=== PATIENT | male | born 1960 | race Caucasian/White ===

== ENCOUNTER 2018-11-19 13:38 | Inpatient (IN) | payer MEDICARE ==
[2018-11-19] MEDS ORDERED: VANCOMYCIN IV PER PHARMACY 1 EACH MISC MISCELLANE PRN (14:23)
[2018-11-19] MEDS ORDERED: PIPERACILLIN-TAZOBACTAM 3.375 GM in SODIUM CHLORIDE 0.9% 100 ML IVPB STA (14:23)
[2018-11-19] MEDS ORDERED: MORPHINE SULFATE 4 MG/ML SYRINGE IVP STA (14:24)
[2018-11-19] MEDS ORDERED: VANCOMYCIN 2,500 MG in SODIUM CHLORIDE 0.9% 500 ML 500 ML IVPB STA (14:27)
--- NOTE | 2018-11-19 14:32 | ED ---
Extremity Problem HPI - General Chief complaint: Extremity Problem,Nontraumatic Stated complaint: infection Time Seen by Provider: 11/19/18 13:57 Source: EMS, RN notes reviewed, old records reviewed Mode of arrival: EMS Limitations: physical limitation - History of Present Illness Initial comments: Patient is a 58-year-old male with a history of hypertension and questionable diabetes, who presents emergency department today with multiple complaints. His main complaint is a right foot infection. He states he has not seen a primary care doctor in over a year. He has not been off of his blood pressure medications. Patient reports he also had a previous wound over his right leg and foot. Patient states that he has not followed up with wound care in over 7 months. He presents today with worsening pain within the right lower extremity. Patient states that he has difficult time with ambulation around his house. - Related Data Home Medications Medication Instructions Recorded Confirmed Acetaminophen [Tylenol Arthritis] 1,300 mg PO DAILY PRN 11/19/18 11/19/18 Allergies Allergy/AdvReac Type Severity Reaction Status Date / Time No Known Allergies Allergy Verified 11/19/18 14:00 Review of Systems ROS Statement: Those systems with pertinent positive or pertinent negative responses have been documented in the HPI. ROS Other: All systems not noted in ROS Statement are negative. Past Medical History Past Medical History: Hyperlipidemia, Hypertension, Sleep Apnea/CPAP/BIPAP, Vascular Disorder Additional Past Medical History / Comment(s): CHF, chronic back pain, cellulitis , DVT, nerve pain Past Surgical History: Cholecystectomy, Hernia Repair, Tonsillectomy Past Psychological History: No Psychological Hx Reported Smoking Status: Current every day smoker Past Alcohol Use History: None Reported Past Drug Use History: Marijuana General Exam - General Exam Comments Initial Comments: Morbidly obese 58-year-old male. Patient is malodorous. Limitations: physical limitation General appearance: alert, in no apparent distress Head exam: Present: atraumatic, normocephalic, normal inspection Eye exam: Present: normal appearance, PERRL, EOMI. Absent: scleral icterus, conjunctival injection, periorbital swelling ENT exam: Present: normal exam, mucous membranes moist Neck exam: Present: normal inspection. Absent: tenderness, meningismus, lymphadenopathy Respiratory exam: Present: normal lung sounds bilaterally. Absent: respiratory distress, wheezes, rales, rhonchi, stridor Cardiovascular Exam: Present: regular rate GI/Abdominal exam: Present: soft, normal bowel sounds. Absent: distended, tenderness, guarding, rebound, rigid Extremities exam: Present: full ROM, normal capillary refill, other (Gangrenous necrotic right lower extremity from lower calf. ). Absent: normal inspection, tenderness, pedal edema, joint swelling, calf tenderness Back exam: Present: normal inspection Neurological exam: Present: alert, oriented X3, CN II-XII intact Psychiatric exam: Present: normal affect, normal mood Skin exam: Present: warm, dry, intact, normal color. Absent: rash Course Vital Signs 11/19/18 11/19/18 13:45 17:27 Temperature 97.5 F L Pulse Rate 95 110 H Respiratory 18 18 Rate Blood Pressure 163/85 181/108 O2 Sat by Pulse 95 97 Oximetry Medical Decision Making - Medical Decision Making 58-year-old male, noncompliant on blood pressure medications present today with worsening wound over the right lower extremity. He has been gangrenous infection within the lower calf and winn extending to the dorsum of the foot between the first second third toe. This is very malodorous. Patient's has been doing wound care for the past 7 months. He has not seen payment specialist or been on his hypertensive medicines for over a year. Patient was started on IV Zosyn and vancomycin. Wound culture obtained. I discussed with the Patient the very likely possibility of needing an amputation of the leg. Patient was informed this he became quite upset. Patient labwork was reviewed. Relatively unremarkable at this time. EKG reviewed as well. I discussed the case with the Marc Ramos who accepts the admission for [facility]. She requests consults to Dr. Arnett and Dr. Tyson. - Lab Data Result diagrams: 11/19/18 15:04 11/19/18 15:04 Lab Results 11/19/18 11/19/18 11/19/18 Range/Units 15:04 15:04 15:04 WBC 12.9 H (3.8-10.6) k/uL RBC 5.15 (4.30-5.90) m/uL Hgb 14.8 (13.0-17.5) gm/dL Hct 45.4 (39.0-53.0) % MCV 88.1 (80.0-100.0) fL MCH 28.7 (25.0-35.0) pg MCHC 32.5 (31.0-37.0) g/dL RDW 13.7 (11.5-15.5) % Plt Count 253 (150-450) k/uL Neutrophils % 76 % Lymphocytes % 11 % Monocytes % 6 % Eosinophils % 4 % Basophils % 0 % Neutrophils # 9.9 H (1.3-7.7) k/uL Lymphocytes # 1.4 (1.0-4.8) k/uL Monocytes # 0.8 (0-1.0) k/uL Eosinophils # 0.5 (0-0.7) k/uL Basophils # 0.0 (0-0.2) k/uL PT (9.0-12.0) sec INR (<1.2) APTT (22.0-30.0) sec Sodium 137 (137-145) mmol/L Potassium 4.3 (3.5-5.1) mmol/L Chloride 107 (98-107) mmol/L Carbon Dioxide 21 L (22-30) mmol/L Anion Gap 9 mmol/L BUN 12 (9-20) mg/dL Creatinine 0.76 (0.66-1.25) mg/dL Est GFR (CKD-EPI)AfAm >90 (>60 ml/min/1.73 sqM) Est GFR (CKD-EPI)NonAf >90 (>60 ml/min/1.73 sqM) Glucose 90 (74-99) mg/dL Plasma Lactic Acid Lloyd 1.3 (0.7-2.0) mmol/L Calcium 9.0 (8.4-10.2) mg/dL Total Bilirubin 0.7 (0.2-1.3) mg/dL AST 25 (17-59) U/L ALT 37 (21-72) U/L Alkaline Phosphatase 112 (38-126) U/L Troponin I (0.000-0.034) ng/mL Total Protein 7.4 (6.3-8.2) g/dL Albumin 3.7 (3.5-5.0) g/dL 11/19/18 11/19/18 Range/Units 15:04 15:04 WBC (3.8-10.6) k/uL RBC (4.30-5.90) m/uL Hgb (13.0-17.5) gm/dL Hct (39.0-53.0) % MCV (80.0-100.0) fL MCH (25.0-35.0) pg MCHC (31.0-37.0) g/dL RDW (11.5-15.5) % Plt Count (150-450) k/uL Neutrophils % % Lymphocytes % % Monocytes % % Eosinophils % % Basophils % % Neutrophils # (1.3-7.7) k/uL Lymphocytes # (1.0-4.8) k/uL Monocytes # (0-1.0) k/uL Eosinophils # (0-0.7) k/uL Basophils # (0-0.2) k/uL PT 10.7 (9.0-12.0) sec INR 1.0 (<1.2) APTT 28.3 (22.0-30.0) sec Sodium (137-145) mmol/L Potassium (3.5-5.1) mmol/L Chloride (98-107) mmol/L Carbon Dioxide (22-30) mmol/L Anion Gap mmol/L BUN (9-20) mg/dL Creatinine (0.66-1.25) mg/dL Est GFR (CKD-EPI)AfAm (>60 ml/min/1.73 sqM) Est GFR (CKD-EPI)NonAf (>60 ml/min/1.73 sqM) Glucose (74-99) mg/dL Plasma Lactic Acid Lloyd (0.7-2.0) mmol/L Calcium (8.4-10.2) mg/dL Total Bilirubin (0.2-1.3) mg/dL AST (17-59) U/L ALT (21-72) U/L Alkaline Phosphatase (38-126) U/L Troponin I <0.012 (0.000-0.034) ng/mL Total Protein (6.3-8.2) g/dL Albumin (3.5-5.0) g/dL 11/19/18 16:06 EKG shows a sinus rinse) arrange block. Abnormal EKG. Ventricular rate 91 bpm. Intervals 140 ms. QR estrogen 150 ms. QT QTc is 410/504 ms. - Radiology Data Radiology results: report reviewed X-ray of the tib-fib shows no acute process. Soft tissue swelling of the bilateral feet. Limited visualization skeletal forefoot. Chest x-rays negative for any acute process. Disposition Clinical Impression: Gangrene of right foot, Hypertension Disposition: ADMITTED IP TO THIS HOSP Condition: Stable Is patient prescribed a controlled substance at d/c from ED?: No Referrals: Nolberto Huertas MD [Primary Care Provider] - 1-2 days Time of Disposition: 17:47
[2018-11-19] MEDS: SODIUM CHLORIDE 0.9% 500 ML 500 ML IV SCH ×2 (15:02→15:03)
[2018-11-19] MEDS ORDERED: LORazepam 2 MG/ML INJ IV STA (15:06)
[2018-11-19 15:48] LABS: Basophils % (A) 0 %; Eosinophils # (A) 0.5 k/uL (0-0.7); Eosinophils % (A) 4 %; HCT 45.4 % (39.0-53.0); HGB 14.8 gm/dL (13.0-17.5); Lymphocytes # (A) 1.4 k/uL (1.0-4.8); Lymphocytes % (A) 11 %; MCH 28.7 pg (25.0-35.0); MCHC 32.5 g/dL (31.0-37.0); MCV 88.1 fL (80.0-100.0); Mean Platelet Volume 6.9; Monocytes # (A) 0.8 k/uL (0-1.0); Monocytes % (A) 6 %; Neutrophils # (A) 9.9 k/uL (1.3-7.7); Neutrophils % (A) 76 %; Platelet Count 253 k/uL (150-450); RBC 5.15 m/uL (4.30-5.90); RDW 13.7 % (11.5-15.5); WBC 12.9 k/uL (3.8-10.6)
[2018-11-19 15:59] LABS: ALT 37 U/L (21-72); AST 25 U/L (17-59); Albumin 3.7 g/dL (3.5-5.0); Alkaline Phosphatase 112 U/L (38-126); Anion Gap 9 mmol/L; Blood Urea Nitrogen 12 mg/dL (9-20); Carbon Dioxide 21 mmol/L (22-30); Chloride 107 mmol/L (98-107); Glucose 90 mg/dL (74-99); Potassium 4.3 mmol/L (3.5-5.1); Sodium 137 mmol/L (137-145); Total Bilirubin 0.7 mg/dL (0.2-1.3); Total Protein 7.4 g/dL (6.3-8.2)
[2018-11-19 16:02] LABS: Partial Thromboplastin Time 28.3 sec (22.0-30.0); Prothrombin Time 10.7 sec (9.0-12.0)
[2018-11-19] MEDS ORDERED: HYDROmorphone 1 MG/ML 1 ML SYRINGE IVP STA (16:04)
--- NOTE | 2018-11-19 17:13 | XR ---
EXAMINATION: XR chest 2V DATE AND TIME: 11/19/2018 4:49 PM CLINICAL INDICATION: PHH; Fever TECHNIQUE: PA and lateral COMPARISON: None FINDINGS: The overlying soft tissues are prominent, and the upper extremities are superimposed over the thoraci c anatomy on the lateral view. Given these limiting factors, the lungs appear to be clear. The pleural spaces are negative. The cardiac silhouette is mildly enlarged. The remainder of the mediastinal silhouette is unremarkabl e as seen. The skeletal structures and soft tissues are negative for acute findings. IMPRESSION: NO DEFINITE ACUTE PROCESS.
--- NOTE | 2018-11-19 17:15 | XR ---
PROCEDURE: XR tibia fibula RT - 4V DATE AND TIME: 11/19/2018 4:49 PM CLINICAL INDICATION: PHH; Pain TECHNIQUE: AP and crosstable lateral lateral imaging from the knee to the ankle COMPARISON: None FINDINGS: There is no fracture or malalignment. The soft tissues are unremarkable for definite acute findings. IMPRESSION: NO ACUTE PROCESS.
--- NOTE | 2018-11-19 17:19 | XR ---
PROCEDURE: XR foot limited bilateral - 4V DATE AND TIME: 11/19/2018 4:49 PM CLINICAL INDICATION: PHH; Pain TECHNIQUE: Department protocol COMPARISON: None FINDINGS: There is limited dorsiflexion of the DIP joints and dorsiflexion at most of the PIP joints, and this limits visualization of the anatomy. Diffuse soft tissue swelling throughout the foot noted. No definite soft tissue emphysema. No radiopa que foreign body. No definite acute fracture. No focal osteopenia to suggest radiographic evidence of osteomyelitis. IMPRESSION: Soft tissue swelling. Limited visualization skeletal of the forefoot.
[2018-11-19] MEDS ORDERED: IBUPROFEN 400 MG TAB PO PRN (17:47)
[2018-11-19] MEDS ORDERED: ONDANSETRON 4 MG/2 ML VIAL IVP PRN (17:47)
[2018-11-19] MEDS ORDERED: ACETAMINOPHEN TAB 325 MG TAB PO PRN (17:47)
[2018-11-19] MEDS ORDERED: NALOXONE 0.4 MG/ML 1 ML VIAL IV PRN (17:47)
[2018-11-19] MEDS ORDERED: LABETALOL 5 MG/ML VIAL MDV IVP STA (18:00)
[2018-11-19] MEDS: SODIUM CHLORIDE 0.9% 1,000 ML IV SCH (18:15)
[2018-11-19 19:49] LABS: Appearance,Urine Cloudy (Clear); Bacteria,Urine Many /hpf; Bilirubin,Urine Negative (Negative); Blood,Urine Moderate (Negative); Color,Urine Yellow; Glucose,Urine (UA) Negative (Negative); Ketones,Urine 1+ (Negative); Leukocyte Esterase,Urine Large (Negative); Mucus,Urine Many /hpf; Nitrite,Urine Positive (Negative); PH, Urine 5.5 (5.0-8.0); Protein,Urine 1+ (Negative); RBC,Urine 10 /hpf (0-5); Specific Gravity,Urine 1.021 (1.001-1.035); Urobilinogen,Urine <2.0 mg/dL (<2.0); WBC,Urine 37 /hpf (0-5)
[2018-11-19] MEDS: KETOROLAC 30 MG/ML 1 ML VIAL IVP PRN (22:05)
[2018-11-19] MEDS: METOPROLOL TARTRATE 25 MG TAB PO SCH (22:05)
[2018-11-20] MEDS: NICOTINE 21MG/24HR PATCH TRANSDERM SCH ×2 (00:48→09:35)
[2018-11-20] MEDS: HEPARIN SODIUM,PORCINE 5,000 UNIT/ML 1 ML VIAL SQ SCH ×3 (00:48→17:51)
[2018-11-20] MEDS: HYDROmorphone 1 MG/ML 1 ML SYRINGE IVP PRN ×4 (00:53→19:45)
[2018-11-20] MEDS: VANCOMYCIN 2,250 MG in SODIUM CHLORIDE 0.9% 500 ML 500 ML IVPB SCH ×2 (05:39→17:52)
[2018-11-20] MEDS: KETOROLAC 30 MG/ML 1 ML VIAL IVP PRN ×3 (05:40→22:50)
[2018-11-20] MEDS: METOPROLOL TARTRATE 25 MG TAB PO SCH ×2 (09:37→20:28)
--- NOTE | 2018-11-20 11:47 | P.GSCN ---
History of Present Illness Consult date: 11/20/18 Reason for Consult: Right foot pain and ulcerations History of present illness: It is a bit difficult to get a good history from this gentleman. He is complaining of severe pain in the right foot. He states that it has been this severe. About a month. He has failed to get treatment for about 5 months for the wounds on his right foot. It is bit difficult to tell by his history but it seems that his wounds on the right lower extremity have gone on for longer than 5 months. Review of Systems The patient is very difficult to get a history from. What I can discern is that he has been a victim of severe self-neglect. He continues to smoke but has failed to treat his own hypertension or seek medical attention 4 months. He has ignored the ulcerations in his right foot during this time. He was previously being treated at [facility]. ROS unobtainable: due to mental status Past Medical History Past Medical History: Hyperlipidemia, Hypertension, Sleep Apnea/CPAP/BIPAP, Vascular Disorder Additional Past Medical History / Comment(s): CHF, chronic back pain, cellulitis , DVT, nerve pain History of Any Multi-Drug Resistant Organisms: None Reported Past Surgical History: Cholecystectomy, Hernia Repair, Tonsillectomy Past Psychological History: No Psychological Hx Reported Smoking Status: Current every day smoker Past Alcohol Use History: None Reported Past Drug Use History: Marijuana Medications and Allergies Home Medications Medication Instructions Recorded Confirmed Type Acetaminophen [Tylenol Arthritis] 1,300 mg PO DAILY PRN 11/19/18 11/19/18 History Allergies Allergy/AdvReac Type Severity Reaction Status Date / Time No Known Allergies Allergy Verified 11/19/18 14:00 Surgical - Exam Osteopathic Statement: *. No significant issues noted on an osteopathic structural exam other than those noted in the History and Physical/Consult. Vital Signs Temp Pulse Resp BP Pulse Ox 97.5 F L 95 18 163/85 95 11/19/18 13:45 11/19/18 13:45 11/19/18 13:45 11/19/18 13:45 11/19/18 13:45 - General The patient is complaining of severe pain in the right foot. He states that this is been going on for a month. He is only now sought treatment. severe distress, obese - Eyes normal ocular movement, no icteric - ENT no hearing loss, no congestion - Neck no masses, trachea midline - Respiratory normal respiratory effort, clear to auscultation - Cardiovascular Rhythm: regular - Integumentary The patient has L-like skin in both lower legs secondary to chronic lymphedema secondary to morbid obesity. He has large ulcerations at the distal right forefoot and scattered smaller ulcerations on the rest of the foot. - Musculoskeletal Patient is in bed and is hospitalized due to lack of ability to walk due to the pain in his right foot He has normal femoral pulses and although a bit difficult to palpate I do think I'm feeling a pulse in the popliteal on the right. - Psychiatric Patient is complaining of pain and is difficult to talk to. Results - Labs 11/19/18 15:04 11/19/18 15:04 Abnormal Lab Results - Last 24 Hours (Table) 11/19/18 11/19/18 11/19/18 Range/Units 15:04 15:04 19:34 WBC 12.9 H (3.8-10.6) k/uL Neutrophils # 9.9 H (1.3-7.7) k/uL Carbon Dioxide 21 L (22-30) mmol/L Urine Protein 1+ H (Negative) Urine Ketones 1+ H (Negative) Urine Blood Moderate H (Negative) Ur Leukocyte Esterase Large H (Negative) Urine RBC 10 H (0-5) /hpf Urine WBC 37 H (0-5) /hpf Urine Bacteria Many H (None) /hpf Urine Mucus Many H (None) /hpf Microbiology - Last 24 Hours (Table) 11/19/18 15:41 Gram Stain - Preliminary Foot - Right Wound Culture - Preliminary 11/19/18 19:34 Urine Culture - Preliminary Urine,Clean Catch Diabetes panel 11/19/18 Range/Units 15:04 Sodium 137 (137-145) mmol/L Potassium 4.3 (3.5-5.1) mmol/L Chloride 107 (98-107) mmol/L Carbon Dioxide 21 L (22-30) mmol/L BUN 12 (9-20) mg/dL Creatinine 0.76 (0.66-1.25) mg/dL Glucose 90 (74-99) mg/dL Calcium 9.0 (8.4-10.2) mg/dL AST 25 (17-59) U/L ALT 37 (21-72) U/L Alkaline Phosphatase 112 (38-126) U/L Total Protein 7.4 (6.3-8.2) g/dL Albumin 3.7 (3.5-5.0) g/dL Calcium panel 11/19/18 Range/Units 15:04 Calcium 9.0 (8.4-10.2) mg/dL Albumin 3.7 (3.5-5.0) g/dL Pituitary panel 11/19/18 Range/Units 15:04 Sodium 137 (137-145) mmol/L Potassium 4.3 (3.5-5.1) mmol/L Chloride 107 (98-107) mmol/L Carbon Dioxide 21 L (22-30) mmol/L BUN 12 (9-20) mg/dL Creatinine 0.76 (0.66-1.25) mg/dL Glucose 90 (74-99) mg/dL Calcium 9.0 (8.4-10.2) mg/dL Adrenal panel 11/19/18 Range/Units 15:04 Sodium 137 (137-145) mmol/L Potassium 4.3 (3.5-5.1) mmol/L Chloride 107 (98-107) mmol/L Carbon Dioxide 21 L (22-30) mmol/L BUN 12 (9-20) mg/dL Creatinine 0.76 (0.66-1.25) mg/dL Glucose 90 (74-99) mg/dL Calcium 9.0 (8.4-10.2) mg/dL Total Bilirubin 0.7 (0.2-1.3) mg/dL AST 25 (17-59) U/L ALT 37 (21-72) U/L Alkaline Phosphatase 112 (38-126) U/L Total Protein 7.4 (6.3-8.2) g/dL Albumin 3.7 (3.5-5.0) g/dL Assessment and Plan (1) Ulcer of right foot with fat layer exposed Current Visit: Yes Status: Acute Code(s): L97.512 - NON-PRS CHRONIC ULCER OTH PRT RIGHT FOOT W FAT LAYER EXPOSED SNOMED Code(s): 96524435 Plan: I do not feel that an urgent amputation is in order at this time. I have ordered a lower extremity arterial Doppler to get a gross assessment of his circulatory status. Once we are certain of his hydration status I would recommend consideration of a CT angiogram of the aorta and with runoff. For now I would use standard wound care and we will continue to assess things as his condition seems to improve. Amputation may at some time be necessary, but his problem may be amenable to a much more consistent and aggressive wound therapy.
[2018-11-20] MEDS: SODIUM CHLORIDE 0.9% 1,000 ML IV SCH (18:37)
--- NOTE | 2018-11-20 19:38 | P.HPIM ---
History of Present Illness H&P Date: 11/20/18 Chief Complaint: Right foot pain Patient is a 58-year-old male with a known history of hypertension, hyperlipidemia, obstructive sleep apnea on CPAP, chronic back pain and chronic bilateral lower extremity swelling or has been having right foot ulceration and gangrenous changes of the second toe which has been present for the past 3 months and is getting worse. Patient came to the hospital with complaints of right foot infection. Patient does not have a primary care physician and has not seen a physician for over one year. Patient is not taking any medications at home. He does have history of food impaction previously. Patient states that he has not followed up with wound care in over 7 months. He presents with worsening pain within the right lower extremity. Patient states that he has difficult time with ambulation around his house. Denied any fever or chills. No nausea, vomiting or abdominal pain. CXR showed no acute process. Rt foot Xray: soft tissue swelling and limited visualization of skeletal of the forefoot. EKG. NSR. Xray tibia/fibula: No acute process. Patient is a poor historian Review of Systems Constitutional: Patient denies any fever or chills . No generalized weakness or weight loss. Abdomen: Patient denied nausea vomiting and diarrhea and abdominal pain. Cardiovascular: Patient denies any chest pain or short of breath no palpitations. Respiratory: patient denied any cough is from production. No shortness of breath Neurologic: Patient denied any numbness or tingling headache. Musculoskeletal: Patient denies any complaints of joint swelling or deformity. Right foot pain. Skin: Negative Psychiatric: Negative Endocrine: No heat or cold intolerance. No recent weight gain. Genitourinary: No dysuria or hematuria. All other 14 point ROS negative except the above Past Medical History Past Medical History: Hyperlipidemia, Hypertension, Sleep Apnea/CPAP/BIPAP, Vascular Disorder Additional Past Medical History / Comment(s): CHF, chronic back pain, cellulitis , DVT, nerve pain History of Any Multi-Drug Resistant Organisms: None Reported Past Surgical History: Cholecystectomy, Hernia Repair, Tonsillectomy Past Psychological History: No Psychological Hx Reported Smoking Status: Current every day smoker Past Alcohol Use History: None Reported Past Drug Use History: Marijuana Medications and Allergies Home Medications Medication Instructions Recorded Confirmed Type Acetaminophen [Tylenol Arthritis] 1,300 mg PO DAILY PRN 11/19/18 11/19/18 History Allergies Allergy/AdvReac Type Severity Reaction Status Date / Time No Known Allergies Allergy Verified 11/19/18 14:00 Physical Exam Vitals: Vital Signs Temp Pulse Pulse Resp BP BP Pulse Ox 11/20/18 10:29 94 19 11/20/18 08:28 97.5 F L 94 19 121/80 11/20/18 07:13 97.7 F 90 18 159/87 95 11/19/18 22:40 98.9 F 101 H 18 134/84 95 11/19/18 20:14 109 H 18 175/94 96 11/19/18 19:32 108 H 18 174/93 95 11/19/18 18:40 156/89 11/19/18 18:16 109 H 18 185/90 96 11/19/18 17:27 110 H 18 181/108 97 11/19/18 13:45 97.5 F L 95 18 163/85 95 Intake and Output 11/19/18 11/20/18 11/20/18 22:59 06:59 14:59 Output Total 400 Balance -400 Output: Urine 400 Other: # Voids 2 PHYSICAL EXAMINATION: Patient is lying in the bed comfortably, no acute distress, awake alert and oriented. Mildly obese. HEENT: Normocephalic. Neck is supple. Pupils reactive. Nostrils clear. Oral cavity is moist. Ears reveal no drainage. Neck reveals no JVD, carotid bruits, or thyromegaly. CHEST EXAMINATION: Trachea is central. Symmetrical expansion. Bibasilar diminished air entry Lung liang clear to auscultation and percussion. CARDIAC: Normal S1, S2 with no gallops. No murmurs ABDOMEN: Soft. Bowel sounds normal. No organomegaly. No abdominal bruits. Extremities: 2+ nonpitting edema. Right foot dorsal ulcer extending all the way to second toe and gangrenous changes to second 2 Neurologically awake, alert, oriented x3 with well-coordinated movements. No focal deficits noted Skin: Patient does have bilateral scaling and dry skin changes. Psychiatric: Coperative. Nonsuicidal. Could not be assessed completely. Musculoskeletal: No joint swelling or deformity. Normal range of motion. Results CBC & Chem 7: 11/19/18 15:04 11/19/18 15:04 Labs: Abnormal Lab Results - Last 24 Hours (Table) 11/19/18 11/19/18 11/19/18 Range/Units 15:04 15:04 19:34 WBC 12.9 H (3.8-10.6) k/uL Neutrophils # 9.9 H (1.3-7.7) k/uL Carbon Dioxide 21 L (22-30) mmol/L Urine Protein 1+ H (Negative) Urine Ketones 1+ H (Negative) Urine Blood Moderate H (Negative) Ur Leukocyte Esterase Large H (Negative) Urine RBC 10 H (0-5) /hpf Urine WBC 37 H (0-5) /hpf Urine Bacteria Many H (None) /hpf Urine Mucus Many H (None) /hpf Microbiology - Last 24 Hours (Table) 11/19/18 15:41 Gram Stain - Preliminary Foot - Right Wound Culture - Preliminary 11/19/18 19:34 Urine Culture - Preliminary Urine,Clean Catch Thrombosis Risk Factor Assmnt - DVT/VTE Prophylaxis DVT/VTE Prophylaxis: Pharmacologic Prophylaxis ordered - Choose All That Apply Each Factor Represents 1 point: Age 41-60 years, Obesity (BMI >25) Other Risk Factors: No Thrombosis Risk Factor Assessment Total Risk Factor Score: 2 Thrombosis Risk Factor Assessment Level: Low Risk Assessment and Plan Assessment: Right foot wound infection with gangrenous changes to the 2nd toe. Sepsis secondary to above. Acute urinary tract infection Hypertension uncontrolled Morbid obesity with BMI 50.2 Chronic lower extremity swelling and scaling with dry skin Peripheral vascular disease. Hyperlipidemia Obstructive sleep apnea not using CPAP at home Current every day smoker History of marijuana use DVT prophylaxis Plan: Patient will be continued on antibiotics in the form of vancomycin and Zosyn. Follow up wound culture report. Vascular surgery and ID will be consulted. Continue with current pain management and DVT prophylaxis. Further admissions based on the clinical course. prognosis is guarded. Time with Patient: Greater than 30
[2018-11-20] MEDS: PIPERACILLIN-TAZOBACTAM 3.375 GM in SODIUM CHLORIDE 0.9% 100 ML IVPB SCH (22:01)
[2018-11-21] MEDS: HEPARIN SODIUM,PORCINE 5,000 UNIT/ML 1 ML VIAL SQ SCH ×4 (01:21→23:28)
[2018-11-21] MEDS: HYDROmorphone 1 MG/ML 1 ML SYRINGE IVP PRN ×4 (01:25→12:05)
[2018-11-21] MEDS: PIPERACILLIN-TAZOBACTAM 3.375 GM in SODIUM CHLORIDE 0.9% 100 ML IVPB SCH ×3 (04:44→22:10)
[2018-11-21] MEDS: VANCOMYCIN 2,250 MG in SODIUM CHLORIDE 0.9% 500 ML 500 ML IVPB SCH ×2 (06:44→22:09)
--- NOTE | 2018-11-21 07:32 | CONS ---
CONSULTATION DATE OF SERVICE: 11/20/2018. REASON FOR CONSULTATION: Right foot wound and cellulitis. HISTORY OF PRESENT ILLNESS: The patient is a 58-year-old male presenting to the ER at [facility] with right foot ulceration and pain that apparently has been ongoing for a couple of months now. The patient denies any history of any trauma. He did have significant swelling of the leg, blister formation that has ruptured. ulceration mostly on the dorsum of the right foot, and significant changes to the right second toe and right lower leg. The patient has been complaining of excruciating pain to these wound areas almost 10/10, and worse with touching of the wound. No radiation. This wound pain is also associated with significant swelling as well as foul-smelling drainage. The patient did have some chills but denies any high-grade fever. With these symptoms, the patient was evaluated by the ER physician. On arrival to the ER, the patient has been afebrile. The patient did have elevated white count of 12.9. His kidney function normalized to 0.76. UA has been positive. He did have blood and wound cultures obtained from the leg wound. He did have x-rays of the tibia- fibula and the foot which shows some soft tissue swelling but no bony changes. The patient was started on broad-spectrum antibiotics in the form of vancomycin and Zosyn. Infectious Disease was consulted for local wound care as well as antibiotic recommendation. REVIEW OF SYSTEMS: Positive points have been mentioned in HPI. The rest of the system has been negative. PAST MEDICAL HISTORY: Hypertension, hyperlipidemia. Sleep apnea, history of DVT, chronic back pain, congestive heart failure. PAST SURGICAL HISTORY: Cholecystectomy, hernia repair and tonsillectomy. SOCIAL HISTORY: Patient current everyday smoker and admitted to marijuana use but no drinking. FAMILY HISTORY: No pertinent findings noticed. ALLERGIES: No known drug allergies. MEDICATIONS: The patient is currently on Tylenol, heparin, Dilaudid, Toradol, Lopressor Narcan, nicotine patch, Zofran and Zosyn and vancomycin 2250 mg q.12 hours. EXAMINATION: Blood pressure is 129/83, pulse of 78, temperature 97.3. He is 95% on room air. General description is a middle-aged male who looks older than his age, lying in bed in no distress. No tachypnea or accessory muscles of respiration use. HEENT: Shows no pallor or scleral icterus. Oral mucosal membranes are dry. No pharyngeal erythema or thrush. Neck: Trachea central. No thyromegaly. Lungs: Unlabored breathing. Clear to auscultation anteriorly. No wheeze or crackles. Heart S1-S2 regular rate and rhythm. ABDOMEN: Soft. No tenderness. Right leg with some venous stasis changes. Did have some superficial ulceration on the right anterior leg with no slough tissue. On the right foot, the patient did have significant soft tissue significant maceration with Nhi changes right second toe and foul smelling drainage. Neurological: Patient is awake, alert, oriented x3. Mood and affect normal. LABS: Hemoglobin is 14.8, white count 12.9, BUN of 12, creatinine 0.76. UA has been positive. X-ray report as mentioned earlier. DIAGNOSTIC IMPRESSION AND PLAN: Patient admitted to the hospital with extensive right foot wound with secondary cellulitis. This patient did have venous changes to his right second toe with most likely venous stasis ulcer with secondary cellulitis and will need to cover for the gram-positive skin fred as well gram negative infection. PLAN: 1. Wound culture has been obtained. Will follow as well as blood culture. 2. Local wound care to the right leg wound with Aquacel silver or Medihoney to the right foot wound with slough tissue. 3. Vancomycin, pharmacy to dose, target of 15 while watching his kidney function closely as well as Zosyn that should provide adequate coverage for his antibiotic therapy. 4. We will follow up on his clinical condition to further adjust medication if needed. Thank you for this consultation. We will follow this patient along with you. MMODL / IJN: [id number] /
[2018-11-21] MEDS: METOPROLOL TARTRATE 25 MG TAB PO SCH ×2 (08:12→22:09)
[2018-11-21] MEDS: NICOTINE 21MG/24HR PATCH TRANSDERM SCH (08:12)
[2018-11-21] MEDS: SODIUM CHLORIDE 0.9% 1,000 ML IV SCH (22:10)
[2018-11-22] MEDS: LISINOPRIL 10 MG TAB PO SCH ×2 (00:24→07:38)
[2018-11-22] MEDS: HYDROmorphone 1 MG/ML 1 ML SYRINGE IVP PRN ×6 (00:31→20:30)
[2018-11-22 03:07] LABS: Basophils # (A) 0.1 k/uL (0-0.2); Basophils % (A) 1 %; Eosinophils # (A) 0.4 k/uL (0-0.7); Eosinophils % (A) 7 %; HCT 44.9 % (39.0-53.0); HGB 14.4 gm/dL (13.0-17.5); Lymphocytes # (A) 1.7 k/uL (1.0-4.8); Lymphocytes % (A) 27 %; MCH 28.3 pg (25.0-35.0); MCV 88.5 fL (80.0-100.0); Mean Platelet Volume 7.1; Monocytes # (A) 0.5 k/uL (0-1.0); Monocytes % (A) 8 %; Neutrophils # (A) 3.5 k/uL (1.3-7.7); Neutrophils % (A) 55 %; Platelet Count 278 k/uL (150-450); RBC 5.08 m/uL (4.30-5.90); RDW 13.6 % (11.5-15.5); WBC 6.4 k/uL (3.8-10.6)
[2018-11-22] MEDS: PIPERACILLIN-TAZOBACTAM 3.375 GM in SODIUM CHLORIDE 0.9% 100 ML IVPB SCH ×3 (04:04→20:30)
[2018-11-22] MEDS: VANCOMYCIN 2,250 MG in SODIUM CHLORIDE 0.9% 500 ML 500 ML IVPB SCH ×2 (07:38→17:05)
[2018-11-22] MEDS: NICOTINE 21MG/24HR PATCH TRANSDERM SCH (07:38)
[2018-11-22] MEDS: METOPROLOL TARTRATE 25 MG TAB PO SCH ×2 (07:38→20:30)
[2018-11-22] MEDS: HEPARIN SODIUM,PORCINE 5,000 UNIT/ML 1 ML VIAL SQ SCH ×2 (07:39→15:10)
--- NOTE | 2018-11-22 07:52 | PN ---
PROGRESS NOTE DATE OF SERVICE: 11/21/2018. REASON FOR FOLLOWUP: Right foot and leg wound. INTERVAL HISTORY: The patient is afebrile. He is still complaining of significant pain to his left foot wound area. The patient denies having any chest pain, shortness of breath, cough. No abdominal pain. No diarrhea. PHYSICAL EXAMINATION: Blood pressure 136/95 with a pulse of 81, temperature 97.3. He is 97% on room air. General description is a middle-aged male lying in bed in no distress. Respiratory system: Unlabored breathing. Clear to auscultation anteriorly. Heart S1, S2. Regular rate and rhythm. Right foot dorsal wounds still have some slough tissue. Leg wound with no slough tissue though. Some surrounding swelling and foul smelling drainage. LABS: No new labs have been obtained today. Cultures currently pending. DIAGNOSTIC IMPRESSION AND PLAN: Patient with right foot and leg wound with possible gangrene of right second toe. The patient at this time continue with the Zosyn and vancomycin while waiting for the culture to finalize. Continue supportive care. MMODL / IJN: [id number] /
[2018-11-22 11:32] LABS: Anion Gap 8 mmol/L; Blood Urea Nitrogen 8 mg/dL (9-20); Calcium 8.3 mg/dL (8.4-10.2); Carbon Dioxide 22 mmol/L (22-30); Chloride 106 mmol/L (98-107); Glucose 80 mg/dL (74-99); Sodium 136 mmol/L (137-145)
--- NOTE | 2018-11-22 12:22 | P.PN ---
Subjective Progress Note Date: 11/22/18 Principal diagnosis: Cellulitis with ulcerations right foot and leg Patient is much more stable at this time. He still has a lot of pain with dressing changes. Objective - Vital Signs Vital signs: Vital Signs Temp 97.4 F L 11/22/18 06:15 Pulse 80 11/22/18 06:15 Resp 20 11/22/18 06:15 BP 178/93 11/22/18 06:15 Pulse Ox 97 11/22/18 06:15 Intake & Output 11/21/18 11/22/18 11/22/18 18:59 06:59 18:59 Intake Total 850 Output Total 400 600 Balance -400 850 -600 Weight 142 kg Intake: Oral 850 Output: Urine 400 600 Other: Voiding Method Urinal Urinal Urinal # Voids 3 - Exam He is afebrile. His white count is normalized. The ulcers on his right foot and lower leg are improving. They're cleaning up well. There is less swelling in the foot and leg. - Labs CBC & Chem 7: 11/21/18 11:55 11/21/18 11:55 Labs: Abnormal Lab Results - Last 24 Hours (Table) 11/21/18 Range/Units 11:55 Sodium 136 L (137-145) mmol/L BUN 8 L (9-20) mg/dL Calcium 8.3 L (8.4-10.2) mg/dL Microbiology - Last 24 Hours (Table) 11/19/18 15:41 Gram Stain - Final Foot - Right Wound Culture - Final 11/19/18 15:04 Blood Culture - Preliminary Blood No Growth after 48 hours Assessment and Plan (1) Ulcer of right foot with fat layer exposed Current Visit: Yes Status: Acute Code(s): L97.512 - NON-PRS CHRONIC ULCER OTH PRT RIGHT FOOT W FAT LAYER EXPOSED SNOMED Code(s): 41636631 Plan: There is been significant improvement in the general condition of the patient, as well as the general look of the foot and the ulcerations. Vascular studies look essentially normal in regards to the major vessels. There is no gangrene is originally stated, as far as I can see. Recommend continuing with local wound care with Holger wrap and leg elevation. We will need to make some sort of arrangements in regards to discharge. The patient will not likely be able to weight-bear on the right foot. This is complicated by his severe obesity. He was in a condition of significant self- neglect prior to his admission. My current recommendation would likely be to discharge to some form of ECF.
[2018-11-22] MEDS: SODIUM CHLORIDE 0.9% 1,000 ML IV SCH (15:10)
--- NOTE | 2018-11-22 23:46 | PN ---
PROGRESS NOTE DATE OF SERVICE: 11/22/2018 REASON FOR FOLLOWUP: Right foot infected wound with possible gangrene in the second toe. INTERVAL HISTORY: The patient is afebrile. He is currently breathing comfortably. Patient denies having any chest pain, cough, abdominal pain, or worsening pain to the right foot. PHYSICAL EXAMINATION: Blood pressure is 183/94 with pulse of 81, temperature 97.2. He is 96% on 2 L nasal cannula. General description is a middle-aged male lying in bed in no distress. Respiratory system: Unlabored breathing. Clear to auscultation anteriorly. Heart S1, S2. Regular rate. Abdomen soft, no tenderness. The right foot is currently dressed up. No obvious drainage on the dressing. LABS: The wound cultures currently pending. Creatinine 0.75. Blood culture has been negative. DIAGNOSTIC IMPRESSION AND PLAN: Patient with right foot and leg wound with right second toe gangrene. Current local wound care to continue as ordered. He is currently on Zosyn and vanco to continue that could be narrowed down if the culture remains negative for resistant pathogen. Continue supportive care. MMODL / IJN: [id number] /
[2018-11-23] MEDS: HEPARIN SODIUM,PORCINE 5,000 UNIT/ML 1 ML VIAL SQ SCH ×4 (00:41→23:51)
[2018-11-23] MEDS: HYDROmorphone 1 MG/ML 1 ML SYRINGE IVP PRN ×3 (00:41→08:34)
--- NOTE | 2018-11-23 02:05 | P.PN ---
Subjective Progress Note Date: 11/21/18 Principal diagnosis: Right foot dorsal ulcer and cellulitis Patient is a 58-year-old male with a known history of hypertension, hyperlipidemia, obstructive sleep apnea on CPAP, chronic back pain and chronic bilateral lower extremity swelling or has been having right foot ulceration and gangrenous changes of the second toe which has been present for the past 3 months and is getting worse. Patient came to the hospital with complaints of right foot infection. Patient does not have a primary care physician and has not seen a physician for over one year. Patient is not taking any medications at home. He does have history of food impaction previously. Patient states that he has not followed up with wound care in over 7 months. He presents with worsening pain within the right lower extremity. Patient states that he has difficult time with ambulation around his house. Denied any fever or chills. No nausea, vomiting or abdominal pain. CXR showed no acute process. Rt foot Xray: soft tissue swelling and limited visualization of skeletal of the forefoot. EKG. NSR. Xray tibia/fibula: No acute process. Patient is a poor historian 11/21/2097 Patient is still having right foot pain. Dressing changes and wound care is being continued. Patient is being continued on broad-spectrum antibiotics. Arterial vascular studies were ordered. Wound culture showed multiple organisms. Vascular surgery and ID is following. No surgical intervention recommended at this time. No fever no chills. No nausea vomiting or abdominal pain. No other acute overnight issues. Current medications reviewed. Objective - Vital Signs Vital signs: Vital Signs Temp 97.4 F L 11/22/18 06:15 Pulse 80 11/22/18 06:15 Resp 20 11/22/18 06:15 BP 178/93 11/22/18 06:15 Pulse Ox 97 11/22/18 06:15 Intake & Output 11/21/18 11/22/18 11/22/18 18:59 06:59 18:59 Intake Total 850 Output Total 400 600 Balance -400 850 -600 Weight 142 kg Intake: Oral 850 Output: Urine 400 600 Other: Voiding Method Urinal Urinal Urinal # Voids 3 - Exam PHYSICAL EXAMINATION: Patient is lying in the bed comfortably, no acute distress, awake alert and oriented. Morbidly obese. HEENT: Normocephalic. Neck is supple. Pupils reactive. Nostrils clear. Oral cavity is moist. Ears reveal no drainage. Neck reveals no JVD, carotid bruits, or thyromegaly. CHEST EXAMINATION: Trachea is central. Symmetrical expansion. Bibasilar diminished air entry Lung liang clear to auscultation and percussion. CARDIAC: Normal S1, S2 with no gallops. No murmurs ABDOMEN: Soft. Bowel sounds normal. No organomegaly. No abdominal bruits. Extremities: 1+ edema. Right foot dorsal ulcer extending all the way to second toe. No gangrenous changes as compared to initial evaluation. Neurologically awake, alert, oriented x3 with well-coordinated movements. No focal deficits noted Skin: Patient does have bilateral scaling and dry skin changes. Psychiatric: Coperative. Nonsuicidal. Could not be assessed completely. Musculoskeletal: No joint swelling or deformity. Normal range of motion. - Labs CBC & Chem 7: 11/21/18 11:55 11/22/18 16:42 Labs: Abnormal Lab Results - Last 24 Hours (Table) 11/21/18 Range/Units 11:55 Sodium 136 L (137-145) mmol/L BUN 8 L (9-20) mg/dL Calcium 8.3 L (8.4-10.2) mg/dL Microbiology - Last 24 Hours (Table) 11/19/18 15:41 Gram Stain - Final Foot - Right Wound Culture - Final 11/19/18 15:04 Blood Culture - Preliminary Blood No Growth after 48 hours Assessment and Plan Assessment: Right foot dorsal ulcer and cellulitis. wound infection. No gangrenous changes as previously thought.. Sepsis secondary to above. Acute urinary tract infection. Urine cultures show no growth. Hypertension uncontrolled Morbid obesity with BMI 50.2 Chronic lower extremity swelling and scaling with dry skin Peripheral vascular disease. Hyperlipidemia Obstructive sleep apnea not using CPAP at home Current every day smoker History of marijuana use DVT prophylaxis Plan: Patient will be continued on antibiotics in the form of vancomycin and Zosyn. Follow up wound culture report. Vascular surgery and ID is following further recommendations based on the final wound cultures.. Continue with current pain management and DVT prophylaxis. Further admissions based on the clinical course. prognosis is guarded. Patient need to be transferred to [facility]. Time with Patient: Greater than 30
--- NOTE | 2018-11-23 02:06 | P.PN ---
Subjective Progress Note Date: 11/22/18 Principal diagnosis: Right foot dorsal ulcer and cellulitis Patient is a 58-year-old male with a known history of hypertension, hyperlipidemia, obstructive sleep apnea on CPAP, chronic back pain and chronic bilateral lower extremity swelling or has been having right foot ulceration and gangrenous changes of the second toe which has been present for the past 3 months and is getting worse. Patient came to the hospital with complaints of right foot infection. Patient does not have a primary care physician and has not seen a physician for over one year. Patient is not taking any medications at home. He does have history of food impaction previously. Patient states that he has not followed up with wound care in over 7 months. He presents with worsening pain within the right lower extremity. Patient states that he has difficult time with ambulation around his house. Denied any fever or chills. No nausea, vomiting or abdominal pain. CXR showed no acute process. Rt foot Xray: soft tissue swelling and limited visualization of skeletal of the forefoot. EKG. NSR. Xray tibia/fibula: No acute process. Patient is a poor historian 11/21/2097 Patient is still having right foot pain. Dressing changes and wound care is being continued. Patient is being continued on broad-spectrum antibiotics. Arterial vascular studies were ordered. Wound culture showed multiple organisms. Vascular surgery and ID is following. No surgical intervention recommended at this time. No fever no chills. No nausea vomiting or abdominal pain. No other acute overnight issues. 11/22/2018 Right foot ulcer is healing well properly. No foul-smelling discharge. Vascular studies are negative. Continued on wound care and IV antibiotics and awaiting final wound cultures. ID and vascular surgery is following. No other acute overnight issues. Urine culture showed no growth. Current medications reviewed. Objective - Vital Signs Vital signs: Vital Signs Temp 97.9 F 11/22/18 22:43 Pulse 74 11/22/18 22:43 Resp 20 11/22/18 22:43 BP 145/80 11/22/18 22:43 Pulse Ox 96 11/22/18 22:43 Intake & Output 11/22/18 11/22/18 11/23/18 06:59 18:59 06:59 Intake Total 850 Output Total 600 Balance 850 -600 Weight 142 kg Intake: Oral 850 Output: Urine 600 Other: Voiding Method Urinal Urinal # Voids 3 - Exam PHYSICAL EXAMINATION: Patient is lying in the bed comfortably, no acute distress, awake alert and oriented. Morbidly obese. HEENT: Normocephalic. Neck is supple. Pupils reactive. Nostrils clear. Oral cavity is moist. Ears reveal no drainage. Neck reveals no JVD, carotid bruits, or thyromegaly. CHEST EXAMINATION: Trachea is central. Symmetrical expansion. Bibasilar diminished air entry Lung liang clear to auscultation and percussion. CARDIAC: Normal S1, S2 with no gallops. No murmurs ABDOMEN: Soft. Bowel sounds normal. No organomegaly. No abdominal bruits. Extremities: 1+ edema. Right foot dorsal ulcer extending all the way to second toe. No gangrenous changes as compared to initial evaluation. Neurologically awake, alert, oriented x3 with well-coordinated movements. No focal deficits noted Skin: Patient does have bilateral scaling and dry skin changes. Psychiatric: Coperative. Nonsuicidal. Could not be assessed completely. Musculoskeletal: No joint swelling or deformity. Normal range of motion. - Labs CBC & Chem 7: 11/21/18 11:55 11/22/18 16:42 Labs: Abnormal Lab Results - Last 24 Hours (Table) 11/21/18 Range/Units 11:55 Sodium 136 L (137-145) mmol/L BUN 8 L (9-20) mg/dL Calcium 8.3 L (8.4-10.2) mg/dL Microbiology - Last 24 Hours (Table) 11/19/18 15:04 Blood Culture - Preliminary Blood No Growth after 72 hours 11/19/18 15:41 Gram Stain - Final Foot - Right Wound Culture - Final Assessment and Plan Assessment: Right foot dorsal ulcer and cellulitis. wound infection. No gangrenous changes as previously thought.. Sepsis secondary to above. Acute urinary tract infection. Urine cultures show no growth. Hypertension uncontrolled Morbid obesity with BMI 50.2 Chronic lower extremity swelling and scaling with dry skin Peripheral vascular disease. Hyperlipidemia Obstructive sleep apnea not using CPAP at home Current every day smoker History of marijuana use DVT prophylaxis Plan: Patient will be continued on antibiotics in the form of vancomycin and Zosyn. Follow up wound culture report. Vascular surgery and ID is following further recommendations based on the final wound cultures.. Continue with current pain management and DVT prophylaxis. Further admissions based on the clinical course. prognosis is guarded. Patient need to be transferred to ECF. Time with Patient: Greater than 30
[2018-11-23] MEDS: PIPERACILLIN-TAZOBACTAM 3.375 GM in SODIUM CHLORIDE 0.9% 100 ML IVPB SCH ×2 (04:32→13:13)
[2018-11-23] MEDS: VANCOMYCIN 2,250 MG in SODIUM CHLORIDE 0.9% 500 ML 500 ML IVPB SCH ×3 (08:30→19:03)
[2018-11-23] MEDS: METOPROLOL TARTRATE 25 MG TAB PO SCH ×2 (08:31→20:47)
[2018-11-23] MEDS: NICOTINE 21MG/24HR PATCH TRANSDERM SCH (08:31)
[2018-11-23] MEDS: LISINOPRIL 10 MG TAB PO SCH (08:31)
--- NOTE | 2018-11-23 11:40 | P.PN ---
Subjective 11/23/2018 is the first day I take care of the patient. Hospital course, from the records Patient is a 58-year-old male with a known history of hypertension, hyperlipidemia, obstructive sleep apnea on CPAP, chronic back pain and chronic bilateral lower extremity swelling or has been having right foot ulceration and gangrenous changes of the second toe which has been present for the past 3 months and is getting worse. Patient came to the hospital with complaints of right foot infection. Patient does not have a primary care physician and has not seen a physician for over one year. Patient is not taking any medications at home. He does have history of food impaction previously. Patient states that he has not followed up with wound care in over 7 months. He presents with worsening pain within the right lower extremity. Patient states that he has difficult time with ambulation around his house. Denied any fever or chills. No nausea, vomiting or abdominal pain. CXR showed no acute process. Rt foot Xray: soft tissue swelling and limited visualization of skeletal of the forefoot. EKG. NSR. Xray tibia/fibula: No acute process. Patient is a poor historian 11/21/2097 Patient is still having right foot pain. Dressing changes and wound care is being continued. Patient is being continued on broad-spectrum antibiotics. Arterial vascular studies were ordered. Wound culture showed multiple organisms. Vascular surgery and ID is following. No surgical intervention recommended at this time. No fever no chills. No nausea vomiting or abdominal pain. No other acute overnight issues. 11/22/2018 Right foot ulcer is healing well properly. No foul-smelling discharge. Vascular studies are negative. Continued on wound care and IV antibiotics and awaiting final wound cultures. ID and vascular surgery is following. No other acute overnight issues. Urine culture showed no growth. Subjective 11/23/2018 patient is seen and examined by me at bedside. He denies chest pain or dyspnea. He is here for right foot/leg cellulitis and possible gangrene. His leg and right foot are been wrapped with Holger bandage and dressing is in place. Patient refused me to look at them. He remains on vancomycin and Zosyn. And infectious disease R following the patient closely as well as surgical team. Wound culture are still pending., Vitas looks stable and he is afebrile. Labs show an unremarkable CBC and BMP, however there is no labs from today and was reordered Objective - Vital Signs Vital signs: Vital Signs Temp 97.0 F L 11/23/18 07:35 Pulse 80 11/23/18 07:35 Resp 20 11/23/18 08:00 BP 190/71 11/23/18 07:35 Pulse Ox 96 11/23/18 07:35 Intake & Output 11/22/18 11/23/18 11/23/18 18:59 06:59 18:59 Output Total 600 850 325 Balance -600 -850 -325 Weight 142 kg Output: Urine 600 850 325 Other: Voiding Method Urinal Urinal # Bowel Movements 1 - Exam GENERAL: The patient is alert and oriented x3, not in any acute distress. Well developed, well nourished. HEENT: Pupils are round and equally reacting to light. EOMI. No scleral icterus. No conjunctival pallor. Normocephalic, atraumatic. No pharyngeal erythema. No thyromegaly. CARDIOVASCULAR: S1 and S2 present. No murmurs, rubs, or gallops. PULMONARY: Chest is clear to auscultation, no wheezing or crackles. ABDOMEN: Soft, nontender, nondistended, normoactive bowel sounds. No palpable organomegaly. MUSCULOSKELETAL: No joint swelling or deformity. -EXTREMITIES: No cyanosis, clubbing, or pedal edema. Dressing around the right leg and foot, patient refused the examining the infection site. NEUROLOGICAL: Gross neurological examination did not reveal any focal deficits. SKIN: No rashes. - Labs CBC & Chem 7: 11/21/18 11:55 11/22/18 16:42 Labs: Abnormal Lab Results - Last 24 Hours (Table) 11/21/18 Range/Units 11:55 Sodium 136 L (137-145) mmol/L BUN 8 L (9-20) mg/dL Calcium 8.3 L (8.4-10.2) mg/dL Microbiology - Last 24 Hours (Table) 11/19/18 15:04 Blood Culture - Preliminary Blood No Growth after 72 hours Assessment and Plan Assessment: Right foot dorsal ulcer and cellulitis. wound infection. No gangrenous changes as previously thought.. Sepsis secondary to above. Acute urinary tract infection. Urine cultures show no growth. Hypertension uncontrolled Morbid obesity with BMI 50.2 Chronic lower extremity swelling and scaling with dry skin Peripheral vascular disease. Hyperlipidemia Obstructive sleep apnea not using CPAP at home Current every day smoker History of marijuana use DVT prophylaxis Plan: Patient will be continued on antibiotics in the form of vancomycin and Zosyn. Follow up wound culture report. Vascular surgery and ID is following further recommendations based on the final wound cultures.. Continue with current pain management and DVT prophylaxis. DC Toradol. Further admissions based on the clinical course. prognosis is guarded. Patient need to be transferred to ECF, however when I talked to the patient today he refused going to rehab and he prefers home with home care.
[2018-11-23] MEDS: HYDROmorphone 4 MG TABLET PO PRN ×3 (15:58→23:51)
[2018-11-23] MEDS: SODIUM CHLORIDE 0.9% 1,000 ML IV SCH (19:04)
--- NOTE | 2018-11-23 20:14 | PN ---
PROGRESS NOTE DATE OF SERVICE: 11/23/2018 REASON FOR FOLLOWUP: Right leg and foot wound with secondary cellulitis. INTERVAL HISTORY: The patient is currently afebrile, has been breathing comfortably. Denies having any chest pain, shortness of breath or cough. No abdominal pain or any worsening pain to the right leg area and foot area. PHYSICAL EXAMINATION: Blood pressure is 126/85, pulse of 88, temperature 97. He is 95% on room air. General description is a middle-aged male lying in bed in no distress. RESPIRATORY SYSTEM: Unlabored breathing. Clear to auscultation anteriorly. HEART: S1, S2. Regular rate and rhythm. ABDOMEN: Soft. No tenderness. Right leg and foot is currently dressed up. No obvious drainage on the dressing. LABS: Creatinine 0.75. The cultures obtained from the right foot are currently showing polymicrobial specimen, no predominant type. DIAGNOSTIC IMPRESSION AND PLAN: Patient with right foot chronic non-healing wound with secondary cellulitis with possible gangrene of the right second toe. Cultures so far negative for any resistant pathogen. Antibiotic was switched over to Unasyn 3 grams q.8. Discontinue the vancomycin and Zosyn. Local care to continue as ordered. Continue supportive care. MMODL / IJN: [id number] /
[2018-11-23] MEDS: AMPICILLIN-SULBACTAM 3 GM in SODIUM CHLORIDE 0.9% 100 ML IVPB SCH (23:50)
[2018-11-24] MEDS: HYDROmorphone 4 MG TABLET PO PRN ×5 (05:41→21:12)
[2018-11-24] MEDS: AMPICILLIN-SULBACTAM 3 GM in SODIUM CHLORIDE 0.9% 100 ML IVPB SCH ×4 (05:41→23:59)
[2018-11-24] MEDS: LISINOPRIL 10 MG TAB PO SCH (08:04)
[2018-11-24] MEDS: HEPARIN SODIUM,PORCINE 5,000 UNIT/ML 1 ML VIAL SQ SCH ×3 (08:04→23:59)
[2018-11-24] MEDS: NICOTINE 21MG/24HR PATCH TRANSDERM SCH (08:04)
[2018-11-24] MEDS: METOPROLOL TARTRATE 25 MG TAB PO SCH ×2 (08:04→21:12)
[2018-11-24 08:43] LABS: HCT 46.9 % (39.0-53.0); HGB 15.8 gm/dL (13.0-17.5); MCH 29.2 pg (25.0-35.0); MCHC 33.7 g/dL (31.0-37.0); MCV 86.8 fL (80.0-100.0); Mean Platelet Volume 6.9; Platelet Count 301 k/uL (150-450); RDW 13.7 % (11.5-15.5); WBC 8.3 k/uL (3.8-10.6)
[2018-11-24 09:07] LABS: Anion Gap 10 mmol/L; Blood Urea Nitrogen 8 mg/dL (9-20); Carbon Dioxide 24 mmol/L (22-30); Chloride 105 mmol/L (98-107); Glucose 90 mg/dL (74-99); Potassium 3.8 mmol/L (3.5-5.1); Sodium 139 mmol/L (137-145)
--- NOTE | 2018-11-24 10:45 | P.PN ---
Subjective Progress Note Date: 11/24/18 Principal diagnosis: Bilateral lower extremity chronic venous insufficiency with right lower extremity venous ulcers. 58-year-old gentleman who is currently being treated at the hospital for right lower extremity wounds secondary to venous insufficiency. Patient states he has been dealing with toe wounds for multiple months and has been seen by wound care at [facility]. He presented to the hospital this time secondary to worsening wounds and burning of his lower extremity. He has been treated with compression, meta-honey and silver dressings and states he has had some significant improvement. He denies any fevers, chills, chest pain or shortness of breath. Objective - Vital Signs Vital signs: Vital Signs Temp 98.2 F 11/24/18 07:05 Pulse 80 11/24/18 07:05 Resp 20 11/24/18 07:05 BP 138/81 11/24/18 07:05 Pulse Ox 93 L 11/24/18 07:05 Intake & Output 11/23/18 11/24/18 11/24/18 18:59 06:59 18:59 Output Total 325 Balance -325 Weight 133.5 kg Output: Urine 325 Other: Voiding Method Urinal Urinal # Voids 3 2 1 # Bowel Movements 1 - Constitutional General appearance: Present: morbidly obese - EENT Eyes: Present: EOMI, PERRLA - Cardiovascular Rhythm: regular - Peripheral edema ankle Peripheral Edema: bilateral: 1+ leg Peripheral Edema Comment(s): Right lower extremity with scaly dry skin with multiple wounds extending from the anterior tibial area down to his dorsal aspect of his foot extending to the first second and third toes. The wound bed has minimal fibrinous tissue. There is good granulation tissue noted with some areas of eschar. Peripheral Edema: bilateral: 1+ - Peripheral pulses dorsalis pedis Peripheral Pulses: bilateral: Normal - Gastrointestinal General gastrointestinal: Present: soft. Absent: distended - Musculoskeletal Musculoskeletal: Present: generalized weakness - Psychiatric Psychiatric: Present: A&O x's 3. Absent: appropriate affect - Labs CBC & Chem 7: 11/24/18 08:19 11/24/18 08:19 Labs: Abnormal Lab Results - Last 24 Hours (Table) 11/24/18 Range/Units 08:19 BUN 8 L (9-20) mg/dL Microbiology - Last 24 Hours (Table) 11/19/18 15:04 Blood Culture - Preliminary Blood No Growth after 96 hours Assessment and Plan (1) Smoker Current Visit: Yes Status: Acute Priority: High Code(s): F17.200 - NICOTINE DEPENDENCE, UNSPECIFIED, UNCOMPLICATED SNOMED Code(s): 19570040 (2) Ulcer of right foot with fat layer exposed Current Visit: Yes Status: Acute Priority: High Code(s): L97.512 - NON- PRS CHRONIC ULCER OTH PRT RIGHT FOOT W FAT LAYER EXPOSED SNOMED Code(s): 63197326 Plan: Reviewed lower extremity arterial Doppler which demonstrates ABIs of 1.0 and 0.87. Would recommend continued wound care treatment with silver dressing as well as medicine he for continuous medical debridement. At this time I would not recommend any amputation or revascularization due to palpable pulses in his lower extremities. He does need continued compression therapy. I do recommend subacute rehab for continued care. Thank you for the consultation. If there are any questions please feel free to call Time with Patient: Greater than 30
--- NOTE | 2018-11-24 11:01 | US ---
EXAMINATION TYPE: US venous doppler duplex LE DATE OF EXAM: 11/24/2018 10:51 AM COMPARISON: NONE CLINICAL HISTORY: check for DVT. Legs are swollen with brown flaking skin, patient has gangrenous gurwinder t. SIDE PERFORMED: Bilateral TECHNIQUE: The lower extremity deep venous system is examined utilizing real time linear array sonog trisha with graded compression, doppler sonography and color-flow sonography. VESSELS IMAGED: External Iliac Vein (EIV) Common Femoral Vein Deep Femoral Vein Greater Saphenous Vein * Femoral Vein Popliteal Vein Proximal Calf Veins (* superficial vessels) Technically difficult study due to patient body habitus and edematous tissue. Exam is somewhat limite d as patient's legs are wrapped from just below the knee on down. Right Leg: Negative for DVT Left Leg: Negative for DVT Grayscale, color doppler, spectral doppler imaging performed of the deep veins of the bilateral lower extremities. There is normal flow, compressibility, vascular waveforms. IMPRESSION: Suboptimal study without ultrasound evidence for acute DVT in either lower extremity.
[2018-11-24 12:00] LABS: Eosinophils # (M) 0.33 k/uL (0-0.7); Lymphocytes # (M) 2.99 k/uL (1.0-4.8); Monocytes # (M) 0.83 k/uL (0-1.0); Neutrophils # (M) 4.15 k/uL (1.3-7.7); Neutrophils % (M) 50 %; Nucleated Red Blood Cells 0 /100 WBC (0-0); Total Cells Counted 100
--- NOTE | 2018-11-24 13:26 | P.PN ---
Subjective 11/23/2018 is the first day I take care of the patient. Hospital course, from the records Patient is a 58-year-old male with a known history of hypertension, hyperlipidemia, obstructive sleep apnea on CPAP, chronic back pain and chronic bilateral lower extremity swelling or has been having right foot ulceration and gangrenous changes of the second toe which has been present for the past 3 months and is getting worse. Patient came to the hospital with complaints of right foot infection. Patient does not have a primary care physician and has not seen a physician for over one year. Patient is not taking any medications at home. He does have history of food impaction previously. Patient states that he has not followed up with wound care in over 7 months. He presents with worsening pain within the right lower extremity. Patient states that he has difficult time with ambulation around his house. Denied any fever or chills. No nausea, vomiting or abdominal pain. CXR showed no acute process. Rt foot Xray: soft tissue swelling and limited visualization of skeletal of the forefoot. EKG. NSR. Xray tibia/fibula: No acute process. Patient is a poor historian 11/21/2097 Patient is still having right foot pain. Dressing changes and wound care is being continued. Patient is being continued on broad-spectrum antibiotics. Arterial vascular studies were ordered. Wound culture showed multiple organisms. Vascular surgery and ID is following. No surgical intervention recommended at this time. No fever no chills. No nausea vomiting or abdominal pain. No other acute overnight issues. 11/22/2018 Right foot ulcer is healing well properly. No foul-smelling discharge. Vascular studies are negative. Continued on wound care and IV antibiotics and awaiting final wound cultures. ID and vascular surgery is following. No other acute overnight issues. Urine culture showed no growth. Subjective 11/23/2018 patient is seen and examined by me at bedside. He denies chest pain or dyspnea. He is here for right foot/leg cellulitis and possible gangrene. His leg and right foot are been wrapped with Holger bandage and dressing is in place. Patient refused me to look at them. He remains on vancomycin and Zosyn. And infectious disease R following the patient closely as well as surgical team. Wound culture are still pending., Vitas looks stable and he is afebrile. Labs show an unremarkable CBC and BMP, however there is no labs from today and was reordered 11/24/2018 Patient was lying in bed still complaining from pain in his right foot. Both feet and legs are wrapped with Holger bandages react patient refused me examine his leg today again. Patient denies chest pain or dyspnea. No abdominal pain or nausea vomiting. He had low-grade temperature yesterday afternoon 100.0 Fahrenheit . No leukocytosis and CBC and BMP were unremarkable. Urine culture no growth after 18 hours. Wound culture showing many gram-negative and positive bacteria. Infectious disease follow-up is appreciated patient antibiotics were changed to Unasyn and DC vancomycin and Zosyn. Discussed the case with the surgeon Dr. Arnett, no surgical intervention needed now he recommended patient going to subacute rehab and see him in 2-4 weeks for follow- up and reevaluation at that time for possible debridement or amputation if indicated. And that patient can put some pressure on his right foot especially on the heel and if he uses a walker as per surgical recommendation. I have length discussion with the patient about the benefit of going to rehab and risk of non-adherence. Patient was still thinking about it and leaning more towards going home with home care. We checked Doppler of the lower extremities and is negative for DVT in both legs Time spent with the patient more than 30 minutes, including more than 50% of the time with counseling . CONSTITUTIONAL: No fever, no malaise, no fatigue. HEENT: No recent visual problems or hearing problems. Denied any sore throat. CARDIOVASCULAR: No orthopnea, PND, no palpitations, no syncope. PULMONARY: No shortness of breath, no cough, no hemoptysis. GASTROINTESTINAL: No diarrhea, no nausea, no vomiting, no abdominal pain. Normoactive bowel sounds. NEUROLOGICAL: No headaches, no weakness, no numbness. HEMATOLOGICAL: Denies any bleeding or petechiae. GENITOURINARY: Denies any burning micturition, frequency, or urgency. ENDOCRINE: Denies any polyuria or polydipsia. Medication: Tylenol, heparin, Unasyn, Dilaudid, lisinopril, Lopressor, nicotine patch, Zofran, sodium chloride at 20 mL/h. Objective - Vital Signs Vital signs: Vital Signs Temp 98.2 F 11/24/18 07:05 Pulse 80 11/24/18 07:05 Resp 20 11/24/18 07:05 BP 138/81 11/24/18 07:05 Pulse Ox 93 L 11/24/18 07:05 Intake & Output 11/23/18 11/24/18 11/24/18 18:59 06:59 18:59 Output Total 325 600 Balance -325 -600 Weight 133.5 kg Output: Urine 325 600 Other: Voiding Method Urinal Urinal # Voids 3 2 1 # Bowel Movements 1 - Exam GENERAL: The patient is alert and oriented x3, not in any acute distress. Well developed, well nourished. HEENT: Pupils are round and equally reacting to light. EOMI. No scleral icterus. No conjunctival pallor. Normocephalic, atraumatic. No pharyngeal erythema. No thyromegaly. CARDIOVASCULAR: S1 and S2 present. No murmurs, rubs, or gallops. PULMONARY: Chest is clear to auscultation, no wheezing or crackles. ABDOMEN: Soft, nontender, nondistended, normoactive bowel sounds. No palpable organomegaly. MUSCULOSKELETAL: No joint swelling or deformity. -EXTREMITIES: No cyanosis, clubbing, or pedal edema. Dressing around the right leg and foot, patient refused the examining the infection site. NEUROLOGICAL: Gross neurological examination did not reveal any focal deficits. SKIN: No rashes. - Labs CBC & Chem 7: 11/24/18 08:19 11/24/18 08:19 Labs: Abnormal Lab Results - Last 24 Hours (Table) 11/24/18 Range/Units 08:19 BUN 8 L (9-20) mg/dL Microbiology - Last 24 Hours (Table) 11/19/18 15:04 Blood Culture - Preliminary Blood No Growth after 96 hours Assessment and Plan Assessment: Right foot dorsal ulcer and cellulitis. wound infection. No gangrenous changes as previously thought.. Sepsis secondary to above. Acute urinary tract infection. Urine cultures show no growth. Hypertension uncontrolled Morbid obesity with BMI 50.2 Chronic lower extremity swelling and scaling with dry skin Peripheral vascular disease. Hyperlipidemia Obstructive sleep apnea not using CPAP at home Current every day smoker History of marijuana use DVT prophylaxis Plan: Patient will be continued on antibiotics in the form of unasyn as per ID recommendation. Follow up wound culture report. Vascular surgery and ID is following further recommendations based on the final wound cultures.. Continue with current pain management and DVT prophylaxis. DC Toradol. Further admissions based on the clinical course. prognosis is guarded. Patient need to be transferred to [facility], however when I talked to the patient today he refused going to rehab and he prefers home with home care.
[2018-11-24] MEDS: SODIUM CHLORIDE 0.9% 1,000 ML IV SCH (14:47)
--- NOTE | 2018-11-24 23:30 | PN ---
PROGRESS NOTE DATE OF SERVICE: 11/24/2018. REASON FOR FOLLOWUP: Right leg and foot wound with cellulitis. INTERVAL HISTORY: The patient is currently afebrile, has been breathing comfortably. Denies having any chest pain, cough, no pain or any worsening pain in the right neck area. PHYSICAL EXAMINATION: Blood pressure 145/82 with a pulse of 83, temperature 98.8. He is 94% on 2 L nasal cannula. GENERAL DESCRIPTION: A middle-aged male lying in bed in no distress. RESPIRATORY SYSTEM: Unlabored breathing. LUNGS: Clear to auscultation anteriorly. HEART: S1, S2. Regular rate and rhythm. ABDOMEN: Soft, no tenderness. EXTREMITIES: Right foot dressing was changed this morning by the surgeon. The patient will not allow us to open his wound today again. LABS: Hemoglobin is 15.8, white count 8.3, BUN of 8, creatinine 0.6. DIAGNOSTIC IMPRESSION AND PLAN: Patient with extensive right foot wound with secondary cellulitis. Local wound care to continue with [facility]. He will get a PICC line for outpatient IV vancomycin at least 2 to 3 weeks, depending on his clinical response. Continue supportive care. MMODL / IJN: [id number] /
[2018-11-25] MEDS: HYDROmorphone 4 MG TABLET PO PRN ×6 (01:16→23:28)
[2018-11-25] MEDS ORDERED: VANCOMYCIN TROUGH DUE 1 EACH MISC MISCELLANE ONE (05:00)
[2018-11-25] MEDS: AMPICILLIN-SULBACTAM 3 GM in SODIUM CHLORIDE 0.9% 100 ML IVPB SCH ×4 (05:51→23:24)
[2018-11-25] MEDS: NICOTINE 21MG/24HR PATCH TRANSDERM SCH (07:57)
[2018-11-25] MEDS: METOPROLOL TARTRATE 25 MG TAB PO SCH ×2 (07:57→20:19)
[2018-11-25] MEDS: LISINOPRIL 10 MG TAB PO SCH (07:57)
[2018-11-25] MEDS: HEPARIN SODIUM,PORCINE 5,000 UNIT/ML 1 ML VIAL SQ SCH ×3 (07:57→23:24)
[2018-11-25 08:47] LABS: HGB 15.4 gm/dL (13.0-17.5); MCH 28.7 pg (25.0-35.0); MCHC 32.7 g/dL (31.0-37.0); MCV 87.6 fL (80.0-100.0); Platelet Count 318 k/uL (150-450); RBC 5.37 m/uL (4.30-5.90); RDW 13.8 % (11.5-15.5); WBC 6.9 k/uL (3.8-10.6)
[2018-11-25 08:58] LABS: Anion Gap 9 mmol/L; Blood Urea Nitrogen 10 mg/dL (9-20); Carbon Dioxide 24 mmol/L (22-30); Chloride 108 mmol/L (98-107); Glucose 95 mg/dL (74-99); Sodium 141 mmol/L (137-145)
--- NOTE | 2018-11-25 09:13 | P.ARTDOP ---
Arterial Doppler LOWER EXTREMITY ARTERIAL DOPPLER: DATE OF SERVICE: 11/20/2018 Reason for study: Right foot ulcers. Doppler waveforms: Multiphasic bilaterally throughout. Pulse volume recording: Normal configuration to the ankle. Pressure gradients: Possible mild gradient on the left. Ankle-brachial indices: Greater than 1 on the right and 0.87 on the left. Toe pressures: [] on the right, [] on the left Impression: Limited study but probably in general and normal study. Waveforms are very good throughout. Clinical correlation recommended but not likely to be a source of ulcers..
[2018-11-25 09:19] LABS: C Reactive Protein 24.5 mg/L (<10.0)
[2018-11-25 09:58] LABS: Eosinophils # (M) 0.48 k/uL (0-0.7); Lymphocytes # (M) 3.31 k/uL (1.0-4.8); Monocytes # (M) 0.55 k/uL (0-1.0); Neutrophils # (M) 2.55 k/uL (1.3-7.7); Neutrophils % (M) 37 %; Nucleated Red Blood Cells 0 /100 WBC (0-0); Total Cells Counted 100
[2018-11-25 10:09] LABS: Erythrocyte Sedimentation Rate 35 mm/hr (0-15)
[2018-11-25] MEDS ORDERED: LIDOCAINE 1% INJ 10MG/ML (20 ML MDV) ONE (11:50)
[2018-11-25] MEDS ORDERED: LIDOCAINE 1% INJ 10MG/ML (20 ML MDV) SQ ONE (12:27)
--- NOTE | 2018-11-25 14:42 | IR ---
EXAMINATION TYPE: IR cvc insert >=5 years DATE OF EXAM: 11/25/2018 COMPARISON: NONE CLINICAL HISTORY: Infection Needs long-term intravenous access for antibiotics. PROCEDURE: After informed consent, the skin overlying the left basilic vein was localized with ultrasound and no ruben to be compressible and patent. An ultrasound image was obtained and submitted on the patient's c cintron. The overlying skin was prepped and draped and Lidocaine was used for local anesthesia. A skin mirella was made with a scalpel. Access was gained to the vein under ultrasound guidance with a 21 gau ge needle and a 0.018 inch wire was advanced. Access site was dilated with Peel-Away sheath and cath eter tailored to the appropriate length and advanced but could not be advanced centrally to the axill susan region. Gentle hand injection of contrast material was performed for evaluation. Attempts to cros s the stenotic area of pain were unsuccessful with wire and catheter tailored. Peel-away sheath was p ulled and hemostasis achieved by manual compression. Using similar technique and attention directed t o the cephalic vein. Attempts to direct the catheter centrally were unsuccessful. Gentle hand injecti on of contrast material performed, catheter could not be advanced centrally however. Catheter sheath was removed and hemostasis was achieved by manual compression. Attention then directed to the brachia l vein in the left upper extremity. Access was gained in similar technique. Catheter was advanced suc h that the distal tip is at the cavoatrial junction. Spot image was obtained verifying placement. C atheter was fixed to the skin with suture and a sterile dressing was placed following hemostasis. Ca theter was aspirated and flushed with saline. Patient was discharged in stable condition without com plication. Maximal barrier technique is utilized. Ultrasound image is documented on the chart. Ultra sound used with sterile technique. Fluoro time and fluoroscopic images submitted to document procedure: 707 intraoperative images. 0.8 m inutes fluoroscopy time. FINDINGS: Stenotic segment of brachial vein was noted towards the axilla. Acute curve noted at the ju nction of the cephalic and axillary vein. IMPRESSION: STATUS POST ULTRASOUND AND FLUOROSCOPIC GUIDED PICC LINE PLACEMENT, READY FOR USE. THIS PROCEDURE WAS PERFORMED BY THE UNDERSIGNED.
--- NOTE | 2018-11-25 15:17 | P.PN ---
Subjective 11/23/2018 is the first day I take care of the patient. Hospital course, from the records Patient is a 58-year-old male with a known history of hypertension, hyperlipidemia, obstructive sleep apnea on CPAP, chronic back pain and chronic bilateral lower extremity swelling or has been having right foot ulceration and gangrenous changes of the second toe which has been present for the past 3 months and is getting worse. Patient came to the hospital with complaints of right foot infection. Patient does not have a primary care physician and has not seen a physician for over one year. Patient is not taking any medications at home. He does have history of food impaction previously. Patient states that he has not followed up with wound care in over 7 months. He presents with worsening pain within the right lower extremity. Patient states that he has difficult time with ambulation around his house. Denied any fever or chills. No nausea, vomiting or abdominal pain. CXR showed no acute process. Rt foot Xray: soft tissue swelling and limited visualization of skeletal of the forefoot. EKG. NSR. Xray tibia/fibula: No acute process. Patient is a poor historian 11/21/2097 Patient is still having right foot pain. Dressing changes and wound care is being continued. Patient is being continued on broad-spectrum antibiotics. Arterial vascular studies were ordered. Wound culture showed multiple organisms. Vascular surgery and ID is following. No surgical intervention recommended at this time. No fever no chills. No nausea vomiting or abdominal pain. No other acute overnight issues. 11/22/2018 Right foot ulcer is healing well properly. No foul-smelling discharge. Vascular studies are negative. Continued on wound care and IV antibiotics and awaiting final wound cultures. ID and vascular surgery is following. No other acute overnight issues. Urine culture showed no growth. Subjective 11/23/2018 patient is seen and examined by me at bedside. He denies chest pain or dyspnea. He is here for right foot/leg cellulitis and possible gangrene. His leg and right foot are been wrapped with Holger bandage and dressing is in place. Patient refused me to look at them. He remains on vancomycin and Zosyn. And infectious disease R following the patient closely as well as surgical team. Wound culture are still pending., Vitas looks stable and he is afebrile. Labs show an unremarkable CBC and BMP, however there is no labs from today and was reordered 11/24/2018 Patient was lying in bed still complaining from pain in his right foot. Both feet and legs are wrapped with Holger bandages react patient refused me examine his leg today again. Patient denies chest pain or dyspnea. No abdominal pain or nausea vomiting. He had low-grade temperature yesterday afternoon 100.0 Fahrenheit . No leukocytosis and CBC and BMP were unremarkable. Urine culture no growth after 18 hours. Wound culture showing many gram-negative and positive bacteria. Infectious disease follow-up is appreciated patient antibiotics were changed to Unasyn and DC vancomycin and Zosyn. Discussed the case with the surgeon Dr. Arnett, no surgical intervention needed now he recommended patient going to subacute rehab and see him in 2-4 weeks for follow- up and reevaluation at that time for possible debridement or amputation if indicated. And that patient can put some pressure on his right foot especially on the heel and if he uses a walker as per surgical recommendation. I have length discussion with the patient about the benefit of going to rehab and risk of non-adherence. Patient was still thinking about it and leaning more towards going home with home care. We checked Doppler of the lower extremities and is negative for DVT in both legs Time spent with the patient more than 30 minutes, including more than 50% of the time with counseling . 11/25/2018 Patient remains to be treated for his right leg cellulitis. He remains on Unasyn for 2-3 weeks with PICC line placed as per infectious disease recommendation. Patient also has been followed by surgical team. Today the patient told me he agrees to go to rehab for 2 weeks. Patient Vitas looks stable. Labs reviewed and are unremarkable. Her C-reactive protein 24.5. Patient is medically cleared for discharge. Pending placement and acceptance by the [facility] rehab CONSTITUTIONAL: No fever, no malaise, no fatigue. HEENT: No recent visual problems or hearing problems. Denied any sore throat. CARDIOVASCULAR: No orthopnea, PND, no palpitations, no syncope. PULMONARY: No shortness of breath, no cough, no hemoptysis. GASTROINTESTINAL: No diarrhea, no nausea, no vomiting, no abdominal pain. Normoactive bowel sounds. NEUROLOGICAL: No headaches, no weakness, no numbness. HEMATOLOGICAL: Denies any bleeding or petechiae. GENITOURINARY: Denies any burning micturition, frequency, or urgency. ENDOCRINE: Denies any polyuria or polydipsia. Medication: Tylenol, heparin, Unasyn, Dilaudid, lisinopril, Lopressor, nicotine patch, Zofran, sodium chloride at 20 mL/h. Objective - Vital Signs Vital signs: Vital Signs Temp 97.9 F 11/25/18 07:22 Pulse 77 11/25/18 07:22 Resp 20 11/25/18 07:22 BP 160/80 11/25/18 07:22 Pulse Ox 95 11/25/18 07:22 Intake & Output 11/24/18 11/25/18 11/25/18 18:59 06:59 18:59 Intake Total 260 Output Total 600 700 Balance -600 -700 260 Weight 132 kg Intake: IV 260 Ampicillin-Sulbactam 3 gm 100 In Sodium Chloride 0.9% 100 ml @ 200 mls/hr IVPB Q6HR JOSHUA Rx#:[id number] Sodium Chloride 0.9% 1, 160 000 ml @ 20 mls/hr IV . Q24H JOSHUA Rx#:[id number] Output: Urine 600 700 Other: Voiding Method Urinal # Voids 1 - Exam GENERAL: The patient is alert and oriented x3, not in any acute distress. Well developed, well nourished. HEENT: Pupils are round and equally reacting to light. EOMI. No scleral icterus. No conjunctival pallor. Normocephalic, atraumatic. No pharyngeal erythema. No thyromegaly. CARDIOVASCULAR: S1 and S2 present. No murmurs, rubs, or gallops. PULMONARY: Chest is clear to auscultation, no wheezing or crackles. ABDOMEN: Soft, nontender, nondistended, normoactive bowel sounds. No palpable organomegaly. MUSCULOSKELETAL: No joint swelling or deformity. -EXTREMITIES: No cyanosis, clubbing, or pedal edema. Dressing around the right leg and foot, patient refused the examining the infection site. NEUROLOGICAL: Gross neurological examination did not reveal any focal deficits. SKIN: No rashes. - Labs CBC & Chem 7: 11/25/18 08:12 11/25/18 08:12 Labs: Abnormal Lab Results - Last 24 Hours (Table) 11/25/18 11/25/18 Range/Units 08:12 08:12 ESR 35 H (0-15) mm/hr Chloride 108 H (98-107) mmol/L C-Reactive Protein 24.5 H (<10.0) mg/L Microbiology - Last 24 Hours (Table) 11/19/18 15:41 Gram Stain - Final Foot - Right Wound Culture - Final 11/19/18 15:04 Blood Culture - Preliminary Blood No Growth after 120 hours Assessment and Plan Assessment: Right foot dorsal ulcer and cellulitis. wound infection. No gangrenous changes as previously thought.. Sepsis secondary to above. Acute urinary tract infection. Urine cultures show no growth. Hypertension uncontrolled Morbid obesity with BMI 50.2 Chronic lower extremity swelling and scaling with dry skin Peripheral vascular disease. Hyperlipidemia Obstructive sleep apnea not using CPAP at home Current every day smoker History of marijuana use DVT prophylaxis Plan: Patient will be continued on antibiotics in the form of unasyn as per ID recommendation. Follow up wound culture report. Vascular surgery and ID is following further recommendations based on the final wound cultures.. Continue with current pain management and DVT prophylaxis. DC Toradol. Further admissions based on the clinical course. prognosis is guarded. Patient need to be transferred to ECF, however when I talked to the patient today he refused going to rehab and he prefers home with home care.
[2018-11-25] MEDS: SODIUM CHLORIDE 0.9% 1,000 ML IV SCH (17:33)
--- NOTE | 2018-11-25 23:04 | PN ---
PROGRESS NOTE DATE OF SERVICE: 11/25/2018 REASON FOR FOLLOWUP: Right foot wound and cellulitis. INTERVAL HISTORY: The patient is currently afebrile. He is breathing comfortably. Denies any worsening pain to the right leg area. No chest pain, shortness of breath or cough. No abdominal pain or any diarrhea. He got his PICC line, waiting PHYSICAL EXAMINATION: Blood pressure 150/81 with a pulse of 85, temperature 97.5. He is 93% on room air. General description is a middle-aged male lying in bed in no distress. RESPIRATORY SYSTEM: Unlabored breathing. Clear to auscultation anteriorly. HEART: S1, S2. Regular rate and rhythm. ABDOMEN: Soft. No tenderness. Right foot and leg wounds currently dressed. The patient refused the dressing to be changed again. LABS: Hemoglobin 15.4, white count 6.9, BUN of 10, creatinine 0.67, sed rate of 35 with a CRP 24.5. DIAGNOSTIC IMPRESSION AND PLAN: Patient with right foot and leg wound with secondary cellulitis. The patient at this time to continue on Unasyn because of his extensive wound infection. To continue with the Unasyn for at least 2 weeks. Local wound care to continue with Medihoney. Continue with supportive care. MMODL / IJN: [id number] /
[2018-11-26] MEDS: AMPICILLIN-SULBACTAM 3 GM in SODIUM CHLORIDE 0.9% 100 ML IVPB SCH ×3 (05:46→17:37)
[2018-11-26] MEDS: HYDROmorphone 4 MG TABLET PO PRN ×4 (05:47→16:31)
[2018-11-26] MEDS ORDERED: CYCLOBENZAPRINE 5 MG TAB PO ONE (09:00)
[2018-11-26] MEDS: HEPARIN SODIUM,PORCINE 5,000 UNIT/ML 1 ML VIAL SQ SCH ×2 (09:07→15:39)
[2018-11-26] MEDS: LISINOPRIL 10 MG TAB PO SCH (09:07)
[2018-11-26] MEDS: NICOTINE 21MG/24HR PATCH TRANSDERM SCH (09:07)
[2018-11-26] MEDS: METOPROLOL TARTRATE 25 MG TAB PO SCH (09:08)
[2018-11-26 10:14] LABS: Anion Gap 9 mmol/L; Blood Urea Nitrogen 10 mg/dL (9-20); Calcium 9.1 mg/dL (8.4-10.2); Carbon Dioxide 25 mmol/L (22-30); Chloride 108 mmol/L (98-107); Glucose 101 mg/dL (74-99); Potassium 3.9 mmol/L (3.5-5.1); Sodium 142 mmol/L (137-145)
[2018-11-26 11:12] VITALS: BMI 41.7
[2018-11-26 15:38] VITALS: BP 143/88; PULSE 75; RESP 20; TEMP 96.6
--- NOTE | 2018-11-26 16:47 | PN ---
PROGRESS NOTE DATE OF SERVICE: 11/26/2018 REASON FOR FOLLOWUP: Right leg wound with cellulitis. INTERVAL HISTORY: The patient is currently afebrile. He is breathing comfortably. Denies having any chest pain or shortness of breath or cough. No abdominal pain or any worsening pain in the right foot or leg wound area. PHYSICAL EXAMINATION: Blood pressure 143/88 with a pulse of 75, temperature 96.6. He is 94% on 2 L nasal cannula. General description is a middle-aged male lying in bed in no distress. RESPIRATORY SYSTEM: Unlabored breathing. Clear to auscultation anteriorly. HEART: S1, S2. Regular rate and rhythm. ABDOMEN: Soft. No tenderness. Right leg wound has shown significant improvement. All the slough tissue is gone. Good granulation tissue at the base. No purulence. LABS: White count 6.9, creatinine 0.69. Wound culture negative. Blood culture negative. DIAGNOSTIC IMPRESSION AND PLAN: Patient with an extensive right foot wound with secondary cellulitis. Culture has been negative for any resistant pathogen. Plan at this time is to continue local wound care with Aquacel Silver dressing and IV Unasyn for 2 weeks with close outpatient followup. Continue supportive care. MMODL / IJN: [id number] /
[2018-11-26] MEDS: SODIUM CHLORIDE 0.9% 1,000 ML IV SCH (17:37)
== END 2018-11-26 18:34 | DRG 872 ==
LOC: EC 13:38 → 4MS4W 17:57
PROVIDERS: ADMIT Hospitalist; ATTEND Hospitalist
PROC: 02HV33Z Insertion of Infusion Device into Superior Vena Cava, Percutaneous Approach (ICD-10-PCS; principal; 2018-11-19)
DX: A41.9 Sepsis, unspecified organism (principal); Z68.43 Body mass index [BMI] 50.0-59.9, adult; L03.115 Cellulitis of right lower limb; N39.0 Urinary tract infection, site not specified; E66.01 Morbid (severe) obesity due to excess calories; E78.5 Hyperlipidemia, unspecified; G47.33 Obstructive sleep apnea (adult) (pediatric); I50.9 Heart failure, unspecified; I11.0 Hypertensive heart disease with heart failure; F17.200 Nicotine dependence, unspecified, uncomplicated; I73.9 Peripheral vascular disease, unspecified; L97.512 Non-pressure chronic ulcer of other part of right foot with fat layer exposed; I83.009 Varicose veins of unspecified lower extremity with ulcer of unspecified site; I87.2 Venous insufficiency (chronic) (peripheral); G89.29 Other chronic pain; M54.9 Dorsalgia, unspecified; Z91.19 Patient's noncompliance with other medical treatment and regimen; Z86.718 Personal history of other venous thrombosis and embolism; Z99.89 Dependence on other enabling machines and devices
CPT/HCPCS: 36415; 36573; 71046; 80048; 80053; 80202; 81001; 82565; 83605; 84484; 85025; 85610; 85652; 85730; 86140; 87040; 87070; 87086; 87205; 93005; 93306; 93922; 93970; 96365; 96366; 96375; 99285

== ENCOUNTER 2020-01-07 16:31 | Inpatient (IN) | payer MEDICARE ==
[2020-01-07] MEDS ORDERED: PIPERACILLIN-TAZOBACTAM 3.375 GM in SODIUM CHLORIDE 0.9% 100 ML IVPB STA (16:52)
[2020-01-07] MEDS ORDERED: VANCOMYCIN IV PER PHARMACY 1 EACH MISC MISCELLANE PRN ×2 (16:53→21:55)
[2020-01-07] MEDS ORDERED: MORPHINE SULFATE 4 MG/ML SYRINGE IVP STA (16:58)
[2020-01-07] MEDS ORDERED: ONDANSETRON 4 MG/2 ML VIAL IVP STA (16:58)
[2020-01-07] MEDS ORDERED: VANCOMYCIN 2,000 MG in SODIUM CHLORIDE 0.9% 500 ML 500 ML IVPB ONE (17:15)
--- NOTE | 2020-01-07 17:26 | ED ---
General Adult HPI <Lauri Loving - Last Filed: 01/07/20 18:55> - General Source: patient, EMS, RN notes reviewed Mode of arrival: EMS Limitations: no limitations <Vidal Dodd - Last Filed: 01/07/20 19:04> - General Chief complaint: Extremity Problem,Nontraumatic Stated complaint: wound care Time Seen by Provider: 01/07/20 16:39 - History of Present Illness Initial comments: 59-year-old male presents emergency Department chief complaint infection right foot. This has been ongoing for several years he has been admitted in the past and has been seen by Dr. Myrick in the past. Patient states he stopped seeing him because of his mobility issues. Patient states that he has a wound care nurse has been advise him go to the emergency Department for a while but states he has put off. Patient states he is not diabetic he has known peripheral vascular disease. Patient reports no fevers or chills he does report mild pain. Patient states his drainage. Reports no recent fevers chills or night sweats. (Vidal Dodd) - Related Data Home Medications Medication Instructions Recorded Confirmed Acetaminophen [Tylenol Arthritis] 1,300 mg PO DAILY PRN 11/19/18 01/20/19 Bisacodyl [Dulcolax] 10 mg RECTAL DAILY PRN 12/09/18 01/20/19 HYDROmorphone [Dilaudid] 2 mg PO Q6H PRN 12/09/18 01/20/19 Lactulose 10 gm PO ONCE PRN 12/09/18 01/20/19 Magnesium Hydroxide [Milk of 400 mg PO ONETIME PRN 12/09/18 01/20/19 Magnesia] Nicotine 21Mg/24Hr Patch [Habitrol 1 each TRANSDERM DAILY 12/09/18 01/20/19 21Mg/24Hr Patch] oxyCODONE ER [OxyCONTIN] 10 mg PO Q12HR 12/09/18 01/20/19 Lidocaine 5% Oint [Xylocaine 5% 1 applic TOPICAL DIRECTED PRN 12/30/18 01/20/19 Oint] [place] Instant Breakfast 1 packet PO W/BRKFST 01/06/19 01/20/19 Previous Rx's Medication Instructions Recorded Acetaminophen Tab [Tylenol] 650 mg PO Q6HR PRN tab 11/26/18 Heparin Sodium,Porcine [Heparin 5,000 unit SQ Q8HR vial 11/26/18 Sodium] Lisinopril [Zestril] 10 mg PO DAILY tab 11/26/18 Metoprolol Tartrate [Lopressor] 25 mg PO BID tab 11/26/18 Nicotine 21Mg/24Hr Patch [Habitrol] 1 patch TRANSDERM DAILY patch 11/26/18 Allergies Allergy/AdvReac Type Severity Reaction Status Date / Time No Known Allergies Allergy Verified 01/07/20 16:40 Review of Systems ROS Other: All systems not noted in ROS Statement are negative. <Lauri Loving - Last Filed: 01/07/20 18:55> ROS Other: All systems not noted in ROS Statement are negative. <Vidal Dodd - Last Filed: 01/07/20 19:04> ROS Statement: Those systems with pertinent positive or pertinent negative responses have been documented in the HPI. Past Medical History Past Medical History: Hyperlipidemia, Hypertension, Musculoskeletal Disorder, Sleep Apnea/CPAP/BIPAP, Vascular Disorder Additional Past Medical History / Comment(s): CHF, chronic back pain, cellulitis, DVT, nerve pain History of Any Multi-Drug Resistant Organisms: MRSA Date of last positivie culture/infection: 12/08/19 MDRO Source:: Right Foot Past Surgical History: Cholecystectomy, Hernia Repair, Tonsillectomy Past Psychological History: No Psychological Hx Reported Smoking Status: Current every day smoker Past Alcohol Use History: None Reported Past Drug Use History: Marijuana - Past Family History Father Family Medical History: Cancer, Prostate Disorder Mother Family Medical History: Cancer <Vidal Dodd - Last Filed: 01/07/20 19:04> General Exam Limitations: no limitations General appearance: alert, in no apparent distress Head exam: Present: atraumatic, normocephalic, normal inspection Neck exam: Present: normal inspection. Absent: tenderness, meningismus, lymphadenopathy Respiratory exam: Present: normal lung sounds bilaterally. Absent: respiratory distress, wheezes, rales, rhonchi, stridor Cardiovascular Exam: Present: regular rate, normal rhythm, normal heart sounds. Absent: systolic murmur, diastolic murmur, rubs, gallop, clicks Extremities exam: Present: other (Right lower extremity there is extensive changes noted, there is scaling, sloughing the skin on the leg, there is mild erythema and erosion of the skin between the digits there is some serosanguineous drainage) Skin exam: Present: warm, dry, intact, normal color. Absent: rash <Vidal Dodd - Last Filed: 01/07/20 19:04> Course Vital Signs 01/07/20 01/07/20 16:35 18:12 Temperature 98.6 F Pulse Rate 91 76 Respiratory 20 16 Rate Blood Pressure 146/93 141/80 O2 Sat by Pulse 97 94 L Oximetry Medical Decision Making - Lab Data Result diagrams: 01/07/20 17:17 01/07/20 17:17 <Lauri Loving - Last Filed: 01/07/20 18:55> - Lab Data Result diagrams: 01/07/20 17:17 01/07/20 17:17 <Vidal Dodd - Last Filed: 01/07/20 19:04> - Medical Decision Making Patient reevaluated by myself, Dr. Loving. Patient does have severe ulceration to the distal right foot with cellulitic change. Patient states this is somewhat chronic but worse than normal. Patient previously has seen Dr. Myrick for this. [facility] physician group has been paged for admission covering for Dr. lockwood. (Lauri Loving) - Lab Data Lab Results 01/07/20 01/07/20 01/07/20 Range/Units 17:17 17:17 17:17 WBC 11.9 H (3.8-10.6) k/uL RBC 5.11 (4.30-5.90) m/uL Hgb 14.6 (13.0-17.5) gm/dL Hct 45.4 (39.0-53.0) % MCV 88.8 (80.0-100.0) fL MCH 28.6 (25.0-35.0) pg MCHC 32.2 (31.0-37.0) g/dL RDW 13.5 (11.5-15.5) % Plt Count 304 (150-450) k/uL Neutrophils % 75 % Lymphocytes % 14 % Monocytes % 6 % Eosinophils % 3 % Basophils % 0 % Neutrophils # 9.0 H (1.3-7.7) k/uL Lymphocytes # 1.6 (1.0-4.8) k/uL Monocytes # 0.7 (0-1.0) k/uL Eosinophils # 0.3 (0-0.7) k/uL Basophils # 0.0 (0-0.2) k/uL PT 10.3 (9.0-12.0) sec INR 1.0 (<1.2) APTT 25.5 (22.0-30.0) sec Sodium 136 L (137-145) mmol/L Potassium 4.3 (3.5-5.1) mmol/L Chloride 101 (98-107) mmol/L Carbon Dioxide 27 (22-30) mmol/L Anion Gap 8 mmol/L BUN 14 (9-20) mg/dL Creatinine 0.77 (0.66-1.25) mg/dL Est GFR (CKD-EPI)AfAm >90 (>60 ml/min/1.73 sqM) Est GFR (CKD-EPI)NonAf >90 (>60 ml/min/1.73 sqM) Glucose 132 H (74-99) mg/dL Plasma Lactic Acid Lloyd (0.7-2.0) mmol/L Calcium 8.9 (8.4-10.2) mg/dL Total Bilirubin 0.5 (0.2-1.3) mg/dL AST 54 (17-59) U/L ALT 41 (4-49) U/L Alkaline Phosphatase 100 (38-126) U/L C-Reactive Protein 20.5 H (<10.0) mg/L Total Protein 7.5 (6.3-8.2) g/dL Albumin 3.8 (3.5-5.0) g/dL 01/07/20 Range/Units 17:17 WBC (3.8-10.6) k/uL RBC (4.30-5.90) m/uL Hgb (13.0-17.5) gm/dL Hct (39.0-53.0) % MCV (80.0-100.0) fL MCH (25.0-35.0) pg MCHC (31.0-37.0) g/dL RDW (11.5-15.5) % Plt Count (150-450) k/uL Neutrophils % % Lymphocytes % % Monocytes % % Eosinophils % % Basophils % % Neutrophils # (1.3-7.7) k/uL Lymphocytes # (1.0-4.8) k/uL Monocytes # (0-1.0) k/uL Eosinophils # (0-0.7) k/uL Basophils # (0-0.2) k/uL PT (9.0-12.0) sec INR (<1.2) APTT (22.0-30.0) sec Sodium (137-145) mmol/L Potassium (3.5-5.1) mmol/L Chloride (98-107) mmol/L Carbon Dioxide (22-30) mmol/L Anion Gap mmol/L BUN (9-20) mg/dL Creatinine (0.66-1.25) mg/dL Est GFR (CKD-EPI)AfAm (>60 ml/min/1.73 sqM) Est GFR (CKD-EPI)NonAf (>60 ml/min/1.73 sqM) Glucose (74-99) mg/dL Plasma Lactic Acid Lloyd 2.0 (0.7-2.0) mmol/L Calcium (8.4-10.2) mg/dL Total Bilirubin (0.2-1.3) mg/dL AST (17-59) U/L ALT (4-49) U/L Alkaline Phosphatase (38-126) U/L C-Reactive Protein (<10.0) mg/L Total Protein (6.3-8.2) g/dL Albumin (3.5-5.0) g/dL Disposition <Lauri Loving - Last Filed: 01/07/20 18:55> <Vidal Dodd - Last Filed: 01/07/20 19:04> Clinical Impression: Ulcer of right foot with fat layer exposed, Cellulitis of right foot, Peripheral vascular disease, Osteomyelitis Disposition: ADMITTED IP TO THIS [facility] Condition: Fair Referrals: Nolberto Huertas MD [REFERRING] - 1-2 days
[2020-01-07 17:32] LABS: Basophils % (A) 0 %; Eosinophils # (A) 0.3 k/uL (0-0.7); Eosinophils % (A) 3 %; HCT 45.4 % (39.0-53.0); HGB 14.6 gm/dL (13.0-17.5); Lymphocytes # (A) 1.6 k/uL (1.0-4.8); Lymphocytes % (A) 14 %; MCH 28.6 pg (25.0-35.0); MCHC 32.2 g/dL (31.0-37.0); MCV 88.8 fL (80.0-100.0); Mean Platelet Volume 7.7; Monocytes # (A) 0.7 k/uL (0-1.0); Monocytes % (A) 6 %; Neutrophils % (A) 75 %; Platelet Count 304 k/uL (150-450); RBC 5.11 m/uL (4.30-5.90); RDW 13.5 % (11.5-15.5); WBC 11.9 k/uL (3.8-10.6)
[2020-01-07 17:42] LABS: Partial Thromboplastin Time 25.5 sec (22.0-30.0); Prothrombin Time 10.3 sec (9.0-12.0)
[2020-01-07 17:43] LABS: ALT 41 U/L (4-49); AST 54 U/L (17-59); African American GFR (CKD) >90 (>60 ml/min/1.73 sqM); Albumin 3.8 g/dL (3.5-5.0); Alkaline Phosphatase 100 U/L (38-126); Anion Gap 8 mmol/L; Blood Urea Nitrogen 14 mg/dL (9-20); C Reactive Protein 20.5 mg/L (<10.0); Calcium 8.9 mg/dL (8.4-10.2); Carbon Dioxide 27 mmol/L (22-30); Chloride 101 mmol/L (98-107); Glucose 132 mg/dL (74-99); Non-African American GFR(CKD) >90 (>60 ml/min/1.73 sqM); Potassium 4.3 mmol/L (3.5-5.1); Sodium 136 mmol/L (137-145); Total Bilirubin 0.5 mg/dL (0.2-1.3); Total Protein 7.5 g/dL (6.3-8.2)
--- NOTE | 2020-01-07 17:52 | XR ---
EXAMINATION TYPE: XR foot limited RT DATE OF EXAM: 01/07/2020 COMPARISON: 11/19/2018 HISTORY: Swelling multiple nonhealing wound TECHNIQUE: Three views are submitted. FINDINGS: Diffuse abnormal soft tissue edema compatible with cellulitis. Deformity of the MTP joints of all dig its with arthropathy noted and appear to be chronic. Evaluation the second digit distal phalanx nondi agnostic due to positioning. Subluxation not excluded. Grossly no destructive changes are seen. [place] us structures are diffusely osteopenic. There is a deformity of the distal phalanx first digit. IMPRESSION: 1. Diffuse osteopenia with arthropathy and chronic appearing deformities. Correlate clinically for ea rly osteomyelitis distal phalanx first digit.
[2020-01-07] MEDS ORDERED: ONDANSETRON 4 MG/2 ML VIAL IVP PRN (19:05)
[2020-01-07] MEDS ORDERED: NALOXONE 0.4 MG/ML 1 ML VIAL IV PRN (19:05)
[2020-01-07] MEDS ORDERED: MELOXICAM 7.5 MG TAB PO PRN (21:54)
[2020-01-07] MEDS ORDERED: LOPERAMIDE 2 MG CAP PO PRN (21:54)
[2020-01-07] MEDS ORDERED: ACETAMINOPHEN TAB 325 MG TAB PO PRN (21:54)
[2020-01-07] MEDS: MORPHINE SULFATE 4 MG/ML SYRINGE IV PRN (22:07)
[2020-01-07] MEDS: BACLOFEN 10 MG TAB PO SCH (23:08)
[2020-01-07] MEDS: METOPROLOL TARTRATE 25 MG TAB PO SCH (23:08)
--- NOTE | 2020-01-07 23:10 | P.HPIM ---
History of Present Illness H&P Date: 01/07/20 Chief Complaint: right foot erythema and drainage 59 year old male with chronic bilateral skin changes , and chronic ulceration of the right foot. patient comes in upon recommendation from his wound care visiting nurse, due to concerns regarding right foot infection. patient has chronic dermatitis of the right leg with chronic ulceration / osteomyelitis. he has been on chronic PO antibiotics . however over the past 1-2 weeks he noticed increased reddness over right lower leg, along with drainage from the ulceration around his right 2nd toe. he reports some increase pain from baseline over his right foot. denies any fever, chills, chest pain or trouble breathing. he is concerned regarding losing his right foot for infection. as he was told inthe past that he might require surgery. patient claimes to be compliant with his medications, but has not been able to follow upwith his physiciandue to difficulty with ambulation. patient usses walker at home but he limits his activity in general due to bilateral chronic leg problems in the ed, his blood work showed slightly elevated WBC, xray of the foot , suggestive of possible osteomyelitis Review of Systems Pertinent positives as noted in HPI. All other systems were reviewed and are negative Past Medical History Past Medical History: Hyperlipidemia, Hypertension, Musculoskeletal Disorder, Sleep Apnea/CPAP/BIPAP, Vascular Disorder Additional Past Medical History / Comment(s): CHF, chronic back pain, cellulit is, DVT, nerve pain History of Any Multi-Drug Resistant Organisms: MRSA Date of last positivie culture/infection: 12/08/19 MDRO Source:: Right Foot Past Surgical History: Cholecystectomy, Hernia Repair, Tonsillectomy Past Anesthesia/Blood Transfusion Reactions: No Reported Reaction Past Psychological History: No Psychological Hx Reported Smoking Status: Former smoker Past Alcohol Use History: None Reported Additional Past Alcohol Use History / Comment(s): quit smoking in october 2018. Past Drug Use History: None Reported, Marijuana - Past Family History Father Family Medical History: Cancer, Prostate Disorder Mother Family Medical History: Cancer Medications and Allergies Home Medications Medication Instructions Recorded Confirmed Type Acetaminophen Tab [Tylenol] 650 mg PO Q6HR PRN tab 11/26/18 01/07/20 Rx Lisinopril [Zestril] 10 mg PO DAILY tab 11/26/18 01/07/20 Rx Metoprolol Tartrate [Lopressor] 25 mg PO BID tab 11/26/18 01/07/20 Rx Aspirin EC [Ecotrin Low Dose] 81 mg PO DAILY 01/07/20 01/07/20 History Baclofen 10 mg PO TID 01/07/20 01/07/20 History Celecoxib 400 mg PO DAILY PRN 01/07/20 01/07/20 History Clindamycin HCl 300 mg PO QID 01/07/20 01/07/20 History DULoxetine HCL [Cymbalta] 30 mg PO DAILY 01/07/20 01/07/20 History Levofloxacin [Levaquin] 750 mg PO DAILY 01/07/20 01/07/20 History Loperamide HCl [Imodium A-D] 2 mg PO Q4H PRN 01/07/20 01/07/20 History Allergies Allergy/AdvReac Type Severity Reaction Status Date / Time No Known Allergies Allergy Verified 01/07/20 19:58 Physical Exam Vitals: Vital Signs Temp Pulse Resp BP Pulse Ox 01/07/20 20:01 61 16 137/70 99 01/07/20 18:12 76 16 141/80 94 L 01/07/20 16:35 98.6 F 91 20 146/93 97 Intake and Output 01/07/20 01/07/20 01/07/20 06:59 14:59 22:59 Other: Weight 142.882 kg Constitutional: No acute distress, conversant, pleasant Eyes: Anicteric sclerae, moist conjunctiva, Pupils equal round reactive to light ENMT: NC/AT Oropharynx clear, no erythema, or exudates Neck: Supple, FROM, no masses, or JVD No carotid bruits No thyromegaly Lungs: Clear to auscultation Clear to percussion Normal respiratory effort, no accessory muscle use Cardiovascular: Heart regular in rate and rhythm, No murmurs, gallops, or rubs No peripheral edema Abdominal: Soft Nontender, no guarding, rebound or rigidity Abdomen moving with respiration Normoactive bowel sounds No hepatomegaly, No splenomegaly No palpable mass No abdominal wall hernia noted Skin: patient has extensive chronic skin changes over bilateral legs and feet. associated with erythema and induration over the right leg and right foot with circumferential erythema and ulceration over the right foot. no active drainage. otherwise Normal temperature, tone, texture, turgor No induration No subcutaneous nodules No rash, lesions No ulcers Extremities: No digital cyanosis No clubbing Pedal pulses intact and symmetrical Radial pulses intact and symmetrical No calf tenderness Psychiatric: Alert and oriented to person, place and time Appropriate affect fair judgement Neuro Muscles Strength 5/5 in bilateral upper extremities, and 2-3/5 over bilateral lower extremities however patient body habitus prevents patient Sensation to light touch grossly present throughout, hypersensitivity to touch over bilateral feet Cranial nerves II-XII grossly intact No focal sensory deficits Lymphatics: no palpable cervical or supraclavicular , or inguinal lymph nodes Results CBC & Chem 7: 01/07/20 17:17 01/07/20 17:17 Labs: Abnormal Lab Results - Last 24 Hours (Table) 01/07/20 01/07/20 Range/Units 17:17 17:17 WBC 11.9 H (3.8-10.6) k/uL Neutrophils # 9.0 H (1.3-7.7) k/uL Sodium 136 L (137-145) mmol/L Glucose 132 H (74-99) mg/dL C-Reactive Protein 20.5 H (<10.0) mg/L Thrombosis Risk Factor Assmnt - Choose All That Apply Any of the Below Risk Factors Present?: Yes Each Factor Represents 1 point: Age 41-60 years, Obesity (BMI >25), Swollen legs (current) Other Risk Factors: Yes Each Risk Factor Represents 3 Points: History of DVT/PE Other congenital or acquired thrombophilia - If yes, enter type in comment: No Thrombosis Risk Factor Assessment Total Risk Factor Score: 6 Thrombosis Risk Factor Assessment Level: High Risk Assessment and Plan Assessment: 59 year old male with chronic bilateral skin changes , and chronic ulceration of the right foot. comes in due to increase erythema and induration along with drainage at home from right foot ulcer, visiting nurse from wound care has been recommending goting to the hospital for evaluation for few days now, patient cant go see his doctor due to difficulty ambulating. patient has been on antibiotics chronically admitted as inpatient with anticipated length of stay > 2 midnights Plan: right lower leg cellulitis , rule out osteomyelitis. follow up cultures empiric antibiotics surgery consultation pain control with morphine elevated leg elevated CRP foot xray suggestive of possible osteo chronic skin changes over bilateral lower legs apply emolients and zinc ointment chronic conditions hypertension , controlled, continue home meds hyperlipidemia , continue home meds MYRTLE, resume CPAP chronic venous insufficiency of the lower extremity chronic low back pain, resume home meds Preformed a thorough record review from recent hospitalization over 1 year ago , for cellulitis of the right foot, when almost required amputation and required antibiotics for longterm CODE STATUS:full code DVT prophylaxis: heparin sc tid Discussed with: Patient, ER, RN Anticipated length of stay > than [address]: home A total of 60 minutes was spent on the care of this complex patient more than 50% of the time was spent in counseling and care coordination.
[2020-01-07] MEDS: HYDROcodone/APAP 5-325MG 1 EACH TAB PO PRN (23:11)
[2020-01-08] MEDS: HEPARIN SODIUM,PORCINE 5,000 UNIT/ML 1 ML VIAL SQ SCH ×4 (00:38→23:18)
[2020-01-08] MEDS: MORPHINE SULFATE 4 MG/ML SYRINGE IV PRN ×4 (05:27→22:55)
[2020-01-08] MEDS: VANCOMYCIN 2,000 MG in SODIUM CHLORIDE 0.9% 500 ML 500 ML IVPB SCH ×2 (05:28→18:21)
[2020-01-08 08:49] LABS: Basophils # (A) 0.1 k/uL (0-0.2); Basophils % (A) 1 %; Eosinophils # (A) 0.6 k/uL (0-0.7); Eosinophils % (A) 6 %; HCT 42.9 % (39.0-53.0); HGB 13.6 gm/dL (13.0-17.5); Lymphocytes # (A) 3.3 k/uL (1.0-4.8); Lymphocytes % (A) 29 %; MCH 28.5 pg (25.0-35.0); MCHC 31.8 g/dL (31.0-37.0); MCV 89.7 fL (80.0-100.0); Mean Platelet Volume 7.6; Monocytes # (A) 0.6 k/uL (0-1.0); Monocytes % (A) 6 %; Neutrophils # (A) 6.4 k/uL (1.3-7.7); Neutrophils % (A) 56 %; Platelet Count 277 k/uL (150-450); RBC 4.78 m/uL (4.30-5.90); RDW 13.4 % (11.5-15.5); WBC 11.4 k/uL (3.8-10.6)
[2020-01-08 09:00] LABS: African American GFR (CKD) >90 (>60 ml/min/1.73 sqM); Anion Gap 5 mmol/L; Blood Urea Nitrogen 11 mg/dL (9-20); Calcium 8.5 mg/dL (8.4-10.2); Carbon Dioxide 30 mmol/L (22-30); Chloride 101 mmol/L (98-107); Glucose 95 mg/dL (74-99); Non-African American GFR(CKD) >90 (>60 ml/min/1.73 sqM); Potassium 4.5 mmol/L (3.5-5.1); Sodium 136 mmol/L (137-145)
[2020-01-08] MEDS: DULoxetine HCL 30 MG CAPSULE.DR PO SCH (09:34)
[2020-01-08] MEDS: BACLOFEN 10 MG TAB PO SCH ×3 (09:34→21:10)
[2020-01-08] MEDS: METOPROLOL TARTRATE 25 MG TAB PO SCH ×2 (09:34→21:09)
[2020-01-08] MEDS: ASPIRIN 81 MG PO SCH (09:34)
[2020-01-08] MEDS: LISINOPRIL 10 MG TAB PO SCH (09:34)
--- NOTE | 2020-01-08 14:46 | P.PN ---
Subjective Progress Note Date: 01/08/20 Patient seen and examined at bedside, patient complaining of pain in his lower back, patient denies any fevers or chills white count is 11.4 Objective - Vital Signs Vital signs: Vital Signs Temp 97.5 F L 01/08/20 06:12 Pulse 68 01/08/20 06:12 Resp 18 01/08/20 08:00 BP 112/72 01/08/20 06:12 Pulse Ox 97 01/08/20 06:12 Intake & Output 01/07/20 01/08/20 01/08/20 18:59 06:59 18:59 Output Total 750 Balance -750 Weight 142.882 kg 142.882 kg Output: Urine 750 Other: Voiding Method Urinal - Exam Constitutional: No acute distress, conversant, pleasant Eyes: Anicteric sclerae, moist conjunctiva, no lid-lag, PERRLA ENMT: NC/AT,Oropharynx clear, no erythema, exudates Neck:Supple, FROM, no masses, or JVD, No carotid bruits; No thyromegaly Lungs: Clear to auscultation, Clear to percussion, Normal respiratory effort, no accessory muscle use Cardiovascular: Heart regular in rate and rhythm, No murmurs, gallops, or rubs no peripheral edema Abdominal: Soft Nontender, nom distended, no guarding, no rebound or rigidity, Normoactive bowel sounds No hepatomegaly, No splenomegaly, No palpable mass No abdominal wall hernia noted Skin: Extensive chronic changes over bilateral legs and feet associated with erythema induration of the right leg and foot with cervical differential erythema and ulceration of the right foot active drainage Extremities:No digital cyanosis No clubbing, Pedal pulses intact and symmetrical Radial pulses intact and symmetrical Normal gait and station, No calf tenderness Psychiatric: Alert and oriented to person, place and time, Appropriate affect Intact judgement Neuro: Muscles Strength 5/5 in all 4 extremities, Sensation to light touch grossly present throughout, Cranial nerves II-XII grossly intact. No focal sensory deficits - Labs CBC & Chem 7: 01/08/20 08:01 01/08/20 08:01 Labs: Abnormal Lab Results - Last 24 Hours (Table) 01/07/20 01/07/20 01/08/20 Range/Units 17:17 17:17 08:01 WBC 11.9 H 11.4 H (3.8-10.6) k/uL Neutrophils # 9.0 H (1.3-7.7) k/uL Sodium 136 L (137-145) mmol/L Glucose 132 H (74-99) mg/dL C-Reactive Protein 20.5 H (<10.0) mg/L 01/08/20 Range/Units 08:01 WBC (3.8-10.6) k/uL Neutrophils # (1.3-7.7) k/uL Sodium 136 L (137-145) mmol/L Glucose (74-99) mg/dL C-Reactive Protein (<10.0) mg/L Microbiology - Last 24 Hours (Table) 01/07/20 23:30 Anaerobic Culture - Preliminary Foot - Right 01/07/20 23:30 Wound Culture - Preliminary Foot - Right Assessment and Plan Assessment: right lower leg cellulitis , rule out osteomyelitis. * follow up cultures * empiric antibiotics with IV vancomycin and Zosyn * Vascular surgery consultation * pain control with morphine * foot xray suggestive of possible osteo, will order MRI * Consult infectious diseases chronic skin changes over bilateral lower legs * apply emolients and zinc ointment hypertension * controlled, continue home meds hyperlipidemia , continue home meds * MYRTLE, resume CPAP chronic venous insufficiency of the lower extremity * chronic low back pain, resume home meds Disposition * Anticipated discharge 2 to 3 days * Awaiting consultants recommendations from vascular surgery and ID
--- NOTE | 2020-01-08 16:09 | P.GSCN ---
History of Present Illness Consult date: 01/08/20 Reason for Consult: Right foot infection Requesting physician: Lauri Loving History of present illness: This is a 60-year-old gentleman who follows in an outpatient basis with Dr. Chapman. He has multiple medical comorbidities including hypertension, hyperlipidemia, degenerative disc disease along with chronic low back pain. He has been following on an outpatient basis for approximately the last year with Dr. Myrick for right lower extremity foot wound. He last saw Dr. Myrick approximate 4 weeks ago but then was lost to follow-up due to mobility issues and noncompliance. He has been treated at home by a visiting nurse who sent him to the emergency room yesterday for worsening of the wounds on his right foot. He reports that the right foot has been getting increasingly red with increased yellowish drainage. In the emergency room and x-ray of the foot was completed demonstrating diffuse osteopenia with arthropathy and chronic-appearing deformities, possible early osteomyelitis. He was afebrile, his white blood cell count was 11.9, lactic acid was 2.0. He denies any fevers or any other symptomatology except his chronic low back pain. The patient was admitted for further evaluation and treatment with consultations placed to Dr. Tyson from infectious disease and Dr. Myrick from vascular surgery. Review of Systems Review of systems was completed and was negative except as noted. Of note patient was very emotional throughout interview - Musculoskeletal Reports low back pain - Integumentary Reports wounds Past Medical History Past Medical History: Hyperlipidemia, Hypertension, Musculoskeletal Disorder, Sleep Apnea/CPAP/BIPAP, Vascular Disorder Additional Past Medical History / Comment(s): CHF, chronic back pain, cellulitis, DVT, nerve pain History of Any Multi-Drug Resistant Organisms: MRSA Year Discovered:: 12/08/19 MDRO Source:: Right Foot Past Surgical History: Cholecystectomy, Hernia Repair, Tonsillectomy Past Anesthesia/Blood Transfusion Reactions: No Reported Reaction Past Psychological History: No Psychological Hx Reported Smoking Status: Former smoker Past Alcohol Use History: None Reported Additional Past Alcohol Use History / Comment(s): quit smoking in october 2018. Past Drug Use History: None Reported, Marijuana - Past Family History Father Family Medical History: Cancer, Prostate Disorder Mother Family Medical History: Cancer Medications and Allergies Home Medications Medication Instructions Recorded Confirmed Type Acetaminophen Tab [Tylenol] 650 mg PO Q6HR PRN tab 11/26/18 01/07/20 Rx Lisinopril [Zestril] 10 mg PO DAILY tab 11/26/18 01/07/20 Rx Metoprolol Tartrate [Lopressor] 25 mg PO BID tab 11/26/18 01/07/20 Rx Aspirin EC [Ecotrin Low Dose] 81 mg PO DAILY 01/07/20 01/07/20 History Baclofen 10 mg PO TID 01/07/20 01/07/20 History Celecoxib 400 mg PO DAILY PRN 01/07/20 01/07/20 History Clindamycin HCl 300 mg PO QID 01/07/20 01/07/20 History DULoxetine HCL [Cymbalta] 30 mg PO DAILY 01/07/20 01/07/20 History Levofloxacin [Levaquin] 750 mg PO DAILY 01/07/20 01/07/20 History Loperamide HCl [Imodium A-D] 2 mg PO Q4H PRN 01/07/20 01/07/20 History Allergies Allergy/AdvReac Type Severity Reaction Status Date / Time No Known Allergies Allergy Verified 01/07/20 19:58 Surgical - Exam Vital Signs Temp Pulse Resp BP Pulse Ox 98.6 F 91 20 146/93 97 01/07/20 16:35 01/07/20 16:35 01/07/20 16:35 01/07/20 16:35 01/07/20 16:35 - General Complains of pain to lower back and right lower extremity with dressing change well developed, well nourished, moderate distress, chronically ill, obese - Eyes normal ocular movement - ENT no hearing loss, poor prison - Neck no masses, no bruits, trachea midline - Respiratory Lungs sounds diminished bilaterally. Respirations even, nonlabored. Currently on 2 L nasal cannula with oxygen saturations 97%. No chest wall deformities. No clubbing or cyanosis present. - Cardiovascular S1, S2 present. Regular rate and rhythm. Palpable peripheral pulses bilaterally. Bilateral lower extremity edema present. No calf pain or tenderness noted. - Abdomen Abdomen: soft, non tender, bowel sounds - Genitourinary Deferred - Rectum Deferred - Integumentary Skin is warm and dry. Both lower extremities are red and scaly. Wound present to dorsum of right foot, between the toes, small amount serous drainage present on current dressing. See pictures in chart - Neurologic normal coordination - Musculoskeletal normal posture - Psychiatric Patient is very anxious and emotional oriented to time, oriented to person, oriented to place Results - Labs 01/08/20 08:01 01/08/20 08:01 Abnormal Lab Results - Last 24 Hours (Table) 01/07/20 01/07/20 01/08/20 Range/Units 17:17 17:17 08:01 WBC 11.9 H 11.4 H (3.8-10.6) k/uL Neutrophils # 9.0 H (1.3-7.7) k/uL Sodium 136 L (137-145) mmol/L Glucose 132 H (74-99) mg/dL C-Reactive Protein 20.5 H (<10.0) mg/L 01/08/20 Range/Units 08:01 WBC (3.8-10.6) k/uL Neutrophils # (1.3-7.7) k/uL Sodium 136 L (137-145) mmol/L Glucose (74-99) mg/dL C-Reactive Protein (<10.0) mg/L Microbiology - Last 24 Hours (Table) 01/07/20 23:30 Anaerobic Culture - Preliminary Foot - Right 01/07/20 23:30 Wound Culture - Preliminary Foot - Right Diabetes panel 01/07/20 01/08/20 Range/Units 17:17 08:01 Sodium 136 L 136 L (137-145) mmol/L Potassium 4.3 4.5 (3.5-5.1) mmol/L Chloride 101 101 (98-107) mmol/L Carbon Dioxide 27 30 (22-30) mmol/L BUN 14 11 (9-20) mg/dL Creatinine 0.77 0.87 (0.66-1.25) mg/dL Glucose 132 H 95 (74-99) mg/dL Calcium 8.9 8.5 (8.4-10.2) mg/dL AST 54 (17-59) U/L ALT 41 (4-49) U/L Alkaline Phosphatase 100 (38-126) U/L Total Protein 7.5 (6.3-8.2) g/dL Albumin 3.8 (3.5-5.0) g/dL Calcium panel 01/07/20 01/08/20 Range/Units 17:17 08:01 Calcium 8.9 8.5 (8.4-10.2) mg/dL Albumin 3.8 (3.5-5.0) g/dL Pituitary panel 01/07/20 01/08/20 Range/Units 17:17 08:01 Sodium 136 L 136 L (137-145) mmol/L Potassium 4.3 4.5 (3.5-5.1) mmol/L Chloride 101 101 (98-107) mmol/L Carbon Dioxide 27 30 (22-30) mmol/L BUN 14 11 (9-20) mg/dL Creatinine 0.77 0.87 (0.66-1.25) mg/dL Glucose 132 H 95 (74-99) mg/dL Calcium 8.9 8.5 (8.4-10.2) mg/dL Adrenal panel 01/07/20 01/08/20 Range/Units 17:17 08:01 Sodium 136 L 136 L (137-145) mmol/L Potassium 4.3 4.5 (3.5-5.1) mmol/L Chloride 101 101 (98-107) mmol/L Carbon Dioxide 27 30 (22-30) mmol/L BUN 14 11 (9-20) mg/dL Creatinine 0.77 0.87 (0.66-1.25) mg/dL Glucose 132 H 95 (74-99) mg/dL Calcium 8.9 8.5 (8.4-10.2) mg/dL Total Bilirubin 0.5 (0.2-1.3) mg/dL AST 54 (17-59) U/L ALT 41 (4-49) U/L Alkaline Phosphatase 100 (38-126) U/L Total Protein 7.5 (6.3-8.2) g/dL Albumin 3.8 (3.5-5.0) g/dL - Imaging Additional studies: Foot x-ray reviewed Assessment and Plan (1) Ulcer of right foot with fat layer exposed Current Visit: Yes Status: Chronic Priority: High Code(s): L97.512 - NON- PRS CHRONIC ULCER OTH PRT RIGHT FOOT W FAT LAYER EXPOSED SNOMED Code(s): 59218295 Plan: The patient was seen and examined bedside. Chart/diagnostics were reviewed. The case was discussed in detail with Dr. Myrick. At this time our recommendation is for absorptive silver to be applied to the right lower extremity, gentle Holger wraps applied from the toes to the knees. Bilateral lower extremity should be elevated above the level of the heart at all times except when patient is sitting up to eat. The importance of leg elevation, proper diet was discussed in detail with the patient. Dr. Myrick will see the patient Friday. Continue medical management of other comorbidities per primary care service, infectious disease. Thank you for this consult. Time with Patient: Greater than 30
[2020-01-08] MEDS: HYDROcodone/APAP 5-325MG 1 EACH TAB PO PRN (21:09)
--- NOTE | 2020-01-08 23:24 | P.CONS ---
History of Present Illness - Reason for Consult Consult date: 01/08/20 right foot cellulitis and antibiotics Requesting physician: Randy Ewing - Chief Complaint right foot wound non healing and pain x weeks - History of Present Illness Patient is a 59-year-old male with a past medical history significant for hypertension hyperlipidemia chronic back pain and this patient also have a history of chronic nonhealing wound to his right foot that has been there for more than a year patient to follow-up with Dr. Villarreal at the [facility] [place] last seen about 4 weeks ago patient is now presenting to has been sent to the ER by home care nurse with concern for worsening of his wound to the right foot which has not likely has been there for more than a year now, patient has been complaining of more pain to the right foot more of a dull aching to throbbing intensity can be as high as 10 out of 10 especially when the wound is touched with surrounding swelling redness and some drainage on arrival to the ER the patient was afebrile patient did have mildly elevated protein of 11.9 kidney function has been normal CRP was 20.5 local wound culture has been obtained which are currently pending patient did have x-rays of the right foot which show diffuse osteopenia with arthropathy and chronic deformities early os teophyte distal phalanx fourth digit not excluded patient has been started on vancomycin infectious disease was consulted for further recommendation of antibiotic review of his microbiologically today shows previous growth of MRSA as well as E. coli as well as alcogenes species. Review of Systems Positive point has been mentioned HPI rest of the systems are negative Past Medical History Past Medical History: Hyperlipidemia, Hypertension, Musculoskeletal Disorder, Sleep Apnea/CPAP/BIPAP, Vascular Disorder Additional Past Medical History / Comment(s): CHF, chronic back pain, cellulitis, DVT, nerve pain History of Any Multi-Drug Resistant Organisms: MRSA Year Discovered:: 12/08/19 MDRO Source:: Right Foot Past Surgical History: Cholecystectomy, Hernia Repair, Tonsillectomy Past Anesthesia/Blood Transfusion Reactions: No Reported Reaction Past Psychological History: No Psychological Hx Reported Smoking Status: Former smoker Past Alcohol Use History: None Reported Additional Past Alcohol Use History / Comment(s): quit smoking in october 2018. Past Drug Use History: None Reported, Marijuana - Past Family History Father Family Medical History: Cancer, Prostate Disorder Mother Family Medical History: Cancer Medications and Allergies Home Medications Medication Instructions Recorded Confirmed Type Acetaminophen Tab [Tylenol] 650 mg PO Q6HR PRN tab 11/26/18 01/07/20 Rx Lisinopril [Zestril] 10 mg PO DAILY tab 11/26/18 01/07/20 Rx Metoprolol Tartrate [Lopressor] 25 mg PO BID tab 11/26/18 01/07/20 Rx Aspirin EC [Ecotrin Low Dose] 81 mg PO DAILY 01/07/20 01/07/20 History Baclofen 10 mg PO TID 01/07/20 01/07/20 History Celecoxib 400 mg PO DAILY PRN 01/07/20 01/07/20 History Clindamycin HCl 300 mg PO QID 01/07/20 01/07/20 History DULoxetine HCL [Cymbalta] 30 mg PO DAILY 01/07/20 01/07/20 History Levofloxacin [Levaquin] 750 mg PO DAILY 01/07/20 01/07/20 History Loperamide HCl [Imodium A-D] 2 mg PO Q4H PRN 01/07/20 01/07/20 History Allergies Allergy/AdvReac Type Severity Reaction Status Date / Time No Known Allergies Allergy Verified 01/07/20 19:58 Physical Exam Vitals: Vital Signs Temp Pulse Pulse Resp BP BP Pulse Ox 01/08/20 06:12 97.5 F L 68 18 112/72 97 01/07/20 20:43 97.7 F 82 18 158/82 96 01/07/20 20:01 61 16 137/70 99 01/07/20 18:12 76 16 141/80 94 L 01/07/20 16:35 98.6 F 91 20 146/93 97 Intake and Output 01/07/20 01/08/20 01/08/20 22:59 06:59 14:59 Output Total 300 450 Balance -300 -450 Output: Urine 300 450 Other: Voiding Method Urinal Weight 142.882 kg GENERAL DESCRIPTION: Middle-aged male lying in bed, no distress. No tachypnea or accessory muscle of respiration use. HEENT: Shows Pallor , no scleral icterus. Oral mucous membrane is dry. No pharyngeal erythema or thrush NECK: Trachea central, no thyromegaly. LUNGS: Unlabored breathing. Decreased breath sound the base. No wheeze or crackle. HEART: S1, S2, regular rate and rhythm. No loud murmur ABDOMEN: Soft, no tenderness , guarding or rigidity, no organomegaly EXTREMITIES: Diffuse swelling of the leg right foot did have significantly deep wound around his first second and third toe with slough tissue at the base some maceration sKIN: No rash, no masses palpable. NEUROLOGICAL: The patient is awake, alert, oriented x3, mood and affect normal. Results CBC & Chem 7: 01/08/20 08:01 01/08/20 08:01 Labs: Abnormal Lab Results - Last 24 Hours (Table) 01/07/20 01/07/20 01/08/20 Range/Units 17:17 17:17 08:01 WBC 11.9 H 11.4 H (3.8-10.6) k/uL Neutrophils # 9.0 H (1.3-7.7) k/uL Sodium 136 L (137-145) mmol/L Glucose 132 H (74-99) mg/dL C-Reactive Protein 20.5 H (<10.0) mg/L 01/08/20 Range/Units 08:01 WBC (3.8-10.6) k/uL Neutrophils # (1.3-7.7) k/uL Sodium 136 L (137-145) mmol/L Glucose (74-99) mg/dL C-Reactive Protein (<10.0) mg/L Microbiology - Last 24 Hours (Table) 01/07/20 23:30 Anaerobic Culture - Preliminary Foot - Right 01/07/20 23:30 Wound Culture - Preliminary Foot - Right Assessment and Plan Assessment: patient with a chronic nonhealing wound to his right foot which has been there for more than a year now now admitted to the hospital with significant worsening of his wound along with secondary cellulitis patient x-ray has been suggestive of possible osteomyelitis of the fourth digit and this patient has previously grown both gram-negative as well as MRSA will need to cover for those pathogen while waiting for the culture to finalize however in view of chronic nonhealing of this wound and for possible failure of medical therapy may be candidate for right below the knee amputation (1) Cellulitis of right foot Current Visit: Yes Status: Acute Code(s): L03.115 - CELLULITIS OF RIGHT LOWER LIMB SNOMED Code(s): 797876709 (2) Osteomyelitis Current Visit: Yes Status: Acute Code(s): M86.9 - OSTEOMYELITIS, UNSPECIFIED SNOMED Code(s): 94199110 (3) Ulcer of right foot with fat layer exposed Current Visit: Yes Status: Chronic Priority: High Code(s): L97.512 - NON- PRS CHRONIC ULCER OTH PRT RIGHT FOOT W FAT LAYER EXPOSED SNOMED Code(s): 79284149 Plan: 1-vancomycin pharmacy to dose target trough of 15 while watching his kidney function and vancomycin trough closely 2-Rocephin 2 g daily 3-local wound care with dry Aquacel silver dressing We will follow on clinical condition and cultures to further adjust medication if needed Thank you for this consultation will follow this patient along with you Time with Patient: Greater than 30
[2020-01-09] MEDS: MORPHINE SULFATE 4 MG/ML SYRINGE IV PRN ×4 (03:21→21:13)
[2020-01-09] MEDS: VANCOMYCIN 2,000 MG in SODIUM CHLORIDE 0.9% 500 ML 500 ML IVPB SCH ×2 (06:04→18:40)
--- NOTE | 2020-01-09 10:42 | P.PN ---
Subjective Progress Note Date: 01/09/20 Patient seen and examined at bedside, compliant with his CPAP therapy. Somnolent but arousable, reporting lower back pain. Unable to complete his MRI yesterday secondary to lower back pain, patient afebrile Objective - Vital Signs Vital signs: Vital Signs Temp 98.4 F 01/09/20 07:00 Pulse 69 01/09/20 07:00 Resp 18 01/09/20 07:00 BP 136/64 01/09/20 07:00 Pulse Ox 93 L 01/08/20 21:21 Intake & Output 01/08/20 01/09/20 01/09/20 18:59 06:59 18:59 Intake Total 1080 Output Total 825 Balance 1080 -825 Intake: Oral 1080 Output: Urine 825 Other: Voiding Method Urinal # Voids 3 - Exam Constitutional: No acute distress, conversant, pleasant Eyes: Anicteric sclerae, moist conjunctiva, no lid-lag, PERRLA ENMT: NC/AT,Oropharynx clear, no erythema, exudates Neck:Supple, FROM, no masses, or JVD, No carotid bruits; No thyromegaly Lungs: Clear to auscultation, Clear to percussion, Normal respiratory effort, no accessory muscle use Cardiovascular: Heart regular in rate and rhythm, No murmurs, gallops, or rubs no peripheral edema Abdominal: Soft Nontender, nom distended, no guarding, no rebound or rigidity, Normoactive bowel sounds No hepatomegaly, No splenomegaly, No palpable mass No abdominal wall hernia noted Skin: Extensive chronic changes over bilateral legs and feet associated with erythema induration of the right leg and foot with circumferential erythema and ulceration of the right foot active drainage see pictures in chart Extremities:No digital cyanosis No clubbing, Pedal pulses intact and symme trical Radial pulses intact and symmetrical Normal gait and station, No calf tenderness Psychiatric: Alert and oriented to person, place and time, Appropriate affect Intact judgement Neuro: Muscles Strength 5/5 in all 4 extremities, Sensation to light touch grossly present throughout, Cranial nerves II-XII grossly intact. No focal sensory deficits - Labs CBC & Chem 7: 01/08/20 08:01 01/08/20 08:01 Labs: Microbiology - Last 24 Hours (Table) 01/07/20 23:30 Gram Stain - Preliminary Foot - Right Wound Culture - Preliminary Gram Neg Bacilli 01/07/20 17:17 Blood Culture - Preliminary Blood No Growth after 24 hours 01/07/20 23:30 Anaerobic Culture - Preliminary Foot - Right Assessment and Plan Assessment: Sepsis due to osteomyelitis/cellulitis/foot ulcer * Continue current antibiotic regimen * Cultures suggestive of MRSA/ E. coli, Alcogenes species * Patient afebrile right lower leg cellulitis * follow up cultures * empiric antibiotics with IV vancomycin and Zosyn * Vascular surgery consultation * pain control with morphine * foot xray suggestive of possible osteo, will order MRI * Consult infectious diseases Foot ulcer with fat layer exposed * Continue local wound care as directed with Aquacel silver dressing chronic skin changes over bilateral lower legs * Holger wraps to bilateral lower extremity * apply emolients and zinc ointment hypertension * controlled, continue home meds hyperlipidemia , continue home meds * MYRTLE, resume CPAP chronic venous insufficiency of the lower extremity * chronic low back pain, resume home meds Disposition * Anticipated discharge 2 to 3 days * Awaiting consultants recommendations from vascular surgery and ID
[2020-01-09] MEDS: ASPIRIN 81 MG PO SCH (10:44)
[2020-01-09] MEDS: METOPROLOL TARTRATE 25 MG TAB PO SCH ×2 (10:44→21:13)
[2020-01-09] MEDS: LISINOPRIL 10 MG TAB PO SCH (10:45)
[2020-01-09] MEDS: BACLOFEN 10 MG TAB PO SCH ×3 (10:45→21:13)
[2020-01-09] MEDS: DULoxetine HCL 30 MG CAPSULE.DR PO SCH (10:45)
[2020-01-09] MEDS: HEPARIN SODIUM,PORCINE 5,000 UNIT/ML 1 ML VIAL SQ SCH ×2 (10:45→17:15)
[2020-01-10] MEDS: HEPARIN SODIUM,PORCINE 5,000 UNIT/ML 1 ML VIAL SQ SCH ×3 (00:29→16:37)
[2020-01-10] MEDS: HYDROcodone/APAP 5-325MG 1 EACH TAB PO PRN ×4 (00:54→21:01)
[2020-01-10] MEDS ORDERED: VANCOMYCIN TROUGH DUE 1 EACH MISC MISCELLANE ONE (05:00)
[2020-01-10 05:58] LABS: African American GFR (CKD) >90 (>60 ml/min/1.73 sqM); Anion Gap 9 mmol/L; Blood Urea Nitrogen 12 mg/dL (9-20); Calcium 8.9 mg/dL (8.4-10.2); Carbon Dioxide 24 mmol/L (22-30); Chloride 102 mmol/L (98-107); Glucose 93 mg/dL (74-99); Non-African American GFR(CKD) >90 (>60 ml/min/1.73 sqM); Sodium 135 mmol/L (137-145)
[2020-01-10] MEDS: VANCOMYCIN 2,000 MG in SODIUM CHLORIDE 0.9% 500 ML 500 ML IVPB SCH ×2 (05:58→17:24)
[2020-01-10] MEDS: METOPROLOL TARTRATE 25 MG TAB PO SCH ×2 (09:04→21:00)
[2020-01-10] MEDS: LISINOPRIL 10 MG TAB PO SCH (09:04)
[2020-01-10] MEDS: ASPIRIN 81 MG PO SCH (09:04)
[2020-01-10] MEDS: DULoxetine HCL 30 MG CAPSULE.DR PO SCH (09:04)
[2020-01-10] MEDS: BACLOFEN 10 MG TAB PO SCH ×3 (09:04→21:01)
--- NOTE | 2020-01-10 10:10 | PN ---
PROGRESS NOTE DATE OF SERVICE: 01/09/2020 REASON FOR FOLLOWUP: Right lower extremity wound cellulitis. INTERVAL HISTORY: The patient is currently afebrile, has been breathing comfortably. The patient's pain and discomfort to left foot wound has improved. Denies having any chest pain, no cough, no abdominal pain, no diarrhea. PHYSICAL EXAMINATION: Blood pressure 139/75 with a pulse of 79, temperature 98.1, he is 94% on room air. General description is a middle-aged male, lying in bed in no distress. RESPIRATORY SYSTEM: Unlabored breathing, clear to auscultation anteriorly. HEART: S1, S2. Regular rate and rhythm. ABDOMEN: Soft, no tenderness. Right foot wound is currently dressed. No obvious drainage on the dressing. LABS: No new labs have been obtained today. Local wound cultures with gram-negative bacilli. DIAGNOSTIC IMPRESSION AND PLAN: Patient with right foot chronic nonhealing wound with secondary cellulitis, culture with gram-negative. Patient to cover with Zosyn and vanco with continued local wound care by Vascular surgery. Continue supportive care. MMODL / IJN: [id number] /
[2020-01-10] MEDS: MORPHINE SULFATE 4 MG/ML SYRINGE IV PRN (12:30)
--- NOTE | 2020-01-10 15:00 | P.PN ---
Subjective Progress Note Date: 01/10/20 Principal diagnosis: Osteomyelitis Patient was seen and examined. No acute events overnight. Currently on CPAP attempting to sleep. Complains of lower back pain him unable to complete MRI. He denies any chest pain, shortness of breath or palpitations. No nausea or vomiting. No fever or chills. Objective - Vital Signs Vital signs: Vital Signs Temp 98.6 F 01/10/20 12:57 Pulse 72 01/10/20 12:57 Resp 16 01/10/20 12:57 BP 153/81 01/10/20 12:57 Pulse Ox 94 L 01/10/20 12:57 Intake & Output 01/09/20 01/10/20 01/10/20 18:59 06:59 18:59 Intake Total 750 Output Total 150 Balance -150 750 Intake: Oral 750 Output: Urine 150 Other: Voiding Method Urinal Urinal # Voids 5 # Bowel Movements 1 - Exam General: [non toxic], [no distress], [appears at stated age] Derm: [warm], [dry] Head: [atraumatic], [normocephalic], [symmetric] Eyes: [EOMI], [no lid lag], [anicteric sclera] Mouth: [no lip lesion], [mucus membranes moist] Cardiovascular: [S1S2 reg], [no murmur], [positive posterior tibial pulse bilateral], Lungs: [Decreased breath sounds bilateral], [no rhonchi, no rales] , [no accessory muscle use] Abdominal: [soft], [ nontender to palpation], [no guarding], [no appreciable organomegaly] Ext: [no gross muscle atrophy], [bilateral lower extremities wrapped with dr essing clean dry and intact with surrounding skin erythema], [no contractures] Neuro: [no focal neuro deficits] Psych: [Alert], [oriented], [appropriate affect] - Labs CBC & Chem 7: 01/08/20 08:01 01/10/20 05:24 Labs: Abnormal Lab Results - Last 24 Hours (Table) 01/10/20 Range/Units 05:24 Sodium 135 L (137-145) mmol/L Microbiology - Last 24 Hours (Table) 01/07/20 23:30 Gram Stain - Final Foot - Right Wound Culture - Final Escherichia coli 01/07/20 23:30 Anaerobic Culture - Preliminary Foot - Right 01/07/20 17:17 Blood Culture - Preliminary Blood No Growth after 48 hours Assessment and Plan Assessment: Osteomyelitis and cellulitis Foot ulcer Hypertension Chronic venous insufficiency of the lower extremities Foot x-ray shows diffuse osteopenia and chronic appearing deformities, correlate clinically for early osteomyelitis of the distal phalanx of the first digit in the right foot. MRI attempted but patient unable due to back pain. Wound culture positive for E. coli. Culture negative at 48 hours. Plans: Continue vancomycin and Rocephin. Follow final blood cultures. Follow ID consultation. Follow vascular surgery consultation. Pain control with Cymbalta, [place] and morphine as needed. Plans: Local wound care with Aquasol silver dressing. BP 158/82. Plans: Continue lisinopril, metoprolol. Monitor vitals, adjust indications as necessary. Plans: JOSE wraps.
--- NOTE | 2020-01-10 23:18 | PN ---
PROGRESS NOTE REASON FOR VISIT: Right foot wound and cellulitis. INTERVAL HISTORY: The patient is currently afebrile, has been breathing comfortably. Pain to the right foot is currently controlled. No chest pain, shortness of breath or cough. No abdominal pain and no diarrhea. PHYSICAL EXAMINATION: Blood pressure 153/81 with a pulse of 72, temperature 98.6. He is 94% on . General description is the patient is a middle-aged male lying in bed in no distress. Respiratory system: Unlabored breathing. Clear to auscultation anteriorly. HEART: S1, S2. Regular rate and rhythm. ABDOMEN: Soft, nontender. The right foot is currently dressed up. No obvious drainage on the dressing. LABS: Creatinine 0.78. Wound culture with E coli. Recent cultures also positive for MRSA. DIAGNOSTIC IMPRESSION AND PLAN: Patient with right foot chronic nonhealing wound with secondary cellulitis and a question of possible osteomyelitis especially in the right big toe. The patient covered with Zosyn and vancomycin. Awaiting further recommendations from vascular surgery regarding possible amputation or not. If no amputation, the patient he will need a PICC line for outpatient IV antibiotic therapy though overall chances of IV antibiotic healing this infection are minimal. Continue supportive care. MMODL / IJN: [id number] /
[2020-01-11] MEDS: HEPARIN SODIUM,PORCINE 5,000 UNIT/ML 1 ML VIAL SQ SCH ×4 (00:15→23:18)
[2020-01-11] MEDS: VANCOMYCIN 2,000 MG in SODIUM CHLORIDE 0.9% 500 ML 500 ML IVPB SCH ×2 (05:40→18:05)
[2020-01-11] MEDS: HYDROcodone/APAP 5-325MG 1 EACH TAB PO PRN ×2 (05:41→13:24)
[2020-01-11] MEDS: DULoxetine HCL 30 MG CAPSULE.DR PO SCH (08:59)
[2020-01-11] MEDS: LISINOPRIL 10 MG TAB PO SCH (08:59)
[2020-01-11] MEDS: BACLOFEN 10 MG TAB PO SCH ×3 (08:59→20:35)
[2020-01-11] MEDS: METOPROLOL TARTRATE 25 MG TAB PO SCH ×2 (08:59→20:35)
[2020-01-11] MEDS: ASPIRIN 81 MG PO SCH (08:59)
[2020-01-11 09:17] LABS: African American GFR (CKD) >90 (>60 ml/min/1.73 sqM); Anion Gap 11 mmol/L; Blood Urea Nitrogen 11 mg/dL (9-20); Calcium 9.2 mg/dL (8.4-10.2); Carbon Dioxide 26 mmol/L (22-30); Chloride 100 mmol/L (98-107); Glucose 85 mg/dL (74-99); Non-African American GFR(CKD) >90 (>60 ml/min/1.73 sqM); Potassium 4.1 mmol/L (3.5-5.1); Sodium 137 mmol/L (137-145)
[2020-01-11] MEDS: COLLAGENASE 250 UNIT/GM OINTMENT 30 GM TUBE TOPICAL SCH (13:24)
--- NOTE | 2020-01-11 13:49 | P.PN ---
Subjective Progress Note Date: 01/11/20 Principal diagnosis: Right foot infection, chronic wounds, culture positive for E Coli, previously positive for MRSA on cultures sent 12/08/19 The patient is currently laying in bed in no acute distress. States is trying to elevate foot at all times per order. Is still emotional at times, worried about losing his foot. Currently on IV ceftriaxone and vancomycin per infectious disease. Objective - Vital Signs Vital signs: Vital Signs Temp 96.9 F L 01/11/20 05:00 Pulse 75 01/11/20 05:00 Resp 20 01/11/20 05:00 BP 176/95 01/11/20 05:00 Pulse Ox 96 01/11/20 05:00 Intake & Output 01/10/20 01/11/20 01/11/20 18:59 06:59 18:59 Intake Total 700 Output Total 300 Balance -300 700 Intake: Oral 700 Output: Urine 300 Other: Voiding Method Urinal Urinal Urinal Diaper Incontinent # Voids 7 # Bowel Movements 2 - Constitutional General appearance: Present: cooperative, morbidly obese, no acute distress - Respiratory Details: Lungs sounds diminished bilaterally. Respirations even, nonlabored. Currently on room air with Cpap support when sleeping. - Cardiovascular Details: S1, S2 present. Regular rate and rhythm. Palpable peripheral pulses bilaterally. Bilateral lower extremity edema present. No calf pain or tenderness noted. - Gastrointestinal Gastrointestinal Comment(s): Abdomen soft, non-tender, non-distended, obese. Active bowel sounds x 4 quadrants. Tolerating diet. - Genitourinary Genitourinary Comment(s): Continues to void - Integumentary Integumentary Comment(s): Skin is warm and dry. Both lower extremities are red and scaly. Wound present to dorsum of right foot, between the toes with yellow slough. - Neurologic Neurologic: Present: CNII-XII intact - Musculoskeletal Musculoskeletal: Present: strength equal bilaterally - Psychiatric Psychiatric: Present: A&O x's 3, appropriate affect - Allied health notes Allied health notes reviewed: nursing - Labs CBC & Chem 7: 01/08/20 08:01 01/11/20 08:21 Labs: Microbiology - Last 24 Hours (Table) 01/07/20 17:17 Blood Culture - Preliminary Blood No Growth after 72 hours 01/07/20 23:30 Gram Stain - Final Foot - Right Wound Culture - Final Escherichia coli 01/07/20 23:30 Anaerobic Culture - Preliminary Foot - Right Assessment and Plan (1) Ulcer of right foot with fat layer exposed Current Visit: Yes Status: Chronic Priority: High Code(s): L97.512 - NON- PRS CHRONIC ULCER OTH PRT RIGHT FOOT W FAT LAYER EXPOSED SNOMED Code(s): 21920948 Plan: The patient was seen and examined bedside with Dr. Myrick. We will change the wound care plan to dressing changes daily utilizing Santyl with yadi wraps for compression. Continue to elevate his lower extremities above the level of the heart at all times except when patient is sitting up to eat. The importance of leg elevation, proper diet was discussed in detail with the patient. We did discuss options of continuing medical therapy, amputation up to the midfoot, and amputation up to mid-calf. Amputation may limit patient's mobility more than currently. The patient will think about it and let us know his decision in the next couple of days. We agree with PICC line, IV antibiotics, and extended care placement. Continue medical management of other comorbidities per primary care service, infectious disease. Time with Patient: Greater than 30
[2020-01-11] MEDS ORDERED: LIDOCAINE 1% INJ 10MG/ML (20 ML MDV) SQ ONE (14:48)
--- NOTE | 2020-01-11 15:01 | PN ---
PROGRESS NOTE DATE OF SERVICE: 01/11/2020 REASON FOR FOLLOWUP: Right foot wound infection, question of osteomyelitis. INTERVAL HISTORY: The patient is currently afebrile. The patient has been breathing comfortably. The patient denies having any chest pain, no shortness of breath. No cough. No nausea, no vomiting. No abdominal pain. No pain to the right foot area. PHYSICAL EXAMINATION: Blood pressure is 166/95 with a pulse of 75, temperature is 96.9, he is 96% on room air. General description is a middle-aged male lying in bed in no distress. RESPIRATORY SYSTEM: Unlabored breathing, clear to auscultation anteriorly. HEART: S1, S2 with regular rate and rhythm. ABDOMEN: Soft, no tenderness. Right foot is wrapped with no obvious drainage on the dressing. LABS: Wound culture with E coli. Wound cultures have been negative. DIAGNOSTIC IMPRESSION AND PLAN: Patient with right foot wound, cellulitis and concern for possible osteomyelitis. Patient is currently covered with vancomycin, Zosyn to continue for at least 4 to 6 weeks for which the PICC line is in place. However, discussed with vascular surgeon on the case. In view of the fact that the patient ended up getting antibiotic therapy and may need amputation, questions and concerns were answered. MMODL / IJN: [id number] /
--- NOTE | 2020-01-11 15:24 | XR ---
EXAMINATION TYPE: XR chest 1V portable DATE OF EXAM: 01/11/2020 COMPARISON: 11/19/2018 HISTORY: Line placement TECHNIQUE: Single frontal view of the chest is obtained. FINDINGS: Only a portion of the chest was imaged to demonstrate line placement. The left PICC termin ates appropriately in the cavoatrial junction. Visual is portions of the lungs demonstrate very minim al pulmonary vascular congestion and rotation of the mediastinum. IMPRESSION: Limited visualization of the chest demonstrate appropriately placed new left PICC termin ating in the cavoatrial junction.
--- NOTE | 2020-01-11 15:31 | IR ---
EXAMINATION TYPE: IR cvc insert >=5 years DATE OF EXAM: 01/11/2020 COMPARISON: NONE HISTORY: Infection, needs long-term intravenous access for atelectasis FINDINGS: Maximal barrier technique was utilized. Hand hygiene obtained with soap and water and alco hol-based hand rub. The skin overlying the left basilic vein was localized with ultrasound and noted to be compressible and patent by ultrasound. An ultrasound image was obtained [facility]. Sterile technique utilized with the ultrasound machine. The skin overlying was prepped an d draped and Lidocaine used for local anesthesia. A skin mirella was made with a scalpel. Access was g ained to the vein under direct ultrasound guidance with a 21-gauge needle and a 0.018 inch wire was a dvanced. Access site was dilated with a peel-away sheath and the catheter tailored to length. Bhavya ter advanced centrally and a post procedure chest x-ray verified placement with the tip in the superi or vena cava. Catheter was fixed to the skin with suture and a sterile dressing placed. Hemostasis achieved and the catheter was aspirated and flushed with sterile saline. The patient remained in sta ble condition. IMPRESSION: STATUS POST ULTRASOUND GUIDED PICC LINE PLACEMENT, READY FOR USE. THIS PROCEDURE WAS PER FORMED BY THE UNDERSIGNED.
--- NOTE | 2020-01-11 18:00 | P.PN ---
Subjective Progress Note Date: 01/11/20 Principal diagnosis: Osteomyelitis Patient was seen and examined. No acute events overnight. Patient states that he prefers to try IV antibiotics rather than amputation at this time. Agreeable for rehab. He denies any chest pain, shortness of breath or palpitations. No nausea or vomiting. No fever or chills. He does complain of chronic back pain. Objective - Vital Signs Vital signs: Vital Signs Temp 99.0 F 01/11/20 14:37 Pulse 85 01/11/20 14:37 Resp 18 01/11/20 14:37 BP 171/80 01/11/20 14:37 Pulse Ox 94 L 01/11/20 14:37 Intake & Output 01/10/20 01/11/20 01/11/20 18:59 06:59 18:59 Intake Total 700 Output Total 300 500 Balance -300 700 -500 Intake: Oral 700 Output: Urine 300 500 Other: Voiding Method Urinal Urinal Urinal Diaper Incontinent # Voids 7 # Bowel Movements 2 - Exam General: [non toxic], [no distress], [appears at stated age] Derm: [warm], [dry] Head: [atraumatic], [normocephalic], [symmetric] Eyes: [EOMI], [no lid lag], [anicteric sclera] Mouth: [no lip lesion], [mucus membranes moist] Cardiovascular: [S1S2 reg], [no murmur] Lungs: [Decreased breath sounds bilateral], [no rhonchi, no rales] , [no accessory muscle use] Abdominal: [soft], [ nontender to palpation], [no guarding], [no appreciable organomegaly] Ext: [no gross muscle atrophy], [bilateral lower extremities wrapped with dressing clean dry and intact with surrounding skin erythema], [no contractures] Neuro: [no focal neuro deficits] Psych: [Alert], [oriented], [appropriate affect] - Labs CBC & Chem 7: 01/08/20 08:01 01/11/20 08:21 Labs: Microbiology - Last 24 Hours (Table) 01/07/20 17:17 Blood Culture - Preliminary Blood No Growth after 72 hours 01/07/20 23:30 Gram Stain - Final Foot - Right Wound Culture - Final Escherichia coli Assessment and Plan Assessment: Osteomyelitis and cellulitis Foot ulcer Hypertension Chronic venous insufficiency of the lower extremities Foot x-ray shows diffuse osteopenia and chronic appearing deformities, correlate clinically for early osteomyelitis of the distal phalanx of the first digit in the right foot. MRI attempted but patient unable due to back pain. Wound culture positive for E. coli. Culture negative at 72 hours. Plans: Continue vancomycin and Rocephin. Follow final blood cultures. Follow ID consultation. Follow vascular surgery consultation. Pain control with Cymbalta, [place] and morphine as needed. Plans: Local wound care with Aquasol silver dressing. BP 171/80. Plans: Continue lisinopril, metoprolol. Monitor vitals, adjust indications as necessary. Plans: JOSE wraps. [PICC line has been placed. Social work on board for Inotrem. Likely DC in 1-2 days.]
[2020-01-11] MEDS: HYDROcodone/APAP 10-325MG 1 EACH TAB PO PRN ×2 (18:04→23:18)
[2020-01-12] MEDS: VANCOMYCIN 2,000 MG in SODIUM CHLORIDE 0.9% 500 ML 500 ML IVPB SCH (06:11)
[2020-01-12] MEDS: HYDROcodone/APAP 10-325MG 1 EACH TAB PO PRN ×2 (06:11→11:10)
[2020-01-12] MEDS: METOPROLOL TARTRATE 25 MG TAB PO SCH (08:52)
[2020-01-12] MEDS: BACLOFEN 10 MG TAB PO SCH (08:52)
[2020-01-12] MEDS: LISINOPRIL 10 MG TAB PO SCH (08:52)
[2020-01-12] MEDS: ASPIRIN 81 MG PO SCH (08:53)
[2020-01-12] MEDS: HEPARIN SODIUM,PORCINE 5,000 UNIT/ML 1 ML VIAL SQ SCH (08:53)
[2020-01-12] MEDS: DULoxetine HCL 30 MG CAPSULE.DR PO SCH (08:53)
[2020-01-12] MEDS: COLLAGENASE 250 UNIT/GM OINTMENT 30 GM TUBE TOPICAL SCH (08:53)
--- NOTE | 2020-01-12 12:09 | CDI ---
Documentation Clarification Form Date: 01/12/2020 11:56:44 AM From: Winsome DillardAgueroGARCIA aragon, CCDS Admit Date: 01/07/2020 06:53:00 PM Patient Name: Lorenzo Harper Visit Number: [id number] Discharge Date: ATTENTION: The Clinical Documentation Specialists (CDI) and [facility] Coding Staff appreciate your assistance in clarifying documentation. Please respond to the clarification below the line at the bottom and electronically sign. The CDI & [facility] Coding staff will review the response and follow-up if needed. Please note: Queries are made part of the Legal Health Record. If you have any questions, please contact the author of this message via ITS. Dr. Crystal Diaz: The patient has been diagnosed with osteomyelitis of the right foot without acuity. Per the 01/06 History & Physical: "Right lower leg cellulitis , rule out osteomyelitis." Per the 01/07 Vascular & Wound Care Consult: "In the emergency room and x-ray of the foot was completed demonstrating diffuse osteopenia with arthropathy and chronic-appearing deformities, possible early osteomyelitis." History/Risk Factors: Hyperlipidemia, Hypertension, Sleep Apnea, CHF nos, Chronic back pain, Obesity w/BMI >45, Cellulitis nos, DVT nos, previous MRSA right foot 12/16. Former smoker. Clinical Indicators: Patient presented to the ED on 01/06 via EMS with infection to her right foot, advised ED evaluation by home care nurse. Diagnosed with E Coli Sepsis secondary to cellulitis of the right foot. 01/06 VS: stable 01/06 LAB: WBC 11.9^, Neut 9.0^, CRP 20.5^. 01/06 Wound culture: Final: E Coli X-Ray 01/10: Foot x-ray shows diffuse osteopenia and chronic appearing deformities, correlate clinically for early osteomyelitis of the distal phalanx of the first digit in the right foot." Treatment: IV Zosyn, IV Morphine Sulfate, IV Zofran. PICC line placed 01/10. In your professional opinion, please specify the following: Acuity of osteomyelitis: o Acute o Chronic o Subacute o Unable to Determine (Last Revision: July 2017) chronic __ MTDD
[2020-01-12 14:18] VITALS: BP 146/75; PULSE 70; RESP 17; TEMP 98.3
--- NOTE | 2020-01-12 15:38 | DS ---
DISCHARGE SUMMARY DATE IF ADMISSION: DATE OF DISCHARGE: 01/12/2020 . FINAL DIAGNOSES: 1. Right foot wound, possible acute osteomyelitis. 2. Acute right foot cellulitis. 3. Morbid obesity, body mass index of 45.2. 4. Hyperlipidemia. 5. Essential hypertension. 6. Osteoarthritis. HOSPITAL COURSE: Patient presented after his wound care visiting nurse concerned about right foot infection having chronic skin changes of the right leg and chronic ulceration. The patient has been on chronic p.o. antibiotics in the last 2 weeks. He noted increased redness on the right lower leg and including drainage from the ulceration on the right second toe, increasing pain. The patient is unable to have a MRI. The patient is seen by Infectious Disease and vascular surgery, Dr. Myrick. Patient refused any amputation. This was discussed at length with him. Otherwise, patient is tolerating a diet. Discussed with Dr. Tyson today, senior program planner. CONSULTATION: Dr. Tyson from Infectious Disease. Dr. Myrick from Vascular Surgery. PHYSICAL EXAMINATION: Temperature 98.3, pulse 72, respiration 17, blood pressure 146/75, pulse ox 95% GENERAL APPEARANCE: BMI 45.2 sitting up, EYES: Pupils normal. RESPIRATORY: Effort normal. LUNGS: Diminished breath sounds. CARDIOVASCULAR: Heart sounds muffled. Right foot in a dressing. Holger wrap on the left leg. Also got supportive boot on the right leg. INVESTIGATIONS: White count 11.4, hemoglobin 13.6, platelets 277. Potassium 4.1, creatinine 0.80. Wound culture growing E coli. DISCHARGE MEDICATIONS: 1. Tylenol 650 mg q.6 p.r.n. 2. Zestril 10 mg p.o. daily. 3. Lopressor 25 mg b.i.d. 4. Aspirin 81 mg p.o. daily. 5. Baclofen 10 mg p.o. t.i.d. 6. Celebrex 100 mg p.o. daily p.r.n. 7. Cymbalta 30 mg p.o. daily. 8. Imodium 82 g p.o. q.4 p.r.n. 9. Santyl one application topical daily. 10.Vancomycin 2000 mg IV piggyback q.12 hours for 42 days . Further dosing as per pharmacy. 11.Ceftriaxone 2 g IV piggyback q. 24 hours for a total of 42 days. Dressing changes per Dr. Tyson. DISPOSITION: [facility] FOLLOWUP: Follow up with Dr. Carroll at [facility]. Follow up with Dr. Tyson in 2 weeks. Follow up with [facility], Dr. Hidalgo after discharge from [facility]. Care also discussed with the patient. Discussion and discharge planning more than 35 minutes. MMBERNADETTEL / IJN: [id number] /
--- NOTE | 2020-01-12 17:02 | PN ---
PROGRESS NOTE DATE OF SERVICE: 01/12/2020 REASON FOR FOLLOWUP: Right foot wound with osteomyelitis. INTERVAL HISTORY: The patient is currently afebrile. The patient denies having any chest pain, shortness of breath or cough. No abdominal pain or diarrhea. PHYSICAL EXAMINATION: Blood pressure 146/75 with a pulse of 90, temperature 98.3. He is 95% on CPAP. General description is a middle-aged male lying in bed in no distress. RESPIRATORY SYSTEM: Unlabored breathing. Clear to auscultation anteriorly. HEART: S1, S2. Regular rate and rhythm. ABDOMEN: Soft. No tenderness. Right foot is currently dressed up. No obvious drainage on the dressing. LABS: Creatinine 0.80. DIAGNOSTIC IMPRESSION AND PLAN: Patient with right foot osteomyelitis with a chronic nonhealing wound. Cultures have been positive for E coli. Recent culture was positive for MRSA. Discharge antibiotics will be IV Rocephin, vancomycin and Flagyl. Local care to continue. continue close outpatient followup, weekly monitoring of CBC, BMP and sed rate. MMODL / IJN: [id number] /
[2020-01-13] MEDS ORDERED: VANCOMYCIN TROUGH DUE 1 EACH MISC MISCELLANE ONE (05:00)
--- NOTE | 2020-01-17 07:36 | CDI ---
Documentation Clarification Form Date: 01/17/2020 08:33:19 AM From: Saniya Velez Phone: If you have a question about this query, please contact Jessica Corral Skilled Nursing Case Manager at [phone] between 8am and 5pm. Admit Date: 01/07/2020 06:53:00 PM Patient Name: Lorenzo Harper Visit Number: [id number] Discharge Date: 01/12/2020 04:49:00 PM ATTENTION: The Clinical Documentation Specialists (CDI) and [facility] Coding Staff appreciate your assistance in clarifying documentation. Please respond to the clarification below the line at the bottom and electronically sign. The CDI & [facility] Coding staff will review the response and follow-up if needed. Please note: Queries are made part of the Legal Health Record. If you have any questions, please contact the author of this message via ITS. Dr. Juan Douglas PN 01/08 documents Sepsis due to osteomyelitis/cellulitis/foot ulcer. Documentation of sepsis not carried through record, please clarify if patient had sepsis or was this ruled out. History/Risk Factors: Osteomyelitis cellulitis, ulcers PVD gram negative and MRSA WBC 11.9 Lactic acid: 2.0 Vitals signs on admission: 98.6 F, 91, 20, 146/93, 97 RA Treatment: IV antibiotics ID Consult: Osteomyelitis and cellulitis cover for MRSA and grm negative Antibiotics: IV Vango 2000 mg 12 hours for 42 days outpatitnet. Ceftriazone 2g IV piggyback q 24 hours 42 days In your professional opinion, please clarify if these findings signify one of the following conditions, whether the condition is POA, and cause, if known: Condition Sepsis ruled out SIRS, without underlying infectious process Sepsis Severe Sepsis Septic Shock Other, please specify Unable to determine Present on Admission Yes No SIRS Criteria (2 or more of the following may indicate SIRS): -Temperature < 96.8F (36C) or > 101.0F (38.3C) -Heart Rate > 90 bpm -Respiratory Rate > 20 breaths/min or PaCO2 < 32 mmHg -White Blood Cell Count > 12,000 or < 4,000 cells/mm3 or > 10% bands -Lactate >2.0 mmol/L (>4.0 is equivalent to septic shock) No sepsis MTDD
--- NOTE | 2020-01-17 07:44 | CDI ---
Documentation Clarification Form Date: 01/17/2020 07:36:43 AM From: Saniya Velez Phone: If you have a question about this query, please contact Jessica Corral Service Restorer Emergency at [phone] between 8am and 5pm. Admit Date: 01/07/2020 06:53:00 PM Patient Name: Lorenzo Harper Visit Number: [id number] Discharge Date: 01/12/2020 04:49:00 PM ATTENTION: The Clinical Documentation Specialists (CDI) and [facility] Coding Staff appreciate your assistance in clarifying documentation. Please respond to the clarification below the line at the bottom and electronically sign. The CDI & [facility] Coding staff will review the response and follow-up if needed. Please note: Queries are made part of the Legal Health Record. If you have any questions, please contact the author of this message via ITS. Dr. Juan Douglas Conflicting documentation has been found in the medical record: Final diagnosis in [facility] documents possible acute osteomyelitis. Query to Dr. Diaz documents chronic osteomyelitis. Please clarify acuity. History/Risk Factors: Osteomyelitis, foot ulcers with fat exposure, cellulitis Treatment:Vanco and Ceftriaxone IV 42 days In your opinion, what is the most clinically appropriate acuity of osteomyelitis for this patient? acute osteomyelitis chronic osteomyelitis Other explanation of clinical findings Unable to determine (no explanation for clinical findings) See discharge summary- no need for further change in documentation MTDD
== END 2020-01-12 16:49 | DRG 540 ==
LOC: EC 16:31 → 6NMEDSUR 18:53
PROVIDERS: ADMIT Hospitalist; ATTEND Hospitalist
PROC: 02HV33Z Insertion of Infusion Device into Superior Vena Cava, Percutaneous Approach (ICD-10-PCS; principal; 2020-01-11 14:00)
DX: M86.171 Other acute osteomyelitis, right ankle and foot (principal); L03.115 Cellulitis of right lower limb; Z68.42 Body mass index [BMI] 45.0-49.9, adult; L97.512 Non-pressure chronic ulcer of other part of right foot with fat layer exposed; M86.671 Other chronic osteomyelitis, right ankle and foot; E66.01 Morbid (severe) obesity due to excess calories; E78.5 Hyperlipidemia, unspecified; Z87.891 Personal history of nicotine dependence; G47.33 Obstructive sleep apnea (adult) (pediatric); Z99.89 Dependence on other enabling machines and devices; G89.29 Other chronic pain; I11.0 Hypertensive heart disease with heart failure; I50.9 Heart failure, unspecified; I73.9 Peripheral vascular disease, unspecified; I87.2 Venous insufficiency (chronic) (peripheral); L30.9 Dermatitis, unspecified; M19.90 Unspecified osteoarthritis, unspecified site; M85.80 Other specified disorders of bone density and structure, unspecified site; Z79.82 Long term (current) use of aspirin; Z79.899 Other long term (current) drug therapy; Z91.19 Patient's noncompliance with other medical treatment and regimen
CPT/HCPCS: 36415; 36573; 71045; 80048; 80053; 80202; 83605; 85025; 85610; 85730; 86140; 87040; 87070; 87075; 87077; 87186; 87205; 94660; 96365; 96366; 96367; 96375; 99284

== ENCOUNTER 2020-07-06 08:37 | Inpatient (IN) | payer MEDICARE, OTHER ==
[2020-07-06] MEDS ORDERED: SODIUM CHLORIDE 0.9% 1,000 ML IV STA (08:41)
--- NOTE | 2020-07-06 08:49 | ED ---
General Adult HPI - General Stated complaint: fall Time Seen by Provider: 07/06/20 08:37 Source: patient, RN notes reviewed, old records reviewed - History of Present Illness Initial comments: This a 60-year-old male who presents emergency Department after falling out of his chair. Patient was found face down when EMS arrived. According to family he was alert and oriented 4 earlier in the day about 2 hours prior to this markie nt. According to family over the last day or 2 he was not feeling well but there was no further details at this time his family was not present. Patient according to EMS was awake but not following commands at the scene but as they drove and he became more responsive and was starting to follow simple commands and answer simple questions. Currently patient complains of left clavicle pain and pain in his buttocks which she states is chronic. Patient was unable to give any other history or expand upon what happened this morning. - Related Data Home Medications Medication Instructions Recorded Confirmed Aspirin EC [Ecotrin Low Dose] 81 mg PO DAILY 01/07/20 07/06/20 Baclofen 10 mg PO TID PRN 01/07/20 07/06/20 Celecoxib 400 mg PO DAILY PRN 01/07/20 07/06/20 DULoxetine HCL [Cymbalta] 30 mg PO DAILY 01/07/20 07/06/20 Loperamide HCl [Imodium A-D] 4 mg PO BID 01/07/20 07/06/20 HYDROcodone/APAP 10-325MG [[place] 1 tab PO Q6H PRN 07/06/20 07/06/20 10-325] Metoprolol/Hydrochlorothiazide 1 tab PO DAILY 07/06/20 07/06/20 [Lopressor Hct 50-25 Tablet] Ondansetron [Zofran] 8 mg PO BID PRN 07/06/20 07/06/20 Previous Rx's Medication Instructions Recorded Acetaminophen Tab [Tylenol] 650 mg PO Q6HR PRN tab 11/26/18 lisinopriL [Zestril] 10 mg PO DAILY tab 11/26/18 Allergies Allergy/AdvReac Type Severity Reaction Status Date / Time No Known Allergies Allergy Verified 07/06/20 10:29 Review of Systems ROS Statement: Those systems with pertinent positive or pertinent negative responses have been documented in the HPI. ROS Other: All systems not noted in ROS Statement are negative. Past Medical History Past Medical History: Hyperlipidemia, Hypertension, Musculoskeletal Disorder, Sleep Apnea/CPAP/BIPAP, Vascular Disorder Additional Past Medical History / Comment(s): CHF, chronic back pain, cellulitis, DVT, nerve pain History of Any Multi-Drug Resistant Organisms: MRSA Date of last positivie culture/infection: 12/08/19 MDRO Source:: Right Foot Past Surgical History: Cholecystectomy, Hernia Repair, Tonsillectomy Past Anesthesia/Blood Transfusion Reactions: No Reported Reaction Past Psychological History: No Psychological Hx Reported Past Alcohol Use History: None Reported Additional Past Alcohol Use History / Comment(s): quit smoking in october 2018. Past Drug Use History: None Reported, Marijuana - Past Family History Father Family Medical History: Cancer, Prostate Disorder Mother Family Medical History: Cancer General Exam - General Exam Comments Initial Comments: GENERAL: Patient is well-developed and well-nourished. Patient is nontoxic and well- hydrated and is in mild distress. Patient is a large abrasion to his forehead ENT: Neck is soft and supple. No significant lymphadenopathy is noted. Oropharynx is clear. Moist mucous membranes. Patient's neck was too short to get a c- collar on the patient but moving his head left and right did not seem to elicit pain however he did have swelling in the left clavicle region EYES: The sclera were anicteric and conjunctiva were pink and moist. Extraocular movements were intact and pupils were equal round and reactive to light. Eyelids were unremarkable. PULMONARY: Unlabored respirations. Good breath sounds bilaterally. No audible rales rhonchi or wheezing was noted. CARDIOVASCULAR: There is a regular rate and rhythm without any murmurs gallops or rubs. Swollen left clavicle region and tender to palpation ABDOMEN: Soft and nontender with normal bowel sounds. No palpable organomegaly was noted. There is no palpable pulsatile mass. SKIN: Skin is clear with no lesions or rashes and otherwise unremarkable. NEUROLOGIC: Patient is alert and oriented 2. Cranial nerves II through XII are grossly intact. Patient moved all 4 extremities a little but could not move them fully at this time. MUSCULOSKELETAL: Normal extremities with adequate strength and full range of motion. LYMPHATICS: No significant lymphadenopathy is noted PSYCHIATRIC: Unable to assess secondary to his altered mental status Course Vital Signs 07/06/20 08:42 Temperature 99.2 F Pulse Rate 88 Respiratory 20 Rate Blood Pressure 121/99 O2 Sat by Pulse 93 L Oximetry Medical Decision Making - Medical Decision Making EKG shows normal sinus rhythm at 87 bpm MN interval is on a 96 dresses 166 QT interval 448 QTC is 539. Patient's EKG shows a right bundle branch block. came in in noted the swelling on the side of his neck and she states it's pretty much normal for him. She also states for the last 3 weeks he hasn't been eating he's only been drinking a little bit and having a little water. She also states she's been staying in a reclining chair and not getting out of the chair and barely urinating at all. CT of the brain and C-spine are negative for any acute normalities. Chest x-ray and pelvis x-ray showed no acute abnormality. Patient had renal failure with potassium 9.1. I gave the patient calcium chloride D50 and 10 units of regular insulin sodium bicarb and Kayexalate. Patient also has elevated amylase and lipase. I spoke with the information systems architect and he agreed to do dialysis on the patient I spoke with Dr. Cha and he is going to put a dialysis catheter in the patient in the [facility] [employer] [facility]. I spoke with Dr. England and he agreed to admit the patient. I also spoke with Dr. Lacey Rahman was in agreement as was I to admit the patient to medicine and he will see the patient on consult. - Lab Data Result diagrams: 07/06/20 08:47 07/06/20 08:47 Lab Results 07/06/20 07/06/20 07/06/20 Range/Units 08:47 08:47 08:47 WBC 19.6 H (3.8-10.6) k/uL RBC 5.58 (4.30-5.90) m/uL Hgb 16.2 (13.0-17.5) gm/dL Hct 50.6 (39.0-53.0) % MCV 90.7 (80.0-100.0) fL MCH 29.0 (25.0-35.0) pg MCHC 32.0 (31.0-37.0) g/dL RDW 14.2 (11.5-15.5) % Plt Count 266 (150-450) k/uL Neutrophils % 89 % Lymphocytes % 4 % Monocytes % 5 % Eosinophils % 0 % Basophils % 0 % Neutrophils # 17.4 H (1.3-7.7) k/uL Lymphocytes # 0.7 L (1.0-4.8) k/uL Monocytes # 1.1 H (0-1.0) k/uL Eosinophils # 0.0 (0-0.7) k/uL Basophils # 0.1 (0-0.2) k/uL PT 11.3 (9.0-12.0) sec INR 1.1 (<1.2) APTT 25.7 (22.0-30.0) sec Sodium (137-145) mmol/L Potassium (3.5-5.1) mmol/L Chloride (98-107) mmol/L Carbon Dioxide (22-30) mmol/L Anion Gap mmol/L BUN (9-20) mg/dL Creatinine (0.66-1.25) mg/dL Est GFR (CKD-EPI)AfAm (>60 ml/min/1.73 sqM) Est GFR (CKD-EPI)NonAf (>60 ml/min/1.73 sqM) Glucose (74-99) mg/dL Plasma Lactic Acid Lloyd (0.7-2.0) mmol/L Calcium (8.4-10.2) mg/dL Total Bilirubin (0.2-1.3) mg/dL AST (17-59) U/L ALT (4-49) U/L Alkaline Phosphatase (38-126) U/L Troponin I (0.000-0.034) ng/mL Total Protein (6.3-8.2) g/dL Albumin (3.5-5.0) g/dL Amylase (30-110) U/L Lipase (23-300) U/L Urine Color Yellow Urine Appearance Cloudy (Clear) Urine pH 5.0 (5.0-8.0) Ur Specific [place] 1.017 (1.001-1.035) Urine Protein 1+ H (Negative) Urine Glucose (UA) Negative (Negative) Urine Ketones Negative (Negative) Urine Blood Negative (Negative) Urine Nitrite Negative (Negative) Urine Bilirubin Negative (Negative) Urine Urobilinogen <2.0 (<2.0) mg/dL Ur Leukocyte Esterase Small H (Negative) Urine RBC 4 (0-5) /hpf Urine WBC 6 H (0-5) /hpf Ur Squamous Epith Cells <1 (0-4) /hpf Amorphous Sediment Few H (None) /hpf Urine Bacteria Rare H (None) /hpf Hyaline Casts 14 H (0-2) /lpf Urine Mucus Rare H (None) /hpf Urine Sperm Moderate H (None) /hpf Urine Opiates Screen Detected H (NotDetected) Ur Oxycodone Screen Not Detected (NotDetected) Urine Methadone Screen Not Detected (NotDetected) Ur Propoxyphene Screen Not Detected (NotDetected) Ur Barbiturates Screen Not Detected (NotDetected) U Tricyclic Antidepress Not Detected (NotDetected) Ur Phencyclidine Scrn Not Detected (NotDetected) Ur Amphetamines Screen Not Detected (NotDetected) U Methamphetamines Scrn Not Detected (NotDetected) U Benzodiazepines Scrn Not Detected (NotDetected) Urine Cocaine Screen Not Detected (NotDetected) U Marijuana (THC) Screen Not Detected (NotDetected) Serum Alcohol mg/dL Blood Type Blood Type Confirm Blood Type Recheck Bld Type Recheck Status Antibody Screen Spec Expiration Date 07/06/20 07/06/20 07/06/20 Range/Units 08:47 08:47 08:47 WBC (3.8-10.6) k/uL RBC (4.30-5.90) m/uL Hgb (13.0-17.5) gm/dL Hct (39.0-53.0) % MCV (80.0-100.0) fL MCH (25.0-35.0) pg MCHC (31.0-37.0) g/dL RDW (11.5-15.5) % Plt Count (150-450) k/uL Neutrophils % % Lymphocytes % % Monocytes % % Eosinophils % % Basophils % % Neutrophils # (1.3-7.7) k/uL Lymphocytes # (1.0-4.8) k/uL Monocytes # (0-1.0) k/uL Eosinophils # (0-0.7) k/uL Basophils # (0-0.2) k/uL PT (9.0-12.0) sec INR (<1.2) APTT (22.0-30.0) sec Sodium 133 L (137-145) mmol/L Potassium 9.1 H* (3.5-5.1) mmol/L Chloride 99 (98-107) mmol/L Carbon Dioxide 12 L (22-30) mmol/L Anion Gap 22 mmol/L BUN 222 H* (9-20) mg/dL Creatinine 13.41 H* (0.66-1.25) mg/dL Est GFR (CKD-EPI)AfAm 4 (>60 ml/min/1.73 sqM) Est GFR (CKD-EPI)NonAf 4 (>60 ml/min/1.73 sqM) Glucose 115 H (74-99) mg/dL Plasma Lactic Acid [place] (0.7-2.0) mmol/L Calcium 10.1 (8.4-10.2) mg/dL Total Bilirubin 1.2 (0.2-1.3) mg/dL AST 33 (17-59) U/L ALT 36 (4-49) U/L Alkaline Phosphatase 112 (38-126) U/L Troponin I 0.026 (0.000-0.034) ng/mL Total Protein 9.4 H (6.3-8.2) g/dL Albumin 4.6 (3.5-5.0) g/dL Amylase 346 H* (30-110) U/L Lipase 1132 H (23-300) U/L Urine Color Urine Appearance (Clear) Urine pH (5.0-8.0) Ur Specific [place] (1.001-1.035) Urine Protein (Negative) Urine Glucose (UA) (Negative) Urine Ketones (Negative) Urine Blood (Negative) Urine Nitrite (Negative) Urine Bilirubin (Negative) Urine Urobilinogen (<2.0) mg/dL Ur Leukocyte Esterase (Negative) Urine RBC (0-5) /hpf Urine WBC (0-5) /hpf Ur Squamous Epith Cells (0-4) /hpf Amorphous Sediment (None) /hpf Urine Bacteria (None) /hpf Hyaline Casts (0-2) /lpf Urine Mucus (None) /hpf Urine Sperm (None) /hpf Urine Opiates Screen (NotDetected) Ur Oxycodone Screen (NotDetected) Urine Methadone Screen (NotDetected) Ur Propoxyphene Screen (NotDetected) Ur Barbiturates Screen (NotDetected) U Tricyclic Antidepress (NotDetected) Ur Phencyclidine Scrn (NotDetected) Ur Amphetamines Screen (NotDetected) U Methamphetamines Scrn (NotDetected) U Benzodiazepines Scrn (NotDetected) Urine Cocaine Screen (NotDetected) U Marijuana (THC) Screen (NotDetected) Serum Alcohol <10 mg/dL Blood Type B Positive Blood Type Confirm Blood Type Recheck No Previous Record Bld Type Recheck Status CABO Indicated Antibody Screen NEGATIVE Spec Expiration Date 07/09/2020234607/06/20 07/06/20 Range/Units 08:47 08:47 WBC (3.8-10.6) k/uL RBC (4.30-5.90) m/uL Hgb (13.0-17.5) gm/dL Hct (39.0-53.0) % MCV (80.0-100.0) fL MCH (25.0-35.0) pg MCHC (31.0-37.0) g/dL RDW (11.5-15.5) % Plt Count (150-450) k/uL Neutrophils % % Lymphocytes % % Monocytes % % Eosinophils % % Basophils % % Neutrophils # (1.3-7.7) k/uL Lymphocytes # (1.0-4.8) k/uL Monocytes # (0-1.0) k/uL Eosinophils # (0-0.7) k/uL Basophils # (0-0.2) k/uL PT (9.0-12.0) sec INR (<1.2) APTT (22.0-30.0) sec Sodium (137-145) mmol/L Potassium (3.5-5.1) mmol/L Chloride (98-107) mmol/L Carbon Dioxide (22-30) mmol/L Anion Gap mmol/L BUN (9-20) mg/dL Creatinine (0.66-1.25) mg/dL Est GFR (CKD-EPI)AfAm (>60 ml/min/1.73 sqM) Est GFR (CKD-EPI)NonAf (>60 ml/min/1.73 sqM) Glucose (74-99) mg/dL Plasma Lactic Acid Lloyd 1.8 (0.7-2.0) mmol/L Calcium (8.4-10.2) mg/dL Total Bilirubin (0.2-1.3) mg/dL AST (17-59) U/L ALT (4-49) U/L Alkaline Phosphatase (38-126) U/L Troponin I (0.000-0.034) ng/mL Total Protein (6.3-8.2) g/dL Albumin (3.5-5.0) g/dL Amylase (30-110) U/L Lipase (23-300) U/L Urine Color Urine Appearance (Clear) Urine pH (5.0-8.0) Ur Specific [place] (1.001-1.035) Urine Protein (Negative) Urine Glucose (UA) (Negative) Urine Ketones (Negative) Urine Blood (Negative) Urine Nitrite (Negative) Urine Bilirubin (Negative) Urine Urobilinogen (<2.0) mg/dL Ur Leukocyte Esterase (Negative) Urine RBC (0-5) /hpf Urine WBC (0-5) /hpf Ur Squamous Epith Cells (0-4) /hpf Amorphous Sediment (None) /hpf Urine Bacteria (None) /hpf Hyaline Casts (0-2) /lpf Urine Mucus (None) /hpf Urine Sperm (None) /hpf Urine Opiates Screen (NotDetected) Ur Oxycodone Screen (NotDetected) Urine Methadone Screen (NotDetected) Ur Propoxyphene Screen (NotDetected) Ur Barbiturates Screen (NotDetected) U Tricyclic Antidepress (NotDetected) Ur Phencyclidine Scrn (NotDetected) Ur Amphetamines Screen (NotDetected) U Methamphetamines Scrn (NotDetected) U Benzodiazepines Scrn (NotDetected) Urine Cocaine Screen (NotDetected) U Marijuana (THC) Screen (NotDetected) Serum Alcohol mg/dL Blood Type Blood Type Confirm B Positive Blood Type Recheck Bld Type Recheck Status Antibody Screen Spec Expiration Date Critical Care Time Critical Care Time: Yes Total Critical Care Time: 35 Disposition Clinical Impression: Fall, Abrasion of forehead, Acute renal failure, Pancreatitis, Hyperkalemia, Leukocytosis [facility] Referrals: None,Stated [REFERRING] - 1-2 days Time of Disposition: 11:01
[2020-07-06 09:03] LABS: Basophils # (A) 0.1 k/uL (0-0.2); Basophils % (A) 0 %; Eosinophils % (A) 0 %; HCT 50.6 % (39.0-53.0); HGB 16.2 gm/dL (13.0-17.5); Lymphocytes # (A) 0.7 k/uL (1.0-4.8); Lymphocytes % (A) 4 %; MCV 90.7 fL (80.0-100.0); Mean Platelet Volume 9.2; Monocytes # (A) 1.1 k/uL (0-1.0); Monocytes % (A) 5 %; Neutrophils # (A) 17.4 k/uL (1.3-7.7); Neutrophils % (A) 89 %; Platelet Count 266 k/uL (150-450); RBC 5.58 m/uL (4.30-5.90); RDW 14.2 % (11.5-15.5); WBC 19.6 k/uL (3.8-10.6)
--- NOTE | 2020-07-06 09:05 | XR ---
EXAMINATION TYPE: XR chest 1V portable DATE OF EXAM: 07/06/2020 HISTORY: Shortness of breath. COMPARISON: None. TECHNIQUE: Single view of the chest is submitted. FINDINGS: Demonstrated are scattered senescent parenchymal change. There is no evidence for focal infiltrate. The heart is stable. Hilar and mediastinal structures are within normal limits. Degenerative changes are seen of the dorsal spine. IMPRESSION: 1. Chronic changes without evidence for acute pulmonary disease.
--- NOTE | 2020-07-06 09:05 | XR ---
EXAMINATION TYPE: XR pelvis AP view DATE OF EXAM: 07/06/2020 CLINICAL HISTORY: pain TECHNIQUE: Single view the pelvis is submitted. FINDINGS: No evidence for fracture, dislocation or bony lesion. Joint spaces are moderate narrowing spur formation. SI joints appear symmetric. IMPRESSION: 1. No acute fracture or dislocation seen. ICD 10 NO FRACTURE, INITIAL EVALUATION
[2020-07-06 09:14] LABS: ALT 36 U/L (4-49); AST 33 U/L (17-59); African American GFR (CKD) 4 (>60 ml/min/1.73 sqM); Albumin 4.6 g/dL (3.5-5.0); Alcohol <10 mg/dL; Alkaline Phosphatase 112 U/L (38-126); Anion Gap 22 mmol/L; Calcium 10.1 mg/dL (8.4-10.2); Carbon Dioxide 12 mmol/L (22-30); Chloride 99 mmol/L (98-107); Glucose 115 mg/dL (74-99); INR 1.1 (<1.2); Non-African American GFR(CKD) 4 (>60 ml/min/1.73 sqM); Partial Thromboplastin Time 25.7 sec (22.0-30.0); Prothrombin Time 11.3 sec (9.0-12.0); Sodium 133 mmol/L (137-145); Total Bilirubin 1.2 mg/dL (0.2-1.3); Total Protein 9.4 g/dL (6.3-8.2)
[2020-07-06] MEDS ORDERED: HYDROmorphone 1 MG/ML 1 ML SYRINGE IVP STA (09:21)
[2020-07-06 09:23] LABS: Amylase 346 U/L (30-110); Blood Urea Nitrogen 222 mg/dL (9-20); Potassium 9.1 mmol/L (3.5-5.1)
[2020-07-06] MEDS ORDERED: CALCIUM CHLORIDE 100 MG/ML 10 ML SYRINGE IVP STA (09:23)
[2020-07-06] MEDS ORDERED: INSULIN REGULAR 100 UNIT/ML VIAL IV ONE (09:24)
[2020-07-06] MEDS ORDERED: DEXTROSE 50% SYRINGE 50 ML IVP STA (09:24)
[2020-07-06] MEDS ORDERED: SODIUM BICARB 8.4% 50 ML SYR (1 MEQ/ML) IV STA ×2 (09:24→10:58)
[2020-07-06] MEDS ORDERED: SODIUM POLYSTYRENE SULFONATE 15 GM/60 ML BOTTLE PO STA (09:26)
[2020-07-06] MEDS ORDERED: cefTRIAXone IN SWFI 1,000 MG/10 ML SYRINGE IVP STA (09:26)
--- NOTE | 2020-07-06 09:39 | CT ---
EXAMINATION TYPE: CT brain cspine wo con DATE OF EXAM: 07/06/2020 COMPARISON: NONE HISTORY: Traumatic fall injury with headache and neck pain. CT DLP: 2321.2 mGycm. Automated Exposure Control for Dose Reduction was Utilized. TECHNIQUE: CT scan of the head and cervical spine are performed without contrast. FINDINGS: There is no acute intracranial hemorrhage or midline shift identified. Mild ventricular a nd sulcal prominence is seen. There is 2.0 cm soft tissue scalp lipoma along the posterior occiput ax ial image 37. The calvarium is intact. The globes are intact and the visualized sinuses are clear. Cervical spine is visualized in its entirety from C1 through upper thoracic levels and demonstrates d extroconvex scoliosis or positioning centered in the visualized thoracic spine without evidence of ac [place] fracture or dislocation. Prevertebral soft tissue appears within normal limits. The C1-C2 artic ulation is within normal limits on the coronal images. Vertebral body heights are maintained. Large a nterior spurs. C6 C4-C6 levels. There is additional moderate multilevel anterior spurring. There is e jose moderate multilevel disc space narrowing with posterior spur disc complex effacing anterior thec al sac at C3-C4, C5-C6, C6-C7 levels on sagittal and axial images. Review of axial images shows additional multilevel uncovertebral facet degenerative changes contribut ing to multilevel bilateral neural foraminal narrowing. There is heterogeneous slightly enlarged left thyroid lobe, cannot exclude subcentimeter nodularity upper pole level. Lung apices show no pneumoth orax. IMPRESSION: 1. There is no acute fracture or dislocation evident in the cervical spine. 2. No acute intracranial hemorrhage or midline shift is seen.
[2020-07-06 09:52] LABS: Amorphous Sediment,Urine Few /hpf; Appearance,Urine Cloudy (Clear); Bacteria,Urine Rare /hpf; Bilirubin,Urine Negative (Negative); Blood,Urine Negative (Negative); Color,Urine Yellow; Glucose,Urine (UA) Negative (Negative); Hyaline Casts,Urine 14 /lpf (0-2); Ketones,Urine Negative (Negative); Leukocyte Esterase,Urine Small (Negative); Mucus,Urine Rare /hpf; Nitrite,Urine Negative (Negative); Protein,Urine 1+ (Negative); RBC,Urine 4 /hpf (0-5); Specific Gravity,Urine 1.017 (1.001-1.035); Sperm,Urine Moderate /hpf; Squamous Epithelial Cell,Urine <1 /hpf (0-4); Urobilinogen,Urine <2.0 mg/dL (<2.0); WBC,Urine 6 /hpf (0-5)
[2020-07-06 09:57] LABS: Cocaine Screen,Urine Not Detected (NotDetected); Phencyclidine Screen,Urine Not Detected (NotDetected); Urn Cannabinoid Scrn Not Detected (NotDetected)
[2020-07-06 09:58] LABS: Amphetamine Screen,Urine Not Detected (NotDetected); Barbiturate Screen,Urine Not Detected (NotDetected); Benzodiazepines Screen,Urine Not Detected (NotDetected); Methadone Screen, Urine Not Detected (NotDetected); Opiate Screen,Urine Detected (NotDetected); Oxycodone Screen, Urine Not Detected (NotDetected); Tricyclic Antidepressant,Urine Not Detected (NotDetected)
[2020-07-06] MEDS ORDERED: NALOXONE 0.4 MG/ML 1 ML VIAL IV PRN (11:02)
--- NOTE | 2020-07-06 11:18 | P.NPCON ---
History of Present Illness - Reason for Consult acute renal failure, hyperkalemia - History of Present Illness Reason for consultation: Acute kidney injury and hyperkalemia History of present illness: Patient is a 60-year-old male seen in consultation for acute kidney injury and hyperkalemia. Patient was evaluated in the emergency room. Patient is not a reliable historian. Patient's is present at bedside who provides the history. According to the , the patient has not been eating and drinking well for the last 2-3 weeks. The last week or so he's been sleeping a lot more. This morning he fell out of chair and hit his head on the floor. Otherwise states he was seen by a physician at home. Patient is mostly homebound and is not able to travel. Patient's creatinine in January 2020 was 0.82 and is up to 13.41 today. Potassium level 9.1. He is noted to be severely acidotic with bicarb level of 12. Hyperkalemia has been medically treated with IV calcium, IV insulin, Kayexalate as well as sodium bicarbonate. Cartwright catheter inserted. No significant urine obtained upon insertion. states that he takes 2-3 different pain medications at home and only recalls the name of [place]. And his home medications I lisinopril, hydrochlorothiazide as well as celecoxib. No hematuria or dysuria. No melena or hematochezia. Hemoglobin stable. BUN 222. Patient is quite confused. Vital signs are stable. General: The patient appeared well nourished and normally developed. HEENT: Head exam is unremarkable. Neck is without jugular venous distension. LUNGS: Breath sounds decreased. HEART: Rate and Rhythm are regular. ABDOMEN: Soft, obese. EXTREMITITES: Wrapped. No edema. Past Medical History Past Medical History: Hyperlipidemia, Hypertension, Musculoskeletal Disorder, Sleep Apnea/CPAP/BIPAP, Vascular Disorder Additional Past Medical History / Comment(s): CHF, chronic back pain, cellulitis, DVT, nerve pain History of Any Multi-Drug Resistant Organisms: MRSA Date of last positivie culture/infection: 12/08/19 MDRO Source:: Right Foot Past Surgical History: Cholecystectomy, Hernia Repair, Tonsillectomy Past Anesthesia/Blood Transfusion Reactions: No Reported Reaction Past Psychological History: No Psychological Hx Reported Past Alcohol Use History: None Reported Additional Past Alcohol Use History / Comment(s): quit smoking in october 2018. Past Drug Use History: None Reported, Marijuana - Past Family History Father Family Medical History: Cancer, Prostate Disorder Mother Family Medical History: Cancer Medications and Allergies Home Medications Medication Instructions Recorded Confirmed Type Acetaminophen Tab [Tylenol] 650 mg PO Q6HR PRN tab 11/26/18 07/06/20 Rx lisinopriL [Zestril] 10 mg PO DAILY tab 11/26/18 07/06/20 Rx Aspirin EC [Ecotrin Low Dose] 81 mg PO DAILY 01/07/20 07/06/20 History Baclofen 10 mg PO TID PRN 01/07/20 07/06/20 History Celecoxib 400 mg PO DAILY PRN 01/07/20 07/06/20 History DULoxetine HCL [Cymbalta] 30 mg PO DAILY 01/07/20 07/06/20 History Loperamide HCl [Imodium A-D] 4 mg PO BID 01/07/20 07/06/20 History HYDROcodone/APAP 10-325MG [[place] 1 tab PO Q6H PRN 07/06/20 07/06/20 History 10-325] Metoprolol/Hydrochlorothiazide 1 tab PO DAILY 07/06/20 07/06/20 History [Lopressor Hct 50-25 Tablet] Ondansetron [Zofran] 8 mg PO BID PRN 07/06/20 07/06/20 History Allergies Allergy/AdvReac Type Severity Reaction Status Date / Time No Known Allergies Allergy Verified 07/06/20 10:29 Physical Exam Vitals: Vital Signs Temp Pulse Resp BP Pulse Ox 07/06/20 08:42 99.2 F 88 20 121/99 93 L Intake and Output 07/05/20 07/06/20 07/06/20 22:59 06:59 14:59 Other: Weight 137.847 kg Results - Lab Results Most recent lab results Calcium 10.1 mg/dL (8.4-10.2) 07/06/20 08:47 07/06/20 08:47 07/06/20 08:47 Assessment and Plan Plan: Assessment: 1. Acute kidney injury secondary to ATN secondary to poor intake, diuretics, nonsteroidals as well as lisinopril use. Creatinine 13.4 on admission. Baseline creatinine 0.8 from January 2020. No significant urine obtained upon Cartwright catheter insertion. 2. Hyperkalemia secondary to acute kidney injury, metabolic acidosis, nonsteroidals as well as lisinopril. 3. Metabolic acidosis secondary to acute kidney injury. 4. Benign hypertension. Controlled. 5. Encephalopathy secondary to uremia. Rule out infection. Plan: Start bicarb drip to be run at 80 mL an hour. Check renal ultrasound. Hold diuretics and lisinopril. Avoid nephrotoxins. Repeat BMP at 11 AM. Follow-up cultures. Consultation vascular surgery for dialysis catheter placement. Plan for first treatment of hemodialysis today and second treatment tomorrow. Monitor for renal recovery. Discussed with the present at bedside. Thank you for the consultation. I will continue to follow the patient with you during his hospital stay.
[2020-07-06] MEDS ORDERED: LIDOCAINE 1% INJ 10MG/ML (20 ML MDV) SQ ONE (11:28)
[2020-07-06] MEDS ORDERED: IV FLUID CONTINUATION 250 ML IV ONE (11:31)
[2020-07-06] MEDS ORDERED: fentaNYL (PF) 50 MCG/ML 2 ML AMP IV ONE (11:31)
[2020-07-06] MEDS ORDERED: HYDROmorphone 1 MG/ML 1 ML SYRINGE IVP ONE (11:39)
[2020-07-06 12:54] LABS: Glucose,Whole Blood 92 mg/dL (75-99)
--- NOTE | 2020-07-06 13:10 | CONS ---
DATE OF CONSULTATION: 07/06/2020 This is a 60-year-old gentleman who was seen in the emergency room. Patient came with shortness of breath, acidotic with bicarb of 12. Patient has a hyperkalemia, potassium is 9.1. Patient was treated medically by the Nephrology. PAST MEDICAL HISTORY: History of hyperlipidemia, hypertension, musculoskeletal disorders, sleep apnea, on CPAP. Patient also has a history of congestive heart failure, history of cellulitis, history of multiple drug-resistant organism MRSA. The patient has a history of fall at home and neck examination. There is a superficial abrasion on the forehead. Lungs are clear. First and second sound present. Abdomen is obese, nontender. PLAN: Placement of the dialysis catheter, risks and complications discussed. MMODL / IJN: [id number] / MTDD
[2020-07-06] MEDS: DEXTROSE 5% IN WATER 1,000 ML with SODIUM BICARB (1 MEQ/ML) 150 ML IV SCH ×2 (13:51→23:10)
--- NOTE | 2020-07-06 14:23 | P.GSCN ---
History of Present Illness Consult date: 07/06/20 Reason for Consult: Syncope with fall History of present illness: 60-year-old male came to the hospital this morning. He was deemed a priority to trauma secondary to fall from his wheelchair. Patient was confused in the ER. He had an abrasion central aspect of his forehead. Patient was found to have significant hyperkalemia and acute renal failure. Per the family he has been feeling aggressively more week of the last month or so. Has been eating very little and drinking very little. They are not sure if he has been urinating at all. Patient has not been getting out of his chair. On arrival patient had CAT scan of the brain and C-spine which was negative. Plain films of the chest and pelvis likewise negative. Patient was complaining of mild pain right clavicle. No fracture seen. No shortness of breath. Denies chest pain. Patient is confused present. He is currently in the ICU. Dialysis catheter was placed and he is currently started on his hemodialysis. Review of Systems ROS unobtainable: due to mental status Past Medical History Past Medical History: Hyperlipidemia, Hypertension, Musculoskeletal Disorder, Sleep Apnea/CPAP/BIPAP, Vascular Disorder Additional Past Medical History / Comment(s): CHF, chronic back pain, cellulitis, DVT, nerve pain History of Any Multi-Drug Resistant Organisms: MRSA Year Discovered:: 12/08/19 MDRO Source:: Right Foot Past Surgical History: Cholecystectomy, Hernia Repair, Tonsillectomy Past Anesthesia/Blood Transfusion Reactions: No Reported Reaction Past Psychological History: No Psychological Hx Reported Past Alcohol Use History: None Reported Additional Past Alcohol Use History / Comment(s): quit smoking in october 2018. Past Drug Use History: None Reported, Marijuana - Past Family History Father Family Medical History: Cancer, Prostate Disorder Mother Family Medical History: Cancer Medications and Allergies Home Medications Medication Instructions Recorded Confirmed Type Acetaminophen Tab [Tylenol] 650 mg PO Q6HR PRN tab 11/26/18 07/06/20 Rx lisinopriL [Zestril] 10 mg PO DAILY tab 11/26/18 07/06/20 Rx Aspirin EC [Ecotrin Low Dose] 81 mg PO DAILY 01/07/20 07/06/20 History Baclofen 10 mg PO TID PRN 01/07/20 07/06/20 History Celecoxib 400 mg PO DAILY PRN 01/07/20 07/06/20 History DULoxetine HCL [Cymbalta] 30 mg PO DAILY 01/07/20 07/06/20 History Loperamide HCl [Imodium A-D] 4 mg PO BID 01/07/20 07/06/20 History HYDROcodone/APAP 10-325MG [[place] 1 tab PO Q6H PRN 07/06/20 07/06/20 History 10-325] Metoprolol/Hydrochlorothiazide 1 tab PO DAILY 07/06/20 07/06/20 History [Lopressor Hct 50-25 Tablet] Ondansetron [Zofran] 8 mg PO BID PRN 07/06/20 07/06/20 History Allergies Allergy/AdvReac Type Severity Reaction Status Date / Time No Known Allergies Allergy Verified 07/06/20 10:29 Surgical - Exam Vital Signs Temp Pulse Resp BP Pulse Ox 99.2 F 88 20 121/99 93 L 07/06/20 08:42 07/06/20 08:42 07/06/20 08:42 07/06/20 08:42 07/06/20 08:42 Physical exam: General: Well-developed, well-nourished, obese, no acute distress HEENT: 6 x 7 cm abrasion central aspect of forehead, no crepitus, minimal tenderness, sclerae nonicteric Chest: Mild left clavicular tenderness, no crepitus Abdomen: Nontender, nondistended Extremities: Lower extremity edema with multiple small superficial wounds consistent with venous stasis ulcers Neuro: Alert Results - Labs 07/06/20 08:47 07/06/20 08:47 Abnormal Lab Results - Last 24 Hours (Table) 07/06/20 07/06/20 07/06/20 Range/Units 08:47 08:47 08:47 WBC 19.6 H (3.8-10.6) k/uL Neutrophils # 17.4 H (1.3-7.7) k/uL Lymphocytes # 0.7 L (1.0-4.8) k/uL Monocytes # 1.1 H (0-1.0) k/uL Sodium 133 L (137-145) mmol/L Potassium 9.1 H* (3.5-5.1) mmol/L Carbon Dioxide 12 L (22-30) mmol/L BUN 222 H* (9-20) mg/dL Creatinine 13.41 H* (0.66-1.25) mg/dL Glucose 115 H (74-99) mg/dL Total Protein 9.4 H (6.3-8.2) g/dL Amylase 346 H* (30-110) U/L Lipase 1132 H (23-300) U/L Urine Protein 1+ H (Negative) Ur Leukocyte Esterase Small H (Negative) Urine WBC 6 H (0-5) /hpf Amorphous Sediment Few H (None) /hpf Urine Bacteria Rare H (None) /hpf Hyaline Casts 14 H (0-2) /lpf Urine Mucus Rare H (None) /hpf Urine Sperm Moderate H (None) /hpf Urine Opiates Screen Detected H (NotDetected) Diabetes panel 07/06/20 Range/Units 08:47 Sodium 133 L (137-145) mmol/L Potassium 9.1 H* (3.5-5.1) mmol/L Chloride 99 (98-107) mmol/L Carbon Dioxide 12 L (22-30) mmol/L BUN 222 H* (9-20) mg/dL Creatinine 13.41 H* (0.66-1.25) mg/dL Glucose 115 H (74-99) mg/dL Calcium 10.1 (8.4-10.2) mg/dL AST 33 (17-59) U/L ALT 36 (4-49) U/L Alkaline Phosphatase 112 (38-126) U/L Total Protein 9.4 H (6.3-8.2) g/dL Albumin 4.6 (3.5-5.0) g/dL Calcium panel 07/06/20 Range/Units 08:47 Calcium 10.1 (8.4-10.2) mg/dL Albumin 4.6 (3.5-5.0) g/dL Pituitary panel 07/06/20 Range/Units 08:47 Sodium 133 L (137-145) mmol/L Potassium 9.1 H* (3.5-5.1) mmol/L Chloride 99 (98-107) mmol/L Carbon Dioxide 12 L (22-30) mmol/L BUN 222 H* (9-20) mg/dL Creatinine 13.41 H* (0.66-1.25) mg/dL Glucose 115 H (74-99) mg/dL Calcium 10.1 (8.4-10.2) mg/dL Adrenal panel 07/06/20 Range/Units 08:47 Sodium 133 L (137-145) mmol/L Potassium 9.1 H* (3.5-5.1) mmol/L Chloride 99 (98-107) mmol/L Carbon Dioxide 12 L (22-30) mmol/L BUN 222 H* (9-20) mg/dL Creatinine 13.41 H* (0.66-1.25) mg/dL Glucose 115 H (74-99) mg/dL Calcium 10.1 (8.4-10.2) mg/dL Total Bilirubin 1.2 (0.2-1.3) mg/dL AST 33 (17-59) U/L ALT 36 (4-49) U/L Alkaline Phosphatase 112 (38-126) U/L Total Protein 9.4 H (6.3-8.2) g/dL Albumin 4.6 (3.5-5.0) g/dL Assessment and Plan (1) Fall Narrative/Plan: 60-year-old male activated as a priority to trauma after falling from his chair. Etiology for fall appears to be worsening renal failure. No further trauma workup planned at this time. We'll follow to evaluate for any potential missed injuries. Continue medical management. Current Visit: Yes Status: Acute Code(s): W19.XXXA - UNSPECIFIED FALL, INITIAL ENCOUNTER SNOMED Code(s): 8090084
[2020-07-06] MEDS ORDERED: NOREPINEPHRIN 4 MG-0.9% NS PMX 4 MG/250 ML ML IV ONE ×2 (15:33→18:43)
[2020-07-06 15:45] LABS: ABG Base Excess -3.6 mmol/L; ABG HCO3 22 mmol/L (21-25); ABG Oxygen Saturation 97.4 % (94-97); ABG PCO2 37 mmHg (35-45); ABG PH 7.38 (7.35-7.45); ABG PO2 101 mmHg (83-108); ABG TCO2 23 mmol/L (19-24); Allen Test Performed? Yes
--- NOTE | 2020-07-06 15:55 | IR ---
EXAMINATION TYPE: IR cvc insert non tunneled DATE OF EXAM: 07/06/2020 COMPARISON: NONE HISTORY: Fluoroscopy time. Fluoroscopy was provided to the referring clinician. 0.8 minutes of fluoroscopy.
--- NOTE | 2020-07-06 16:25 | OP ---
OPERATIVE REPORT PREOPERATIVE DIAGNOSIS: Acute chronic renal failure with potassium of 9.1. POSTOPERATIVE DIAGNOSIS: Acute chronic renal failure with potassium of 9.1. PROCEDURE: Ultrasound-guided 30 cm dialysis catheter placement via the left femoral approach. PROCEDURE DESCRIPTION: Patient was brought to the laborer general. Left groin was prepped and draped in the usual sterile manner. Ultrasound-guided micropuncture was introduced to the left groin and 1% lidocaine was infiltrated. Micropuncture was introduced into the common femoral vein. Micropuncture guidewire was passed and 4-Macedonian dilator was advanced on the top of the guidewire. After that we passed a regular guidewire under fluoroscopy control and dilator was advanced. The 30 cm dialysis catheter was placed on the top of the guidewire, flushed with heparin saline and hep-locked, secured with 3-0 nylon. Dressing was applied. Sedation time was 30 minutes. MMCHUCK / IJN: [id number] /
--- NOTE | 2020-07-06 16:28 | XR ---
EXAMINATION TYPE: XR chest 1V portable DATE OF EXAM: 07/06/2020 CLINICAL HISTORY: Central line placement . TECHNIQUE: Single AP portable semiupright view of the chest is obtained. COMPARISON: Chest x-ray from earlier today FINDINGS: New left internal jugular central venous catheter terminating in SVC. Chronic parenchymal changes bilaterally without suspicious new focal airspace opacity, pleural effusi on, or pneumothorax seen. Incomplete imaging of left lateral lung base noted. Cardiac silhouette size is stable and upper limits of normal. Multilevel spurring in the spine is present. IMPRESSION: New Left internal jugular central venous catheter terminating in SVC. No pneumothorax not ed.
--- NOTE | 2020-07-06 16:33 | P.CNPUL ---
History of Present Illness Consult date: 07/06/20 Chief complaint: Severe dehydration, fall, acute kidney injury History of present illness: 60-year-old morbidly obese male patient who was brought in to the emergency department today extremely sick and acute kidney injury, dehydrated having car diac arrhythmia secondary to acute hyperkalemia. For that reason, the intensive care unit consultation was requested. The patient apparently stopped eating and drinking for the past 2-3 weeks. He has been poor hygienic condition. He was found to be excessively sleeping and on the morning of this admission he fell out of his chair and hit his head on the floor. He is conditions and progressively getting worse according to the . Upon arrival, the patient was found to be in acute kidney injury. He was afebrile with a temperature of 99.2. His blood work showed major abnormalities with an acute kidney injury and a creatinine of 13.4 with a BUN of 20-22. His sodium was 133 with a potassium level of 9.1. His serum bicarb was 22 with an anion gap of 22. Calcium level was at 10.1. His lactate level was 1132. Amylase was 346. His urine testing was positive for opiates. White cell count was at 19.6. Correlation profile was within normal limits. The patient has history of hypertension, hyperlipidemia, obstructive sleep apnea and utilizes a CPAP machine. He has congestion heart failure. He has chronic wounds in his lower extremities. He has previous history of DVT. On examination, the patient was found to have multiple ones in his lower extremities bilaterally most of them are superficial. He has also found to have deep tissue injury to his sacrum and buttocks area with areas of stage 2 ulceration. He also has a area of large skin abrasion on his forehead. In the emergency department, the EKG showed a wide-complex, sinus with a QRS complex of 166 ms. Immediately dialysis services was activated and the patient underwent dialysis in the intensive care units. Follow-up levels and labs are still pending for now. Meanwhile, his EKG seems to have normalized for now. Review of Systems ROS unobtainable: due to mental status Past Medical History Past Medical History: Hyperlipidemia, Hypertension, Musculoskeletal Disorder, Sleep Apnea/CPAP/BIPAP, Vascular Disorder Additional Past Medical History / Comment(s): CHF, chronic back pain, cellulitis, DVT, nerve pain, chronic wounds in lower extremities History of Any Multi-Drug Resistant Organisms: MRSA Date of last positivie culture/infection: 12/08/19 MDRO Source:: Right Foot Past Surgical History: Cholecystectomy, Hernia Repair, Tonsillectomy Past Anesthesia/Blood Transfusion Reactions: No Reported Reaction Past Psychological History: No Psychological Hx Reported Past Alcohol Use History: None Reported Additional Past Alcohol Use History / Comment(s): quit smoking in october 2018. Past Drug Use History: None Reported, Marijuana - Past Family History Father Family Medical History: Cancer, Prostate Disorder Mother Family Medical History: Cancer Medications and Allergies Home Medications Medication Instructions Recorded Confirmed Type Acetaminophen Tab [Tylenol] 650 mg PO Q6HR PRN tab 11/26/18 07/06/20 Rx lisinopriL [Zestril] 10 mg PO DAILY tab 11/26/18 07/06/20 Rx Aspirin EC [Ecotrin Low Dose] 81 mg PO DAILY 01/07/20 07/06/20 History Baclofen 10 mg PO TID PRN 01/07/20 07/06/20 History Celecoxib 400 mg PO DAILY PRN 01/07/20 07/06/20 History DULoxetine HCL [Cymbalta] 30 mg PO DAILY 01/07/20 07/06/20 History Loperamide HCl [Imodium A-D] 4 mg PO BID 01/07/20 07/06/20 History HYDROcodone/APAP 10-325MG [[place] 1 tab PO Q6H PRN 07/06/20 07/06/20 History 10-325] Metoprolol/Hydrochlorothiazide 1 tab PO DAILY 07/06/20 07/06/20 History [Lopressor Hct 50-25 Tablet] Ondansetron [Zofran] 8 mg PO BID PRN 07/06/20 07/06/20 History Allergies Allergy/AdvReac Type Severity Reaction Status Date / Time No Known Allergies Allergy Verified 07/06/20 10:29 Physical Exam Vitals: Vital Signs Temp Pulse Resp BP Pulse Ox 07/06/20 14:20 109 H 10 L 69/52 99 07/06/20 14:10 108 H 10 L 93/52 99 07/06/20 14:00 105 H 7 L 56/38 98 07/06/20 13:30 106 H 16 93/52 99 07/06/20 13:00 109 H 16 93/49 98 07/06/20 12:30 113 H 17 93/49 96 07/06/20 08:42 99.2 F 88 20 121/99 93 L Intake and Output 07/06/20 07/06/20 07/06/20 06:59 14:59 22:59 Intake Total 240 Output Total 150 Balance 90 Intake: IV 240 Dextrose 5% in Water 1, 240 000 ml @ 80 mls/hr IV . [id number] JOSHUA with Sodium Bicarb (1 Meq/ml) 150 ml Rx#:[id number] Output: Urine 150 Other: Weight 137.847 kg Obese, comfortable, not in acute distress, BMI 4 1.2 Head exam was generally normal. There was no scleral icterus or corneal arcus. Mucous membranes were moist. Neck was supple and without jugular venous distension, thyromegaly, or carotid bruits. Carotids were easily palpable bilaterally. There was no adenopathy. The neck is very much thick and the veins cannot be accurately palpated or visualiz ed on examination. No neck masses. Adenopathy class IV. Extremely poor dental condition with multiple missing teeth / decayed teeth both in upper and lower jaw. Lungs sounds are diminished bilaterally. No wheezes overall currently crackles. Cardiac exam revealed the PMI to be normally situated and sized. The rhythm was regular and no extrasystoles were noted during several minutes of auscultation. The first and second heart sounds were normal and physiologic splitting of the second heart sound was noted. There were no murmurs, rubs, clicks, or gallops. Overall the heart sounds are quite distant. Abdomen is obese soft nontender. No direct tenderness, rebound tenderness, no guarding. Extremities revealed various areas of stage I and stage II ulceration lower extremities bilaterally. Overlying skin is very dry and scaly and 1 the various signs of visualized over the anterior and the posterior aspect of the lower extremities. Also, the patient has intracranial candidiasis which is quite extensive and this is present in between his abdominal apron and groin and his feet and his armpits. Similarly, candidiasis is also present in his neck folds. The patient also has onychomycosis and extensively for toenail hygiene. Neurologically, the patient is quite lethargic and somnolent. He is arousable. He withdraws to painful stimulation upper extremities. Pupils are equal and reactive to light. No Babinski. No clonus. Motor and sensory function cannot be accurately assessed. No facial asymmetry at this point in time. Results - Laboratory Findings CBC and BMP: 07/06/20 08:47 07/06/20 08:47 ABG ABG pH 7.38 (7.35-7.45) 07/06/20 15:43 ABG pCO2 37 mmHg (35-45) 07/06/20 15:43 ABG pO2 101 mmHg (83-108) 07/06/20 15:43 ABG O2 Saturation 97.4 % (94-97) H 07/06/20 15:43 PT/INR, D-dimer PT 11.3 sec (9.0-12.0) 07/06/20 08:47 INR 1.1 (<1.2) 07/06/20 08:47 Abnormal lab findings: Abnormal Labs 07/06/20 07/06/20 07/06/20 08:47 08:47 08:47 WBC 19.6 H Neutrophils # 17.4 H Lymphocytes # 0.7 L Monocytes # 1.1 H ABG O2 Saturation Sodium 133 L Potassium 9.1 H* Carbon Dioxide 12 L BUN 222 H* Creatinine 13.41 H* Glucose 115 H Total Protein 9.4 H Amylase 346 H* Lipase 1132 H Urine Protein 1+ H Ur Leukocyte Esterase Small H Urine WBC 6 H Amorphous Sediment Few H Urine Bacteria Rare H Hyaline Casts 14 H Urine Mucus Rare H Urine Sperm Moderate H Urine Opiates Screen Detected H 07/06/20 15:43 WBC Neutrophils # Lymphocytes # Monocytes # ABG O2 Saturation 97.4 H Sodium Potassium Carbon Dioxide BUN Creatinine Glucose Total Protein Amylase Lipase Urine Protein Ur Leukocyte Esterase Urine WBC Amorphous Sediment Urine Bacteria Hyaline Casts Urine Mucus Urine Sperm Urine Opiates Screen - Diagnostic Findings Chest x-ray: image reviewed Assessment and Plan Plan: 1 acute kidney injury secondary to severe dehydration. This is probably mechanical due to severe dehydration, and addition to intake of nonsteroidal anti-inflammatory medication and JOSE inhibitor's. 2 acute hyperkalemia with EKG changes 3 acute anion gap metabolic acidosis secondary to above 4 encephalopathy secondary to above with altered mentation 5 fall with skin abrasion to his forehead 6 chronic lower extremity wound and ulceration ranging between stage I and stage II 7 deep tissue injury to his sacral area/buttocks along with stage II ulceration 8 leukocytosis, reactive most likely although infection cannot be ruled out completely 9 acute pancreatitis with elevated lipase level 10 Morbid obesity with history obstructive sleep apnea with a BMI of 41.2 11 history of hypertension 12 history of hyperlipidemia 13 history of peripheral vascular disease 14 history of chronic back pain 15 history of MRSA wound infection 16 remote history of DVT of the lower extremities 17 extensive intercrural candidiasis Plan Continue with bicarb infusions rate of 150 mL an hour Obtain a blood gas Dialysis was completed and would awaiting the follow-up potassium level and further treatment is to follow based on the potassium levels. EKG for now has normalized. Hold JOSE inhibitor's. Hold nonsteroidal anti-extremity medication. Avoid nephrotoxic agents. Cover the patient empirically with IV antibiotics including IV Zosyn Doppler of the lower extremities Nystatin powder to the groin and intercrural areas treating degenerative candidiasis Silvadene cream to the ones over the face and lower extremities Aquacel silver to the stage II ulceration in his buttocks in addition to OptiForm Heparin subcu for DVT prophylaxis Inserted Artline and triple-lumen catheter Monitor electrolytes Nephrology consultation and obtain ultrasound the kidneys We'll continue to follow , Keep in ICU, may need further dialysis. Condition is critical for now. Time with Patient: Greater than 30
--- NOTE | 2020-07-06 16:38 | P.PCN ---
Date of Procedure: 07/06/20 Preoperative Diagnosis: Acute kidney injury, severe dehydration Postoperative Diagnosis: Same Procedure(s) Performed: Insertion of a triple-lumen catheter and arterial line Anesthesia: local Surgeon: Skyla Mayfield Pathology: none sent Condition: critical Disposition: ICU Operative Findings: Indication: Hemodynamic monitoring. A time-out was completed verifying correct patient, procedure, site, positioning, and implant(s) or special equipment if applicable. Allens test was performed to ensure adequate perfusion. The patients left wrist was prepped and draped in sterile fashion. 1% Lidocaine was used to anesthetize the area. An 18G Arrow arterial line was introduced into the radial artery. The catheter was threaded over the guide wire and the needle was removed with appropriate pulsatile blood return. Blood loss was minimal. The catheter was then sutured in place to the skin and a sterile dressing applied. Perfusion to the extremity distal to the point of catheter insertion was checked and found to be adequate. The patient tolerated the procedure well and there were no complications. Indication: Hemodynamic monitoring/Intravenous access. A time-out was completed verifying correct patient, procedure, site, positioning, and implant(s) or special equipment if applicable. The patient was placed in a dependent position appropriate for central line placement based on the vein to be cannulated. The patients left neck was prepped and draped in sterile fashion. 1% Lidocaine was used to anesthetize the surrounding skin area. A triple lumen 9F Cordis catheter was introduced into the internal jugular vein using Seldinger technique. The catheter was threaded smoothly over the guide wire and appropriate blood return was obtained. Each lumen of the catheter was evacuated of air and flushed with sterile saline. The catheter was then sutured in place to the skin and a sterile dressing applied. Perfusion to the extremity distal to the point of catheter insertion was checked and found to be adequate. The patient tolerated the procedure well and there were no complications.
[2020-07-06] MEDS ORDERED: HEPARIN SODIUM,PORCINE 5,000 UNIT/ML 1 ML VIAL SQ SCH (16:45)
--- NOTE | 2020-07-06 17:08 | P.HPIM ---
History of Present Illness H&P Date: 07/06/20 60-year-old male with PMH of hypertension, dyslipidemia, peripheral vascular disease, chronic lower back pain presents to the ED after being found down. Patient is unable to provide much details and majority of the information is obtained from discussion with nursing and documentation. Apparently, patient has not been taking care of himself, has not been eating or drinking much over the past few weeks. Patient has not been showering as well as per the . When patient got to the ED, he was noted to be tachycardic and hypotensive. He required 6 L nasal cannula to maintain O2 saturation greater than 90%. He had a low-grade fever of 99.2 Fahrenheit. CBC showed a leukocytosis of 19.6. CMP showed sodium of 133, potassium of 9.1, bicarbonate of 12, BUN of 222, creatinine of 13.41, glucose of 1:15. Amylase was 346, lipase 1132. Urinalysis showed small leukocyte esterase. UDS was positive for opiates. Chest x-ray showed chronic findings. Pelvic x-ray was negative. CT brain and C-spine showed no fracture or dislocation. EKG showed normal sinus rhythm with right bundle branch block. With IV insulin, D50, Kayexalate. Emergent dialysis was performed in the ED. Patient is admitted to ICU for further management and observation. Review of Systems Pertinent positives and negatives as discussed in HPI, a complete review of systems was performed and all other systems are negative. Past Medical History Past Medical History: Hyperlipidemia, Hypertension, Musculoskeletal Disorder, Sleep Apnea/CPAP/BIPAP, Vascular Disorder Additional Past Medical History / Comment(s): CHF, chronic back pain, cellulitis, DVT, nerve pain History of Any Multi-Drug Resistant Organisms: MRSA Date of last positivie culture/infection: 12/08/19 MDRO Source:: Right Foot Past Surgical History: Cholecystectomy, Hernia Repair, Tonsillectomy Past Anesthesia/Blood Transfusion Reactions: No Reported Reaction Past Psychological History: No Psychological Hx Reported Past Alcohol Use History: None Reported Additional Past Alcohol Use History / Comment(s): quit smoking in october 2018. Past Drug Use History: None Reported, Marijuana - Past Family History Father Family Medical History: Cancer, Prostate Disorder Mother Family Medical History: Cancer Medications and Allergies Home Medications Medication Instructions Recorded Confirmed Type Acetaminophen Tab [Tylenol] 650 mg PO Q6HR PRN tab 11/26/18 07/06/20 Rx lisinopriL [Zestril] 10 mg PO DAILY tab 11/26/18 07/06/20 Rx Aspirin EC [Ecotrin Low Dose] 81 mg PO DAILY 01/07/20 07/06/20 History Baclofen 10 mg PO TID PRN 01/07/20 07/06/20 History Celecoxib 400 mg PO DAILY PRN 01/07/20 07/06/20 History DULoxetine HCL [Cymbalta] 30 mg PO DAILY 01/07/20 07/06/20 History Loperamide HCl [Imodium A-D] 4 mg PO BID 01/07/20 07/06/20 History HYDROcodone/APAP 10-325MG [[place] 1 tab PO Q6H PRN 07/06/20 07/06/20 History 10-325] Metoprolol/Hydrochlorothiazide 1 tab PO DAILY 07/06/20 07/06/20 History [Lopressor Hct 50-25 Tablet] Ondansetron [Zofran] 8 mg PO BID PRN 07/06/20 07/06/20 History Allergies Allergy/AdvReac Type Severity Reaction Status Date / Time No Known Allergies Allergy Verified 07/06/20 10:29 Physical Exam Vitals: Vital Signs Temp Pulse Resp BP Pulse Ox 07/06/20 14:20 109 H 10 L 69/52 99 07/06/20 14:10 108 H 10 L 93/52 99 07/06/20 14:00 105 H 7 L 56/38 98 07/06/20 13:30 106 H 16 93/52 99 07/06/20 13:00 109 H 16 93/49 98 07/06/20 12:30 113 H 17 93/49 96 07/06/20 08:42 99.2 F 88 20 121/99 93 L Intake and Output 07/06/20 07/06/20 07/06/20 06:59 14:59 22:59 Intake Total 240 Output Total 150 Balance 90 Intake: IV 240 Dextrose 5% in Water 1, 240 000 ml @ 80 mls/hr IV . [id number] JOSHUA with Sodium Bicarb (1 Meq/ml) 150 ml Rx#:[id number] Output: Urine 150 Other: Weight 137.847 kg General: [non toxic], [mild distress and lethargic], [appears at stated age] Derm: [warm], [dry], stage II sacral ulcer, xerosis bilateral lower extremity with cracked skin, candidiasis Head: [atraumatic], [normocephalic], [symmetric] Eyes: [EOMI], [no lid lag], [anicteric sclera] Mouth: [no lip lesion], [mucus membranes moist], poor dentition Cardiovascular: [S1S2 reg], [tachycardic] Lungs: [Decreased breath sounds bilateral], [no rhonchi, no rales] , [no accessory muscle use] Abdominal: [soft], [ nontender to palpation], [no guarding], [no appreciable o rganomegaly] Ext: [no gross muscle atrophy], [no edema], [no contractures] Neuro: [no focal neuro deficits] Psych: [Unable to determine] Results CBC & Chem 7: 07/06/20 08:47 07/06/20 08:47 Labs: Abnormal Lab Results - Last 24 Hours (Table) 07/06/20 07/06/20 07/06/20 Range/Units 08:47 08:47 08:47 WBC 19.6 H (3.8-10.6) k/uL Neutrophils # 17.4 H (1.3-7.7) k/uL Lymphocytes # 0.7 L (1.0-4.8) k/uL Monocytes # 1.1 H (0-1.0) k/uL ABG O2 Saturation (94-97) % Sodium 133 L (137-145) mmol/L Potassium 9.1 H* (3.5-5.1) mmol/L Carbon Dioxide 12 L (22-30) mmol/L BUN 222 H* (9-20) mg/dL Creatinine 13.41 H* (0.66-1.25) mg/dL Glucose 115 H (74-99) mg/dL Total Protein 9.4 H (6.3-8.2) g/dL Amylase 346 H* (30-110) U/L Lipase 1132 H (23-300) U/L Urine Protein 1+ H (Negative) Ur Leukocyte Esterase Small H (Negative) Urine WBC 6 H (0-5) /hpf Amorphous Sediment Few H (None) /hpf Urine Bacteria Rare H (None) /hpf Hyaline Casts 14 H (0-2) /lpf Urine Mucus Rare H (None) /hpf Urine Sperm Moderate H (None) /hpf Urine Opiates Screen Detected H (NotDetected) 07/06/20 Range/Units 15:43 WBC (3.8-10.6) k/uL Neutrophils # (1.3-7.7) k/uL Lymphocytes # (1.0-4.8) k/uL Monocytes # (0-1.0) k/uL ABG O2 Saturation 97.4 H (94-97) % Sodium (137-145) mmol/L Potassium (3.5-5.1) mmol/L Carbon Dioxide (22-30) mmol/L BUN (9-20) mg/dL Creatinine (0.66-1.25) mg/dL Glucose (74-99) mg/dL Total Protein (6.3-8.2) g/dL Amylase (30-110) U/L Lipase (23-300) U/L Urine Protein (Negative) Ur Leukocyte Esterase (Negative) Urine WBC (0-5) /hpf Amorphous Sediment (None) /hpf Urine Bacteria (None) /hpf Hyaline Casts (0-2) /lpf Urine Mucus (None) /hpf Urine Sperm (None) /hpf Urine Opiates Screen (NotDetected) Assessment and Plan Assessment: Acute kidney injury Hyperkalemia Sepsis Metabolic acidosis Pancreatitis 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 This is likely related to dehydration and his prerenal related to decreased oral intake. Plans: Patient underwent dialysis in the ED. Obtain renal ultrasound. Nephrology on board. Continue D5 sodium bicarb at 80 mL per hour. Avoid nephrotoxins. Potassium 9.1. Likely due to acute kidney injury. Plans: Patient underwent hemodialysis in the ED. Status post IV insulin, D50, Kayexalate, calcium chloride. Obtain stat BMP. Calcium gluconate if potassium remains elevated. Telemetry monitoring. Patient meets sepsis criteria. He has a leukocytosis, low-grade fever, and is tachycardic. Urinalysis shows small leukocyte esterase. Lactic acid negative. Plans: Start Zosyn. Obtain chest x-ray. Follow blood cultures. Bicarb 12. Likely related to acute kidney injury. Plans: Management as above. Amylase 346, lipase 1132. Plans: Continue IV hydration as above. Avoid narcotic medications due to relative hypotension. Plans: Local wound care. Plans: Patient will benefit from a structured weight loss program. Plans: CPAP at bedtime. DVT prophylaxis: [Heparin] Discussed with: [Patient] Anticipated discharge: [2-3 days] Anticipated discharge place: [Home versus rehab] A total of [45] minutes was spent on the care of this complex patient more than 50% of the time was spent in counseling and care coordination.
[2020-07-06 17:24] LABS: Calcium 9.1 mg/dL (8.4-10.2); Potassium 4.8 mmol/L (3.5-5.1)
[2020-07-06] MEDS ORDERED: HEPARIN SODIUM,PORCINE 5,000 UNIT/ML 1 ML VIAL IV PRN (17:24)
[2020-07-06] MEDS ORDERED: HEPARIN SODIUM,PORCINE 5,000 UNIT/ML 1 ML VIAL IV ONE (17:24)
[2020-07-06 18:14] LABS: INR 1.1 (<1.2); Partial Thromboplastin Time 24.5 sec (22.0-30.0); Prothrombin Time 11.3 sec (9.0-12.0)
[2020-07-06] MEDS: PIPERACILLIN-TAZOBACTAM 3.375 GM in SODIUM CHLORIDE 0.9% 100 ML IVPB SCH (18:48)
[2020-07-06] MEDS: HEPARIN SOD,PORK IN 0.45% NACL 25,000 UNIT in 0.45% NACL 1 250ML.BAG IV SCH (18:50)
--- NOTE | 2020-07-06 19:11 | US ---
EXAMINATION TYPE: US venous doppler duplex LE DATE OF EXAM: 07/06/2020 5:50 PM COMPARISON: US CLINICAL HISTORY: swelling. Patient stated has right leg DVT, but otherwise has limited history. Skin hyperpigmentation is noted bilateral LE. SIDE PERFORMED: Bilateral , US is technically limited as has indwelling bladder catheter taped at rig ht groin and has renal dialysis access port at left groin. Also, patient is unable to tolerate probe pressure. TECHNIQUE: The lower extremity deep venous system is examined utilizing real time linear array sonog trisha with graded compression, doppler sonography and color-flow sonography. VESSELS IMAGED: Common Femoral Vein Deep Femoral Vein Greater Saphenous Vein * Femoral Vein Popliteal Vein Right Leg: DVT in Right Femoral Vein as visualized. Right CFV and Right Popliteal Vein are patent by color flow and PW Doppler. Left Leg: Left distal CFV DVT, Left Femoral Vein DVT and LEft Popliteal Vein DVT are indicated by in ternal vein echoes, absence of venous Color Flow and no compression of these veins. Tech findings rep orted to patient's RN and Dr Mayfield at patient's bedside. IMPRESSION: There is bilateral leg acute deep vein thrombosis that is worse on the left side.
--- NOTE | 2020-07-06 19:12 | US ---
EXAMINATION TYPE: US kidneys/renal and bladder DATE OF EXAM: 07/06/2020 COMPARISON: NONE CLINICAL HISTORY: daisy. ICU patient with history of DVT EXAM MEASUREMENTS: Right Kidney: 10.9 x 5.7 x 5.2 cm Left Kidney: 11.1 x 6.0 x 5.4 cm Post Void Residual Volume: not assessed as indwelling bladder catheter is present US exam is technically limited due to complaint of pain with US probe pressure and patient's large mario dy habitus. Right Kidney: partially obscured by overlying bowel gas; crescent shaped hypoechoic area seen adjacen t to renal capsule is suggestive of sonographic "sweat sign" for renal failure Left Kidney: No hydronephrosis or masses seen; partially obscured by overlying bowel gas. Bladder: indwelling bladder catheter is present There is no evidence for hydronephrosis at this point in time. No nephrolithiasis is seen. No juan c s are identified. IMPRESSION: Limited exam. No evidence of renal mass or obstruction. Bilateral renal cortical thinning consistent with some atrophy.
[2020-07-06 20:23] LABS: Hepatitis B Surface AB- Quant 3.5 mIU/mL; Hepatitis B Surface Antibody Non-Reactive (Non-Reactive); Hepatitis B Surface Antigen Non-Reactive (Non-Reactive)
[2020-07-06] MEDS: NOREPINEPHRINE 8 MG in SODIUM CHLORIDE 0.9% 250 ML IV SCH (21:31)
[2020-07-07] MEDS: NOREPINEPHRINE 8 MG in SODIUM CHLORIDE 0.9% 250 ML IV SCH ×4 (00:03→20:30)
[2020-07-07 02:01] LABS: Appearance,Urine Clear (Clear); Bacteria,Urine Occasional /hpf; Bilirubin,Urine Negative (Negative); Blood,Urine Moderate (Negative); Color,Urine Light Yellow; Glucose,Urine (UA) 2+ (Negative); Ketones,Urine Negative (Negative); Leukocyte Esterase,Urine Negative (Negative); Mucus,Urine Occasional /hpf; Nitrite,Urine Negative (Negative); Protein,Urine Trace (Negative); RBC,Urine 1 /hpf (0-5); Specific Gravity,Urine 1.009 (1.001-1.035); Squamous Epithelial Cell,Urine <1 /hpf (0-4); Urobilinogen,Urine <2.0 mg/dL (<2.0); WBC,Urine 5 /hpf (0-5)
[2020-07-07 05:22] LABS: Basophils # (A) 0.1 k/uL (0-0.2); Basophils % (A) 1 %; Eosinophils # (A) 0.1 k/uL (0-0.7); Eosinophils % (A) 1 %; HCT 44.8 % (39.0-53.0); HGB 14.5 gm/dL (13.0-17.5); Lymphocytes # (A) 1.5 k/uL (1.0-4.8); Lymphocytes % (A) 8 %; MCH 28.7 pg (25.0-35.0); MCHC 32.4 g/dL (31.0-37.0); MCV 88.4 fL (80.0-100.0); Mean Platelet Volume 8.6; Monocytes # (A) 1.4 k/uL (0-1.0); Monocytes % (A) 8 %; Neutrophils # (A) 14.2 k/uL (1.3-7.7); Neutrophils % (A) 79 %; Platelet Count 187 k/uL (150-450); RBC 5.06 m/uL (4.30-5.90); RDW 14.2 % (11.5-15.5); WBC 17.9 k/uL (3.8-10.6)
[2020-07-07 05:40] LABS: Calcium 8.4 mg/dL (8.4-10.2); Magnesium 2.1 mg/dL (1.6-2.3); Phosphorus 6.3 mg/dL (2.5-4.5); Potassium 4.5 mmol/L (3.5-5.1)
--- NOTE | 2020-07-07 07:14 | XR ---
EXAMINATION TYPE: XR chest 1V DATE OF EXAM: 07/07/2020 COMPARISON: R chest x-ray 07/06/2020 HISTORY: Shortness of breath TECHNIQUE: Single frontal view of the chest is obtained. FINDINGS: Patient is rotated, lung volumes are low. Central venous catheter is stable, distal tip ov erlying the superior vena cava. No evident pneumothorax or pleural effusion. Patchy basilar density p ersists, the heart is stable. IMPRESSION: Expiratory rotated exam. Probable basilar atelectasis, correlate to exclude pneumonia, f ollow-up PA and lateral chest x-ray suggested.
[2020-07-07] MEDS: MAG HYDROX/AL HYDROX/SIMETH 30 ML, LIDOCAINE VISCOUS 30 ML, diphenhydrAMINE ELIXIR 75 M... PO SCH ×12 (08:32→20:31)
[2020-07-07] MEDS: PANTOPRAZOLE 40 MG/10 ML VIAL IVP SCH (08:32)
[2020-07-07] MEDS: ASPIRIN 81 MG PO SCH (08:32)
[2020-07-07] MEDS: SODIUM CHLORIDE 0.9% 1,000 ML IV SCH ×2 (08:33→21:57)
[2020-07-07] MEDS: PIPERACILLIN-TAZOBACTAM 3.375 GM in SODIUM CHLORIDE 0.9% 100 ML IVPB SCH ×2 (08:37→17:14)
--- NOTE | 2020-07-07 09:16 | P.PN ---
Subjective patient is seen in follow-up for acute kidney injury. Denies chest pain or shortness of breath. Nonoliguric. Tolerated dialysis well yesterday. Potassium level now normal. Maintain on low-dose Levophed. Vital signs are stable. on low-dose Levophed. General: The patient appeared well nourished and normally developed. HEENT: Head exam is unremarkable. Neck is without jugular venous distension. LUNGS:Breath sounds decreased. HEART: Rate and Rhythm are regular. ABDOMEN: soft, nontender. Obese. EXTREMITITES: 1+ edema. Lower extremities wrapped. Chronic changes noted. Objective - Vital Signs Vital signs: Vital Signs Temp 98.4 F 07/07/20 04:00 Pulse 102 H 07/07/20 07:00 Resp 11 L 07/07/20 07:00 BP 124/74 07/07/20 07:00 Pulse Ox 95 07/07/20 07:00 Intake & Output 07/06/20 07/07/20 07/07/20 18:59 06:59 18:59 Intake Total 957 2220.378 268.613 Output Total 480 3020 350 Balance 477 -799.622 -81.387 Weight 137.847 kg 136.25 kg Intake: IV 957 1886 128 Dextrose 5% in Water 1, 695 1500 125 000 ml @ 125 mls/hr IV . Q9H12M JOSHUA with Sodium Bicarb (1 Meq/ml) 150 ml Rx#:[id number] Norepinephrin 4 mg-0.9% 250 250 Ns Pmx 4 mg In 250 ml @ 0 mls/hr IV .[facility] Rx#:[id number] Piperacillin-Tazobactam 3 100 .375 gm In Sodium Chloride 0.9% 100 ml @ 25 mls/hr IVPB Q12HR@0600, 1800 [facility] Rx#:[id number] Pressure Bag 12 36 3 Intake, IV Titration 334.378 140.613 Amount Heparin Sod,Pork in 0.45% 42.662 NaCl 25,000 unit In 0.45 % NaCl 1 250ml.bag @ 7. 254 UNITS/KG/HR 9.999 mls /hr IV .Q24H [facility] Rx#: [id number] Norepinephrine 8 mg In 291.716 140.613 Sodium Chloride 0.9% 250 ml @ 0.05 MCG/KG/MIN 13. 337 mls/hr IV .[id number] [facility] Rx#:[id number] Output: Urine 480 3020 350 Hemodialysis 0 Other: Voiding Method Indwelling Catheter Indwelling Catheter ABP, PAP, CO, CI - Last Documented Arterial Blood Pressure 126/58 - Labs CBC & Chem 7: 07/07/20 05:15 07/07/20 05:15 Labs: Abnormal Lab Results - Last 24 Hours (Table) 07/06/20 07/06/20 07/06/20 Range/Units 08:47 08:47 15:43 WBC (3.8-10.6) k/uL Neutrophils # (1.3-7.7) k/uL Monocytes # (0-1.0) k/uL APTT (22.0-30.0) sec ABG O2 Saturation 97.4 H (94-97) % Sodium 133 L (137-145) mmol/L Potassium 9.1 H* (3.5-5.1) mmol/L Carbon Dioxide 12 L (22-30) mmol/L BUN 222 H* (9-20) mg/dL Creatinine 13.41 H* (0.66-1.25) mg/dL Glucose 115 H (74-99) mg/dL Phosphorus (2.5-4.5) mg/dL Creatine Kinase (55-170) U/L Total Protein 9.4 H (6.3-8.2) g/dL Amylase 346 H* (30-110) U/L Lipase 1132 H (23-300) U/L Urine Protein 1+ H (Negative) Urine Glucose (UA) (Negative) Urine Blood (Negative) Ur Leukocyte Esterase Small H (Negative) Urine WBC 6 H (0-5) /hpf Amorphous Sediment Few H (None) /hpf Urine Bacteria Rare H (None) /hpf Hyaline Casts 14 H (0-2) /lpf Urine Mucus Rare H (None) /hpf Urine Sperm Moderate H (None) /hpf Urine Opiates Screen Detected H (NotDetected) 07/06/20 07/07/20 07/07/20 Range/Units 16:43 01:40 01:40 WBC (3.8-10.6) k/uL Neutrophils # (1.3-7.7) k/uL Monocytes # (0-1.0) k/uL APTT 49.7 H (22.0-30.0) sec ABG O2 Saturation (94-97) % Sodium (137-145) mmol/L Potassium (3.5-5.1) mmol/L Carbon Dioxide 18 L (22-30) mmol/L BUN 117 H* (9-20) mg/dL Creatinine 7.83 H* (0.66-1.25) mg/dL Glucose 152 H (74-99) mg/dL Phosphorus (2.5-4.5) mg/dL Creatine Kinase 239 H (55-170) U/L Total Protein (6.3-8.2) g/dL Amylase (30-110) U/L Lipase (23-300) U/L Urine Protein Trace H (Negative) Urine Glucose (UA) 2+ H (Negative) Urine Blood Moderate H (Negative) Ur Leukocyte Esterase (Negative) Urine WBC (0-5) /hpf Amorphous Sediment (None) /hpf Urine Bacteria Occasional H (None) /hpf Hyaline Casts (0-2) /lpf Urine Mucus Occasional H (None) /hpf Urine Sperm (None) /hpf Urine Opiates Screen (NotDetected) 07/07/20 07/07/20 07/07/20 Range/Units 05:15 05:15 05:15 WBC 17.9 H (3.8-10.6) k/uL Neutrophils # 14.2 H (1.3-7.7) k/uL Monocytes # 1.4 H (0-1.0) k/uL APTT 44.4 H (22.0-30.0) sec ABG O2 Saturation (94-97) % Sodium (137-145) mmol/L Potassium (3.5-5.1) mmol/L Carbon Dioxide (22-30) mmol/L BUN 103 H* (9-20) mg/dL Creatinine 4.55 H (0.66-1.25) mg/dL Glucose 179 H (74-99) mg/dL Phosphorus 6.3 H (2.5-4.5) mg/dL Creatine Kinase (55-170) U/L Total Protein (6.3-8.2) g/dL Amylase (30-110) U/L Lipase (23-300) U/L Urine Protein (Negative) Urine Glucose (UA) (Negative) Urine Blood (Negative) Ur Leukocyte Esterase (Negative) Urine WBC (0-5) /hpf Amorphous Sediment (None) /hpf Urine Bacteria (None) /hpf Hyaline Casts (0-2) /lpf Urine Mucus (None) /hpf Urine Sperm (None) /hpf Urine Opiates Screen (NotDetected) Assessment and Plan Plan: Assessment: 1. Acute kidney injury secondary to ATN secondary to poor intake, diuretics, nonsteroidals as well as lisinopril use. Creatinine 13.4 on admission. Baseline creatinine 0.8 from January 2020. No significant urine obtained upon Cartwright catheter insertion. no evidence of hydronephrosis noted on kidney ultrasound. 2. Hyperkalemia secondary to acute kidney injury, metabolic acidosis, nonsteroidals as well as lisinopril. resolved. Status post emergent hemodialysis on July 06. 3. Metabolic acidosis secondary to acute kidney injury. resolved. 4. hypotension maintained on low-dose Levophed. 5. Encephalopathy secondary to uremia. rule out infection. Plan: bicarb drip discontinued. Maintain normal saline at 75 mL an hour. Hold diuretics and lisinopril. Avoid nephrotoxins. Follow-up cultures. hold off on hemodialysis today. Monitor for renal recovery. Wean Levophed.
[2020-07-07 09:18] LABS: Amylase 178 U/L (30-110)
--- NOTE | 2020-07-07 10:58 | P.PN ---
Subjective Progress Note Date: 07/07/20 60-year-old morbidly obese male patient who was brought in to the emergency department today extremely sick and acute kidney injury, dehydrated having cardiac arrhythmia secondary to acute hyperkalemia. For that reason, the intensive care unit consultation was requested. The patient apparently stopped eating and drinking for the past 2-3 weeks. He has been poor hygienic condition. He was found to be excessively sleeping and on the morning of this admission he fell out of his chair and hit his head on the floor. He is conditions and progressively getting worse according to the . Upon arrival, the patient was found to be in acute kidney injury. He was afebrile with a temperature of 99.2. His blood work showed major abnormalities with an acute kidney injury and a creatinine of 13.4 with a BUN of 20-22. His sodium was 133 with a potassium level of 9.1. His serum bicarb was 22 with an anion gap of 22. Calcium level was at 10.1. His lactate level was 1132. Amylase was 346. His urine testing was positive for opiates. White cell count was at 19.6. Correlation profile was within normal limits. The patient has history of hypertension, hyperlipidemia, obstructive sleep apnea and utilizes a CPAP machine. He has congestion heart failure. He has chronic wounds in his lower extremities. He has previous history of DVT. On examination, the patient was found to have multiple ones in his lower extremities bilaterally most of them are superficial. He has also found to have deep tissue injury to his sacrum and buttocks area with areas of stage 2 ulceration. He also has a area of large skin abrasion on his forehead. In the emergency department, the EKG showed a wide-complex, sinus with a QRS complex of 166 ms. Immediately dialysis services was activated and the patient underwent dialysis in the intensive care units. Follow-up levels and labs are still pending for now. Meanwhile, his EKG seems to have normalized for now. 07/07/2020, the patient is more awake and alert compared to yesterday. The patient got dialyzed a single session yesterday and the potassium level is improved. No cardiac arrhythmias. He was started on bicarb infusion yesterday. He was also given norepinephrine infusion for blood pressure control and currently norepinephrine infusion is running at 3 g per minute. No fever. No chills. Doppler of the lower extremities showed bilateral lower extremity DVT and the patient is currently on IV heparin. Cardiac rhythm is sinus. He is afebrile. Was started on empiric antibiotic coverage and IV Zosyn. Cultures still pending for now. He is on eye Infusion with 150 mEq of sodium bicarbonate running at 125 mL an hour. Follow-up amylase and lipase are still pending for now. No other significant events overnight. Nephrology is on the case. No cardiac arrhythmias have been noted. The follow-up BUN is at 103 with a creatinine of 4.55 and the patient is making urine output in the order of 20-30 mL an hour. No nausea. No vomiting. No abdominal pain. Repeat lipase and amylase levels are back to normal. Objective - Vital Signs Vital signs: Vital Signs Temp 98.1 F 07/07/20 08:00 Pulse 94 07/07/20 10:00 Resp 0 L 07/07/20 10:00 BP 124/74 07/07/20 08:00 Pulse Ox 96 07/07/20 10:00 Intake & Output 07/06/20 07/07/20 07/07/20 18:59 06:59 18:59 Intake Total 957 2220.378 524.613 Output Total 480 3020 700 Balance 477 -799.622 -175.387 Weight 137.847 kg 136.25 kg Intake: IV 957 1886 234 Dextrose 5% in Water 1, 695 1500 125 000 ml @ 125 mls/hr IV . Q9H12M [facility] with Sodium Bicarb (1 Meq/ml) 150 ml Rx#:[id number] Norepinephrin 4 mg-0.9% 250 250 Ns Pmx 4 mg In 250 ml @ 0 mls/hr IV [facility] Rx#:[id number] Piperacillin-Tazobactam 3 100 100 .375 gm In Sodium Chloride 0.9% 100 ml @ 25 mls/hr IVPB Q12HR@0600, 1800 [facility] Rx#:[id number] Pressure Bag 12 36 9 Intake, IV Titration 334.378 290.613 Amount Heparin Sod,Pork in 0.45% 42.662 NaCl 25,000 unit In 0.45 % NaCl 1 250ml.bag @ 7. 254 UNITS/KG/HR 9.999 mls /hr IV .Q24H [facility] Rx#: [id number] Norepinephrine 8 mg In 291.716 140.613 Sodium Chloride 0.9% 250 ml @ 0.05 MCG/KG/MIN 13. 337 mls/hr IV .[id number] [facility] Rx#:[id number] Sodium Chloride 0.9% 1, 150 000 ml @ 75 mls/hr IV . [id number] [facility] Rx#:[id number] Output: Urine 480 3020 700 Hemodialysis 0 Other: Voiding Method Indwelling Catheter Indwelling Catheter ABP, PAP, CO, CI - Last Documented Arterial Blood Pressure 106/45 - Exam Obese, comfortable, not in acute distress, BMI 41.2 Head exam was generally normal. There was no scleral icterus or corneal arcus. Mucous membranes were moist. Neck was supple and without jugular venous distension, thyromegaly, or carotid bruits. Carotids were easily palpable bilaterally. There was no adenopathy. The neck is very much thick and the veins cannot be accurately palpated or visualized on examination. No neck masses. Adenopathy class IV. Extremely poor dental condition with multiple missing teeth / decayed teeth both in upper and lower jaw. Lungs sounds are diminished bilaterally. No wheezes overall currently crackles. Cardiac exam revealed the PMI to be normally situated and sized. The rhythm was regular and no extrasystoles were noted during several minutes of auscultation. The first and second heart sounds were normal and physiologic splitting of the second heart sound was noted. There were no murmurs, rubs, clicks, or gallops. Overall the heart sounds are quite distant. Abdomen is obese soft nontender. No direct tenderness, rebound tenderness, no guarding. Extremities revealed various areas of stage I and stage II ulceration lower extremities bilaterally. Overlying skin is very dry and scaly and 1 the various signs of visualized over the anterior and the posterior aspect of the lower extremities. Also, the patient has intracranial candidiasis which is quite exte nsive and this is present in between his abdominal apron and groin and his feet and his armpits. Similarly, candidiasis is also present in his neck folds. The patient also has onychomycosis and extensively for toenail hygiene. Neurologically, the patient is quite lethargic and somnolent, yet more awake than yesterday. He is following some simple commands.. He is arousable. He withdraws to painful stimulation upper extremities. Pupils are equal and reactive to light. No Babinski. No clonus. Motor and sensory function cannot be accurately assessed. No facial asymmetry at this point in time. - Labs CBC & Chem 7: 07/07/20 05:15 07/07/20 05:15 Labs: Abnormal Lab Results - Last 24 Hours (Table) 07/06/20 07/06/20 07/07/20 Range/Units 15:43 16:43 01:40 WBC (3.8-10.6) k/uL Neutrophils # (1.3-7.7) k/uL Monocytes # (0-1.0) k/uL APTT 49.7 H (22.0-30.0) sec ABG O2 Saturation 97.4 H (94-97) % Carbon Dioxide 18 L (22-30) mmol/L BUN 117 H* (9-20) mg/dL Creatinine 7.83 H* (0.66-1.25) mg/dL Glucose 152 H (74-99) mg/dL Phosphorus (2.5-4.5) mg/dL Creatine Kinase 239 H (55-170) U/L Amylase (30-110) U/L Lipase (23-300) U/L Urine Protein (Negative) Urine Glucose (UA) (Negative) Urine Blood (Negative) Urine Bacteria (None) /hpf Urine Mucus (None) /hpf 07/07/20 07/07/20 07/07/20 Range/Units 01:40 05:15 05:15 WBC 17.9 H (3.8-10.6) k/uL Neutrophils # 14.2 H (1.3-7.7) k/uL Monocytes # 1.4 H (0-1.0) k/uL APTT (22.0-30.0) sec ABG O2 Saturation (94-97) % Carbon Dioxide (22-30) mmol/L BUN 103 H* (9-20) mg/dL Creatinine 4.55 H (0.66-1.25) mg/dL Glucose 179 H (74-99) mg/dL Phosphorus 6.3 H (2.5-4.5) mg/dL Creatine Kinase (55-170) U/L Amylase (30-110) U/L Lipase (23-300) U/L Urine Protein Trace H (Negative) Urine Glucose (UA) 2+ H (Negative) Urine Blood Moderate H (Negative) Urine Bacteria Occasional H (None) /hpf Urine Mucus Occasional H (None) /hpf 07/07/20 07/07/20 Range/Units 05:15 05:15 WBC (3.8-10.6) k/uL Neutrophils # (1.3-7.7) k/uL Monocytes # (0-1.0) k/uL APTT 44.4 H (22.0-30.0) sec ABG O2 Saturation (94-97) % Carbon Dioxide (22-30) mmol/L BUN (9-20) mg/dL Creatinine (0.66-1.25) mg/dL Glucose (74-99) mg/dL Phosphorus (2.5-4.5) mg/dL Creatine Kinase (55-170) U/L Amylase 178 H (30-110) U/L Lipase 421 H (23-300) U/L Urine Protein (Negative) Urine Glucose (UA) (Negative) Urine Blood (Negative) Urine Bacteria (None) /hpf Urine Mucus (None) /hpf Assessment and Plan Plan: 1 acute kidney injury secondary to severe dehydration. This is probably due to severe dehydration, and addition to intake of nonsteroidal anti-inflammatory medication and JOSE inhibitor's. The patient received a session of hemodialysis yesterday. Potassium level is improved. The patient is on a bicarb drip. Potassium level is dropped and the creatinine is also dropped. The patient is doing well. Nephrology is on the case. We'll hold off dialysis as the patient is making adequate amount of urine output. 2 acute hyperkalemia with EKG changes, recovered and the potassium level nor malized 3 acute anion gap metabolic acidosis secondary to above, improving and the bicarbonate level is up to 30 4 encephalopathy secondary to above with altered mentation, improving 5 fall with skin abrasion to his forehead 6 chronic lower extremity wound and ulceration ranging between stage I and stage II 7 deep tissue injury to his sacral area/buttocks along with stage II ulceration 8 leukocytosis, reactive most likely although infection cannot be ruled out completely 9 acute pancreatitis with elevated lipase level, improving 10 Morbid obesity with history obstructive sleep apnea with a BMI of 41.2 11 history of hypertension 12 history of hyperlipidemia 13 history of peripheral vascular disease 14 history of chronic back pain 15 history of MRSA wound infection 16 remote history of DVT of the lower extremities, and the patient had a repeat Doppler of the lower extremity that showed lower extremity DVTs and the patient is currently on IV heparin. 17 extensive intercrural candidiasis Plan Stop the bicarb infusion and put the patient on normal saline today to have 75 mL an hour Amylase and lipase levels are improving Check CVP Wean off norepinephrine Monitor electrolytes No need for hemodialysis today Wound care IV heparin regarding lower extremity DVT Renal ultrasound was noted and showed chronic atrophy We'll continue to follow , Keep in ICU, may need further dialysis. Condition is critical for now.
[2020-07-07 11:49] LABS: Glucose,Whole Blood 146 mg/dL (75-99)
--- NOTE | 2020-07-07 12:12 | P.PN ---
Subjective Progress Note Date: 07/07/20 Principal diagnosis: Status post fall Patient doing much better today. Patient is alert and oriented. Complaining of vague pains diffusely. No specific discomforts however. No blurry vision or headache. Denies shortness of breath or chest pain. Denies pain in the collarbone region which was previously thought to be tender. Labs improving. Amylase and lipase are normal. Objective - Vital Signs Vital signs: Vital Signs Temp 98.1 F 07/07/20 08:00 Pulse 100 07/07/20 11:30 Resp 7 L 07/07/20 11:30 BP 124/74 07/07/20 08:00 Pulse Ox 93 L 07/07/20 11:30 Intake & Output 07/06/20 07/07/20 07/07/20 18:59 06:59 18:59 Intake Total 957 2220.378 758.613 Output Total 480 3020 1225 Balance 477 -799.622 -466.387 Weight 137.847 kg 136.25 kg 136.25 kg Intake: IV 957 1886 243 Dextrose 5% in Water 1, 695 1500 125 000 ml @ 125 mls/hr IV . Q9H12M [facility] with Sodium Bicarb (1 Meq/ml) 150 ml Rx#:[id number] Norepinephrin 4 mg-0.9% 250 250 Ns Pmx 4 mg In 250 ml @ 0 mls/hr IV [facility] Rx#:[id number] Piperacillin-Tazobactam 3 100 100 .375 gm In Sodium Chloride 0.9% 100 ml @ 25 mls/hr IVPB Q12HR@0600, 1800 [facility] Rx#:[id number] Pressure Bag 12 36 18 Intake, IV Titration 334.378 515.613 Amount Heparin Sod,Pork in 0.45% 42.662 NaCl 25,000 unit In 0.45 % NaCl 1 250ml.bag @ 7. 254 UNITS/KG/HR 9.999 mls /hr IV .Q24H [facility] Rx#: [id number] Norepinephrine 8 mg In 291.716 140.613 Sodium Chloride 0.9% 250 ml @ 0.05 MCG/KG/MIN 13. 337 mls/hr IV .[id number] [facility] Rx#:[id number] Sodium Chloride 0.9% 1, 375 000 ml @ 75 mls/hr IV . [id number] [facility] Rx#:[id number] Output: Urine 480 3020 1225 Hemodialysis 0 Other: Voiding Method Indwelling Catheter Indwelling Catheter ABP, PAP, CO, CI - Last Documented Arterial Blood Pressure 93/44 - Exam Forehead abrasion clean without erythema, minimal tenderness Abdomen: Soft, nontender, nondistended - Labs CBC & Chem 7: 07/07/20 05:15 07/07/20 05:15 Labs: Abnormal Lab Results - Last 24 Hours (Table) 07/06/20 07/06/20 07/07/20 Range/Units 15:43 16:43 01:40 WBC (3.8-10.6) k/uL Neutrophils # (1.3-7.7) k/uL Monocytes # (0-1.0) k/uL APTT 49.7 H (22.0-30.0) sec ABG O2 Saturation 97.4 H (94-97) % Carbon Dioxide 18 L (22-30) mmol/L BUN 117 H* (9-20) mg/dL Creatinine 7.83 H* (0.66-1.25) mg/dL Glucose 152 H (74-99) mg/dL POC Glucose (mg/dL) (75-99) mg/dL Phosphorus (2.5-4.5) mg/dL Creatine Kinase 239 H (55-170) U/L Amylase (30-110) U/L Lipase (23-300) U/L Urine Protein (Negative) Urine Glucose (UA) (Negative) Urine Blood (Negative) Urine Bacteria (None) /hpf Urine Mucus (None) /hpf 07/07/20 07/07/20 07/07/20 Range/Units 01:40 05:15 05:15 WBC 17.9 H (3.8-10.6) k/uL Neutrophils # 14.2 H (1.3-7.7) k/uL Monocytes # 1.4 H (0-1.0) k/uL APTT (22.0-30.0) sec ABG O2 Saturation (94-97) % Carbon Dioxide (22-30) mmol/L BUN 103 H* (9-20) mg/dL Creatinine 4.55 H (0.66-1.25) mg/dL Glucose 179 H (74-99) mg/dL POC Glucose (mg/dL) (75-99) mg/dL Phosphorus 6.3 H (2.5-4.5) mg/dL Creatine Kinase (55-170) U/L Amylase (30-110) U/L Lipase (23-300) U/L Urine Protein Trace H (Negative) Urine Glucose (UA) 2+ H (Negative) Urine Blood Moderate H (Negative) Urine Bacteria Occasional H (None) /hpf Urine Mucus Occasional H (None) /hpf 07/07/20 07/07/20 07/07/20 Range/Units 05:15 05:15 11:48 WBC (3.8-10.6) k/uL Neutrophils # (1.3-7.7) k/uL Monocytes # (0-1.0) k/uL APTT 44.4 H (22.0-30.0) sec ABG O2 Saturation (94-97) % Carbon Dioxide (22-30) mmol/L BUN (9-20) mg/dL Creatinine (0.66-1.25) mg/dL Glucose (74-99) mg/dL POC Glucose (mg/dL) 146 H (75-99) mg/dL Phosphorus (2.5-4.5) mg/dL Creatine Kinase (55-170) U/L Amylase 178 H (30-110) U/L Lipase 421 H (23-300) U/L Urine Protein (Negative) Urine Glucose (UA) (Negative) Urine Blood (Negative) Urine Bacteria (None) /hpf Urine Mucus (None) /hpf Microbiology - Last 24 Hours (Table) 07/06/20 09:49 Blood Culture - Preliminary Blood No Growth after 24 hours Assessment and Plan (1) Fall Narrative/Plan: Patient doing much better at this time. Continue monitoring the patient's kidney function and electrolytes. No evidence of significant injury after recent fall. May resume diet. We'll sign off. Please call if needed. Current Visit: Yes Status: Acute Code(s): W19.XXXA - UNSPECIFIED FALL, INITIAL ENCOUNTER SNOMED Code(s): 6472853
[2020-07-07] MEDS: HEPARIN SOD,PORK IN 0.45% NACL 25,000 UNIT in 0.45% NACL 1 250ML.BAG IV SCH (17:17)
--- NOTE | 2020-07-07 17:27 | P.PN ---
Subjective Progress Note Date: 07/07/20 Patient was seen and examined. No acute events overnight. Appears more awake and oriented today. Patient continues to be hypotensive requiring levophed. Hyperkalemia and metabolic acidosis resolved with treatment from yesterday. Pancreatic enzymes trending down. Objective - Vital Signs Vital signs: Vital Signs Temp 98.4 F 07/07/20 12:00 Pulse 92 07/07/20 14:00 Resp 20 07/07/20 14:00 BP 93/37 07/07/20 12:30 Pulse Ox 94 L 07/07/20 14:00 Intake & Output 07/06/20 07/07/20 07/07/20 18:59 06:59 18:59 Intake Total 957 2220.378 1030.266 Output Total 480 3020 1625 Balance 477 -799.622 -594.734 Weight 137.847 kg 136.25 kg 136.25 kg Intake: IV 957 1886 249 Dextrose 5% in Water 1, 695 1500 125 000 ml @ 125 mls/hr IV . Q9H12M [facility] with Sodium Bicarb (1 Meq/ml) 150 ml Rx#:[id number] Norepinephrin 4 mg-0.9% 250 250 Ns Pmx 4 mg In 250 ml @ 0 mls/hr IV [facility] Rx#:[id number] Piperacillin-Tazobactam 3 100 100 .375 gm In Sodium Chloride 0.9% 100 ml @ 25 mls/hr IVPB Q12HR@0600, 1800 [facility] Rx#:[id number] Pressure Bag 12 36 24 Intake, IV Titration 334.378 781.266 Amount Heparin Sod,Pork in 0.45% 42.662 NaCl 25,000 unit In 0.45 % NaCl 1 250ml.bag @ 7. 254 UNITS/KG/HR 9.999 mls /hr IV .Q24H [facility] Rx#: [id number] Norepinephrine 8 mg In 291.716 256.266 Sodium Chloride 0.9% 250 ml @ 0.05 MCG/KG/MIN 13. 337 mls/hr IV .[id number] [facility] Rx#:[id number] Sodium Chloride 0.9% 1, 525 000 ml @ 75 mls/hr IV . [id number] [facility] Rx#:[id number] Output: Urine 480 3020 1625 Hemodialysis 0 Other: Voiding Method Indwelling Catheter Indwelling Catheter Indwelling Catheter ABP, PAP, CO, CI - Last Documented Arterial Blood Pressure 114/56 - Exam General: [non toxic], [lethargic], [appears at stated age] Derm: [warm], [dry], stage II sacral ulcer, xerosis bilateral lower extremity with cracked skin, candidiasis Head: [atraumatic], [normocephalic], [symmetric] Eyes: [EOMI], [no lid lag], [anicteric sclera] Mouth: [no lip lesion], [mucus membranes moist], poor dentition Cardiovascular: [S1S2 reg], [tachycardic] Lungs: [Decreased breath sounds bilateral], [no rhonchi, no rales] , [no accessory muscle use] Abdominal: [soft], [ nontender to palpation], [no guarding], [no appreciable organomegaly] Ext: [no gross muscle atrophy], [no edema], [no contractures] Neuro: [no focal neuro deficits] Psych: [Alert and oriented] - Labs CBC & Chem 7: 07/07/20 05:15 07/07/20 05:15 Labs: Abnormal Lab Results - Last 24 Hours (Table) 07/06/20 07/07/20 07/07/20 Range/Units 16:43 01:40 01:40 WBC (3.8-10.6) k/uL Neutrophils # (1.3-7.7) k/uL Monocytes # (0-1.0) k/uL APTT 49.7 H (22.0-30.0) sec Carbon Dioxide 18 L (22-30) mmol/L BUN 117 H* (9-20) mg/dL Creatinine 7.83 H* (0.66-1.25) mg/dL Glucose 152 H (74-99) mg/dL POC Glucose (mg/dL) (75-99) mg/dL Phosphorus (2.5-4.5) mg/dL Creatine Kinase 239 H (55-170) U/L Amylase (30-110) U/L Lipase (23-300) U/L Urine Protein Trace H (Negative) Urine Glucose (UA) 2+ H (Negative) Urine Blood Moderate H (Negative) Urine Bacteria Occasional H (None) /hpf Urine Mucus Occasional H (None) /hpf 07/07/20 07/07/20 07/07/20 Range/Units 05:15 05:15 05:15 WBC 17.9 H (3.8-10.6) k/uL Neutrophils # 14.2 H (1.3-7.7) k/uL Monocytes # 1.4 H (0-1.0) k/uL APTT 44.4 H (22.0-30.0) sec Carbon Dioxide (22-30) mmol/L BUN 103 H* (9-20) mg/dL Creatinine 4.55 H (0.66-1.25) mg/dL Glucose 179 H (74-99) mg/dL POC Glucose (mg/dL) (75-99) mg/dL Phosphorus 6.3 H (2.5-4.5) mg/dL Creatine Kinase (55-170) U/L Amylase (30-110) U/L Lipase (23-300) U/L Urine Protein (Negative) Urine Glucose (UA) (Negative) Urine Blood (Negative) Urine Bacteria (None) /hpf Urine Mucus (None) /hpf 07/07/20 07/07/20 Range/Units 05:15 11:48 WBC (3.8-10.6) k/uL Neutrophils # (1.3-7.7) k/uL Monocytes # (0-1.0) k/uL APTT (22.0-30.0) sec Carbon Dioxide (22-30) mmol/L BUN (9-20) mg/dL Creatinine (0.66-1.25) mg/dL Glucose (74-99) mg/dL POC Glucose (mg/dL) 146 H (75-99) mg/dL Phosphorus (2.5-4.5) mg/dL Creatine Kinase (55-170) U/L Amylase 178 H (30-110) U/L Lipase 421 H (23-300) U/L Urine Protein (Negative) Urine Glucose (UA) (Negative) Urine Blood (Negative) Urine Bacteria (None) /hpf Urine Mucus (None) /hpf Microbiology - Last 24 Hours (Table) 07/06/20 09:49 Blood Culture - Preliminary Blood No Growth after 24 hours Assessment and Plan Assessment: Acute kidney injury Sepsis Pancreatitis Stage II sacral ulcer with chronic lower extremity wounds and ulceration Morbid obesity with BMI 41.2 Obstructive sleep apnea Resolved: Metabolic acidosis, HyperK Patient's BUN is 222-103 creatinine 13.41-4.55. This is likely related to dehydration and his prerenal related to decreased oral intake. Renal ultrasound negative for obstruction. Plans: Patient underwent dialysis in the ED. Nephrology on board. Continue IV hydration with normal saline at 75 mL per. Avoid nephrotoxins. Patient meets sepsis criteria. He has a leukocytosis, low-grade fever, and is tachycardic. Urinalysis shows small leukocyte esterase. Lactic acid negative. Blood culture negative at 24 hours. Plans: Start Zosyn. Follow blood cultures. Continue IV pressors as needed to maintain MAP > 65. Amylase 346-178, lipase 1132-421. Plans: Continue IV hydration as above. Avoid narcotic medications due to relative hypotension. Plans: Local wound care. Plans: Patient will benefit from a structured weight loss program. Plans: CPAP at bedtime. DVT prophylaxis: [Heparin] Discussed with: [Patient] Anticipated discharge: [2-3 days] Anticipated discharge place: [Home versus rehab] A total of [45] minutes was spent on the care of this complex patient more than 50% of the time was spent in counseling and care coordination.
[2020-07-07 18:32] LABS: Glucose,Whole Blood 130 mg/dL (75-99)
[2020-07-07] MEDS: HYDROcodone/APAP 7.5-325MG 1 EACH TAB PO PRN (20:24)
[2020-07-08 00:14] LABS: Glucose,Whole Blood 130 mg/dL (75-99)
[2020-07-08] MEDS: HYDROcodone/APAP 7.5-325MG 1 EACH TAB PO PRN ×4 (00:42→20:05)
[2020-07-08] MEDS: MAG HYDROX/AL HYDROX/SIMETH 30 ML, LIDOCAINE VISCOUS 30 ML, diphenhydrAMINE ELIXIR 75 M... PO SCH ×16 (03:28→20:07)
[2020-07-08] MEDS: NOREPINEPHRINE 8 MG in SODIUM CHLORIDE 0.9% 250 ML IV SCH (05:31)
[2020-07-08] MEDS: PIPERACILLIN-TAZOBACTAM 3.375 GM in SODIUM CHLORIDE 0.9% 100 ML IVPB SCH ×2 (05:31→18:49)
[2020-07-08 05:36] LABS: Glucose,Whole Blood 139 mg/dL (75-99)
[2020-07-08 05:46] LABS: Albumin 3.1 g/dL (3.5-5.0); Potassium 3.7 mmol/L (3.5-5.1); Total Bilirubin 0.9 mg/dL (0.2-1.3); Total Protein 6.6 g/dL (6.3-8.2)
[2020-07-08 07:01] LABS: Basophils # (A) 0.1 k/uL (0-0.2); Basophils % (A) 1 %; Eosinophils # (A) 0.4 k/uL (0-0.7); Eosinophils % (A) 3 %; HCT 40.8 % (39.0-53.0); HGB 13.1 gm/dL (13.0-17.5); Lymphocytes # (A) 2.8 k/uL (1.0-4.8); Lymphocytes % (A) 22 %; MCHC 32.2 g/dL (31.0-37.0); MCV 90.1 fL (80.0-100.0); Mean Platelet Volume 9.1; Monocytes # (A) 0.9 k/uL (0-1.0); Monocytes % (A) 7 %; Neutrophils % (A) 63 %; Platelet Count 161 k/uL (150-450); RBC 4.53 m/uL (4.30-5.90); RDW 13.8 % (11.5-15.5); WBC 12.6 k/uL (3.8-10.6)
[2020-07-08] MEDS: ASPIRIN 81 MG PO SCH (08:09)
[2020-07-08] MEDS: PANTOPRAZOLE 40 MG/10 ML VIAL IVP SCH (08:09)
[2020-07-08] MEDS: SODIUM CHLORIDE 0.9% 1,000 ML IV SCH (08:12)
[2020-07-08] MEDS: APIXABAN 5 MG TAB PO SCH ×2 (09:09→20:05)
--- NOTE | 2020-07-08 09:11 | P.PN ---
Subjective patient is seen in follow-up for acute kidney injury. Denies chest pain or shortness of breath. Nonoliguric. Potassium level now normal. Maintained on low-dose Levophed. status post one treatment of emergent hemodialysis on admission. Oral intake fair. Vital signs are stable. on low-dose Levophed. General: The patient appeared well nourished and normally developed. HEENT: Head exam is unremarkable. Neck is without jugular venous distension. LUNGS:Breath sounds decreased. HEART: Rate and Rhythm are regular. ABDOMEN: soft, nontender. Obese. EXTREMITITES: 1+ edema. Lower extremities wrapped. Chronic changes noted. Objective - Vital Signs Vital signs: Vital Signs Temp 98.1 F 07/08/20 08:00 Pulse 106 H 07/08/20 09:00 Resp 15 07/08/20 09:00 BP 99/50 07/08/20 08:30 Pulse Ox 91 L 07/08/20 09:00 Intake & Output 07/07/20 07/08/20 07/08/20 18:59 06:59 18:59 Intake Total 1702.099 750.124 141.298 Output Total 2175 1520 525 Balance -472.901 -769.876 -383.702 Weight 136.25 kg 59.3 kg Intake: IV 364 58 31 Dextrose 5% in Water 1, 125 000 ml @ 125 mls/hr IV . Q9H12M [facility] with Sodium Bicarb (1 Meq/ml) 150 ml Rx#:[id number] Piperacillin-Tazobactam 3 200 25 25 .375 gm In Sodium Chloride 0.9% 100 ml @ 25 mls/hr IVPB Q12HR@0600, 1800 [facility] Rx#:[id number] Pressure Bag 39 33 6 Intake, IV Titration 1338.099 692.124 110.298 Amount Heparin Sod,Pork in 0.45% 181.833 129.667 NaCl 25,000 unit In 0.45 % NaCl 1 250ml.bag @ 7. 254 UNITS/KG/HR 9.999 mls /hr IV .Q24H [facility] Rx#: [id number] Norepinephrine 8 mg In 256.266 487.457 35.298 Sodium Chloride 0.9% 250 ml @ 0.05 MCG/KG/MIN 13. 337 mls/hr IV .[id number] [facility] Rx#:[id number] Sodium Chloride 0.9% 1, 900 75 75 000 ml @ 75 mls/hr IV . [id number] [facility] Rx#:[id number] Output: Urine 2175 1520 525 Other: Voiding Method Indwelling Catheter Indwelling Catheter Indwelling Catheter ABP, PAP, CO, CI - Last Documented Arterial Blood Pressure 135/65 - Labs CBC & Chem 7: 07/08/20 06:45 07/08/20 05:20 Labs: Abnormal Lab Results - Last 24 Hours (Table) 07/07/20 07/07/20 07/07/20 Range/Units 05:15 11:48 18:30 WBC (3.8-10.6) k/uL Neutrophils # (1.3-7.7) k/uL APTT (22.0-30.0) sec Carbon Dioxide (22-30) mmol/L BUN (9-20) mg/dL Creatinine (0.66-1.25) mg/dL Glucose (74-99) mg/dL POC Glucose (mg/dL) 146 H 130 H (75-99) mg/dL Calcium (8.4-10.2) mg/dL Albumin (3.5-5.0) g/dL Amylase 178 H (30-110) U/L Lipase 421 H (23-300) U/L 07/08/20 07/08/20 07/08/20 Range/Units 00:12 05:20 05:20 WBC (3.8-10.6) k/uL Neutrophils # (1.3-7.7) k/uL APTT 34.6 H (22.0-30.0) sec Carbon Dioxide 33 H (22-30) mmol/L BUN 57 H (9-20) mg/dL Creatinine 1.77 H (0.66-1.25) mg/dL Glucose 147 H (74-99) mg/dL POC Glucose (mg/dL) 130 H (75-99) mg/dL Calcium 8.0 L (8.4-10.2) mg/dL Albumin 3.1 L (3.5-5.0) g/dL Amylase (30-110) U/L Lipase (23-300) U/L 07/08/20 07/08/20 Range/Units 05:34 06:45 WBC 12.6 H (3.8-10.6) k/uL Neutrophils # 8.0 H (1.3-7.7) k/uL APTT (22.0-30.0) sec Carbon Dioxide (22-30) mmol/L BUN (9-20) mg/dL Creatinine (0.66-1.25) mg/dL Glucose (74-99) mg/dL POC Glucose (mg/dL) 139 H (75-99) mg/dL Calcium (8.4-10.2) mg/dL Albumin (3.5-5.0) g/dL Amylase (30-110) U/L Lipase (23-300) U/L Microbiology - Last 24 Hours (Table) 07/06/20 09:49 Blood Culture - Preliminary Blood No Growth after 24 hours Assessment and Plan Plan: Assessment: 1. Acute kidney injury secondary to ATN secondary to poor intake, diuretics, nonsteroidals as well as lisinopril use. Creatinine 13.4 on admission. Jasvir rossi creatinine 0.8 from January 2020. No significant urine obtained upon Cartwright catheter insertion. no evidence of hydronephrosis noted on kidney ultrasound. status post 1 treatment of hemodialysis on admission due to severe hyperkalemia. 2. Hyperkalemia secondary to acute kidney injury, metabolic acidosis, nonsteroidals as well as lisinopril. resolved. Status post emergent hemodialysis on July 06. 3. Metabolic acidosis secondary to acute kidney injury. resolved. 4. hypotension maintained on low-dose Levophed. 5. Encephalopathy secondary to uremia. rule out infection. improved post dialysis. Plan: Maintain normal saline at 75 mL an hour. Hold diuretics and lisinopril. Avoid nephrotoxins. Follow-up cultures. Wean Levophed. okay to discontinue dialysis catheter. No further need for renal replacement therapy.
--- NOTE | 2020-07-08 11:05 | CDI ---
Documentation Clarification Form Date: 07/08/2020 1053 CDS: Natividad Dowling RN, CCDS Admit Date: 07/06/2020 1102 Patient Name: Lorenzo Harper ATTENTION: The Clinical Documentation Specialists (CDI) and [facility] Coding Staff appreciate your assistance in clarifying documentation. Please respond to the clarification below the line at the bottom and electronically sign. The CDI & [facility] Coding staff will review the response and follow-up if needed. Please note: Queries are made part of the Legal Health Record. If you have any questions, please contact the author of this message via ITS. Dr. Diaz, Hypotension requiring Levophed is documented and requires further specificity to accurately reflect SOI/ROM. Patient history/risk factors: HTN, PVD, ALEJANDRA with ATN started on HD this admission, encephalopathy second to uremia, acute pancreatitis Clinical Indicators: 07/06 H&P: HPI: "When patient got to the ED, he was noted to be tachycardic and hypotensive. Sepsis Patient meets sepsis criteria" 07/07 Attending Progress note: "Patient continues to be hypotensive requiring Levophed. Avoid narcotic medications due to relative hypotension ." 07/08 Nephrology Progress note: "hypotension maintained on low-dose Levophed." 07/06 1400 Vitals: HR 105, RR 7, B/P 56/38, Spo2 98% on 6L NC Treatment: Levophed titrate for B/P 07/06 1L 0.9% NS IVF Bolus followed by 75 cc/hr In your professional opinion, can you please specify the underlying cause of the hypotension requiring vasopressors if known? Septic Shock Suspected or known causative organism Any associated organ failure Hypovolemic Shock Cause Other, please specify Unable to determine Please continue to document in your progress notes and discharge summary in order to capture severity of illness and risk of mortality. Include clinical findings that support your diagnosis. appears to be hypovolemic shock MTDD
--- NOTE | 2020-07-08 11:19 | CDI ---
Documentation Clarification Form Date: 07/08/20201106 CDS: Natividad Dowling RN, CCDS Admit Date: 07/06/20201101 Patient Name: Lorenzo Harper ATTENTION: The Clinical Documentation Specialists (CDI) and [facility] Coding Staff appreciate your assistance in clarifying documentation. Please respond to the clarification below the line at the bottom and electronically sign. The CDI & [facility] Coding staff will review the response and follow-up if needed. Please note: Queries are made part of the Legal Health Record. If you have any questions, please contact the author of this message via ITS. Dr. Mayfield, Pt is noted to be on 6-7 L high flow nasal cannula and does not have a documented hx of home O2 use, admitted with Sepsis. Please provide clinical significance. History/Risk Factors: CHF, DVT, Chronic lower extremity wounds with PVD, HTN, MYRTLE Tobacco use: ex smoker Home oxygen: none Clinical Indicators: 07/06/2020 0842 Vital signs: Temp 99.2,HR 88, RR 20, B/P 121/99, Spo2 93% on 6L NC 07/07 Pulmonary: Lung/Breathing assessment:" Lungs sounds are diminished bilaterally.No wheezes overall currently crackles." 07/06 ABG/CBG: pH 7.38 pO2 101 pCO2 37 HCO3 22 Base Excess -3.6 Treatment: Breathing tx none ordered Continuous Pulse ox O2: 6-7L NC In your professional opinion, can you please clarify if these findings signify one of the following conditions? Acute Respiratory Failure Acute on Chronic Respiratory Failure Chronic Respiratory Failure Other Diagnosis, please specify Unable to determine Specificity: If known, further specify (if known): With hypercapnia? (pCO2 >50 and pH <7.35) With hypoxia? (pO2 <60 mm Hg or SpO2 <91% on room air) Please continue to document in your progress notes and discharge summary in order to capture severity of illness and risk of mortality. Include clinical findings that support your diagnosis. With hypoxia? (pO2 <60 mm Hg or SpO2 <91% on room air) [facility]
--- NOTE | 2020-07-08 11:23 | P.PN ---
Subjective Progress Note Date: 07/08/20 60-year-old morbidly obese male patient who was brought in to the emergency department today extremely sick and acute kidney injury, dehydrated having cardiac arrhythmia secondary to acute hyperkalemia. For that reason, the intensive care unit consultation was requested. The patient apparently stopped eating and drinking for the past 2-3 weeks. He has been poor hygienic condition. He was found to be excessively sleeping and on the morning of this admission he fell out of his chair and hit his head on the floor. He is conditions and progressively getting worse according to the . Upon arrival, the patient was found to be in acute kidney injury. He was afebrile with a temperature of 99.2. His blood work showed major abnormalities with an acute kidney injury and a creatinine of 13.4 with a BUN of 20-22. His sodium was 133 with a potassium level of 9.1. His serum bicarb was 22 with an anion gap of 22. Calcium level was at 10.1. His lactate level was 1132. Amylase was 346. His urine testing was positive for opiates. White cell count was at 19.6. Correlation profile was within normal limits. The patient has history of hypertension, hyperlipidemia, obstructive sleep apnea and utilizes a CPAP machine. He has congestion heart failure. He has chronic wounds in his lower extremities. He has previous history of DVT. On examination, the patient was found to have multiple ones in his lower extremities bilaterally most of them are superficial. He has also found to have deep tissue injury to his sacrum and buttocks area with areas of stage 2 ulceration. He also has a area of large skin abrasion on his forehead. In the emergency department, the EKG showed a wide-complex, sinus with a QRS complex of 166 ms. Immediately dialysis services was activated and the patient underwent dialysis in the intensive care units. Follow-up levels and labs are still pending for now. Meanwhile, his EKG seems to have normalized for now. 07/07/2020, the patient is more awake and alert compared to yesterday. The patient got dialyzed a single session yesterday and the potassium level is improved. No cardiac arrhythmias. He was started on bicarb infusion yesterday. He was also given norepinephrine infusion for blood pressure control and currently norepinephrine infusion is running at 3 g per minute. No fever. No chills. Doppler of the lower extremities showed bilateral lower extremity DVT and the patient is currently on IV heparin. Cardiac rhythm is sinus. He is afebrile. Was started on empiric antibiotic coverage and IV Zosyn. Cultures still pending for now. He is on eye Infusion with 150 mEq of sodium bicarbonate running at 125 mL an hour. Follow-up amylase and lipase are still pending for now. No other significant events overnight. Nephrology is on the case. No cardiac arrhythmias have been noted. The follow-up BUN is at 103 with a creatinine of 4.55 and the patient is making urine output in the order of 20-30 mL an hour. No nausea. No vomiting. No abdominal pain. Repeat lipase and amylase levels are back to normal. 07/08/2020, the patient is still requiring low dose of norepinephrine infusion for blood pressure control. Creatinine is down to 1.7 and the patient is not requiring any dialysis. He remains on IV heparin and he is going to be transitioned to oral Eliquis for long-term anticoagulation. The patient has no fever. No chills. He is covered with empiric antibiotics with IV Zosyn. He is on normal saline infusion at the rate of 75 mL an hour. He has a dialysis catheter that'll be removed today after consulting with nephrology. The plan is for today to eliminate the norepinephrine infusion which could be weaned over the next few hours. Objective - Vital Signs Vital signs: Vital Signs Temp 98.1 F 07/08/20 08:00 Pulse 94 07/08/20 10:00 Resp 14 07/08/20 10:00 BP 82/47 07/08/20 10:00 Pulse Ox 94 L 07/08/20 10:00 Intake & Output 07/07/20 07/08/20 07/08/20 18:59 06:59 18:59 Intake Total 1702.099 750.124 351.388 Output Total 2175 1520 600 Balance -472.901 -769.876 -248.612 Weight 136.25 kg 59.3 kg Intake: IV 364 58 87 Dextrose 5% in Water 1, 125 000 ml @ 125 mls/hr IV . Q9H12M [facility] with Sodium Bicarb (1 Meq/ml) 150 ml Rx#:[id number] Piperacillin-Tazobactam 3 200 25 75 .375 gm In Sodium Chloride 0.9% 100 ml @ 25 mls/hr IVPB Q12HR@0600, 1800 [facility] Rx#:[id number] Pressure Bag 39 33 12 Intake, IV Titration 1338.099 692.124 264.388 Amount Heparin Sod,Pork in 0.45% 181.833 129.667 NaCl 25,000 unit In 0.45 % NaCl 1 250ml.bag @ 7. 254 UNITS/KG/HR 9.999 mls /hr IV .Q24H [facility] Rx#: [id number] Norepinephrine 8 mg In 256.266 487.457 39.388 Sodium Chloride 0.9% 250 ml @ 0.05 MCG/KG/MIN 13. 337 mls/hr IV .[id number] [facility] Rx#:[id number] Sodium Chloride 0.9% 1, 900 75 225 000 ml @ 75 mls/hr IV . [id number] [facility] Rx#:[id number] Output: Urine 2175 1520 600 Other: Voiding Method Indwelling Catheter Indwelling Catheter Indwelling Catheter ABP, PAP, CO, CI - Last Documented Arterial Blood Pressure 69/38 - Exam Obese, comfortable, not in acute distress, BMI 41.2 Head exam was generally normal. There was no scleral icterus or corneal arcus. Mucous membranes were moist. Neck was supple and without jugular venous distension, thyromegaly, or carotid bruits. Carotids were easily palpable bilaterally. There was no adenopathy. The neck is very much thick and the veins cannot be accurately palpated or visualized on examination. No neck masses. Adenopathy class IV. Extremely poor dental condition with multiple missing teeth / decayed teeth both in upper and lower jaw. Lungs sounds are diminished bilaterally. No wheezes overall currently crackles. Cardiac exam revealed the PMI to be normally situated and sized. The rhythm was regular and no extrasystoles were noted during several minutes of auscultation. The first and second heart sounds were normal and physiologic splitting of the second heart sound was noted. There were no murmurs, rubs, clicks, or gallops. Overall the heart sounds are quite distant. Abdomen is obese soft nontender. No direct tenderness, rebound tenderness, no guarding. Extremities revealed various areas of stage I and stage II ulceration lower extremities bilaterally. Overlying skin is very dry and scaly and 1 the various signs of visualized over the anterior and the posterior aspect of the lower extremities. Also, the patient has intracranial candidiasis which is quite extensive and this is present in between his abdominal apron and groin and his feet and his armpits. Similarly, candidiasis is also present in his neck folds. The patient also has onychomycosis and extensively for toenail hygiene. Neurologically, the patient is awake and alert and conscious nonacute distress He is following some simple commands.. He is arousable. He withdraws to painful stimulation upper extremities. Pupils are equal and reactive to light. No Babinski. No clonus. Motor and sensory function cannot be accurately assessed. No facial asymmetry at this point in time. - Labs CBC & Chem 7: 07/08/20 06:45 07/08/20 05:20 Labs: Abnormal Lab Results - Last 24 Hours (Table) 07/07/20 07/07/20 07/08/20 Range/Units 11:48 18:30 00:12 WBC (3.8-10.6) k/uL Neutrophils # (1.3-7.7) k/uL APTT (22.0-30.0) sec Carbon Dioxide (22-30) mmol/L BUN (9-20) mg/dL Creatinine (0.66-1.25) mg/dL Glucose (74-99) mg/dL POC Glucose (mg/dL) 146 H 130 H 130 H (75-99) mg/dL Calcium (8.4-10.2) mg/dL Albumin (3.5-5.0) g/dL 07/08/20 07/08/20 07/08/20 Range/Units 05:20 05:20 05:34 WBC (3.8-10.6) k/uL Neutrophils # (1.3-7.7) k/uL APTT 34.6 H (22.0-30.0) sec Carbon Dioxide 33 H (22-30) mmol/L BUN 57 H (9-20) mg/dL Creatinine 1.77 H (0.66-1.25) mg/dL Glucose 147 H (74-99) mg/dL POC Glucose (mg/dL) 139 H (75-99) mg/dL Calcium 8.0 L (8.4-10.2) mg/dL Albumin 3.1 L (3.5-5.0) g/dL 07/08/20 Range/Units 06:45 WBC 12.6 H (3.8-10.6) k/uL Neutrophils # 8.0 H (1.3-7.7) k/uL APTT (22.0-30.0) sec Carbon Dioxide (22-30) mmol/L BUN (9-20) mg/dL Creatinine (0.66-1.25) mg/dL Glucose (74-99) mg/dL POC Glucose (mg/dL) (75-99) mg/dL Calcium (8.4-10.2) mg/dL Albumin (3.5-5.0) g/dL Microbiology - Last 24 Hours (Table) 07/06/20 09:49 Blood Culture - Preliminary Blood No Growth after 24 hours Assessment and Plan Plan: 1 acute kidney injury secondary to severe dehydration. This is probably due to severe dehydration, and addition to intake of nonsteroidal anti-inflammatory medication and JOSE inhibitor's. The patient received a session of hemodialysis yesterday. The patient's creatinine is down to 1.7 the patient has not required any further dialysis 2 acute hyperkalemia with EKG changes, recovered and the potassium level normalized 3 acute anion gap metabolic acidosis secondary to above, recovered 4 encephalopathy secondary to above with altered mentation, recovered 5 fall with skin abrasion to his forehead 6 chronic lower extremity wound and ulceration ranging between stage I and stage II 7 deep tissue injury to his sacral area/buttocks along with stage II ulceration 8 leukocytosis, reactive most likely although infection cannot be ruled out completely, improving 9 acute pancreatitis with elevated lipase level, improving 10 Morbid obesity with history obstructive sleep apnea with a BMI of 41.2 11 history of hypertension 12 history of hyperlipidemia 13 history of peripheral vascular disease 14 history of chronic back pain 15 history of MRSA wound infection 16 remote history of DVT of the lower extremities, and the patient had a repeat Doppler of the lower extremity that showed lower extremity DVTs and the patient is currently on IV heparin. 17 extensive intercrural candidiasis Plan Continue IV fluids and wean off pressors. The patient on normal saline infusion rate of 75 mL an hour Amylase and lipase levels are improving This continued IV heparin and switch this patient oral Eliquis Wean off norepinephrine Monitor electrolytes No need for hemodialysis today Wound care Remove the dialysis catheter We'll continue to follow Keep in ICU, the patient is off pressors
[2020-07-08 11:53] LABS: Glucose,Whole Blood 111 mg/dL (75-99)
--- NOTE | 2020-07-08 15:09 | P.PN ---
Subjective Progress Note Date: 07/08/20 Patient was seen and examined. No acute events overnight. Appears more awake and oriented today. is at bedside, states that patient is not eating or drinking much in the last few weeks.. Patient continues to be hypotensive requiring levophed. He complains of some chronic back pain. He denies any chest pain, shortness of breath or palpitations. No nausea or vomiting. No fever or chills. Objective - Vital Signs Vital signs: Vital Signs Temp 98.2 F 07/08/20 12:00 Pulse 96 07/08/20 13:00 Resp 21 07/08/20 13:00 BP 108/68 07/08/20 12:15 Pulse Ox 92 L 07/08/20 13:00 Intake & Output 07/07/20 07/08/20 07/08/20 18:59 06:59 18:59 Intake Total 1702.099 750.124 594.388 Output Total 2175 1520 750 Balance -472.901 -769.876 -155.612 Weight 136.25 kg 59.3 kg Intake: IV 364 58 105 Dextrose 5% in Water 1, 125 000 ml @ 125 mls/hr IV . Q9H12M [facility] with Sodium Bicarb (1 Meq/ml) 150 ml Rx#:[id number] Piperacillin-Tazobactam 3 200 25 75 .375 gm In Sodium Chloride 0.9% 100 ml @ 25 mls/hr IVPB Q12HR@0600, 1800 [facility] Rx#:[id number] Pressure Bag 39 33 30 Intake, IV Titration 1338.099 692.124 489.388 Amount Heparin Sod,Pork in 0.45% 181.833 129.667 NaCl 25,000 unit In 0.45 % NaCl 1 250ml.bag @ 7. 254 UNITS/KG/HR 9.999 mls /hr IV .Q24H [facility] Rx#: [id number] Norepinephrine 8 mg In 256.266 487.457 39.388 Sodium Chloride 0.9% 250 ml @ 0.05 MCG/KG/MIN 13. 337 mls/hr IV .[id number] [facility] Rx#:[id number] Sodium Chloride 0.9% 1, 900 75 450 000 ml @ 75 mls/hr IV . [id number] [facility] Rx#:[id number] Output: Urine 2175 1523 750 Other: Voiding Method Indwelling Catheter Indwelling Catheter Indwelling Catheter ABP, PAP, CO, CI - Last Documented Arterial Blood Pressure 129/52 - Exam General: [non toxic], [lethargic], [appears at stated age] Derm: [warm], [dry], stage II sacral ulcer, xerosis bilateral lower extremity with cracked skin, candidiasis Head: [atraumatic], [normocephalic], [symmetric] Eyes: [EOMI], [no lid lag], [anicteric sclera] Mouth: [no lip lesion], [mucus membranes moist], poor dentition Cardiovascular: [S1S2 reg], [tachycardic] Lungs: [Decreased breath sounds bilateral], [no rhonchi, no rales] , [no accessory muscle use] Abdominal: [soft], [ nontender to palpation], [no guarding], [no appreciable organomegaly] Ext: [no gross muscle atrophy], [no edema], [no contractures] Neuro: [no focal neuro deficits] Psych: [Alert and oriented] - Labs CBC & Chem 7: 07/08/20 06:45 07/08/20 05:20 Labs: Abnormal Lab Results - Last 24 Hours (Table) 07/07/20 07/08/20 07/08/20 Range/Units 18:30 00:12 05:20 WBC (3.8-10.6) k/uL Neutrophils # (1.3-7.7) k/uL APTT (22.0-30.0) sec Carbon Dioxide 33 H (22-30) mmol/L BUN 57 H (9-20) mg/dL Creatinine 1.77 H (0.66-1.25) mg/dL Glucose 147 H (74-99) mg/dL POC Glucose (mg/dL) 130 H 130 H (75-99) mg/dL Calcium 8.0 L (8.4-10.2) mg/dL Albumin 3.1 L (3.5-5.0) g/dL 07/08/20 07/08/20 07/08/20 Range/Units 05:20 05:34 06:45 WBC 12.6 H (3.8-10.6) k/uL Neutrophils # 8.0 H (1.3-7.7) k/uL APTT 34.6 H (22.0-30.0) sec Carbon Dioxide (22-30) mmol/L BUN (9-20) mg/dL Creatinine (0.66-1.25) mg/dL Glucose (74-99) mg/dL POC Glucose (mg/dL) 139 H (75-99) mg/dL Calcium (8.4-10.2) mg/dL Albumin (3.5-5.0) g/dL 07/08/20 Range/Units 11:52 WBC (3.8-10.6) k/uL Neutrophils # (1.3-7.7) k/uL APTT (22.0-30.0) sec Carbon Dioxide (22-30) mmol/L BUN (9-20) mg/dL Creatinine (0.66-1.25) mg/dL Glucose (74-99) mg/dL POC Glucose (mg/dL) 111 H (75-99) mg/dL Calcium (8.4-10.2) mg/dL Albumin (3.5-5.0) g/dL Microbiology - Last 24 Hours (Table) 07/06/20 09:49 Blood Culture - Preliminary Blood No Growth after 48 hours Assessment and Plan Assessment: Acute kidney injury Sepsis, improving Pancreatitis Stage II sacral ulcer with chronic lower extremity wounds and ulceration Morbid obesity with BMI 41.2 Obstructive sleep apnea Resolved: Metabolic acidosis, HyperK Patient's BUN is 222-103-57 creatinine 13.41-4.55-1.77. This is likely related to dehydration and his prerenal related to decreased oral intake. Renal ultrasound negative for obstruction. Plans: Patient underwent dialysis in the ED. Nephrology on board. Continue IV hydration with normal saline at 75 mL per. Avoid nephrotoxins. Patient meets sepsis criteria. He has a leukocytosis (improving), low-grade fever (resolved), and is tachycardic (improving). Urinalysis shows small leukocyte esterase. Lactic acid negative. Blood culture negative at 48 hours. Plans: Start Zosyn. Follow blood cultures. Continue IV pressors as needed to maintain MAP > 65. No definite source of infection at this time. Amylase 346-178, lipase 1132-421. Plans: Continue IV hydration as above. Avoid narcotic medications due to relative hypotension. Plans: Local wound care. Plans: Patient will benefit from a structured weight loss program. Plans: CPAP at bedtime. DVT prophylaxis: [Heparin] Discussed with: [Patient] Anticipated discharge: [2-3 days] Anticipated discharge place: [Home versus rehab] A total of [45] minutes was spent on the care of this complex patient more than 50% of the time was spent in counseling and care coordination.
[2020-07-08 17:55] LABS: Glucose,Whole Blood 130 mg/dL (75-99)
[2020-07-08 23:57] LABS: Glucose,Whole Blood 99 mg/dL (75-99)
[2020-07-09] MEDS: NOREPINEPHRINE 8 MG in SODIUM CHLORIDE 0.9% 250 ML IV SCH (01:01)
[2020-07-09] MEDS: HYDROcodone/APAP 7.5-325MG 1 EACH TAB PO PRN ×4 (01:12→20:58)
[2020-07-09] MEDS: SODIUM CHLORIDE 0.9% 1,000 ML IV SCH ×2 (01:13→13:33)
[2020-07-09] MEDS: MAG HYDROX/AL HYDROX/SIMETH 30 ML, LIDOCAINE VISCOUS 30 ML, diphenhydrAMINE ELIXIR 75 M... PO SCH ×16 (02:45→21:00)
[2020-07-09 04:40] LABS: Basophils # (A) 0.1 k/uL (0-0.2); Basophils % (A) 1 %; Eosinophils # (A) 0.5 k/uL (0-0.7); Eosinophils % (A) 5 %; HCT 39.6 % (39.0-53.0); HGB 12.6 gm/dL (13.0-17.5); Lymphocytes # (A) 2.2 k/uL (1.0-4.8); Lymphocytes % (A) 21 %; MCHC 31.9 g/dL (31.0-37.0); MCV 91.1 fL (80.0-100.0); Mean Platelet Volume 8.3; Monocytes # (A) 0.6 k/uL (0-1.0); Monocytes % (A) 5 %; Neutrophils # (A) 6.9 k/uL (1.3-7.7); Neutrophils % (A) 66 %; Platelet Count 160 k/uL (150-450); RBC 4.34 m/uL (4.30-5.90); RDW 13.5 % (11.5-15.5); WBC 10.5 k/uL (3.8-10.6)
[2020-07-09 05:48] LABS: Glucose,Whole Blood 97 mg/dL (75-99)
[2020-07-09] MEDS: PIPERACILLIN-TAZOBACTAM 3.375 GM in SODIUM CHLORIDE 0.9% 100 ML IVPB SCH ×3 (06:32→20:58)
[2020-07-09 06:52] LABS: Albumin 2.9 g/dL (3.5-5.0); Calcium 7.5 mg/dL (8.4-10.2); Potassium 3.8 mmol/L (3.5-5.1); Total Protein 6.2 g/dL (6.3-8.2)
[2020-07-09] MEDS: APIXABAN 5 MG TAB PO SCH ×2 (07:53→20:58)
[2020-07-09] MEDS: PANTOPRAZOLE 40 MG/10 ML VIAL IVP SCH (07:53)
[2020-07-09] MEDS: ASPIRIN 81 MG PO SCH (07:53)
--- NOTE | 2020-07-09 09:14 | P.PN ---
Subjective patient is seen in follow-up for acute kidney injury. Denies chest pain or shortness of breath. Nonoliguric. Potassium level now normal. Off Levophed. status post one treatment of emergent hemodialysis on admission - dialysis catheter discontinued July 08. Oral intake fair. Vital signs are stable. on low-dose Levophed. General: The patient appeared well nourished and normally developed. HEENT: Head exam is unremarkable. Neck is without jugular venous distension. LUNGS:Breath sounds decreased. HEART: Rate and Rhythm are regular. ABDOMEN: soft, nontender. Obese. EXTREMITITES: 1+ edema. Lower extremities wrapped. Chronic changes noted. Objective - Vital Signs Vital signs: Vital Signs Temp 97.7 F 07/09/20 08:00 Pulse 104 H 07/09/20 08:00 Resp 14 07/09/20 08:00 BP 110/60 07/08/20 14:45 Pulse Ox 93 L 07/09/20 08:59 Intake & Output 07/08/20 07/09/20 07/09/20 18:59 06:59 18:59 Intake Total 999.388 348.138 106 Output Total 1250 1050 325 Balance -250.612 -701.862 -219 Weight 136.25 kg 135 kg Intake: IV 135 85 31 Piperacillin-Tazobactam 3 75 25 25 .375 gm In Sodium Chloride 0.9% 100 ml @ 25 mls/hr IVPB Q12HR@0600, 1800 [facility] Rx#:[id number] Pressure Bag 60 60 6 Intake, IV Titration 864.388 263.138 75 Amount Norepinephrine 8 mg In 39.388 188.138 Sodium Chloride 0.9% 250 ml @ 0.05 MCG/KG/MIN 13. 337 mls/hr IV .[id number] [facility] Rx#:[id number] Sodium Chloride 0.9% 1, 825 75 75 000 ml @ 75 mls/hr IV . [id number] [facility] Rx#:[id number] Output: Urine 1250 1045 325 Stool 5 Other: Voiding Method Indwelling Catheter Indwelling Catheter Indwelling Catheter ABP, PAP, CO, CI - Last Documented Arterial Blood Pressure 124/45 - Labs CBC & Chem 7: 07/09/20 04:02 07/09/20 04:02 Labs: Abnormal Lab Results - Last 24 Hours (Table) 07/08/20 07/08/20 07/09/20 Range/Units 11:52 17:54 04:02 Hgb 12.6 L (13.0-17.5) gm/dL Carbon Dioxide (22-30) mmol/L BUN (9-20) mg/dL Creatinine (0.66-1.25) mg/dL POC Glucose (mg/dL) 111 H 130 H (75-99) mg/dL Calcium (8.4-10.2) mg/dL Total Protein (6.3-8.2) g/dL Albumin (3.5-5.0) g/dL 07/09/20 Range/Units 04:02 Hgb (13.0-17.5) gm/dL Carbon Dioxide 31 H (22-30) mmol/L BUN 37 H (9-20) mg/dL Creatinine 1.27 H (0.66-1.25) mg/dL POC Glucose (mg/dL) (75-99) mg/dL Calcium 7.5 L (8.4-10.2) mg/dL Total Protein 6.2 L (6.3-8.2) g/dL Albumin 2.9 L (3.5-5.0) g/dL Microbiology - Last 24 Hours (Table) 07/06/20 09:49 Blood Culture - Preliminary Blood No Growth after 48 hours Assessment and Plan Plan: Assessment: 1. Acute kidney injury secondary to ATN secondary to poor intake, diuretics, nonsteroidals as well as lisinopril use. Creatinine 13.4 on admission. Baseline creatinine 0.8 from January 2020. No significant urine obtained upon Cartwright catheter insertion. no evidence of hydronephrosis noted on kidney ultr asound. status post 1 treatment of hemodialysis on admission due to severe hyperkalemia. 2. Hyperkalemia secondary to acute kidney injury, metabolic acidosis, nonsteroidals as well as lisinopril. resolved. Status post emergent hemodialysis on July 06. 3. Metabolic acidosis secondary to acute kidney injury. resolved. 4. hypotension s/p Levophed. 5. Encephalopathy secondary to uremia. rule out infection. improved postdialysis. Plan: Maintain normal saline at 75 mL an hour. Hold diuretics and lisinopril. Avoid nephrotoxins. dialysis catheter discontinued July 08.
--- NOTE | 2020-07-09 10:35 | P.PN ---
Subjective Progress Note Date: 07/09/20 60-year-old morbidly obese male patient who was brought in to the emergency department today extremely sick and acute kidney injury, dehydrated having cardiac arrhythmia secondary to acute hyperkalemia. For that reason, the intensive care unit consultation was requested. The patient apparently stopped eating and drinking for the past 2-3 weeks. He has been poor hygienic condition. He was found to be excessively sleeping and on the morning of this admission he fell out of his chair and hit his head on the floor. He is conditions and progressively getting worse according to the . Upon arrival, the patient was found to be in acute kidney injury. He was afebrile with a temperature of 99.2. His blood work showed major abnormalities with an acute kidney injury and a creatinine of 13.4 with a BUN of 20-22. His sodium was 133 with a potassium level of 9.1. His serum bicarb was 22 with an anion gap of 22. Calcium level was at 10.1. His lactate level was 1132. Amylase was 346. His urine testing was positive for opiates. White cell count was at 19.6. Correlation profile was within normal limits. The patient has history of hypertension, hyperlipidemia, obstructive sleep apnea and utilizes a CPAP machine. He has congestion heart failure. He has chronic wounds in his lower extremities. He has previous history of DVT. On examination, the patient was found to have multiple ones in his lower extremities bilaterally most of them are superficial. He has also found to have deep tissue injury to his sacrum and buttocks area with areas of stage 2 ulceration. He also has a area of large skin abrasion on his forehead. In the emergency department, the EKG showed a wide-complex, sinus with a QRS complex of 166 ms. Immediately dialysis services was activated and the patient underwent dialysis in the intensive care units. Follow-up levels and labs are still pending for now. Meanwhile, his EKG seems to have normalized for now. 07/07/2020, the patient is more awake and alert compared to yesterday. The patient got dialyzed a single session yesterday and the potassium level is improved. No cardiac arrhythmias. He was started on bicarb infusion yesterday. He was also given norepinephrine infusion for blood pressure control and currently norepinephrine infusion is running at 3 g per minute. No fever. No chills. Doppler of the lower extremities showed bilateral lower extremity DVT and the patient is currently on IV heparin. Cardiac rhythm is sinus. He is afebrile. Was started on empiric antibiotic coverage and IV Zosyn. Cultures still pending for now. He is on eye Infusion with 150 mEq of sodium bicarbonate running at 125 mL an hour. Follow-up amylase and lipase are still pending for now. No other significant events overnight. Nephrology is on the case. No cardiac arrhythmias have been noted. The follow-up BUN is at 103 with a creatinine of 4.55 and the patient is making urine output in the order of 20-30 mL an hour. No nausea. No vomiting. No abdominal pain. Repeat lipase and amylase levels are back to normal. 07/08/2020, the patient is still requiring low dose of norepinephrine infusion for blood pressure control. Creatinine is down to 1.7 and the patient is not requiring any dialysis. He remains on IV heparin and he is going to be transitioned to oral Eliquis for long-term anticoagulation. The patient has no fever. No chills. He is covered with empiric antibiotics with IV Zosyn. He is on normal saline infusion at the rate of 75 mL an hour. He has a dialysis catheter that'll be removed today after consulting with nephrology. The plan is for today to eliminate the norepinephrine infusion which could be weaned over the next few hours. 07/09/2020, patient is off pressors. The patient doing extremely well. Awake and alert. No specific complaints. His been off pressors since yesterday. Creatinine is dropped and the patient is not requiring any further dialysis. Electrodes are all within normal limits. The patient remains on IV Zosyn. Wound care is being applied. I will transfer this patient out of the intensive care unit. The dialysis catheter has been removed. The arterial line will be also removed. He is on Eliquis 5 mg by mouth twice a day. No altered mentation. No nausea or vomiting. He is profoundly weak and he has global weakness and the patient would require either rehabilitation or even placement following this current hospitalization. His current creatinine is down to 1.27. Objective - Vital Signs Vital signs: Vital Signs Temp 97.7 F 07/09/20 08:00 Pulse 104 H 07/09/20 08:00 Resp 14 07/09/20 08:00 BP 110/60 07/08/20 14:45 Pulse Ox 93 L 07/09/20 08:59 Intake & Output 07/08/20 07/09/20 07/09/20 18:59 06:59 18:59 Intake Total 999.388 348.138 106 Output Total 1250 1050 325 Balance -250.612 -701.862 -219 Weight 136.25 kg 135 kg Intake: IV 135 85 31 Piperacillin-Tazobactam 3 75 25 25 .375 gm In Sodium Chloride 0.9% 100 ml @ 25 mls/hr IVPB Q12HR@0600, 1800 [facility] Rx#:[id number] Pressure Bag 60 60 6 Intake, IV Titration 864.388 263.138 75 Amount Norepinephrine 8 mg In 39.388 188.138 Sodium Chloride 0.9% 250 ml @ 0.05 MCG/KG/MIN 13. 337 mls/hr IV .[id number] [facility] Rx#:[id number] Sodium Chloride 0.9% 1, 825 75 75 000 ml @ 75 mls/hr IV . [id number] [facility] Rx#:[id number] Output: Urine 1250 1045 325 Stool 5 Other: Voiding Method Indwelling Catheter Indwelling Catheter Indwelling Catheter ABP, PAP, CO, CI - Last Documented Arterial Blood Pressure 124/45 - Exam Obese, comfortable, not in acute distress, BMI 41.2 Head exam was generally normal. There was no scleral icterus or corneal arcus. Mucous membranes were moist. Neck was supple and without jugular venous distension, thyromegaly, or carotid bruits. Carotids were easily palpable bilaterally. There was no adenopathy. The neck is very much thick and the veins cannot be accurately palpated or visualized on examination. No neck masses. Adenopathy class IV. Extremely poor dental condition with multiple missing teeth / decayed teeth both in upper and lower jaw. Lungs sounds are diminished bilaterally. No wheezes overall currently crackles. Cardiac exam revealed the PMI to be normally situated and sized. The rhythm was regular and no extrasystoles were noted during several minutes of auscultation. The first and second heart sounds were normal and physiologic splitting of the second heart sound was noted. There were no murmurs, rubs, clicks, or gallops. Overall the heart sounds are quite distant. Abdomen is obese soft nontender. No direct tenderness, rebound tenderness, no guarding. Extremities revealed various areas of stage I and stage II ulceration lower extremities bilaterally. Overlying skin is very dry and scaly and 1 the various signs of visualized over the anterior and the posterior aspect of the lower extremities. Also, the patient has intracranial candidiasis which is quite extensive and this is present in between his abdominal apron and groin and his feet and his armpits. Similarly, candidiasis is also present in his neck folds. The patient also has onychomycosis and extensively for toenail hygiene. Neurologically, the patient is awake and alert and conscious nonacute distress He is following some simple commands.. He is arousable. He withdraws to painful stimulation upper extremities. Pupils are equal and reactive to light. No Babinski. No clonus. Motor and sensory function cannot be accurately as sessed. No facial asymmetry at this point in time. - Labs CBC & Chem 7: 07/09/20 04:02 07/09/20 04:02 Labs: Abnormal Lab Results - Last 24 Hours (Table) 07/08/20 07/08/20 07/09/20 Range/Units 11:52 17:54 04:02 Hgb 12.6 L (13.0-17.5) gm/dL Carbon Dioxide (22-30) mmol/L BUN (9-20) mg/dL Creatinine (0.66-1.25) mg/dL POC Glucose (mg/dL) 111 H 130 H (75-99) mg/dL Calcium (8.4-10.2) mg/dL Total Protein (6.3-8.2) g/dL Albumin (3.5-5.0) g/dL 07/09/20 Range/Units 04:02 Hgb (13.0-17.5) gm/dL Carbon Dioxide 31 H (22-30) mmol/L BUN 37 H (9-20) mg/dL Creatinine 1.27 H (0.66-1.25) mg/dL POC Glucose (mg/dL) (75-99) mg/dL Calcium 7.5 L (8.4-10.2) mg/dL Total Protein 6.2 L (6.3-8.2) g/dL Albumin 2.9 L (3.5-5.0) g/dL Microbiology - Last 24 Hours (Table) 07/06/20 09:49 Blood Culture - Preliminary Blood No Growth after 48 hours Assessment and Plan Plan: 1 acute kidney injury secondary to severe dehydration. This is probably due to severe dehydration, and addition to intake of nonsteroidal anti-inflammatory medication and JOSE inhibitor's. The patient is recovered in the creatinine is down to 1.27. The patient's dialysis catheter was removed yesterday. 2 acute hyperkalemia with EKG changes, recovered and the potassium level no rmalized 3 acute anion gap metabolic acidosis secondary to above, recovered 4 encephalopathy secondary to above with altered mentation, recovered, nevertheless the patient continues to have global generalized weakness 5 fall with skin abrasion to his forehead 6 chronic lower extremity wound and ulceration ranging between stage I and stage II 7 deep tissue injury to his sacral area/buttocks along with stage II ulceration 8 leukocytosis, reactive most likely although infection cannot be ruled out completely, improving, white cell count is down to 10.5 9 acute pancreatitis with elevated lipase level, improving 10 Morbid obesity with history obstructive sleep apnea with a BMI of 41.2 11 history of hypertension 12 history of hyperlipidemia 13 history of peripheral vascular disease 14 history of chronic back pain 15 history of MRSA wound infection 16 remote history of DVT of the lower extremities, and the patient had a repeat Doppler of the lower extremity that showed lower extremity DVTs and the patient is currently on IV heparin. 17 extensive intercrural candidiasis Plan Continue IV at the rate of 75 mL an hour for another 24 hours Continue oral anticoagulation with Eliquis The patient is currently off pressors Monitor electrolytes No need for hemodialysis today Wound care Transfer this patient to a medical floor.
[2020-07-09] MEDS: DULoxetine HCL 30 MG CAPSULE.DR PO SCH (11:16)
[2020-07-09 11:59] LABS: Glucose,Whole Blood 81 mg/dL (75-99)
--- NOTE | 2020-07-09 13:25 | P.PN ---
Subjective Progress Note Date: 07/09/20 Patient was seen and examined. No acute events overnight. Appears more awake and oriented today. Levophed has been discontinued. He complains of some chronic back pain. He denies any chest pain, shortness of breath or palpitations. No nausea or vomiting. No fever or chills. Objective - Vital Signs Vital signs: Vital Signs Temp 97.7 F 07/09/20 08:00 Pulse 104 H 07/09/20 08:00 Resp 14 07/09/20 08:00 BP 110/60 07/08/20 14:45 Pulse Ox 93 L 07/09/20 08:59 Intake & Output 07/08/20 07/09/20 07/09/20 18:59 06:59 18:59 Intake Total 999.388 348.138 106 Output Total 1250 1050 325 Balance -250.612 -701.862 -219 Weight 136.25 kg 135 kg Intake: IV 135 85 31 Piperacillin-Tazobactam 3 75 25 25 .375 gm In Sodium Chloride 0.9% 100 ml @ 25 mls/hr IVPB Q12HR@0600, 1800 [facility] Rx#:[id number] Pressure Bag 60 60 6 Intake, IV Titration 864.388 263.138 75 Amount Norepinephrine 8 mg In 39.388 188.138 Sodium Chloride 0.9% 250 ml @ 0.05 MCG/KG/MIN 13. 337 mls/hr IV .[id number] [facility] Rx#:[id number] Sodium Chloride 0.9% 1, 825 75 75 000 ml @ 75 mls/hr IV . [id number] [facility] Rx#:[id number] Output: Urine 1250 1045 325 Stool 5 Other: Voiding Method Indwelling Catheter Indwelling Catheter Indwelling Catheter ABP, PAP, CO, CI - Last Documented Arterial Blood Pressure 124/45 - Exam General: [non toxic], [lethargic], [appears at stated age] Derm: [warm], [dry], stage II sacral ulcer, xerosis bilateral lower extremity with cracked skin, candidiasis Head: [atraumatic], [normocephalic], [symmetric] Eyes: [EOMI], [no lid lag], [anicteric sclera] Mouth: [no lip lesion], [mucus membranes moist], poor dentition Cardiovascular: [S1S2 reg], [tachycardic] Lungs: [Decreased breath sounds bilateral], [no rhonchi, no rales] , [no accessory muscle use] Abdominal: [soft], [ nontender to palpation], [no guarding], [no appreciable organomegaly] Ext: [no gross muscle atrophy], [no edema], [no contractures] Neuro: [no focal neuro deficits] Psych: [Alert and oriented] - Labs CBC & Chem 7: 07/09/20 04:02 07/09/20 04:02 Labs: Abnormal Lab Results - Last 24 Hours (Table) 07/08/20 07/09/20 07/09/20 Range/Units 17:54 04:02 04:02 Hgb 12.6 L (13.0-17.5) gm/dL Carbon Dioxide 31 H (22-30) mmol/L BUN 37 H (9-20) mg/dL Creatinine 1.27 H (0.66-1.25) mg/dL POC Glucose (mg/dL) 130 H (75-99) mg/dL Calcium 7.5 L (8.4-10.2) mg/dL Total Protein 6.2 L (6.3-8.2) g/dL Albumin 2.9 L (3.5-5.0) g/dL Microbiology - Last 24 Hours (Table) 07/06/20 09:49 Blood Culture - Preliminary Blood No Growth after 72 hours Assessment and Plan Assessment: Acute kidney injury DVT Sepsis, improving Pancreatitis Stage II sacral ulcer with chronic lower extremity wounds and ulceration Morbid obesity with BMI 41.2 Obstructive sleep apnea Resolved: Metabolic acidosis, HyperK Patient's BUN is 360-387-52-37 creatinine 13.41-4.55-1.77-1.27. This is likely related to dehydration and his prerenal related to decreased oral intake. Renal ultrasound negative for obstruction. Plans: Patient underwent dialysis in the ED. Nephrology on board. Continue IV hydration with normal saline at 75 mL per. Avoid nephrotoxins. As seen on lower duplex. Plans: Eliquis. Patient meets sepsis criteria. He has a leukocytosis (resolved), low-grade fever (resolved), and is tachycardic (improving). Urinalysis shows small leukocyte esterase. Lactic acid negative. Blood culture negative at 72 hours. Plans: Continue Zosyn. Follow blood cultures. No definite source of infection at this time. Amylase 346-178, lipase 1132-421. Plans: Continue IV hydration as above. Avoid narcotic medications due to relative hypotension. Plans: Local wound care. Plans: Patient will benefit from a structured weight loss program. Plans: CPAP at bedtime. DVT prophylaxis: [Heparin] Discussed with: [Patient] Anticipated discharge: [2-3 days] Anticipated discharge place: [Home versus rehab] A total of [45] minutes was spent on the care of this complex patient more than 50% of the time was spent in counseling and care coordination. Acute kidney injury improving. No source of infection identified at this time. Sepsis improving. Will likely need rehab on discharge. He is pending clinical improvement. Downgraded from ICU.
[2020-07-09 16:56] LABS: Glucose,Whole Blood 87 mg/dL (75-99)
[2020-07-09 20:29] LABS: Glucose,Whole Blood 88 mg/dL (75-99)
[2020-07-10] MEDS: MAG HYDROX/AL HYDROX/SIMETH 30 ML, LIDOCAINE VISCOUS 30 ML, diphenhydrAMINE ELIXIR 75 M... PO SCH ×20 (02:11→21:25)
[2020-07-10] MEDS: SODIUM CHLORIDE 0.9% 1,000 ML IV SCH ×2 (04:34→17:17)
[2020-07-10] MEDS: PIPERACILLIN-TAZOBACTAM 3.375 GM in SODIUM CHLORIDE 0.9% 100 ML IVPB SCH ×3 (05:01→21:20)
[2020-07-10 06:58] LABS: Glucose,Whole Blood 84 mg/dL (75-99)
[2020-07-10] MEDS: PANTOPRAZOLE 40 MG TABLET PO SCH (07:32)
[2020-07-10] MEDS: DULoxetine HCL 30 MG CAPSULE.DR PO SCH (07:32)
[2020-07-10] MEDS: ASPIRIN 81 MG PO SCH (07:32)
[2020-07-10] MEDS: APIXABAN 5 MG TAB PO SCH ×2 (07:32→21:20)
[2020-07-10 08:18] LABS: HCT 38.2 % (39.0-53.0); HGB 12.3 gm/dL (13.0-17.5); MCH 29.5 pg (25.0-35.0); MCHC 32.3 g/dL (31.0-37.0); MCV 91.3 fL (80.0-100.0); Mean Platelet Volume 8.4; Platelet Count 150 k/uL (150-450); RBC 4.18 m/uL (4.30-5.90); RDW 13.6 % (11.5-15.5); WBC 9.1 k/uL (3.8-10.6)
[2020-07-10] MEDS: HYDROcodone/APAP 7.5-325MG 1 EACH TAB PO PRN (09:23)
[2020-07-10 11:40] LABS: Glucose,Whole Blood 103 mg/dL (75-99)
--- NOTE | 2020-07-10 12:25 | P.CONS ---
History of Present Illness - Reason for Consult Consult date: 07/10/20 Wound care - History of Present Illness This is a 60-year-old patient was seen wound care in the past being seen on [address]. for nonhealing ulcerations to the buttocks and bilateral lower extremities. Patient states that his has been taking care of the ulcerations to the lower extremities. He previously seen Dr. Dozier on the wound care center. Patient states that he feels that his has been doing well with the dressing changes and has no intentions of returning to the wound care center at this time. Patient states that the ulceration to the buttocks started approximately 3 weeks ago. He is in utilizing zinc cream prior to arrival to the hospital. His past medical history significant for hyperlipidemia, hypertension, chronic back pain, DVT, MRSA to the right foot, sleep apnea. He is a former smoker quit ting in October 2017. Patient denies any diabetes. Review of Systems Review Of Systems: Constitutional: No fever, no chills, no night sweats. No weight change. No weakness, fatigue or lethargy. No daytime sleepiness. Integumentary:reports wounds, no lesions. No rash or pruritus. No unusual bruising. No change in hair or nails. Past Medical History Past Medical History: Hyperlipidemia, Hypertension, Musculoskeletal Disorder, Sleep Apnea/CPAP/BIPAP, Vascular Disorder Additional Past Medical History / Comment(s): CHF, chronic back pain, cellulitis, DVT, nerve pain History of Any Multi-Drug Resistant Organisms: MRSA Year Discovered:: 12/08/19 MDRO Source:: Right Foot Past Surgical History: Cholecystectomy, Hernia Repair, Tonsillectomy Past Anesthesia/Blood Transfusion Reactions: No Reported Reaction Past Psychological History: No Psychological Hx Reported Past Alcohol Use History: None Reported Additional Past Alcohol Use History / Comment(s): quit smoking in october 2018. Past Drug Use History: None Reported, Marijuana - Past Family History Father Family Medical History: Cancer, Prostate Disorder Mother Family Medical History: Cancer Medications and Allergies Home Medications Medication Instructions Recorded Confirmed Type Acetaminophen Tab [Tylenol] 650 mg PO Q6HR PRN tab 11/26/18 07/06/20 Rx lisinopriL [Zestril] 10 mg PO DAILY tab 11/26/18 07/06/20 Rx Aspirin EC [Ecotrin Low Dose] 81 mg PO DAILY 01/07/20 07/06/20 History Baclofen 10 mg PO TID PRN 01/07/20 07/06/20 History Celecoxib 400 mg PO DAILY PRN 01/07/20 07/06/20 History DULoxetine HCL [Cymbalta] 30 mg PO DAILY 01/07/20 07/06/20 History Loperamide HCl [Imodium A-D] 4 mg PO BID 01/07/20 07/06/20 History HYDROcodone/APAP 10-325MG [Dongola 1 tab PO Q6H PRN 07/06/20 07/06/20 History 10-325] Metoprolol/Hydrochlorothiazide 1 tab PO DAILY 07/06/20 07/06/20 History [Lopressor Hct 50-25 Tablet] Ondansetron [Zofran] 8 mg PO BID PRN 07/06/20 07/06/20 History Allergies Allergy/AdvReac Type Severity Reaction Status Date / Time No Known Allergies Allergy Verified 07/06/20 17:32 Physical Exam Vitals: Vital Signs Temp Pulse Pulse Resp BP Pulse Ox 07/10/20 07:00 97.6 F 89 20 159/90 94 L 07/10/20 03:33 91 16 07/10/20 01:22 97.8 F 83 16 134/85 98 07/09/20 22:36 20 07/09/20 19:19 20 07/09/20 18:56 99.1 F 98 16 106/68 91 L 07/09/20 15:00 98.4 F 91 20 134/85 95 Intake and Output 07/09/20 07/10/20 07/10/20 22:59 06:59 14:59 Output Total 900 1200 Balance -900 -1200 Output: Urine 900 1200 Uretheral (Cartwright) 900 Other: Voiding Method Indwelling Catheter Indwelling Catheter Indwelling Catheter # Bowel Movements 1 Physical exam: General Appearance: Alert, cooperative, no distress, appears stated age. Skin: Patient has multiple ulcerations to bilateral lower extremities with fat layer exposure. Ulcerations have minimal granulation and moderate slough noted. The periwound shows scaling and dry. The gluteus ulceration is approximately 4 x 2 x 0.2 cm with fat layer exposure. Monitor granulation and moderate slough noted. Periwound is excoriated all other Skin color, texture, tugor normal, no rashes or lesions. Neurologic: Alert oriented x3 Results CBC & Chem 7: 07/10/20 07:29 07/09/20 04:02 Labs: Abnormal Lab Results - Last 24 Hours (Table) 07/10/20 07/10/20 Range/Units 07:29 11:38 RBC 4.18 L (4.30-5.90) m/uL Hgb 12.3 L (13.0-17.5) gm/dL Hct 38.2 L (39.0-53.0) % POC Glucose (mg/dL) 103 H (75-99) mg/dL Microbiology - Last 24 Hours (Table) 07/06/20 09:49 Blood Culture - Preliminary Blood No Growth after 96 hours Assessment and Plan (1) Pressure ulcer of sacral region, stage 2 Current Visit: Yes Status: Acute Code(s): L89.152 - PRESSURE ULCER OF SACRAL REGION, STAGE 2 SNOMED Code(s): 511042080 (2) Nonhealing ulcer of multiple sites of left lower extremity with fat layer exposed Current Visit: Yes Status: Acute Code(s): L97.922 - NON-PRS CHR ULC UNSP PRT OF L LOW LEG W FAT LAYER EXPOSED SNOMED Code(s): 56502395 (3) Nonhealing ulcer of multiple sites of right lower extremity with fat layer exposed Current Visit: Yes Status: Acute Code(s): L97.912 - NON-PRS CHR ULC UNSP PRT OF R LOW LEG W FAT LAYER EXPOSED SNOMED Code(s): 19915888 Plan: Continue with the absorptive silver to bilateral lower extremities with Holger wrap. Continue trip to silver to the sacral ulceration. Patient may benefit from outpatient wound care. At this time he is declining. Thank you kindly for the consultation any questions contact the wound care center DNP note has been reviewed and discussed with Dr. Myrick and the impression and plan of care has been directed as dictated.
--- NOTE | 2020-07-10 13:01 | P.PN ---
Subjective Progress Note Date: 07/10/20 Principal diagnosis: Acute kidney injury, hyperkalemia, encephalopathy, falls 60-year-old morbidly obese male patient who was brought in to the emergency department today extremely sick and acute kidney injury, dehydrated having cardiac arrhythmia secondary to acute hyperkalemia. For that reason, the intensive care unit consultation was requested. The patient apparently stopped eating and drinking for the past 2-3 weeks. He has been poor hygienic condition. He was found to be excessively sleeping and on the morning of this admission he fell out of his chair and hit his head on the floor. He is conditions and progressively getting worse according to the . Upon arrival, the patient was found to be in acute kidney injury. He was afebrile with a temperature of 99.2. His blood work showed major abnormalities with an acute kidney injury and a creatinine of 13.4 with a BUN of 20-22. His sodium was 133 with a potassium level of 9.1. His serum bicarb was 22 with an anion gap of 22. Calcium level was at 10.1. His lactate level was 1132. Amylase was 346. His urine testing was positive for opiates. White cell count was at 19.6. Correlation profile was within normal limits. The patient has history of hypertension, hyperlipidemia, obstructive sleep apnea and utilizes a CPAP machine. He has congestion heart failure. He has chronic wounds in his lower extremities. He has previous history of DVT. On examination, the patient was found to have multiple ones in his lower extremities bilaterally most of them are superficial. He has also found to have deep tissue injury to his sacrum and buttocks area with areas of stage 2 ulceration. He also has a area of large skin abrasion on his forehead. In the emergency department, the EKG showed a wide-complex, sinus with a QRS complex of 166 ms. Immediately dialysis services was activated and the patient underwent dialysis in the intensive care units. Follow-up levels and labs are still pending for now. Meanwhile, his EKG seems to have normalized for now. 07/07/2020, the patient is more awake and alert compared to yesterday. The patient got dialyzed a single session yesterday and the potassium level is improved. No cardiac arrhythmias. He was started on bicarb infusion yesterday. He was also given norepinephrine infusion for blood pressure control and currently norepinephrine infusion is running at 3 g per minute. No fever. No chills. Doppler of the lower extremities showed bilateral lower extremity DVT and the patient is currently on IV heparin. Cardiac rhythm is sinus. He is afebrile. Was started on empiric antibiotic coverage and IV Zosyn. Cultures still pending for now. He is on eye Infusion with 150 mEq of sodium bicarbonate running at 125 mL an hour. Follow-up amylase and lipase are still pending for now. No other significant events overnight. Nephrology is on the case. No cardiac arrhythmias have been noted. The follow-up BUN is at 103 with a creatin ine of 4.55 and the patient is making urine output in the order of 20-30 mL an hour. No nausea. No vomiting. No abdominal pain. Repeat lipase and amylase levels are back to normal. 07/08/2020, the patient is still requiring low dose of norepinephrine infusion for blood pressure control. Creatinine is down to 1.7 and the patient is not requiring any dialysis. He remains on IV heparin and he is going to be transitioned to oral Eliquis for long-term anticoagulation. The patient has no fever. No chills. He is covered with empiric antibiotics with IV Zosyn. He is on normal saline infusion at the rate of 75 mL an hour. He has a dialysis catheter that'll be removed today after consulting with nephrology. The plan is for today to eliminate the norepinephrine infusion which could be weaned over the next few hours. 07/09/2020, patient is off pressors. The patient doing extremely well. Awake and alert. No specific complaints. His been off pressors since yesterday. Creatinine is dropped and the patient is not requiring any further dialysis. Electrodes are all within normal limits. The patient remains on IV Zosyn. Wound care is being applied. I will transfer this patient out of the intensive care unit. The dialysis catheter has been removed. The arterial line will be also removed. He is on Eliquis 5 mg by mouth twice a day. No altered mentation. No nausea or vomiting. He is profoundly weak and he has global weakness and the patient would require either rehabilitation or even placement following this current hospitalization. His current creatinine is down to 1.27. On 07/10/2020 patient seen in follow-up on general medical surgical floor, he is awake and alert, she is resting comfortably in bed, is currently on 2 L of oxygen the pulse ox 94%, hemodynamically has been stable, his been afebrile, respirations of non-labored. No coughing no wheezing, lung sounds are clear, 0.9 normal seen is infusing a rate of 75 ML per hour, no other drips. He states he remains pretty weak, his been working with physical therapy, however he is unable to participate much with physical therapy because of profound generalized weakness requiring total assistance 2% with no ability to attempt sitting in bed. In addition patient feels that his skin is sore to touch. Patient was recommended to be discharged to snf facility, possibly tomorrow nursing and rehab following his discharge. Today's labs have been reviewed, showing white blood cell count 9.1, hemoglobin of 12.3.. Has had no fever or chills. His abrasion on his forehead is healing and has scabbed over. He is receiving local wound care treatments to his bilateral lower extremities and was sacrum. Patient will need outpatient wound care. He is awake and alert, oriented 3, his mentation seems to have completely recovered, patient remains on Zosyn for empiric antibiotic coverage. Denies any difficulty breathing, no chest pain Objective - Vital Signs Vital signs: Vital Signs Temp 97.6 F 07/10/20 07:00 Pulse 89 07/10/20 07:00 Resp 20 07/10/20 07:00 BP 159/90 07/10/20 07:00 Pulse Ox 94 L 07/10/20 07:00 Intake & Output 07/09/20 07/10/20 07/10/20 18:59 06:59 18:59 Intake Total 562 Output Total 1726 1200 Balance -1164 -1200 Intake: IV 37 Piperacillin-Tazobactam 3 25 .375 gm In Sodium Chloride 0.9% 100 ml @ 25 mls/hr IVPB Q12HR@0600, 1800 [facility] Rx#:[id number] Pressure Bag 12 Intake, IV Titration 525 Amount Sodium Chloride 0.9% 1, 525 000 ml @ 75 mls/hr IV . [id number] [facility] Rx#:[id number] Output: Urine 1725 1200 Uretheral (Cartwright) 900 Stool 1 Other: Voiding Method Indwelling Catheter Indwelling Catheter Indwelling Catheter # Bowel Movements 1 ABP, PAP, CO, CI - Last Documented Arterial Blood Pressure 124/45 - Exam GENERAL EXAM: Alert, very pleasant, 60-year-old obese white male, currently on 2 L of oxygen and the pulse ox of 94%, comfortable in no apparent distress. HEAD: Normocephalic/atraumatic. Patient has scabbed over abrasion on his left forehead EYES: Normal reaction of pupils, equal size. Conjunctiva pink, sclera white. NOSE: Clear with pink turbinates. THROAT: No erythema or exudates. NECK: No masses, no JVD, no thyroid enlargement, no adenopathy. CHEST: No chest wall deformity. Symmetrical expansion. LUNGS: Equal air entry with no crackles, wheeze, rhonchi or dullness. CVS: Regular rate and rhythm, normal S1 and S2, no gallops, no murmurs, no rubs ABDOMEN: Soft, nontender. No hepatosplenomegaly, normal bowel sounds, no guarding or rigidity. EXTREMITIES: No clubbing, 1+ lower extremity edema which is improving, no cyanosis, 2+ pulses and upper and lower extremities. MUSCULOSKELETAL: Muscle strength and tone normal. SPINE: No scoliosis or deformity SKIN: has bilateral lower extremity and sacral wounds CENTRAL NERVOUS SYSTEM: Alert and oriented -3. No focal deficits, tone is normal in all 4 extremities. PSYCHIATRIC: Alert and oriented -3. Appropriate affect. Intact judgment and insight. - Labs CBC & Chem 7: 07/10/20 07:29 07/09/20 04:02 Labs: Abnormal Lab Results - Last 24 Hours (Table) 07/10/20 07/10/20 Range/Units 07:29 11:38 RBC 4.18 L (4.30-5.90) m/uL Hgb 12.3 L (13.0-17.5) gm/dL Hct 38.2 L (39.0-53.0) % POC Glucose (mg/dL) 103 H (75-99) mg/dL Microbiology - Last 24 Hours (Table) 07/06/20 09:49 Blood Culture - Preliminary Blood No Growth after 96 hours Assessment and Plan Plan: Assessment: 1 acute kidney injury secondary to severe dehydration. This is probably due to severe dehydration, and addition to intake of nonsteroidal anti-inflammatory medication and JOSE inhibitor's. The patient is recovered in the creatinine is down to 1.27. The patient's dialysis catheter was removed yesterday. 2 acute hyperkalemia with EKG changes, recovered and the potassium level normalized 3 acute anion gap metabolic acidosis secondary to above, recovered 4 encephalopathy secondary to above with altered mentation, recovered, nevertheless the patient continues to have global generalized weakness 5 fall with skin abrasion to his forehead 6 chronic lower extremity wound and ulceration ranging between stage I and stage II 7 deep tissue injury to his sacral area/buttocks along with stage II ulceration 8 leukocytosis, reactive most likely although infection cannot be ruled out c ompletely, improving, white cell count is down to 10.5 9 acute pancreatitis with elevated lipase level, improving 10 Morbid obesity with history obstructive sleep apnea with a BMI of 41.2 11 history of hypertension 12 history of hyperlipidemia 13 history of peripheral vascular disease 14 history of chronic back pain 15 history of MRSA wound infection 16 remote history of DVT of the lower extremities, and the patient had a repeat Doppler of the lower extremity that showed lower extremity DVTs and the patient is currently on IV heparin. 17 extensive intercrural candidiasis Plan: Patient is doing well, no pulmonary complaints, continue weaning FiO2, encourage deep breathing and coughing, renal profile continues to improve, patient remains on empiric antibiotics, and IV hydration. Nephrology is following, mentation has recovered, patient is working with physical therapy however has severe generalized weakness, will likely need ECF placement after discharge. Patient cleared for discharge to ECF from pulmonary perspective I performed a history & physical examination of the patient and discussed their management with my nurse practitioner, Brittani Mullen. I reviewed the nurse practitioner's note and agree with the documented findings and plan of care. Lung sounds are positive for diminished breath sounds at the bases. The findings and the impression was discussed with the patient. I attest to the documentation by the nurse practitioner. Time with Patient: Less than 30
[2020-07-10 15:24] VITALS: BMI 40.4
--- NOTE | 2020-07-10 16:08 | PN ---
PROGRESS NOTE Patient is seen for followup for acute kidney injury. Patient's renal function continues to improve. His serum creatinine was 1.27 yesterday. Patient had one treatment of emergent hemodialysis on initial admission. His dialysis catheter was discontinued on 07/08/2020. He is currently doing well. PHYSIAL EXAMINATION: Today blood pressure was 159/90, heart rate 89 per minute, he is afebrile. Examination of the heart S1, S2. Examination of the lungs decreased breath sounds at bases. Abdomen is soft, nontender. Examination of the lower extremities shows edema 1+ bilaterally. [employer] exam grossly intact. LABS: Show sodium 137, potassium 3.8, serum creatinine 1.27 on 07/09/2020. Hemoglobin 12.6 g/dL. ASSESSMENT: 1. Acute kidney injury currently improved mostly ATN. Serum creatinine 1.2 yesterday. I do not have any labs from today. 2. Hyperkalemia associated with acute kidney injury, metabolic acidosis, and NSAIDs, currently improved. 3. Metabolic acidosis associated with acute kidney injury, now resolved. 4. Encephalopathy associated with uremia, now improved. PLAN: Continue off dialysis. Check labs in a.m. Monitor electrolytes. Can resume JOSE inhibitors if blood pressure remains elevated. Decrease IV fluids. MMODL / IJN: [id number] /
[2020-07-10 16:56] LABS: Glucose,Whole Blood 84 mg/dL (75-99)
--- NOTE | 2020-07-10 17:50 | P.PN ---
Progress Note - Text Progress Note Date: 07/10/20 Presenting complaint: Falls, altered mental status Interval history: Patient was found face down by the EMS. Patient was AO 3 the day earlier. About was better the event. Patient of feeling well for last 2 days. Found to have poor hygienic condition. Found to be an acute kidney injury with a creatinine of 13.4. Potassium was 9.1. He was acidotic. Patient does use a CPAP machine. Superficial also lower extremity. Also to stage II decubital ulcer on the buttock and sacrum area. Also skin abrasion on the left forehead. Conjunctiva dialysis was started. Admitted to the ICU. Put on IV pressors and fluids. Today-has been moved out of ICU. Decreased appetite. Eating about 25%. Tired.. Awake. Review of systems: Was done for constitutional, cardiovascular, GI, pulmonary. relevant finding as above Active Medications Hydrocodone Bitart/Acetaminophen (Hydrocodone/Apap 7.5-325mg 1 Each Tab) 1 each PO Q6H PRN PRN Reason: Pain Last Admin: 07/10/20 09:23 Dose: 1 each Documented by: Apixaban (Apixaban 5 Mg Tab) 5 mg PO BID [facility] Last Admin: 07/10/20 07:32 Dose: 5 mg Documented by: Aspirin (Aspirin 81 Mg) 81 mg PO DAILY [facility] Last Admin: 07/10/20 07:32 Dose: 81 mg Documented by: Al Hydroxide/Mg Hydroxide 30 ml/ Lidocaine HCl 30 ml/Diphenhydramine HCl 75 mg/Nystatin 3,000,000 unit 0 ml PO RT-Q6H [facility] Last Admin: 07/10/20 14:38 Dose: 5 ml Documented by: Duloxetine HCl (Duloxetine Hcl 30 Mg Capsule.) 30 mg PO DAILY [facility] Last Admin: 07/10/20 07:32 Dose: 30 mg Documented by: Sodium Chloride (Saline 0.9%) 1,000 mls @ 40 mls/hr IV .Q24H [facility] Last Admin: 07/10/20 17:17 Dose: Not Given Documented by: Piperacillin Sod/Tazobactam (Sod 3.375 gm/ Sodium Chloride) 100 mls @ 25 mls/hr IVPB Q8H [facility] Last Admin: 07/10/20 14:38 Dose: 25 mls/hr Documented by: Naloxone HCl (Naloxone 0.4 Mg/Ml 1 Ml Vial) 0.2 mg IV Q2M PRN PRN Reason: Opioid Reversal Pantoprazole Sodium (Pantoprazole 40 Mg Tablet) 40 mg PO DAILY [facility] Last Admin: 07/10/20 07:32 Dose: 40 mg Documented by: Silver Sulfadiazine (Silver Sulfadiazine 1% Cream 25 Gm Tube) 1 applic TOPICAL DAILY [facility] Last Admin: 07/10/20 07:32 Dose: 1 applic Documented by: On examination: VITAL SIGNS: 98.1, 83, 20, 138/77, 95% on 3 L GENERAL APPEARANCE: BMI 40.4, laying in bed, awake tired HEENT: Normal external appearance of nose and ear. Oral cavity normal, superficial bruising on the left forehead EYES: Pupils equal. Conjunctiva normal. NECK: JVD unable to assess. Mass not palpable. RESPIRATORY: Respiratory effort increased Lungs-distant breath sounds CARDIOVASCULAR: First and second sounds normal. Some edema. ABDOMEN: Soft. Liver and spleen not palpable. No tenderness. No mass palpable. DERMATOLOGICAL: Sacral decubitus ulcer PSYCHIATRY: Alert and oriented x3. Mood and affect normal INVESTIGATIONS, reviewed in the clinical context: White count 9.1 hemoglobin 12.3 platelets 150 Previous testing: White count [age]-year-old woman 16.2 potassium 9.1 bun 222, creatinine 30.41 UA positive for opiates Hepatitis B nonreactive Doppler ultrasound-DVT in the right femoral vein. Left leg-left distal common femoral vein DVT, left femoral vein DVT, left lower extremity popliteal vein DVT. Assessment: -Acute severe kidney injury from ATN.-Improving. Did get hemodialyzed.- Temporarily. -Severe hyperkalemia secondary to acute kidney injury-improved -Metabolic acidosis -Uremic encephalopathy, POA-improved -Bilateral lower extremity DVT, acute, on chronic. Initially treated with IV heparin. On eliquis. -Morbid obesity BMI 40.4 -Pressure ulcer of sacral region stage II, POA -Superficial ulcers of the lateral lower extremity. -Hyperlipidemia -Essential hypertension -Obstructive sleep apnea uses CPAP - Plan: Continue patient IV Zosyn, Silvadene cream, gentle hydration. Encourage oral intake. Advance to renal diet.
[2020-07-10 20:47] LABS: Glucose,Whole Blood 91 mg/dL (75-99)
[2020-07-11] MEDS: MAG HYDROX/AL HYDROX/SIMETH 30 ML, LIDOCAINE VISCOUS 30 ML, diphenhydrAMINE ELIXIR 75 M... PO SCH ×16 (01:22→20:24)
[2020-07-11] MEDS: HYDROcodone/APAP 7.5-325MG 1 EACH TAB PO PRN ×3 (02:15→20:24)
[2020-07-11] MEDS: PIPERACILLIN-TAZOBACTAM 3.375 GM in SODIUM CHLORIDE 0.9% 100 ML IVPB SCH ×3 (05:26→20:24)
[2020-07-11 06:48] LABS: Glucose,Whole Blood 90 mg/dL (75-99)
[2020-07-11] MEDS: ASPIRIN 81 MG PO SCH (09:20)
[2020-07-11] MEDS: APIXABAN 5 MG TAB PO SCH ×2 (09:20→20:24)
[2020-07-11] MEDS: DULoxetine HCL 30 MG CAPSULE.DR PO SCH (09:20)
[2020-07-11] MEDS: PANTOPRAZOLE 40 MG TABLET PO SCH (09:20)
[2020-07-11 11:37] LABS: African American GFR (CKD) 84 (>60 ml/min/1.73 sqM); Anion Gap 5 mmol/L; Blood Urea Nitrogen 14 mg/dL (9-20); Calcium 7.4 mg/dL (8.4-10.2); Carbon Dioxide 29 mmol/L (22-30); Chloride 106 mmol/L (98-107); Glucose 101 mg/dL (74-99); Non-African American GFR(CKD) 73 (>60 ml/min/1.73 sqM); Potassium 3.9 mmol/L (3.5-5.1); Sodium 140 mmol/L (137-145)
[2020-07-11 11:48] LABS: Glucose,Whole Blood 83 mg/dL (75-99)
--- NOTE | 2020-07-11 12:04 | P.PN ---
Subjective Progress Note Date: 07/11/20 Principal diagnosis: Acute kidney injury, hyperkalemia, encephalopathy, falls 60-year-old morbidly obese male patient who was brought in to the emergency department today extremely sick and acute kidney injury, dehydrated having cardiac arrhythmia secondary to acute hyperkalemia. For that reason, the intensive care unit consultation was requested. The patient apparently stopped eating and drinking for the past 2-3 weeks. He has been poor hygienic condition. He was found to be excessively sleeping and on the morning of this admission he fell out of his chair and hit his head on the floor. He is conditions and progressively getting worse according to the . Upon arrival, the patient was found to be in acute kidney injury. He was afebrile with a temperature of 99.2. His blood work showed major abnormalities with an acute kidney injury and a creatinine of 13.4 with a BUN of 20-22. His sodium was 133 with a potassium level of 9.1. His serum bicarb was 22 with an anion gap of 22. Calcium level was at 10.1. His lactate level was 1132. Amylase was 346. His urine testing was positive for opiates. White cell count was at 19.6. Correlation profile was within normal limits. The patient has history of hypertension, hyperlipidemia, obstructive sleep apnea and utilizes a CPAP machine. He has congestion heart failure. He has chronic wounds in his lower extremities. He has previous history of DVT. On examination, the patient was found to have multiple ones in his lower extremities bilaterally most of them are superficial. He has also found to have deep tissue injury to his sacrum and buttocks area with areas of stage 2 ulceration. He also has a area of large skin abrasion on his forehead. In the emergency department, the EKG showed a wide-complex, sinus with a QRS complex of 166 ms. Immediately dialysis services was activated and the patient underwent dialysis in the intensive care units. Follow-up levels and labs are still pending for now. Meanwhile, his EKG seems to have normalized for now. 07/07/2020, the patient is more awake and alert compared to yesterday. The patient got dialyzed a single session yesterday and the potassium level is improved. No cardiac arrhythmias. He was started on bicarb infusion yesterday. He was also given norepinephrine infusion for blood pressure control and currently norepinephrine infusion is running at 3 g per minute. No fever. No chills. Doppler of the lower extremities showed bilateral lower extremity DVT and the patient is currently on IV heparin. Cardiac rhythm is sinus. He is afebrile. Was started on empiric antibiotic coverage and IV Zosyn. Cultures still pending for now. He is on eye Infusion with 150 mEq of sodium bicarbonate running at 125 mL an hour. Follow-up amylase and lipase are still pending for now. No other significant events overnight. Nephrology is on the case. No cardiac arrhythmias have been noted. The follow-up BUN is at 103 with a creatin ine of 4.55 and the patient is making urine output in the order of 20-30 mL an hour. No nausea. No vomiting. No abdominal pain. Repeat lipase and amylase levels are back to normal. 07/08/2020, the patient is still requiring low dose of norepinephrine infusion for blood pressure control. Creatinine is down to 1.7 and the patient is not requiring any dialysis. He remains on IV heparin and he is going to be transitioned to oral Eliquis for long-term anticoagulation. The patient has no fever. No chills. He is covered with empiric antibiotics with IV Zosyn. He is on normal saline infusion at the rate of 75 mL an hour. He has a dialysis catheter that'll be removed today after consulting with nephrology. The plan is for today to eliminate the norepinephrine infusion which could be weaned over the next few hours. 07/09/2020, patient is off pressors. The patient doing extremely well. Awake and alert. No specific complaints. His been off pressors since yesterday. Creatinine is dropped and the patient is not requiring any further dialysis. Electrodes are all within normal limits. The patient remains on IV Zosyn. Wound care is being applied. I will transfer this patient out of the intensive care unit. The dialysis catheter has been removed. The arterial line will be also removed. He is on Eliquis 5 mg by mouth twice a day. No altered mentation. No nausea or vomiting. He is profoundly weak and he has global weakness and the patient would require either rehabilitation or even placement following this current hospitalization. His current creatinine is down to 1.27. On 07/10/2020 patient seen in follow-up on general medical surgical floor, he is awake and alert, she is resting comfortably in bed, is currently on 2 L of oxygen the pulse ox 94%, hemodynamically has been stable, his been afebrile, respirations of non-labored. No coughing no wheezing, lung sounds are clear, 0.9 normal seen is infusing a rate of 75 ML per hour, no other drips. He states he remains pretty weak, his been working with physical therapy, however he is unable to participate much with physical therapy because of profound generalized weakness requiring total assistance 2% with no ability to attempt sitting in bed. In addition patient feels that his skin is sore to touch. Patient was recommended to be discharged to snf facility, possibly tomorrow nursing and rehab following his discharge. Today's labs have been reviewed, showing white blood cell count 9.1, hemoglobin of 12.3.. Has had no fever or chills. His abrasion on his forehead is healing and has scabbed over. He is receiving local wound care treatments to his bilateral lower extremities and was sacrum. Patient will need outpatient wound care. He is awake and alert, oriented 3, his mentation seems to have completely recovered, patient remains on Zosyn for empiric antibiotic coverage. Denies any difficulty breathing, no chest pain On 07/11/2020 patient seen in follow-up. he is awake, in no acute distress, room air pulse ox is 95-96%. Denies any respiratory distress. Lung sounds are clear. Patient is on 0.9 normal saline at a rate of 75 ML per hour, today's labs have been reviewed, electrodes with renal profile is within normal limits. Patient is working with physical therapy however still has profound generalized weakness, and arrangements are in progress for placement to subacute rehab facility after discharge Objective - Vital Signs Vital signs: Vital Signs Temp 98.0 F 07/11/20 08:00 Pulse 87 07/11/20 08:00 Resp 18 07/11/20 08:00 BP 163/75 07/11/20 08:00 Pulse Ox 96 07/11/20 08:00 Intake & Output 07/10/20 07/11/20 07/11/20 18:59 06:59 18:59 Output Total 450 801 Balance -450 -801 Weight 135 kg Output: Urine 450 800 Stool 1 Other: Voiding Method Indwelling Catheter Indwelling Catheter # Voids 3 # Bowel Movements 1 1 ABP, PAP, CO, CI - Last Documented Arterial Blood Pressure 124/45 - Exam GENERAL EXAM: Alert, very pleasant, 60-year-old obese white male, currently on 3 L of oxygen and the pulse ox of 94%, comfortable in no apparent distress. HEAD: Normocephalic/atraumatic. Patient has scabbed over abrasion on his left forehead EYES: Normal reaction of pupils, equal size. Conjunctiva pink, sclera white. NOSE: Clear with pink turbinates. THROAT: No erythema or exudates. NECK: No masses, no JVD, no thyroid enlargement, no adenopathy. CHEST: No chest wall deformity. Symmetrical expansion. LUNGS: Equal air entry with no crackles, wheeze, rhonchi or dullness. CVS: Regular rate and rhythm, normal S1 and S2, no gallops, no murmurs, no rubs ABDOMEN: Soft, nontender. No hepatosplenomegaly, normal bowel sounds, no guarding or rigidity. EXTREMITIES: No clubbing, 1+ lower extremity edema which is improving, no cyanosis, 2+ pulses and upper and lower extremities. MUSCULOSKELETAL: Muscle strength and tone normal. SPINE: No scoliosis or deformity SKIN: has bilateral lower extremity and sacral wounds CENTRAL NERVOUS SYSTEM: Alert and oriented -3. No focal deficits, tone is normal in all 4 extremities. PSYCHIATRIC: Alert and oriented -3. Appropriate affect. Intact judgment and insight. - Labs CBC & Chem 7: 07/10/20 07:29 07/11/20 10:29 Labs: Abnormal Lab Results - Last 24 Hours (Table) 07/11/20 Range/Units 10:29 Glucose 101 H (74-99) mg/dL Calcium 7.4 L (8.4-10.2) mg/dL Microbiology - Last 24 Hours (Table) 07/06/20 09:49 Blood Culture - Preliminary Blood No Growth after 96 hours Assessment and Plan Plan: Assessment: 1 acute kidney injury secondary to severe dehydration. This is probably due to severe dehydration, and addition to intake of nonsteroidal anti-inflammatory medication and JOSE inhibitor's. The patient is recovered in the creatinine is down to 1.09. The patient's dialysis catheter was removed yesterday. 2 acute hyperkalemia with EKG changes, recovered and the potassium level no rmalized 3 acute anion gap metabolic acidosis secondary to above, recovered 4 encephalopathy secondary to above with altered mentation, recovered, nevertheless the patient continues to have global generalized weakness 5 fall with skin abrasion to his forehead 6 chronic lower extremity wound and ulceration ranging between stage I and stage II 7 deep tissue injury to his sacral area/buttocks along with stage II ulceration 8 leukocytosis, reactive most likely although infection cannot be ruled out completely, improving, white cell count is down to 10.5 9 acute pancreatitis with elevated lipase level, improving 10 Morbid obesity with history obstructive sleep apnea with a BMI of 41.2 11 history of hypertension 12 history of hyperlipidemia 13 history of peripheral vascular disease 14 history of chronic back pain 15 history of MRSA wound infection 16 remote history of DVT of the lower extremities, and the patient had a repeat Doppler of the lower extremity that showed lower extremity DVTs and the patient is currently on IV heparin. 17 extensive intercrural candidiasis Plan: Patient is doing well, no acute issues overnight, encourage deep breathing and coughing, increase activity as tolerated, patient's with physical therapy, however still has severe profound generalized weakness, and arrangements are in progress for transfer to subacute rehab facility, and possibly [facility] rehab. I performed a history & physical examination of the patient and discussed their management with my nurse practitioner, Brittani Mullen. I reviewed the nurse practitioner's note and agree with the documented findings and plan of care. Lung sounds are positive for diminished breath sounds at the bases. The findings and the impression was discussed with the patient. I attest to the documentation by the nurse practitioner. Time with Patient: Less than 30
[2020-07-11] MEDS: SODIUM CHLORIDE 0.9% 1,000 ML IV SCH (15:29)
[2020-07-11 16:44] LABS: Glucose,Whole Blood 91 mg/dL (75-99)
--- NOTE | 2020-07-11 17:14 | P.PN ---
Progress Note - Text Progress Note Date: 07/11/20 Presenting complaint: Falls, altered mental status Interval history: Patient was found face down by the EMS. Patient was AO 3 the day earlier. About was better the event. Patient of feeling well for last 2 days. Found to have poor hygienic condition. Found to be an acute kidney injury with a creatinine of 13.4. Potassium was 9.1. He was acidotic. Patient does use a CPAP machine. Superficial also lower extremity. Also to stage II decubital ulcer on the buttock and sacrum area. Also skin abrasion on the left forehead. Conjunctiva dialysis was started. Admitted to the ICU. Put on IV pressors and fluids. Today-tired. Appetite remains decreased. Review of systems: Was done for constitutional, cardiovascular, GI, pulmonary. relevant finding as above Active Medications Hydrocodone Bitart/Acetaminophen (Hydrocodone/Apap 7.5-325mg 1 Each Tab) 1 each PO Q6H PRN PRN Reason: Pain Last Admin: 07/11/20 09:30 Dose: 1 each Documented by: Apixaban (Apixaban 5 Mg Tab) 5 mg PO BID [facility] Last Admin: 07/11/20 09:20 Dose: 5 mg Documented by: Aspirin (Aspirin 81 Mg) 81 mg PO DAILY [facility] Last Admin: 07/11/20 09:20 Dose: 81 mg Documented by: Al Hydroxide/Mg Hydroxide 30 ml/ Lidocaine HCl 30 ml/Diphenhydramine HCl 75 mg/Nystatin 3,000,000 unit 0 ml PO RT-Q6H [facility] Last Admin: 07/11/20 15:27 Dose: 5 ml Documented by: Duloxetine HCl (Duloxetine Hcl 30 Mg Patrick.) 30 mg PO DAILY [facility] Last Admin: 07/11/20 09:20 Dose: 30 mg Documented by: Sodium Chloride (Saline 0.9%) 1,000 mls @ 40 mls/hr IV .Q24H [facility] Last Admin: 07/11/20 15:29 Dose: 40 mls/hr Documented by: Piperacillin Sod/Tazobactam (Sod 3.375 gm/ Sodium Chloride) 100 mls @ 25 mls/hr IVPB Q8H [facility] Last Admin: 07/11/20 15:27 Dose: 25 mls/hr Documented by: Naloxone HCl (Naloxone 0.4 Mg/Ml 1 Ml Vial) 0.2 mg IV Q2M PRN PRN Reason: Opioid Reversal Pantoprazole Sodium (Pantoprazole 40 Mg Tablet) 40 mg PO DAILY [facility] Last Admin: 07/11/20 09:20 Dose: 40 mg Documented by: Silver Sulfadiazine (Silver Sulfadiazine 1% Cream 25 Gm Tube) 1 applic TOPICAL DAILY [facility] Last Admin: 07/11/20 10:23 Dose: 1 applic Documented by: On examination: VITAL SIGNS: 97.8, 87, 18, 144/74, 97% on 2 L GENERAL APPEARANCE: Laying in bed, awake, tired HEENT: superficial bruising on the left forehead EYES: Pupils equal. Conjunctiva normal. NECK: JVD unable to assess. Mass not palpable. RESPIRATORY: Respiratory effort increased Lungs-distant breath sounds CARDIOVASCULAR: First and second sounds normal. Some edema. ABDOMEN: Soft. Liver and spleen not palpable. No tenderness. No mass palpable. DERMATOLOGICAL: Sacral decubitus ulcer PSYCHIATRY: Alert and oriented x3. Mood and affect normal INVESTIGATIONS, reviewed in the clinical context: Potassium 3.9 creatinine 1.09 Previous testing: White count 19.6-year-old woman 16.2 potassium 9.1 bun 222, creatinine 30.41 UA positive for opiates Hepatitis B nonreactive Doppler ultrasound-DVT in the right femoral vein. Left leg-left distal common femoral vein DVT, left femoral vein DVT, left lower extremity popliteal vein DVT. Assessment: -Acute severe kidney injury from ATN.-Improving. Did get hemodialyzed.- Temporarily. -Severe hyperkalemia secondary to acute kidney injury-improved -Metabolic acidosis -Uremic encephalopathy, POA-improved -Bilateral lower extremity DVT, acute, on chronic. Initially treated with IV heparin. On eliquis. -Morbid obesity BMI 40.4 -Pressure ulcer of sacral region stage II, POA -Superficial ulcers of the lateral lower extremity. -Hyperlipidemia -Essential hypertension -Obstructive sleep apnea uses CPAP - Plan: Patient continues to remain weak and tired. Decreased oral intake. Did have the nurse see patient gets it up in a chair. Looking at going to the ECF. Incentive spirometer ordered.
--- NOTE | 2020-07-11 17:58 | PN ---
PROGRESS NOTE Patient is seen for followup for acute kidney injury. Renal function has improved. Serum creatinine is down to 1.09 from a peak of 13.4 on initial admission. Patient denies any significant complaints. On examination this morning, blood pressure was 163/75, heart rate of 87 per minute. He is afebrile. EXAMINATION OF THE HEART: S1 and S2. EXAMINATION OF LUNGS: Bilateral breath sounds are heard. ABDOMEN: Soft, obese. Examination of lower extremities trace edema bilaterally. 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 Patient is moving all 4 extremities. Labs show sodium 140, potassium 3.9, BUN 14, serum creatinine 1.09. ASSESSMENT: 1. Acute kidney injury, acute tubular necrosis, currently significantly improved. Patient was dialyzed post initial admission; however, he has not needed any further treatments and his dialysis catheter was discontinued on 07/08/2020. 2. Hyperkalemia associated with acute kidney injury, metabolic acidosis and use of NSAIDs, now resolved. 3. Metabolic acidosis associated with renal failure, now improved. 4. Encephalopathy, currently resolved. Etiology was uremia. PLAN: IV fluids. Avoid nephrotoxic agents post discharge. MMODL / IJN: [id number] /
[2020-07-11 20:45] LABS: Glucose,Whole Blood 87 mg/dL (75-99)
[2020-07-12] MEDS: MAG HYDROX/AL HYDROX/SIMETH 30 ML, LIDOCAINE VISCOUS 30 ML, diphenhydrAMINE ELIXIR 75 M... PO SCH ×16 (01:11→20:54)
[2020-07-12] MEDS: HYDROcodone/APAP 7.5-325MG 1 EACH TAB PO PRN ×4 (02:35→20:55)
[2020-07-12] MEDS: PIPERACILLIN-TAZOBACTAM 3.375 GM in SODIUM CHLORIDE 0.9% 100 ML IVPB SCH ×3 (05:43→23:15)
[2020-07-12 06:47] LABS: Glucose,Whole Blood 81 mg/dL (75-99)
[2020-07-12] MEDS: APIXABAN 5 MG TAB PO SCH ×2 (09:16→20:54)
[2020-07-12] MEDS: PANTOPRAZOLE 40 MG TABLET PO SCH (09:16)
[2020-07-12] MEDS: ASPIRIN 81 MG PO SCH (09:16)
[2020-07-12] MEDS: DULoxetine HCL 30 MG CAPSULE.DR PO SCH (09:16)
[2020-07-12 11:39] LABS: Glucose,Whole Blood 89 mg/dL (75-99)
--- NOTE | 2020-07-12 12:03 | P.PN ---
Subjective Progress Note Date: 07/12/20 Principal diagnosis: Acute kidney injury, hyperkalemia, encephalopathy, falls 60-year-old morbidly obese male patient who was brought in to the emergency department today extremely sick and acute kidney injury, dehydrated having cardiac arrhythmia secondary to acute hyperkalemia. For that reason, the intensive care unit consultation was requested. The patient apparently stopped eating and drinking for the past 2-3 weeks. He has been poor hygienic condition. He was found to be excessively sleeping and on the morning of this admission he fell out of his chair and hit his head on the floor. He is conditions and progressively getting worse according to the . Upon arrival, the patient was found to be in acute kidney injury. He was afebrile with a temperature of 99.2. His blood work showed major abnormalities with an acute kidney injury and a creatinine of 13.4 with a BUN of 20-22. His sodium was 133 with a potassium level of 9.1. His serum bicarb was 22 with an anion gap of 22. Calcium level was at 10.1. His lactate level was 1132. Amylase was 346. His urine testing was positive for opiates. White cell count was at 19.6. Correlation profile was within normal limits. The patient has history of hypertension, hyperlipidemia, obstructive sleep apnea and utilizes a CPAP machine. He has congestion heart failure. He has chronic wounds in his lower extremities. He has previous history of DVT. On examination, the patient was found to have multiple ones in his lower extremities bilaterally most of them are superficial. He has also found to have deep tissue injury to his sacrum and buttocks area with areas of stage 2 ulceration. He also has a area of large skin abrasion on his forehead. In the emergency department, the EKG showed a wide-complex, sinus with a QRS complex of 166 ms. Immediately dialysis services was activated and the patient underwent dialysis in the intensive care units. Follow-up levels and labs are still pending for now. Meanwhile, his EKG seems to have normalized for now. 07/07/2020, the patient is more awake and alert compared to yesterday. The patient got dialyzed a single session yesterday and the potassium level is improved. No cardiac arrhythmias. He was started on bicarb infusion yesterday. He was also given norepinephrine infusion for blood pressure control and currently norepinephrine infusion is running at 3 g per minute. No fever. No chills. Doppler of the lower extremities showed bilateral lower extremity DVT and the patient is currently on IV heparin. Cardiac rhythm is sinus. He is afebrile. Was started on empiric antibiotic coverage and IV Zosyn. Cultures still pending for now. He is on eye Infusion with 150 mEq of sodium bicarbonate running at 125 mL an hour. Follow-up amylase and lipase are still pending for now. No other significant events overnight. Nephrology is on the case. No cardiac arrhythmias have been noted. The follow-up BUN is at 103 with a creatin ine of 4.55 and the patient is making urine output in the order of 20-30 mL an hour. No nausea. No vomiting. No abdominal pain. Repeat lipase and amylase levels are back to normal. 07/08/2020, the patient is still requiring low dose of norepinephrine infusion for blood pressure control. Creatinine is down to 1.7 and the patient is not requiring any dialysis. He remains on IV heparin and he is going to be transitioned to oral Eliquis for long-term anticoagulation. The patient has no fever. No chills. He is covered with empiric antibiotics with IV Zosyn. He is on normal saline infusion at the rate of 75 mL an hour. He has a dialysis catheter that'll be removed today after consulting with nephrology. The plan is for today to eliminate the norepinephrine infusion which could be weaned over the next few hours. 07/09/2020, patient is off pressors. The patient doing extremely well. Awake and alert. No specific complaints. His been off pressors since yesterday. Creatinine is dropped and the patient is not requiring any further dialysis. Electrodes are all within normal limits. The patient remains on IV Zosyn. Wound care is being applied. I will transfer this patient out of the intensive care unit. The dialysis catheter has been removed. The arterial line will be also removed. He is on Eliquis 5 mg by mouth twice a day. No altered mentation. No nausea or vomiting. He is profoundly weak and he has global weakness and the patient would require either rehabilitation or even placement following this current hospitalization. His current creatinine is down to 1.27. On 07/10/2020 patient seen in follow-up on general medical surgical floor, he is awake and alert, she is resting comfortably in bed, is currently on 2 L of oxygen the pulse ox 94%, hemodynamically has been stable, his been afebrile, respirations of non-labored. No coughing no wheezing, lung sounds are clear, 0.9 normal seen is infusing a rate of 75 ML per hour, no other drips. He states he remains pretty weak, his been working with physical therapy, however he is unable to participate much with physical therapy because of profound generalized weakness requiring total assistance 2% with no ability to attempt sitting in bed. In addition patient feels that his skin is sore to touch. Patient was [facility], possibly tomorrow nursing and rehab following his discharge. Today's labs have been reviewed, showing white blood cell count 9.1, hemoglobin of 12.3.. Has had no fever or chills. His abrasion on his forehead is healing and has scabbed over. He is receiving local wound care treatments to his bilateral lower extremities and was sacrum. Patient will need outpatient wound care. He is awake and alert, oriented 3, his mentation seems to have completely recovered, patient remains on Zosyn for empiric antibiotic coverage. Denies any difficulty breathing, no chest pain On 07/11/2020 patient seen in follow-up. he is awake, in no acute distress, room air pulse ox is 95-96%. Denies any respiratory distress. Lung sounds are clear. Patient is on 0.9 normal saline at a rate of 75 ML per hour, today's labs have been reviewed, electrodes with renal profile is within normal limits. Patient is working with physical therapy however still has profound generalized weakness, and arrangements are in progress for placement to subacute rehab facility after discharge On 07/12/2020 patient seen in follow-up on general medical surgical floor, he is awake and alert, in no acute distress, he is resting in bed, currently on 3 L of oxygen pulse ox is 97%, afebrile, hemodynamically patient is stable, respirations and nonlabored, breathing seems to be comfortable. Patient remains on Zosyn for antibiotic coverage, he is producing large amount of urine, he is in negative 2000 ML fluid balance, lower extremity edema is improving, patient is receiving local wound care to his lower extremity wounds. Blood culture has shown no growth. Is working with physical therapy, his severe profound generalized weakness, and discharge planning is in progress for placement tomorrow nursing and rehab ECF Objective - Vital Signs Vital signs: Vital Signs Temp 97.8 F 07/12/20 08:00 Pulse 92 07/12/20 08:00 Resp 18 07/12/20 08:00 BP 180/82 07/12/20 08:00 Pulse Ox 97 07/12/20 08:00 Intake & Output 07/11/20 07/12/20 07/12/20 18:59 06:59 18:59 Output Total 1650 401 Balance -1650 -401 Output: Urine 1650 400 Stool 1 Other: Voiding Method Indwelling Catheter Indwelling Catheter # Voids 3 # Bowel Movements 1 2 ABP, PAP, CO, CI - Last Documented Arterial Blood Pressure 124/45 - Exam GENERAL EXAM: Alert, very pleasant, 60-year-old obese white male, currently on 3 L of oxygen and the pulse ox of 94%, comfortable in no apparent distress. HEAD: Normocephalic/atraumatic. Patient has scabbed over abrasion on his left forehead EYES: Normal reaction of pupils, equal size. Conjunctiva pink, sclera white. NOSE: Clear with pink turbinates. THROAT: No erythema or exudates. NECK: No masses, no JVD, no thyroid enlargement, no adenopathy. CHEST: No chest wall deformity. Symmetrical expansion. LUNGS: Equal air entry with no crackles, wheeze, rhonchi or dullness. CVS: Regular rate and rhythm, normal S1 and S2, no gallops, no murmurs, no rubs ABDOMEN: Soft, nontender. No hepatosplenomegaly, normal bowel sounds, no guarding or rigidity. EXTREMITIES: No clubbing, 1+ lower extremity edema which is improving, no cyanosis, 2+ pulses and upper and lower extremities. MUSCULOSKELETAL: Muscle strength and tone normal. SPINE: No scoliosis or deformity SKIN: has bilateral lower extremity and sacral wounds CENTRAL NERVOUS SYSTEM: Alert and oriented -3. No focal deficits, tone is normal in all 4 extremities. PSYCHIATRIC: Alert and oriented -3. Appropriate affect. Intact judgment and insight. - Labs CBC & Chem 7: 07/10/20 07:29 07/11/20 10:29 Labs: Microbiology - Last 24 Hours (Table) 07/06/20 09:49 Blood Culture - Preliminary Blood No Growth after 120 hours Assessment and Plan Plan: Assessment: 1 acute kidney injury secondary to severe dehydration. This is probably due to severe dehydration, and addition to intake of nonsteroidal anti-inflammatory medication and JOSE inhibitor's. The patient is recovered in the creatinine is down to 1.09. The patient's dialysis catheter was removed yesterday. 2 acute hyperkalemia with EKG changes, recovered and the potassium level normalized 3 acute anion gap metabolic acidosis secondary to above, recovered 4 encephalopathy secondary to above with altered mentation, recovered, nevertheless the patient continues to have global generalized weakness 5 fall with skin abrasion to his forehead 6 chronic lower extremity wound and ulceration ranging between stage I and stage II 7 deep tissue injury to his sacral area/buttocks along with stage II ulceration 8 leukocytosis, reactive most likely although infection cannot be ruled out completely, improving, white cell count is down to 10.5 9 acute pancreatitis with elevated lipase level, improving 10 Morbid obesity with history obstructive sleep apnea with a BMI of 41.2 11 history of hypertension 12 history of hyperlipidemia 13 history of peripheral vascular disease 14 history of chronic back pain 15 history of MRSA wound infection 16 remote history of DVT of the lower extremities, and the patient had a repeat Doppler of the lower extremity that showed lower extremity DVTs and the patient is currently on IV heparin. 17 extensive intercrural candidiasis Plan: Patient has remained stable over the last 24 hours, no acute events, no fever or chills, no difficulty breathing, he is receiving local wound care treatments to his lower extremities, his renal function has recovered, he is diuresing, is in negative fluid balance, and altered mentation, he remains profoundly weak, and discharge planning is in progress for transfer tomorrow nursing and rehab ECF. Pulmonary/crit care service will sign off and follow on as-needed basis. I performed a history & physical examination of the patient and discussed their management with my nurse practitioner, Brittani Mullen. I reviewed the nurse practitioner's note and agree with the documented findings and plan of care. Lung sounds are positive for diminished breath sounds at the bases. The findings and the impression was discussed with the patient. I attest to the do cumentation by the nurse practitioner. Time with Patient: Less than 30
[2020-07-12 16:59] LABS: Glucose,Whole Blood 84 mg/dL (75-99)
--- NOTE | 2020-07-12 17:11 | PN ---
PROGRESS NOTE Patient is seen for followup for acute kidney injury. He is currently doing well. Patient denies any significant complaints. His serum creatinine was down to 1.09 yesterday. PHYSICAL EXAMINATION: On examination today, blood pressure was 153/88, heart rate 89 per minute, he is afebrile. Examination of the heart S1, S2. Examination of the lungs, bilateral breath sounds are heard. Abdomen is soft, nontender. Examination of the lower extremities shows edema 1+ bilaterally. Chronic skin changes noted. RN PEDIATRIC exam grossly intact. LABS: Show from yesterday sodium 140, potassium 3.9, BUN 14, creatinine 1.09. ASSESSMENT: 1. Acute kidney injury ATN, now significantly improved, status post dialysis on initial admission. 2. Hyperkalemia, resolved. 3. Metabolic acidosis, now improved. 4. Encephalopathy, currently resolved. PLAN: Continue off IV fluids. Encourage increased oral intake. MMODL / IJN: [id number] /
[2020-07-12 21:21] LABS: Glucose,Whole Blood 84 mg/dL (75-99)
--- NOTE | 2020-07-12 22:41 | P.PN ---
Progress Note - Text Progress Note Date: 07/12/20 Presenting complaint: Falls, altered mental status Interval history: Patient was found face down by the EMS. Patient was AO 3 the day earlier. About was better the event. Patient of feeling well for last 2 days. Found to have poor hygienic condition. Found to be an acute kidney injury with a creatinine of 13.4. Potassium was 9.1. He was acidotic. Patient does use a CPAP machine. Superficial also lower extremity. Also to stage II decubital ulcer on the buttock and sacrum area. Also skin abrasion on the left forehead. Conjunctiva dialysis was started. Admitted to the ICU. Put on IV pressors and fluids.initially moved out of the ICU. Today-appetite is improved. Did work with physical therapy. Less tired. Review of systems: Was done for constitutional, cardiovascular, GI, pulmonary. relevant finding as above Active Medications Hydrocodone Bitart/Acetaminophen (Hydrocodone/Apap 7.5-325mg 1 Each Tab) 1 each PO Q6H PRN PRN Reason: Pain Last Admin: 07/12/20 20:55 Dose: 1 each Documented by: Apixaban (Apixaban 5 Mg Tab) 5 mg PO BID [facility] Last Admin: 07/12/20 20:54 Dose: 5 mg Documented by: Aspirin (Aspirin 81 Mg) 81 mg PO DAILY [facility] Last Admin: 07/12/20 09:16 Dose: 81 mg Documented by: Al Hydroxide/Mg Hydroxide 30 ml/ Lidocaine HCl 30 ml/Diphenhydramine HCl 75 mg/Nystatin 3,000,000 unit 0 ml PO RT-Q6H [facility] Last Admin: 07/12/20 20:54 Dose: 5 ml Documented by: Duloxetine HCl (Duloxetine Hcl 30 Mg Capsule.) 30 mg PO DAILY [facility] Last Admin: 07/12/20 09:16 Dose: 30 mg Documented by: Piperacillin Sod/Tazobactam (Sod 3.375 gm/ Sodium Chloride) 100 mls @ 25 mls/hr IVPB Q8H [facility] Last Admin: 07/12/20 14:08 Dose: 25 mls/hr Documented by: Naloxone HCl (Naloxone 0.4 Mg/Ml 1 Ml Vial) 0.2 mg IV Q2M PRN PRN Reason: Opioid Reversal Pantoprazole Sodium (Pantoprazole 40 Mg Tablet) 40 mg PO DAILY [facility] Last Admin: 07/12/20 09:16 Dose: 40 mg Documented by: Silver Sulfadiazine (Silver Sulfadiazine 1% Cream 25 Gm Tube) 1 applic TOPICAL DAILY [facility] Last Admin: 07/12/20 12:51 Dose: 1 applic Documented by: On examination: VITAL SIGNS: 97.8, 92, 18,153 with 88, 97% on 2 L GENERAL APPEARANCE: sitting at the edge of the bed, awake HEENT: superficial bruising on the left forehead EYES: Pupils equal. Conjunctiva normal. NECK: JVD unable to assess. Mass not palpable. RESPIRATORY: Respiratory effort increased Lungs-distant breath sounds CARDIOVASCULAR: First and second sounds normal. Some edema. ABDOMEN: Soft. Liver and spleen not palpable. No tenderness. No mass palpable. DERMATOLOGICAL: Sacral decubitus ulcer, bilateral lower extremity superficial wounds PSYCHIATRY: Alert and oriented x3. Mood and affect normal INVESTIGATIONS, reviewed in the clinical context: Potassium 3.9 creatinine 1.09 Previous testing: White count 19.6-year-old woman 16.2 potassium 9.1 bun 222, creatinine 30.41 UA positive for opiates Hepatitis B nonreactive Doppler ultrasound-DVT in the right femoral vein. Left leg-left distal common femoral vein DVT, left femoral vein DVT, left lower extremity popliteal vein DVT. Assessment: -Acute severe kidney injury from ATN.-Improving. Did get hemodialyzed.- Temporarily. -Severe hyperkalemia secondary to acute kidney injury-improved -Metabolic acidosis -Uremic encephalopathy, POA-improved -Bilateral lower extremity DVT, acute, on chronic. Initially treated with IV heparin. On eliquis. -Morbid obesity BMI 40.4 -Pressure ulcer of sacral region stage II, POA -Superficial ulcers of the bilateral lower extremity.-with fat layer exposed -Hyperlipidemia -Essential hypertension -Obstructive sleep apnea uses CPAP - Plan: continue current medication. pack changer to oral Augmentin. The. Possible discharged to [facility] tomorrow. Repeat labs in the morning.
[2020-07-13] MEDS: MAG HYDROX/AL HYDROX/SIMETH 30 ML, LIDOCAINE VISCOUS 30 ML, diphenhydrAMINE ELIXIR 75 M... PO SCH ×8 (05:16→08:36)
[2020-07-13 06:18] LABS: HCT 38.2 % (39.0-53.0); HGB 12.6 gm/dL (13.0-17.5); MCH 29.5 pg (25.0-35.0); MCV 89.2 fL (80.0-100.0); Platelet Count 163 k/uL (150-450); RBC 4.28 m/uL (4.30-5.90); RDW 13.3 % (11.5-15.5); WBC 9.3 k/uL (3.8-10.6)
[2020-07-13 07:03] LABS: Glucose,Whole Blood 80 mg/dL (75-99)
[2020-07-13 08:29] VITALS: BP 150/81; PULSE 68; RESP 18; TEMP 97.9
[2020-07-13] MEDS ORDERED: AMOXIC-POT CLAV 875-125MG 1 EACH TAB PO SCH (09:00)
[2020-07-13 09:22] LABS: African American GFR (CKD) 111.7 (60.0-200.0); Anion Gap 10.4 mmol/L (4.00-12.00); BUN/Creat Ratio 11.25 Ratio (12.00-20.00); Calcium 7.8 mg/dL (8.7-10.3); Carbon Dioxide 21.6 mmol/L (21.6-31.8); Non-African American GFR(CKD) 96.4 (60.0-200.0); Potassium 4.1 mmol/L (3.5-5.5)
[2020-07-13] MEDS: DULoxetine HCL 30 MG CAPSULE.DR PO SCH (10:00)
[2020-07-13] MEDS: APIXABAN 5 MG TAB PO SCH (10:00)
[2020-07-13] MEDS: PANTOPRAZOLE 40 MG TABLET PO SCH (10:00)
[2020-07-13] MEDS: ASPIRIN 81 MG PO SCH (10:00)
[2020-07-13 11:46] LABS: Glucose,Whole Blood 104 mg/dL (75-99)
[2020-07-13] MEDS ORDERED: lisinopriL 5 MG TAB PO STA (11:51)
[2020-07-13] MEDS ORDERED: METOPROLOL TARTRATE 25 MG TAB PO STA (11:51)
[2020-07-13] MEDS: HYDROcodone/APAP 7.5-325MG 1 EACH TAB PO PRN (13:28)
--- NOTE | 2020-07-13 15:08 | P.DS ---
Providers Date of admission: 07/06/20 11:02 Expected date of discharge: 07/13/20 Attending physician: Juan Douglas Consults: 07/06/20 11:02 Consult Physician Routine Consulting Provider: Gary Duffy Consult Reason/Comments: Acute kidney failure Do you want consulting provider notified?: Yes Consult Physician Routine Consulting Provider: James Cha Consult Reason/Comments: Dialysis catheter placement Do you want consulting provider notified?: Yes Consult Physician Stat Consulting Provider: Skyla Mayfield Consult Reason/Comments: Critical care management Do you want consulting provider notified?: Yes 07/06/20 11:06 Consult Physician Routine Consulting Provider: Walker Rahman Consult Reason/Comments: Priority 2 trauma Do you want consulting provider notified?: Already Contacted Primary care physician: Will Chapman MD Hospital Course: Presenting complaint: Falls, altered mental status Interval history: Patient was found face down by the EMS. Patient was AO 3 the day earlier. Not feeling well well for last 2 days. Found to have poor hygienic condition. Found to be an acute kidney injury with a creatinine of 13.4. Potassium was 9.1. He was acidotic. Patient does use a CPAP machine. Superficial wounds lower extremity. Also stage II decubital ulcer on the buttock and sacrum area. skin abrasion on the left forehead. dialysis was started. Admitted to the ICU. Put on IV pressors and fluids.initially- moved out of the ICU.-Responded well. Creatinine did come down to 0.8. Wound care was done for the lower extremity and the decubital ulcer. Also found to have acute DVT. On IV heparin changed to eliquis Today-doing well. Eating well. Care was discussed with the patient. Questions answered. Seen by physical therapy. Zestril and reduced dose of Lopressor resumed today. Consultation: Nephrology Dr. best for wound care Dr. Mayfield from band straightener On examination: VITAL SIGNS: 97.9, 68, 18, 150/81, 97% on 3 L GENERAL APPEARANCE: Laying in bed, comfortable HEENT: superficial bruising on the left forehead EYES: Pupils equal. Conjunctiva normal. NECK: JVD unable to assess. Mass not palpable. RESPIRATORY: Respiratory effort increased Lungs-distant breath sounds CARDIOVASCULAR: First and second sounds normal. Some edema. ABDOMEN: Soft. Liver and spleen not palpable. No tenderness. No mass palpable. DERMATOLOGICAL: Sacral decubitus ulcer, bilateral lower extremity superficial wounds PSYCHIATRY: Alert and oriented x3. Mood and affect normal INVESTIGATIONS, reviewed in the clinical context: Creatinine 0.8 Previous testing: White count 19.6-year-old woman 16.2 potassium 9.1 bun 222, creatinine 30.41 UA positive for opiates Hepatitis B nonreactive Doppler ultrasound-DVT in the right femoral vein. Left leg-left distal common femoral vein DVT, left femoral vein DVT, left lower extremity popliteal vein DVT. Assessment: -Acute severe kidney injury from ATN.- Did get hemodialyzed.-Corrected, POA -Severe hyperkalemia secondary to acute kidney injury-improved -Metabolic acidosis -Uremic encephalopathy, POA-improved -Bilateral lower extremity DVT, acute, on chronic. Initially treated with IV heparin. On eliquis. -Morbid obesity BMI 40.4 -Pressure ulcer of sacral region stage II, POA -Superficial ulcers of the bilateral lower extremity.-with fat layer exposed -Hyperlipidemia -Essential hypertension -Obstructive sleep apnea uses CPAP - Disposition: ECF/[facility] Labs: CBC/BMP-3 days Wound care as per Dr. best to continue Patient Condition at Discharge: Stable Plan - Discharge Summary Discharge Rx Participant: Yes New Discharge Prescriptions: New Amoxic-Pot Clav 875-125Mg [Augmentin 875-125] 1 each PO Q12HR #8 tab Apixaban [Eliquis] 5 mg PO BID tab SILVER sulfADIAZINE CREAM [Silvadene Cream] 1 applic TOPICAL DAILY applic Metoprolol Tartrate [Lopressor] 25 mg PO BID #1 tablet Continue Acetaminophen Tab [Tylenol] 650 mg PO Q6HR PRN tab PRN Reason: Mild Pain Or Fever > 100.5 lisinopriL [Zestril] 10 mg PO DAILY tab DULoxetine HCL [Cymbalta] 30 mg PO DAILY Aspirin EC [Ecotrin Low Dose] 81 mg PO DAILY Baclofen 10 mg PO TID PRN PRN Reason: Muscle Pain HYDROcodone/APAP 10-325MG [Lamy 10-325] 1 tab PO Q6H PRN #12 tab PRN Reason: Pain Changed Loperamide HCl [Imodium A-D] 4 mg PO BID PRN #0 PRN Reason: Diarrhea Ondansetron [Zofran] 4 mg PO Q8H PRN #0 PRN Reason: Nausea Discontinued Metoprolol/Hydrochlorothiazide [Lopressor Hct 50-25 Tablet] 1 tab PO DAILY No Action Celecoxib 400 mg PO DAILY PRN PRN Reason: BACK PAIN Discharge Medication List Acetaminophen Tab [Tylenol] 650 mg PO Q6HR PRN tab 11/26/18 [Rx] lisinopriL [Zestril] 10 mg PO DAILY tab 11/26/18 [Rx] Aspirin EC [Ecotrin Low Dose] 81 mg PO DAILY 01/07/20 [History] Baclofen 10 mg PO TID PRN 01/07/20 [History] Celecoxib 400 mg PO DAILY PRN 01/07/20 [History] DULoxetine HCL [Cymbalta] 30 mg PO DAILY 01/07/20 [History] Amoxic-Pot Clav 875-125Mg [Augmentin 875-125] 1 each PO Q12HR #8 tab 07/13/20 [Rx] Apixaban [Eliquis] 5 mg PO BID tab 07/13/20 [Rx] HYDROcodone/APAP 10-325MG [Lamy 10-325] 1 tab PO Q6H PRN #12 tab 07/13/20 [Rx] Loperamide HCl [Imodium A-D] 4 mg PO BID PRN #0 07/13/20 [Rx] Metoprolol Tartrate [Lopressor] 25 mg PO BID #1 tablet 07/13/20 [Rx] Ondansetron [Zofran] 4 mg PO Q8H PRN #0 07/13/20 [Rx] SILVER sulfADIAZINE CREAM [Silvadene Cream] 1 applic TOPICAL DAILY applic 07/13/20 [Rx] Follow up Appointment(s)/Referral(s): None,Stated [REFERRING] - 1-2 days Activity/Diet/Wound Care/Special Instructions: wound care -per dr best Discharge Disposition: TRANSFER TO [facility]
--- NOTE | 2020-07-13 17:49 | PN ---
PROGRESS NOTE Patient is seen for followup for acute kidney injury. He is currently doing well. Patient is likely being discharged today. PHYSICAL EXAMINATION: Blood pressure is 150/81, heart rate 68 per minute. He is afebrile. EXAMINATION OF THE HEART: S1 and S2. EXAMINATION OF LUNGS: Bilateral breath sounds are heard. ABDOMEN: Soft, non-tender, obese. Examination of lower extremities shows trace edema. OPERATIONS INTERN exam is grossly intact. LABS: Labs show sodium 138, potassium 4.1, serum creatinine down to 0.8 mg/dL. ASSESSMENT: 1. Acute kidney injury, acute tubular necrosis, currently resolved, status post one treatment of dialysis on initial admission. 2. Hyperkalemia, resolved. 3. Encephalopathy, now resolved. 4. Hypertension, controlled. Patient is maintained on JOSE inhibitors. PLAN: Continue current medications. Repeat labs as outpatient in about 3-4 weeks' time. The patient is advised to avoid nephrotoxic agents, including NSAIDs. MMODL / IJN: [id number] /
--- NOTE | 2020-07-15 08:37 | CDI ---
Documentation Clarification Form Date: 07/15/20 From: Luz Elena Tijerina Phone: If you have a question about this query, please contact Jessica Corral, General Cleaner at [phone] between 8am and 5pm. Admit Date: 07/06/20 Discharge Date: 07/13/20 Patient Name: ASHLEY KELLY Visit Number: [id number] ATTENTION: The Clinical Documentation Specialists (CDI) and [facility] Coding Staff appreciate your assistance in clarifying documentation. Please respond to the clarification below the line at the bottom and electronically sign. The CDI & [facility] Coding staff will review the response and follow-up if needed. Please note: Queries are made part of the Legal Health Record. If you have any questions, please contact the author of this message via ITS. Dear Dr. Douglas, The diagnosis sepsis was documented in the H&P, PN 07/07, 07/08 & 07/09, but is not noted in subsequent documentation. History/Risk Factors: ATN, hypovolemic shock, acute pancreatitis, encephalopathy due to uremia, bilat DVT, acidosis, venous stasis ulcers of lower leg w fat layer exposed bilat, bilat buttock pressure ulcers bilat, morbid obesity, abrasion of head, candidiasis of skin Clinical Indicators: lactic acid-1.8, WBC-19.6, Neutrophils-17.4, K-9.1, BUN- 222, Cr-13.41, tachycardic-113/109/106 and BP-93/49 Treatment: IV fluids, IV Rocephin, IV Zosyn, Levophed IV Please clarify if sepsis was Present/active/treated this admission Sepsis ruled out Other, please specify Clinically unable to determine Sepsis,POA MTDD
--- NOTE | 2020-07-15 08:47 | CDI ---
Documentation Clarification Form Date: 07/15/20 From: Luz Elena Tijerina Phone: If you have a question about this query, please contact Jessica Corral, Oil Scout at [phone] between 8am and 5pm. Admit Date: 07/06/20 Discharge Date: 07/13/20 Patient Name: ASHLEY KELLY Visit Number: [id number] ATTENTION: The Clinical Documentation Specialists (CDI) and [facility] Coding Staff appreciate your assistance in clarifying documentation. Please respond to the clarification below the line at the bottom and electronically sign. The CDI & [facility] Coding staff will review the response and follow-up if needed. Please note: Queries are made part of the Legal Health Record. If you have any questions, please contact the author of this message via ITS. Dear Dr. Gary Duffy, Chronic renal failure was documented in the operative report by Dr Cha. History/Risk Factors: ATN, hypovolemic shock, acute pancreatitis, encephalopathy due to uremia, bilat DVT, acidosis, venous stasis ulcers of lower leg w fat layer exposed bilat, bilat buttock pressure ulcers bilat, morbid obesity, abrasion of head, candidiasis of skin Clinical Indicators: 07/06-07/13/20 Current BUN: 222, 117, 103, 57, 37, 14, 9.0 Current CR: 13.41, 7.83, 4.55, 1.77, 1.27, 1.09, 0.8 Current GFR: 4, 7, 13, 41, 61, 73, 96.4 Treatment: Bicarb drip, hemodialysis, renal US, hold diuretics and lisinopril, avoid nephrotoxins In order to capture the severity of condition, please clarify the stage of the CKD, if known: CKD ruled out CKD Stage 1 (GFR > 90) CKD Stage 2 (GFR 60-89) CKD Stage 3 (GFR 30-59) CKD Stage 4 (GFR 15-29) CKD Stage 5 (GFR <15) ESRD Other, please specify Unable to determine aki MTDD
== END 2020-07-13 14:22 | DRG 871 ==
LOC: EC 08:37 → 2SICU 11:02 → 4SSUR 07-09 14:46
PROVIDERS: ADMIT Hospitalist; ATTEND Hospitalist
PROC: 06HY33Z Insertion of Infusion Device into Lower Vein, Percutaneous Approach (ICD-10-PCS; principal; 2020-07-06 11:40)
PROC: 5A1D70Z Performance of Urinary Filtration, Intermittent, Less than 6 Hours Per Day (ICD-10-PCS; 2020-07-06 11:40)
PROC: 4A133B1 Monitoring of Arterial Pressure, Peripheral, Percutaneous Approach (ICD-10-PCS; 2020-07-06 11:40)
PROC: 03HY32Z Insertion of Monitoring Device into Upper Artery, Percutaneous Approach (ICD-10-PCS; 2020-07-06 11:40)
PROC: 3E033XZ Introduction of Vasopressor into Peripheral Vein, Percutaneous Approach (ICD-10-PCS; 2020-07-06 11:40)
PROC: 4A133J1 Monitoring of Arterial Pulse, Peripheral, Percutaneous Approach (ICD-10-PCS; 2020-07-06 11:40)
PROC: 02HV33Z Insertion of Infusion Device into Superior Vena Cava, Percutaneous Approach (ICD-10-PCS; 2020-07-06 11:40)
PROC: 5A09457 Assistance with Respiratory Ventilation, 24-96 Consecutive Hours, Continuous Positive Airway Pressure (ICD-10-PCS; 2020-07-10)
DX: A41.9 Sepsis, unspecified organism (principal); N17.0 Acute kidney failure with tubular necrosis; R57.1 Hypovolemic shock; K85.90 Acute pancreatitis without necrosis or infection, unspecified; G93.49 Other encephalopathy; I82.433 Acute embolism and thrombosis of popliteal vein, bilateral; I82.413 Acute embolism and thrombosis of femoral vein, bilateral; E87.2 Acidosis; L97.812 Non-pressure chronic ulcer of other part of right lower leg with fat layer exposed; L97.822 Non-pressure chronic ulcer of other part of left lower leg with fat layer exposed; Z68.41 Body mass index [BMI] 40.0-44.9, adult; L89.152 Pressure ulcer of sacral region, stage 2; L89.312 Pressure ulcer of right buttock, stage 2; L89.322 Pressure ulcer of left buttock, stage 2; I83.018 Varicose veins of right lower extremity with ulcer other part of lower leg; I83.028 Varicose veins of left lower extremity with ulcer other part of lower leg; I11.0 Hypertensive heart disease with heart failure; E66.01 Morbid (severe) obesity due to excess calories; I73.9 Peripheral vascular disease, unspecified; I50.9 Heart failure, unspecified; R65.20 Severe sepsis without septic shock; Z20.828 Contact with and (suspected) exposure to other viral communicable diseases; R09.02 Hypoxemia; L85.3 Xerosis cutis; B35.1 Tinea unguium; B37.2 Candidiasis of skin and nail; S00.81XA Abrasion of other part of head, initial encounter; B35.6 Tinea cruris; I45.10 Unspecified right bundle-branch block; E87.5 Hyperkalemia; G47.33 Obstructive sleep apnea (adult) (pediatric); E78.5 Hyperlipidemia, unspecified; G89.29 Other chronic pain; M25.511 Pain in right shoulder; M25.512 Pain in left shoulder; K08.109 Complete loss of teeth, unspecified cause, unspecified class; K02.9 Dental caries, unspecified; M54.5 Low back pain; Z79.1 Long term (current) use of non-steroidal anti-inflammatories (NSAID); Z79.82 Long term (current) use of aspirin; Z79.899 Other long term (current) drug therapy; Z86.14 Personal history of Methicillin resistant Staphylococcus aureus infection; Z86.718 Personal history of other venous thrombosis and embolism; Z90.49 Acquired absence of other specified parts of digestive tract; Z90.89 Acquired absence of other organs; Z87.19 Personal history of other diseases of the digestive system; Z87.891 Personal history of nicotine dependence; Z87.39 Personal history of other diseases of the musculoskeletal system and connective tissue; Z86.19 Personal history of other infectious and parasitic diseases; Z71.3 Dietary counseling and surveillance; W07.XXXA Fall from chair, initial encounter; Y92.009 Unspecified place in unspecified non-institutional (private) residence as the place of occurrence of the external cause; Z80.9 Family history of malignant neoplasm, unspecified; Z84.2 Family history of other diseases of the genitourinary system
CPT/HCPCS: 36415; 36558; 70450; 71045; 72125; 72170; 76770; 76937; 77001; 80048; 80053; 80306; 80320; 81001; 82150; 82272; 82550; 82805; 83605; 83690; 83735; 84100; 84484; 85025; 85027; 85610; 85730; 86704; 86706; 86850; 86900; 86901; 87040; 87324; 87340; 90935; 93970; 96365; 96374; 96375; 96376; 99291

== ENCOUNTER 2022-12-30 04:44 | Inpatient (IN) | payer MEDICARE, OTHER ==
[2022-12-30] MEDS ORDERED: SODIUM CHLORIDE 0.9% 500 ML 500 ML IV STA ×2 (05:19→06:34)
[2022-12-30] MEDS ORDERED: HYDROcodone/APAP 5-325MG 1 EACH TAB PO STA (05:19)
[2022-12-30 06:03] LABS: Basophils # (A) 0.1 k/uL (0-0.2); Basophils % (A) 1 %; Eosinophils # (A) 0.1 k/uL (0-0.7); Eosinophils % (A) 0 %; HGB 13.6 gm/dL (13.0-17.5); Lymphocytes # (A) 1.8 k/uL (1.0-4.8); Lymphocytes % (A) 11 %; MCHC 31.7 g/dL (31.0-37.0); MCV 91.6 fL (80.0-100.0); Mean Platelet Volume 7.4; Monocytes # (A) 0.9 k/uL (0-1.0); Monocytes % (A) 5 %; Neutrophils # (A) 12.9 k/uL (1.3-7.7); Neutrophils % (A) 80 %; Platelet Count 460 k/uL (150-450); RDW 14.7 % (11.5-15.5); WBC 16.2 k/uL (3.8-10.6)
--- NOTE | 2022-12-30 06:03 | XR ---
EXAMINATION TYPE: XR chest 2V DATE OF EXAM: 12/30/2022 COMPARISON: NONE HISTORY: 07/07/2020 TECHNIQUE: Single view FINDINGS: There is blunting right costophrenic angle. There is linear density right lung base. No hea rt failure. There are no hilar masses. IMPRESSION: There is pleural reaction and atelectasis right lung base which is new compared to the ol d exam. No heart failure seen.
[2022-12-30 06:30] LABS: Albumin 3.2 g/dL (3.5-5.0); Calcium 8.3 mg/dL (8.4-10.2); Potassium 3.8 mmol/L (3.5-5.1); Total Bilirubin 1.2 mg/dL (0.2-1.3); Total Protein 8.2 g/dL (6.3-8.2)
[2022-12-30] MEDS ORDERED: SODIUM CHLORIDE 0.9% 1,000 ML IV STA (06:34)
--- NOTE | 2022-12-30 07:04 | ED ---
General Adult HPI - General Chief complaint: Back Pain/Injury Stated complaint: Back Pain Time Seen by Provider: 12/30/22 05:02 Source: EMS Mode of arrival: EMS Limitations: physical limitation - History of Present Illness Initial comments: This patient is 62-year-old man brought to have evaluation related to low back pain. The patient does have history of chronic low back pain. His visiting physician Ari gives him on Mica, he takes 2 of these every 6 hours. The patient had attempted to get out of his chair on Friday at 2 AM and experienced severe pain. He got back into his lift chair and has been there since that time which is going on 48 hours. The patient's states that he has not taken any pain medication in that interval. He has not had anything to eat or drink. He has not been up to use the bathroom. -: days(s) Location: back Radiation: non-radiation Quality: aching Consistency: constant Improves with: medication Worsens with: movement Associated Symptoms: denies other symptoms Treatments Prior to Arrival: none - Related Data Home Medications Medication Instructions Recorded Confirmed Aspirin EC [Ecotrin Low Dose] 81 mg PO DAILY 01/07/20 01/09/23 Baclofen 10 mg PO TID 01/07/20 01/09/23 DULoxetine HCL [Cymbalta] 120 mg PO DAILY 12/30/22 01/09/23 Furosemide [Lasix] 80 mg PO DAILY 12/30/22 01/09/23 HYDROcodone/APAP 10-325MG [Mica 2 tab PO Q6H PRN 12/30/22 01/09/23 10-325] Metoprolol Tartrate [Lopressor] 50 mg PO BID 12/30/22 01/09/23 Potassium Chloride [Klor-Con M20] 20 meq PO DAILY 12/30/22 01/09/23 tiZANidine [Zanaflex] 2 mg PO Q8HR PRN 12/30/22 01/09/23 Previous Rx's Medication Instructions Recorded lisinopriL [Zestril] 10 mg PO DAILY tab 11/26/18 Allergies Allergy/AdvReac Type Severity Reaction Status Date / Time No Known Allergies Allergy Verified 07/06/20 17:32 Review of Systems ROS Statement: Those systems with pertinent positive or pertinent negative responses have been documented in the HPI. ROS Other: All systems not noted in ROS Statement are negative. Constitutional: Reports: weakness Respiratory: Reports: cough Cardiovascular: Reports: edema (Chronic leg edema with weeping). Denies: chest pain Gastrointestinal: Denies: abdominal pain, vomiting, diarrhea Genitourinary: Denies: dysuria, hematuria Musculoskeletal: Reports: as per HPI, back pain Skin: Denies: rash Neurological: Denies: headache, weakness Past Medical History Past Medical History: Hyperlipidemia, Hypertension, Musculoskeletal Disorder, Sleep Apnea/CPAP/BIPAP, Vascular Disorder Additional Past Medical History / Comment(s): CHF, chronic back pain, cellulitis, DVT, nerve pain History of Any Multi-Drug Resistant Organisms: MRSA Date of last positivie culture/infection: 12/08/19 MDRO Source:: Right Foot Past Surgical History: Cholecystectomy, Hernia Repair, Tonsillectomy Past Anesthesia/Blood Transfusion Reactions: No Reported Reaction Past Psychological History: No Psychological Hx Reported Past Alcohol Use History: None Reported Past Drug Use History: None Reported, Marijuana - Past Family History Father Family Medical History: Cancer, Prostate Disorder Mother Family Medical History: Cancer General Exam Limitations: physical limitation General appearance: alert, in no apparent distress Head exam: Present: atraumatic, normocephalic Eye exam: Present: normal appearance. Absent: scleral icterus, conjunctival injection Neck exam: Present: normal inspection Respiratory exam: Present: rhonchi. Absent: respiratory distress, wheezes, rales, stridor Cardiovascular Exam: Present: normal rhythm, tachycardia, normal heart sounds. Absent: systolic murmur, diastolic murmur, rubs, gallop GI/Abdominal exam: Present: soft. Absent: distended, tenderness, guarding, rebound, rigid, mass Extremities exam: Present: normal inspection, normal capillary refill. Absent: pedal edema, calf tenderness Back exam: Present: normal inspection, other (Patient's back is covered with sto ol, but there is discoloration suggestive of tissue injury.). Absent: CVA tenderness (R), CVA tenderness (L) Neurological exam: Present: alert Skin exam: Present: warm, dry, intact. Absent: rash Course Vital Signs 12/30/22 12/30/22 12/30/22 04:49 08:07 10:00 Temperature 97.9 F 99 F Pulse Rate 135 H 120 H 110 H Respiratory 16 24 20 Rate Blood Pressure 109/62 128/68 173/83 O2 Sat by Pulse 95 96 99 Oximetry 12/30/22 12/30/22 12/30/22 11:47 12:16 14:37 Temperature 98.8 F 98.4 F Pulse Rate 108 H 102 H 80 Respiratory 22 18 18 Rate Blood Pressure 120/68 120/68 120/68 O2 Sat by Pulse 96 95 Oximetry 12/30/22 12/30/22 12/30/22 16:49 17:41 17:56 Temperature 98.5 F Pulse Rate 89 101 H Respiratory 18 18 Rate Blood Pressure 121/10 121/77 O2 Sat by Pulse 100 17 L 100 Oximetry Procedures - Sepsis Sepsis Focused Exam #1 Sepsis Focused Exam Complete: Yes Vital Signs & RN Notes Reviewed: Yes Capillary Refill: < 2 Seconds: Fingers Peripheral Pulses: Normal: Radial (R) Skin Color: Flushed Respiratory Exam: normal lung sounds Cardiovascular Exam: tachycardia Medical Decision Making - Medical Decision Making This patient is a 62-year-old man who presents with concerns about worsening of his generalized debility. He has not moved from his chair now for a couple of days. He has not been taking anything to eat or drink. On the exam, the patient does appear to have some dehydration. He does have chronic ulcerations of the lower extremities and sacrum. The patient found to have urinary tract infection on the workup and lactic acidosis. Patient is admitted to have IV antibiotics and fluids. Patient did have chest x-ray which I interpreted as not showing acute infiltrate, congestive heart failure or pneumothorax. Was pt. sent in by a medical professional or institution (, PA, MANPOWER DEVELOPMENT SPECIALIST MANAGER, urgent care, hospital, or jail...) When possible be specific @ -[No] Did you speak to anyone other than the patient for history (EMS, parent, family, police, friend...)? What history was obtained from this source @ -[ Did you review nursing and triage notes (agree or disagree)? Why? @ -[I reviewed and agree with nursing and triage notes] Were old charts reviewed (outside hosp., previous admission, EMS record, old EKG, old radiological studies, urgent care reports/EKG's, jail records)? Report findings @ -[No old charts were reviewed] Differential Diagnosis (chest pain, altered mental status, abdominal pain women, abdominal pain men, vaginal bleeding, weakness, fever, dyspnea, syncope, headache, dizziness, GI bleed, back pain, seizure, CVA, palpatations, mental health, musculoskeletal)? @ -[Differential IInfection: Pneumonia, viral URI, peritonitis, appendicitis, Silvana cystitis, diverticulitis, hepatitis, colitis, UTI, pyelonephritis, prostatitis, CVA, thyroid storm, pancreatitis, this is not meant to be an all-inclusive list. EKG interpreted by me (3pts min.). @ -[As above] X-rays interpreted by me (1pt min.). @ -[as above CT interpreted by me (1pt min.). @ -[None done] U/S interpreted by me (1pt. min.). @ -[None done] What testing was considered but not performed or refused? (CT, X-rays, U/S, labs)? Why? @ -[None] What meds were considered but not given or refused? Why? @ -[None] Did you discuss the management of the patient with other professionals (professionals i.e. , PA, MANPOWER DEVELOPMENT SPECIALIST MANAGER, lab, RT, psych nurse, social scientist, machine helper, t eacher, agricultural technical officer, case liner)? Give summary @ -[Admitting physician Was smoking cessation discussed for >3mins.? @ -[No] Was critical care preformed (if so, how long)? @ -[No] Were there social determinants of health that impacted care today? How? (Homelessness, low income, unemployed, alcoholism, drug addiction, transportation, low edu. Level, literacy, decrease access to med. care, [facility], rehab)? @ -[No] Was there de-escalation of care discussed even if they declined (Discuss DNR or withdrawal of care, Hospice)? DNR status @ -[No] What co-morbidities impacted this encounter? (DM, HTN, Smoking, COPD, CAD, Cancer, CVA, ARF, Chemo, Hep., AIDS, mental health diagnosis, sleep apnea, morbid obesity)? @ -[None] Was patient admitted / discharged? Hospital course, mention meds given and route, prescriptions, significant lab abnormalities, going to OR and other pertinent info. @ -[The patient is admitted to have further IV fluid and antibiotic therapy. Undiagnosed new problem with uncertain prognosis? @ -[No] Drug Therapy requiring intensive monitoring for toxicity (Heparin, Nitro, Insulin, Cardizem)? @ -[No] Were any procedures done? @ -[No] Diagnosis/symptom? @ -[1. Urinary tract infection 2. Lactic acidosis 3. Acute kidney injury 4. Sacral decubitus 5. Venous stasis ulcers Possible sepsis Acute, or Chronic, or Acute on Chronic? @ -[1-3 acute 4-5 chronic Uncomplicated (without systemic symptoms) or Complicated (systemic symptoms)? @ -[Complicated Side effects of treatment? @ -[No] Exacerbation, Progression, or Severe Exacerbation? @ -[No] Poses a threat to life or bodily function? How? (Chest pain, [place], [place], pneumonia, PE, COPD, DKA, ARF, appy, cholecystitis, CVA, Diverticulitis, Homicidal, Suicidal, threat to staff... and all critical care pts) @ -[yes - Lab Data Result diagrams: 01/07/23 04:34 01/09/23 11:26 Lab Results 12/30/22 12/30/22 12/30/22 Range/Units 05:38 05:38 05:38 WBC 16.2 H (3.8-10.6) k/uL RBC 4.70 (4.30-5.90) m/uL Hgb 13.6 (13.0-17.5) gm/dL Hct 43.0 (39.0-53.0) % MCV 91.6 (80.0-100.0) fL MCH 29.0 (25.0-35.0) pg MCHC 31.7 (31.0-37.0) g/dL RDW 14.7 (11.5-15.5) % Plt Count 460 H (150-450) k/uL MPV 7.4 Neutrophils % 80 % Lymphocytes % 11 % Monocytes % 5 % Eosinophils % 0 % Basophils % 1 % Neutrophils # 12.9 H (1.3-7.7) k/uL Lymphocytes # 1.8 (1.0-4.8) k/uL Monocytes # 0.9 (0-1.0) k/uL Eosinophils # 0.1 (0-0.7) k/uL Basophils # 0.1 (0-0.2) k/uL Sodium 140 (137-145) mmol/L Potassium 3.8 (3.5-5.1) mmol/L Chloride 104 (98-107) mmol/L Carbon Dioxide 22 (22-30) mmol/L Anion Gap 14 mmol/L BUN 29 H (9-20) mg/dL Creatinine 1.51 H (0.66-1.25) mg/dL Est GFR (CKD-EPI)AfAm 56 (>60 ml/min/1.73 sqM) Est GFR (CKD-EPI)NonAf 49 (>60 ml/min/1.73 sqM) Glucose 110 H (74-99) mg/dL Lactic Ac Sepsis Rflx Plasma Lactic Acid Lloyd 6.0 H* (0.7-2.0) mmol/L Calcium 8.3 L (8.4-10.2) mg/dL Total Bilirubin 1.2 (0.2-1.3) mg/dL AST 34 (17-59) U/L ALT 53 H (4-49) U/L Alkaline Phosphatase 1445 H (38-126) U/L Troponin I (0.000-0.034) ng/mL Total Protein 8.2 (6.3-8.2) g/dL Albumin 3.2 L (3.5-5.0) g/dL 12/30/22 12/30/22 Range/Units 05:38 06:33 WBC (3.8-10.6) k/uL RBC (4.30-5.90) m/uL Hgb (13.0-17.5) gm/dL Hct (39.0-53.0) % MCV (80.0-100.0) fL MCH (25.0-35.0) pg MCHC (31.0-37.0) g/dL RDW (11.5-15.5) % Plt Count (150-450) k/uL MPV Neutrophils % % Lymphocytes % % Monocytes % % Eosinophils % % Basophils % % Neutrophils # (1.3-7.7) k/uL Lymphocytes # (1.0-4.8) k/uL Monocytes # (0-1.0) k/uL Eosinophils # (0-0.7) k/uL Basophils # (0-0.2) k/uL Sodium (137-145) mmol/L Potassium (3.5-5.1) mmol/L Chloride (98-107) mmol/L Carbon Dioxide (22-30) mmol/L Anion Gap mmol/L BUN (9-20) mg/dL Creatinine (0.66-1.25) mg/dL Est GFR (CKD-EPI)AfAm (>60 ml/min/1.73 sqM) Est GFR (CKD-EPI)NonAf (>60 ml/min/1.73 sqM) Glucose (74-99) mg/dL Lactic Ac Sepsis Rflx Y Plasma Lactic Acid Lloyd (0.7-2.0) mmol/L Calcium (8.4-10.2) mg/dL Total Bilirubin (0.2-1.3) mg/dL AST (17-59) U/L ALT (4-49) U/L Alkaline Phosphatase (38-126) U/L Troponin I <0.012 (0.000-0.034) ng/mL Total Protein (6.3-8.2) g/dL Albumin (3.5-5.0) g/dL Disposition Clinical Impression: UTI (urinary tract infection), Leukocytosis, Lactic acidosis, Acute kidney injury, Nonhealing ulcer of multiple sites of right lower extremity with fat layer exposed, Nonhealing ulcer of multiple sites of left lower extremity with fat layer exposed Disposition: ADMITTED IP TO THIS HOSP Condition: Poor
[2022-12-30] MEDS ORDERED: HYDROcodone/APAP 10-325MG 1 EACH TAB PO PRN (07:55)
[2022-12-30] MEDS ORDERED: BACLOFEN 10 MG TAB PO PRN (07:55)
[2022-12-30] MEDS ORDERED: ONDANSETRON 4 MG TAB PO PRN (07:55)
[2022-12-30] MEDS ORDERED: NALOXONE 0.4 MG/ML 1 ML VIAL IV PRN (07:57)
[2022-12-30] MEDS ORDERED: SODIUM CHLORIDE 0.9% 1,000 ML IV SCH (08:00)
[2022-12-30] MEDS: MORPHINE SULFATE 4 MG/ML SYRINGE IV PRN ×2 (08:06→11:49)
[2022-12-30 08:54] LABS: Appearance,Urine Turbid (Clear); Bacteria,Urine Many /hpf; Bilirubin,Urine Negative (Negative); Blood,Urine Small (Negative); Color,Urine Yellow; Glucose,Urine (UA) Negative (Negative); Ketones,Urine Negative (Negative); Leukocyte Esterase,Urine Large (Negative); Mucus,Urine Occasional /hpf; Nitrite,Urine Negative (Negative); PH, Urine 5.5 (5.0-8.0); Protein,Urine 1+ (Negative); RBC,Urine 15 /hpf (0-5); Specific Gravity,Urine 1.021 (1.001-1.035); Squamous Epithelial Cell,Urine 1 /hpf (0-4); WBC,Urine >182 /hpf (0-5)
[2022-12-30] MEDS ORDERED: APIXABAN 5 MG TAB PO SCH (09:00)
[2022-12-30] MEDS ORDERED: METOPROLOL TARTRATE 25 MG TAB PO SCH (09:00)
[2022-12-30] MEDS ORDERED: DULoxetine HCL 30 MG CAPSULE.DR PO SCH (09:00)
[2022-12-30] MEDS ORDERED: lisinopriL 10 MG TAB PO SCH (09:00)
[2022-12-30] MEDS ORDERED: tiZANidine 4 MG TAB PO PRN (09:34)
[2022-12-30] MEDS ORDERED: POTASSIUM CHLORIDE ER 20 MEQ TAB.ER PO SCH (09:45)
[2022-12-30] MEDS ORDERED: FUROSEMIDE 80 MG TAB PO SCH (09:45)
[2022-12-30] MEDS: HYDROcodone/APAP 10-325MG 1 EACH TAB PO PRN ×3 (09:58→21:11)
[2022-12-30] MEDS: ASPIRIN 81 MG PO SCH (09:58)
--- NOTE | 2022-12-30 11:57 | P.CONS ---
History of Present Illness - Reason for Consult Consult date: 12/30/22 wound care - History of Present Illness This is a 62-year-old patient being seen in the emergency room for wound care. Patient has nonhealing ulcerations to bilateral lower extremities. Patient does not follow at any wound care centers. His doctor manages the ulcerations. With honey gel and absorptive Silver. Patient states that he has no intentions of returning to a wound care center. He is happy with the management between his primary care doctor and his . Patient is refusing for his dressings to be changed to be assessed by examiner. Patient's past medical history significant for hyperlipidemia, hypertension, chronic back pain, DVT, MRSA to the right foot, sleep apnea, venous insufficiency. Review Of Systems: Constitutional: No fever, no chills, no night sweats. No weight change. No weakness, fatigue or lethargy. No daytime sleepiness. Integumentary:reports wounds, no lesions. No rash or pruritus. No unusual bruising. No change in hair or nails. Physical exam: General Appearance: Alert, cooperative, no distress, appears stated age. Skin: See HPI all other Skin color, texture, tugor normal, no rashes or lesions. Neurologic: Alert oriented x3 Assessment: 1. Chronic chronic venous hypertension with inflammation and ulceration of bilateral lower extremities 2. Venous insufficiency Plan: 1. Apply honey gel, absorptive silver moistened, ABD, and rolled gauze and secure with paper tape. Wrap with Holger wrap. Change Friday. Patient declines advance wound care at this time. If he changes his mind we will be happy to see him in the wound care center upon discharge. Thank you for the consultation any questions his contact the wound care center DNP note has been reviewed and discussed with Dr. Myrick and the impression and plan of care has been directed as dictated. Past Medical History Past Medical History: Hyperlipidemia, Hypertension, Musculoskeletal Disorder, Sleep Apnea/CPAP/BIPAP, Vascular Disorder Additional Past Medical History / Comment(s): CHF, chronic back pain, celluliti s, DVT, nerve pain History of Any Multi-Drug Resistant Organisms: MRSA Year Discovered:: 12/08/19 MDRO Source:: Right Foot Past Surgical History: Cholecystectomy, Hernia Repair, Tonsillectomy Past Anesthesia/Blood Transfusion Reactions: No Reported Reaction Past Psychological History: No Psychological Hx Reported Past Alcohol Use History: None Reported Past Drug Use History: None Reported, Marijuana - Past Family History Father Family Medical History: Cancer, Prostate Disorder Mother Family Medical History: Cancer Medications and Allergies Home Medications Medication Instructions Recorded Confirmed Type lisinopriL [Zestril] 10 mg PO DAILY tab 11/26/18 12/30/22 Rx Aspirin EC [Ecotrin Low Dose] 81 mg PO DAILY 01/07/20 12/30/22 History Baclofen 10 mg PO TID 01/07/20 12/30/22 History DULoxetine HCL [Cymbalta] 120 mg PO DAILY 12/30/22 12/30/22 History Furosemide [Lasix] 80 mg PO DAILY 12/30/22 12/30/22 History HYDROcodone/APAP 10-325MG [[place] 2 tab PO Q6H PRN 12/30/22 12/30/22 History 10-325] Metoprolol Tartrate [Lopressor] 50 mg PO BID 12/30/22 12/30/22 History Potassium Chloride [Klor-Con M20] 20 meq PO DAILY 12/30/22 12/30/22 History tiZANidine [Zanaflex] 2 mg PO Q8HR PRN 12/30/22 12/30/22 History Allergies Allergy/AdvReac Type Severity Reaction Status Date / Time No Known Allergies Allergy Verified 07/06/20 17:32 Physical Exam Vitals: Vital Signs Temp Pulse Resp BP Pulse Ox 12/30/22 11:47 98.8 F 108 H 22 120/68 96 12/30/22 10:00 110 H 20 173/83 99 12/30/22 08:07 99 F 120 H 24 128/68 96 12/30/22 04:49 97.9 F 135 H 16 109/62 95 Intake and Output 12/29/22 12/30/22 12/30/22 22:59 06:59 14:59 Other: Weight 158.757 kg Results CBC & Chem 7: 12/30/22 05:38 12/30/22 05:38 Labs: Abnormal Lab Results - Last 24 Hours (Table) 12/30/22 12/30/22 12/30/22 Range/Units 05:38 05:38 05:38 WBC 16.2 H (3.8-10.6) k/uL Plt Count 460 H (150-450) k/uL Neutrophils # 12.9 H (1.3-7.7) k/uL BUN 29 H (9-20) mg/dL Creatinine 1.51 H (0.66-1.25) mg/dL Glucose 110 H (74-99) mg/dL Plasma Lactic Acid Lloyd 6.0 H* (0.7-2.0) mmol/L Calcium 8.3 L (8.4-10.2) mg/dL ALT 53 H (4-49) U/L Alkaline Phosphatase 1445 H (38-126) U/L Albumin 3.2 L (3.5-5.0) g/dL Urine Protein (Negative) Urine Blood (Negative) Ur Leukocyte Esterase (Negative) Urine RBC (0-5) /hpf Urine WBC (0-5) /hpf Urine WBC Clumps (None) /hpf Urine Bacteria (None) /hpf Urine Mucus (None) /hpf 12/30/22 12/30/22 Range/Units 08:18 09:01 WBC (3.8-10.6) k/uL Plt Count (150-450) k/uL Neutrophils # (1.3-7.7) k/uL BUN (9-20) mg/dL Creatinine (0.66-1.25) mg/dL Glucose (74-99) mg/dL Plasma Lactic Acid Lloyd 2.2 H* (0.7-2.0) mmol/L Calcium (8.4-10.2) mg/dL ALT (4-49) U/L Alkaline Phosphatase (38-126) U/L Albumin (3.5-5.0) g/dL Urine Protein 1+ H (Negative) Urine Blood Small H (Negative) Ur Leukocyte Esterase Large H (Negative) Urine RBC 15 H (0-5) /hpf Urine WBC >182 H (0-5) /hpf Urine WBC Clumps Few H (None) /hpf Urine Bacteria Many H (None) /hpf Urine Mucus Occasional H (None) /hpf Assessment and Plan (1) Chronic venous hypertension (idiopathic) with ulcer and inflammation of bilateral lower extremity Current Visit: Yes Status: Acute Code(s): I87.333 - CHRONIC VENOUS HTN W ULCER AND INFLAM OF BILATERAL LOW EXTRM SNOMED Code(s): 357861412612939 (2) Nonhealing ulcer of multiple sites of left lower extremity with fat layer exposed Current Visit: No Status: Acute Code(s): L97.922 - NON-PRS CHR ULC UNSP PRT OF L LOW LEG W FAT LAYER EXPOSED SNOMED Code(s): 52413772 (3) Nonhealing ulcer of multiple sites of right lower extremity with fat layer exposed Current Visit: No Status: Acute Code(s): L97.912 - NON-PRS CHR ULC UNSP PRT OF R LOW LEG W FAT LAYER EXPOSED SNOMED Code(s): 34943342
[2022-12-30] MEDS ORDERED: MELATONIN 3 MG TABLET PO PRN (14:37)
[2022-12-30] MEDS ORDERED: ALPRAZolam 0.25 MG TAB PO PRN (14:37)
[2022-12-30] MEDS ORDERED: LACTULOSE 20 GM/30 ML CUP PO PRN (14:37)
[2022-12-30] MEDS ORDERED: CALCIUM CARBONATE 500 MG CHEWABLE PO PRN (14:37)
--- NOTE | 2022-12-30 14:48 | P.HPIM ---
History of Present Illness H&P Date: 12/30/22 Chief Complaint: Left lateral chest pain This is a 62-year-old patient, follows with Dr. Chapman. Chronic stable medical conditions include hypertension, hyperlipidemia, obstructive sleep apnea, chronic bilateral lower extremity venous ulcers. From venous insufficiency. Patient has a lift chair and a chair at home. Wound care is done by a visiting nurse and patient's . Patient presents with 2 days of what he describes as left-sided lateral chest wall pain. Pain is worse with coughing and taking a deep breath. Patient rather sleepy for last 2 days. Decreased appetite. No nausea vomiting. No fever. No sputum production. Denies any off or shortness of breath Review of systems: GEN.: Tired EYES: None HEENT: None NECK: None RESPIRATORY: None CARDIOVASCULAR: None GASTROINTESTINAL: None GENITOURINARY: None MUSCULOSKELETAL: Joint pains LYMPHATICS: None HEMATOLOGICAL: None PSYCHIATRY: None NEUROLOGICAL: Uses a lift chair/wheelchair Past medical history to include: Obstructive sleep apnea, hypertension, hyperlipidemia, bilateral lower extremity venous wounds, chronic venous insufficiency chronic medical debility Social history: Lives with his . Does use a lift chair in the wheelchair. Patient stopped smoking in 2019. No alcohol. Physical examination: VITAL SIGNS: 98.8, 108, 22, 120/68, 96% room air GENERAL: BMI 50.2, declining but awake, tired, unkempt. EYES: Pupils equal. Conjunctiva normal. HEENT: External appearance of nose and ears normal, oral cavity grossly normal. NECK: JVD unable to assess; masses not palpable. HEART: First and second heart sounds are normal; some edema. LUNGS: Respiratory rate normal; decreased breath sounds. ABDOMEN: Soft, nontender, liver spleen not palpable, no masses palpable. PSYCH: Alert and oriented x3; mood and affect normal. MUSCULOSKELETAL:No Clubbing/cyanosis;muscles-grossly intact. Possible OA. No tenderness over the left lateral chest wall. NEUROLOGICAL: Cranial nerves grossly intact; no facial asymmetry, power and sensation grossly intact. EXTREMITY: Bilateral lower extremity venous ulcers with a dressing in place. LYMPHATICS: No lymph nodes palpable in the axilla and neck INVESTIGATIONS, reviewed in the clinical context: White count 16.2 hemoglobin 13.6 platelets 460 sodium 140 potassium 3.8 BUN 29 creatinine 1.5 bun Lactic acid 6 and repeat 2.2 AST 34 ALT 53 alkaline phosphatase 1445 UA: Negative for nitrite Chest x-ray film personally reviewed by me-right basilar infiltrate Previous labs: Creatinine 0.03 June 2020 Assessment and plan: -Right lower lobe pneumonia, suspected gram-negative organism IV ceftriaxone -Acute versus chronic kidney disease Proteinuria in the urine. Renal ultrasound. Gentle hydration repeat labs tomorrow. -Morbid obesity BMI 50.2 Weight loss measures -Chronic medical debility, and baseline uses a lift chair and a wheelchair -Bilateral chronic lower lower extremity venous ulcers Consult wound care team -Chronic lower external edema venous insufficiency -Depression and anxiety Cymbalta 120 mg a -Essential hypertension Lopressor 50 mg twice a day. -Chronic pain with muscle spasms [place], baclofen -Lactic acidosis possibly combination of infection and dehydration IV ceftriaxone. Gentle hydration. Fluid restriction 2000 mL a day. Wound care. Patient is informed that he is is already very lethargic at home. With [place] and baclofen. Patient is requesting IV pain medications. No indications. He is rather comfortable at rest. Informed him that itwill be dangerous to him. And not indicated Past Medical History Past Medical History: Hyperlipidemia, Hypertension, Musculoskeletal Disorder, Sleep Apnea/CPAP/BIPAP, Vascular Disorder Additional Past Medical History / Comment(s): CHF, chronic back pain, cellulitis, DVT, nerve pain History of Any Multi-Drug Resistant Organisms: MRSA Date of last positivie culture/infection: 12/08/19 MDRO Source:: Right Foot Past Surgical History: Cholecystectomy, Hernia Repair, Tonsillectomy Past Anesthesia/Blood Transfusion Reactions: No Reported Reaction Past Psychological History: No Psychological Hx Reported Past Alcohol Use History: None Reported Past Drug Use History: None Reported, Marijuana - Past Family History Father Family Medical History: Cancer, Prostate Disorder Mother Family Medical History: Cancer Medications and Allergies Home Medications Medication Instructions Recorded Confirmed Type lisinopriL [Zestril] 10 mg PO DAILY tab 11/26/18 12/30/22 Rx Aspirin EC [Ecotrin Low Dose] 81 mg PO DAILY 01/07/20 12/30/22 History Baclofen 10 mg PO TID 01/07/20 12/30/22 History DULoxetine HCL [Cymbalta] 120 mg PO DAILY 12/30/22 12/30/22 History Furosemide [Lasix] 80 mg PO DAILY 12/30/22 12/30/22 History HYDROcodone/APAP 10-325MG [[place] 2 tab PO Q6H PRN 12/30/22 12/30/22 History 10-325] Metoprolol Tartrate [Lopressor] 50 mg PO BID 12/30/22 12/30/22 History Potassium Chloride [Klor-Con M20] 20 meq PO DAILY 12/30/22 12/30/22 History tiZANidine [Zanaflex] 2 mg PO Q8HR PRN 12/30/22 12/30/22 History Allergies Allergy/AdvReac Type Severity Reaction Status Date / Time No Known Allergies Allergy Verified 07/06/20 17:32 Physical Exam Vitals: Vital Signs Temp Pulse Resp BP Pulse Ox 12/30/22 10:00 110 H 20 173/83 99 12/30/22 08:07 99 F 120 H 24 128/68 96 12/30/22 04:49 97.9 F 135 H 16 109/62 95 Intake and Output 12/29/22 12/30/22 12/30/22 22:59 06:59 14:59 Other: Weight 158.757 kg Results CBC & Chem 7: 12/30/22 05:38 12/30/22 05:38 Labs: Abnormal Lab Results - Last 24 Hours (Table) 12/30/22 12/30/22 12/30/22 Range/Units 05:38 05:38 05:38 WBC 16.2 H (3.8-10.6) k/uL Plt Count 460 H (150-450) k/uL Neutrophils # 12.9 H (1.3-7.7) k/uL BUN 29 H (9-20) mg/dL Creatinine 1.51 H (0.66-1.25) mg/dL Glucose 110 H (74-99) mg/dL Plasma Lactic Acid Lloyd 6.0 H* (0.7-2.0) mmol/L Calcium 8.3 L (8.4-10.2) mg/dL ALT 53 H (4-49) U/L Alkaline Phosphatase 1445 H (38-126) U/L Albumin 3.2 L (3.5-5.0) g/dL Urine Protein (Negative) Urine Blood (Negative) Ur Leukocyte Esterase (Negative) Urine RBC (0-5) /hpf Urine WBC (0-5) /hpf Urine WBC Clumps (None) /hpf Urine Bacteria (None) /hpf Urine Mucus (None) /hpf 12/30/22 12/30/22 Range/Units 08:18 09:01 WBC (3.8-10.6) k/uL Plt Count (150-450) k/uL Neutrophils # (1.3-7.7) k/uL BUN (9-20) mg/dL Creatinine (0.66-1.25) mg/dL Glucose (74-99) mg/dL Plasma Lactic Acid Lloyd 2.2 H* (0.7-2.0) mmol/L Calcium (8.4-10.2) mg/dL ALT (4-49) U/L Alkaline Phosphatase (38-126) U/L Albumin (3.5-5.0) g/dL Urine Protein 1+ H (Negative) Urine Blood Small H (Negative) Ur Leukocyte Esterase Large H (Negative) Urine RBC 15 H (0-5) /hpf Urine WBC >182 H (0-5) /hpf Urine WBC Clumps Few H (None) /hpf Urine Bacteria Many H (None) /hpf Urine Mucus Occasional H (None) /hpf
[2022-12-30] MEDS ORDERED: BACLOFEN 10 MG TAB PO SCH (16:00)
--- NOTE | 2022-12-30 16:16 | US ---
EXAMINATION TYPE: US venous doppler duplex LE BI DATE OF EXAM: 12/30/2022 4:00 PM COMPARISON: NONE CLINICAL HISTORY: Lower extremity edema. SIDE PERFORMED: Bilateral TECHNIQUE: The lower extremity deep venous system is examined utilizing real time linear array sonog trisha with graded compression, doppler sonography and color-flow sonography. VESSELS IMAGED: Common Femoral Vein Deep Femoral Vein Greater Saphenous Vein * Femoral Vein Popliteal Vein Small Saphenous Vein * Proximal Calf Veins (* superficial vessels) Right Leg: Normal flow, compressibility and vascular waveforms. Left Leg: A vein is not well-visualized, however there is otherwise normal flow, compressibility and vascular waveforms. IMPRESSION: Slightly Limited evaluation with otherwise no definitive evidence of deep venous thrombosis.
--- NOTE | 2022-12-30 16:19 | US ---
EXAMINATION TYPE: US kidneys/renal and bladder DATE OF EXAM: 12/30/2022 COMPARISON: NONE CLINICAL HISTORY: Chronic kidney disease. EXAM MEASUREMENTS: Right Kidney: 8.4 x 4.7 x 3.4 cm Left Kidney: 11.2 x 5.8 x 4.5 cm Right Kidney: No hydronephrosis or masses seen Left Kidney: No hydronephrosis or masses seen Bladder: There is a Cartwright catheter in the bladder which is collapsed. There is no evidence for hydronephrosis at this point in time. No nephrolithiasis is seen. No juan c s are identified. IMPRESSION: 1. No evidence of hydronephrosis. 2. The bladder is not distended and unable to be evaluated.
[2022-12-30] MEDS: BACLOFEN 10 MG TAB PO SCH ×2 (17:39→21:11)
[2022-12-30] MEDS: METOPROLOL TARTRATE 50 MG TAB PO SCH ×2 (18:43→21:11)
[2022-12-30] MEDS: DULoxetine HCL 60 MG CAPSULE.DR PO SCH (18:43)
[2022-12-30] MEDS: SODIUM CHLORIDE 0.9% 1,000 ML IV SCH (18:43)
[2022-12-31] MEDS: HYDROcodone/APAP 10-325MG 1 EACH TAB PO PRN ×4 (03:06→20:52)
[2022-12-31] MEDS: SODIUM CHLORIDE 0.9% 1,000 ML IV SCH ×2 (05:46→08:55)
[2022-12-31 06:15] LABS: African American GFR (CKD) 79 (>60 ml/min/1.73 sqM); Anion Gap 11 mmol/L; Blood Urea Nitrogen 26 mg/dL (9-20); Calcium 7.4 mg/dL (8.4-10.2); Carbon Dioxide 23 mmol/L (22-30); Chloride 102 mmol/L (98-107); Glucose 82 mg/dL (74-99); Non-African American GFR(CKD) 68 (>60 ml/min/1.73 sqM); Potassium 3.6 mmol/L (3.5-5.1); Sodium 136 mmol/L (137-145)
[2022-12-31] MEDS: BACLOFEN 10 MG TAB PO SCH ×3 (08:56→20:52)
[2022-12-31] MEDS: ASPIRIN 81 MG PO SCH (08:56)
[2022-12-31] MEDS: METOPROLOL TARTRATE 50 MG TAB PO SCH ×2 (08:57→20:52)
[2022-12-31] MEDS: DULoxetine HCL 60 MG CAPSULE.DR PO SCH (08:57)
[2022-12-31] MEDS: CEFEPIME 2 GM in SODIUM CHLORIDE 0.9% 100 ML IVPB SCH ×2 (15:06→23:20)
--- NOTE | 2022-12-31 22:03 | P.CONS ---
History of Present Illness - Reason for Consult Consult date: 12/31/22 Bacteremia Requesting physician: Juan Douglas - Chief Complaint Back pain x few days - History of Present Illness Patient is a 62-year male with a past medical history significant for hypertension hyperlipidemia,, did have chronic bilateral extremity venous stasis ulcer and is mostly bedbound with a wound care provided by the visiting nurse and the patient patient presenting to the hospital yesterday for evaluation of left-sided chest pain apparently has been going on for a day or 2 before presentation to the hospital patient also coughing but no sputum production no nausea no vomiting no abdominal pain or any diarrhea patient on presentation to the hospital did have a low-grade fever of 99 degrees Fahrenheit no significant hypoxemia or need for supplemental oxygen he did have a white count of 16.2 with a left shift kidney function has been normal lactic acid was elevated urine has been positive with large leukocyte esterase more than 182 WBC patient did have a chest x-ray pleural reaction atelectasis right lung base which is new compared to old exam patient did have a lower extremity Doppler was negative for DVT patient did have blood cultures drawn coming back positive with gram-negative bacilli patient is currently on Rocephin infectious disease was consulted for further management of antibiotic therapy, patient did have a chronic nonhealing wound to the bilateral lower extremity however the patient currently is having worsening pain to the wound area or any foul-smelling drainage Review of Systems Positive point has been mentioned in the HPI rest of the systems are negative Past Medical History Past Medical History: Hyperlipidemia, Hypertension, Musculoskeletal Disorder, Sleep Apnea/CPAP/BIPAP, Vascular Disorder Additional Past Medical History / Comment(s): CHF, chronic back pain, cellulitis, DVT, nerve pain History of Any Multi-Drug Resistant Organisms: MRSA Year Discovered:: 12/08/19 MDRO Source:: Right Foot Past Surgical History: Cholecystectomy, Hernia Repair, Tonsillectomy Past Anesthesia/Blood Transfusion Reactions: No Reported Reaction Past Psychological History: No Psychological Hx Reported Past Alcohol Use History: None Reported Past Drug Use History: None Reported, Marijuana - Past Family History Father Family Medical History: Cancer, Prostate Disorder Mother Family Medical History: Cancer Medications and Allergies Home Medications Medication Instructions Recorded Confirmed Type lisinopriL [Zestril] 10 mg PO DAILY tab 11/26/18 01/09/23 Rx Aspirin EC [Ecotrin Low Dose] 81 mg PO DAILY 01/07/20 01/09/23 History Baclofen 10 mg PO TID 01/07/20 01/09/23 History DULoxetine HCL [Cymbalta] 120 mg PO DAILY 12/30/22 01/09/23 History Furosemide [Lasix] 80 mg PO DAILY 12/30/22 01/09/23 History HYDROcodone/APAP 10-325MG [Calcium 2 tab PO Q6H PRN 12/30/22 01/09/23 History 10-325] Metoprolol Tartrate [Lopressor] 50 mg PO BID 12/30/22 01/09/23 History Potassium Chloride [Klor-Con M20] 20 meq PO DAILY 12/30/22 01/09/23 History tiZANidine [Zanaflex] 2 mg PO Q8HR PRN 12/30/22 01/09/23 History Allergies Allergy/AdvReac Type Severity Reaction Status Date / Time No Known Allergies Allergy Verified 07/06/20 17:32 Physical Exam Vitals: Vital Signs Temp Pulse Pulse Resp BP BP Pulse Ox 12/31/22 07:36 98.4 F 80 18 107/64 95 12/31/22 01:17 98.1 F 77 18 97/63 92 L 12/30/22 18:35 97.9 F 98 20 134/84 92 L 12/30/22 17:56 100 12/30/22 17:41 98.5 F 101 H 18 121/77 17 L 12/30/22 16:49 89 18 121/10 100 12/30/22 14:37 98.4 F 80 18 120/68 95 12/30/22 12:16 102 H 18 120/68 12/30/22 11:47 98.8 F 108 H 22 120/68 96 Intake and Output 12/30/22 12/31/22 12/31/22 22:59 06:59 14:59 Output Total 3100 Balance -3100 Output: Urine 3100 Other: Voiding Method Indwelling Catheter Weight 140.5 kg GENERAL DESCRIPTION: Middle-aged male lying in bed, no distress. No tachypnea or accessory muscle of respiration use. HEENT: Shows Pallor , no scleral icterus. Oral mucous membrane is dry. No pharyngeal erythema or thrush NECK: Trachea central, no thyromegaly. LUNGS: Unlabored breathing. Decreased best for the base. No wheeze or crackle. HEART: S1, S2, regular rate and rhythm. No loud murmur ABDOMEN: Soft, no tenderness , guarding or rigidity, no organomegaly EXTREMITIES: Right foot with some superficial ulceration especially involving the toes and drainage minimal redness SKIN: No rash, no masses palpable. NEUROLOGICAL: The patient is awake, alert, oriented x3, mood and affect normal. Results CBC & Chem 7: 01/07/23 04:34 01/09/23 11:26 Labs: Abnormal Lab Results - Last 24 Hours (Table) 12/31/22 Range/Units 05:30 Sodium 136 L (137-145) mmol/L BUN 26 H (9-20) mg/dL Calcium 7.4 L (8.4-10.2) mg/dL Microbiology - Last 24 Hours (Table) 12/30/22 07:50 Blood Culture Gram Stain - Preliminary Blood 12/30/22 07:35 Blood Culture - Final Blood 12/30/22 07:50 Blood Culture - Final Blood Assessment and Plan (1) UTI (urinary tract infection) Status: Acute Code(s): N39.0 - URINARY TRACT INFECTION, SITE NOT SPECIFIED SNOMED Code(s): 40783478 (2) Positive blood culture Status: Acute Code(s): R78.81 - BACTEREMIA SNOMED Code(s): 753843567 Plan: 1patient with gram-negative bacteremia in this patient presented to hospital with left-sided chest pain in this patient who did have some pleural reaction/atelectasis at the lung base with concern for possible pneumonia versus UTI to be the source of this bacteremia as the patient has significantly positive UA he did have some complaint of chronic nonhealing wound but did not have significant redness or drainage to be concerned for the likely source of this bacteremia. 2we will discontinue Rocephin start the patient cefepime while waiting for ID sensitivity of this pathogen. 3try to obtain a sputum for Gram stain culture and follow-up on urine culture. 4local wound care to continue per the wound care team. We will follow on clinical condition and cultures to further adjust medication if needed Thank you for this consultation we will follow the patient along with you Time with Patient: Greater than 30
--- NOTE | 2022-12-31 23:10 | P.PN ---
Progress Note - Text Progress Note Date: 12/31/22 Chief Complaint: Left lateral chest pain This is a 62-year-old patient, follows with Dr. Chapman. Chronic stable medical conditions include hypertension, hyperlipidemia, obstructive sleep apnea, chronic bilateral lower extremity venous ulcers. From venous insufficiency. Patient has a lift chair and a chair at home. Wound care is done by a visiting nurse and patient's . Patient presents with 2 days of what he describes as left-sided lateral chest wall pain. Pain is worse with coughing and taking a deep breath. Patient rather sleepy for last 2 days. Decreased appetite. No nausea vomiting. No fever. No sputum production. Denies any off or shortness of breath Admitted with pneumonia, acute kidney injury. 12/31/2022: Doing better. Less chest wall pain. IV cefepime. Renal function better. IV fluids. Appetite picking up. Active Medications Acetaminophen (Acetaminophen Tab 325 Mg Tab) 650 mg PO Q6HR PRN PRN Reason: Mild Pain or Fever > 100.5 Hydrocodone Bitart/Acetaminophen (Hydrocodone/Apap 10-325mg 1 Each Tab) 2 each PO Q6H PRN PRN Reason: Moderate to Severe Pain (4-10) Last Admin: 12/31/22 20:52 Dose: 2 each Alprazolam (Alprazolam 0.25 Mg Tab) 0.25 mg PO Q6HR PRN PRN Reason: Anxiety Aspirin (Aspirin 81 Mg) 81 mg PO DAILY [facility] Last Admin: 12/31/22 08:56 Dose: 81 mg Baclofen (Baclofen 10 Mg Tab) 5 mg PO TID [facility] Last Admin: 12/31/22 20:52 Dose: 5 mg Calcium Carbonate/Glycine (Calcium Carbonate 500 Mg Chewable) 1,000 mg PO Q4HR PRN PRN Reason: Dyspepsia Duloxetine HCl (Duloxetine Hcl 60 Mg Capsule.) 120 mg PO DAILY [facility] Last Admin: 12/31/22 08:57 Dose: 120 mg Sodium Chloride (Saline 0.9%) 1,000 mls @ 75 mls/hr IV .[id number] [facility] Last Admin: 12/31/22 08:55 Dose: 75 mls/hr Cefepime HCl 2 gm/ Sodium (Chloride) 100 mls @ 25 mls/hr IVPB Q8HR [facility]; Protocol Last Admin: 12/31/22 15:06 Dose: 25 mls/hr Lactulose (Lactulose 20 Gm/30 Ml Cup) 20 gm PO DAILY PRN PRN Reason: Constipation Melatonin (Melatonin 3 Mg Tablet) 3 mg PO HS PRN PRN Reason: Insomnia Metoprolol Tartrate (Metoprolol Tartrate 50 Mg Tab) 50 mg PO BID [facility] Last Admin: 12/31/22 20:52 Dose: 50 mg Naloxone HCl (Naloxone 0.4 Mg/Ml 1 Ml Vial) 0.2 mg IV Q2M PRN PRN Reason: Opioid Reversal Ondansetron HCl (Ondansetron 4 Mg Tab) 4 mg PO Q8H PRN PRN Reason: Nausea Tizanidine HCl (Tizanidine 4 Mg Tab) 2 mg PO Q8HR PRN PRN Reason: Muscle Spasm Last Admin: 12/30/22 09:58 Dose: 2 mg Past medical history to include: Obstructive sleep apnea, hypertension, hyperlipidemia, bilateral lower extremity venous wounds, chronic venous insufficiency chronic medical debility Social history: Lives with his . Does use a lift chair in the wheelchair. Patient stopped smoking in 2018. No alcohol. Physical examination: VITAL SIGNS: 98.6, 76, 18, 100/64, 94% room air GENERAL: BMI 50.2, resting in bed. EYES: Pupils equal. Conjunctiva normal. HEENT: External appearance of nose and ears normal, oral cavity grossly normal. NECK: JVD unable to assess; masses not palpable. HEART: First and second heart sounds are normal; some edema. LUNGS: Respiratory rate normal; decreased breath sounds. ABDOMEN: Soft, nontender, liver spleen not palpable, no masses palpable. PSYCH: Alert and oriented x3; mood and affect normal. MUSCULOSKELETAL:No Clubbing/cyanosis;muscles-grossly intact. Possible OA. No tenderness over the left lateral chest wall. NEUROLOGICAL: Cranial nerves grossly intact; no facial asymmetry, power and sensation grossly intact. EXTREMITY: Bilateral lower extremity venous ulcers with a dressing in place. INVESTIGATIONS, reviewed in the clinical context: 12/31/2022: Potassium 3.6 creatinine 1.14 procalcitonin 1.24 White count 16.2 hemoglobin 13.6 platelets 460 sodium 140 potassium 3.8 BUN 29 creatinine 1.5 bun Lactic acid 6 and repeat 2.2 AST 34 ALT 53 alkaline phosphatase 1445 UA: Negative for nitrite Chest x-ray film personally reviewed by me-right basilar infiltrate Previous labs: Creatinine 0.03 June 2020 Assessment and plan: -Right lower lobe pneumonia, suspected gram-negative organism: Improving IV ceftriaxone -Acute kidney disease, possibly ATN, improving Proteinuria in the urine. Renal ultrasound. Gentle hydration repeat labs tomorrow. -Morbid obesity BMI 50.2 Weight loss measures -Chronic medical debility, and baseline uses a lift chair and a wheelchair -Bilateral chronic lower lower extremity venous ulcers Consult wound care team -Chronic lower external edema venous insufficiency -Depression and anxiety Cymbalta 120 mg a -Essential hypertension Lopressor 50 mg twice a day. -Chronic pain with muscle spasms [place], baclofen -Lactic acidosis possibly combination of infection and dehydration IV ceftriaxone. Gentle hydration. Fluid restriction 2000 mL a day. Wound care. Patient more awake. Pain medications again discuss. Better.
[2023-01-01] MEDS: HYDROcodone/APAP 10-325MG 1 EACH TAB PO PRN ×4 (03:17→22:00)
[2023-01-01] MEDS: SODIUM CHLORIDE 0.9% 1,000 ML IV SCH ×2 (06:29→23:09)
[2023-01-01 08:08] LABS: African American GFR (CKD) >90 (>60 ml/min/1.73 sqM); Anion Gap 8 mmol/L; Blood Urea Nitrogen 21 mg/dL (9-20); Calcium 7.2 mg/dL (8.4-10.2); Carbon Dioxide 23 mmol/L (22-30); Chloride 104 mmol/L (98-107); Glucose 78 mg/dL (74-99); Non-African American GFR(CKD) >90 (>60 ml/min/1.73 sqM); Sodium 135 mmol/L (137-145)
[2023-01-01 08:10] LABS: Potassium 3.9 mmol/L (3.5-5.1)
[2023-01-01] MEDS: CEFEPIME 2 GM in SODIUM CHLORIDE 0.9% 100 ML IVPB SCH (09:26)
[2023-01-01] MEDS: ASPIRIN 81 MG PO SCH (09:26)
[2023-01-01] MEDS: DULoxetine HCL 60 MG CAPSULE.DR PO SCH (09:26)
[2023-01-01] MEDS: METOPROLOL TARTRATE 50 MG TAB PO SCH ×2 (09:26→22:00)
[2023-01-01] MEDS: BACLOFEN 10 MG TAB PO SCH ×3 (09:27→22:00)
--- NOTE | 2023-01-01 16:26 | P.PN ---
Progress Note - Text Progress Note Date: 01/01/23 Chief Complaint: Left lateral chest pain This is a 62-year-old patient, follows with Dr. Chapman. Chronic stable medical conditions include hypertension, hyperlipidemia, obstructive sleep apnea, chronic bilateral lower extremity venous ulcers. From venous insufficiency. Patient has a lift chair and a chair at home. Wound care is done by a visiting nurse and patient's . Patient presents with 2 days of what he describes as left-sided lateral chest wall pain. Pain is worse with coughing and taking a deep breath. Patient rather sleepy for last 2 days. Decreased appetite. No nausea vomiting. No fever. No sputum production. Denies any off or shortness of breath Admitted with pneumonia, acute kidney injury. 12/31/2022: Doing better. Less chest wall pain. IV cefepime. Renal function better. IV fluids. Appetite picking up. 01/01/2023: Eating much better. Comfortable in bed. Kidney function better. Patient wants his baclofen to be increased to home dose. Pain medications discussed. Blood cultures positive for Klebsiella oxytoca. IV ceftriaxone. Repeat blood culture today. Active Medications Acetaminophen (Acetaminophen Tab 325 Mg Tab) 650 mg PO Q6HR PRN PRN Reason: Mild Pain or Fever > 100.5 Hydrocodone Bitart/Acetaminophen (Hydrocodone/Apap 10-325mg 1 Each Tab) 2 each PO Q6H PRN PRN Reason: Moderate to Severe Pain (4-10) Last Admin: 12/31/22 20:52 Dose: 2 each Alprazolam (Alprazolam 0.25 Mg Tab) 0.25 mg PO Q6HR PRN PRN Reason: Anxiety Aspirin (Aspirin 81 Mg) 81 mg PO DAILY [facility] Last Admin: 12/31/22 08:56 Dose: 81 mg Baclofen (Baclofen 10 Mg Tab) 5 mg PO TID [facility] Last Admin: 12/31/22 20:52 Dose: 5 mg Calcium Carbonate/Glycine (Calcium Carbonate 500 Mg Chewable) 1,000 mg PO Q4HR PRN PRN Reason: Dyspepsia Duloxetine HCl (Duloxetine Hcl 60 Mg Capsule.) 120 mg PO DAILY [facility] Last Admin: 12/31/22 08:57 Dose: 120 mg Sodium Chloride (Saline 0.9%) 1,000 mls @ 75 mls/hr IV .[id number] [facility] Last Admin: 12/31/22 08:55 Dose: 75 mls/hr Cefepime HCl 2 gm/ Sodium (Chloride) 100 mls @ 25 mls/hr IVPB Q8HR [facility]; Protocol Last Admin: 12/31/22 15:06 Dose: 25 mls/hr Lactulose (Lactulose 20 Gm/30 Ml Cup) 20 gm PO DAILY PRN PRN Reason: Constipation Melatonin (Melatonin 3 Mg Tablet) 3 mg PO HS PRN PRN Reason: Insomnia Metoprolol Tartrate (Metoprolol Tartrate 50 Mg Tab) 50 mg PO BID [facility] Last Admin: 12/31/22 20:52 Dose: 50 mg Naloxone HCl (Naloxone 0.4 Mg/Ml 1 Ml Vial) 0.2 mg IV Q2M PRN PRN Reason: Opioid Reversal Ondansetron HCl (Ondansetron 4 Mg Tab) 4 mg PO Q8H PRN PRN Reason: Nausea Tizanidine HCl (Tizanidine 4 Mg Tab) 2 mg PO Q8HR PRN PRN Reason: Muscle Spasm Last Admin: 12/30/22 09:58 Dose: 2 mg Past medical history to include: Obstructive sleep apnea, hypertension, hyperlipidemia, bilateral lower extremity venous wounds, chronic venous insufficiency chronic medical debility Social history: Lives with his . Does use a lift chair in the wheelchair. Patient stopped smoking in 2019. No alcohol. Physical examination: VITAL SIGNS: 98.4, 73, 18, 110/60, 94% room air GENERAL: BMI 50.2, resting in television EYES: Pupils equal. Conjunctiva normal. HEENT: External appearance of nose and ears normal, oral cavity grossly normal. NECK: JVD unable to assess; masses not palpable. HEART: First and second heart sounds are normal; some edema. LUNGS: Respiratory rate normal; decreased breath sounds. ABDOMEN: Soft, nontender, liver spleen not palpable, no masses palpable. PSYCH: Alert and oriented x3; mood and affect normal. MUSCULOSKELETAL:No Clubbing/cyanosis;muscles-grossly intact. Possible OA. No tenderness over the left lateral chest wall. EXTREMITY: Bilateral lower extremity venous ulcers with a dressing in place. INVESTIGATIONS, reviewed in the clinical context: 01/01/2023: Potassium 3.9 creatinine 0.81 12/31/2022: Potassium 3.6 creatinine 1.14 procalcitonin 1.24 White count 16.2 hemoglobin 13.6 platelets 460 sodium 140 potassium 3.8 BUN 29 creatinine 1.5 bun Lactic acid 6 and repeat 2.2 AST 34 ALT 53 alkaline phosphatase 1445 UA: Negative for nitrite Chest x-ray film personally reviewed by me-right basilar infiltrate Previous labs: Creatinine 0.03 June 2020 Assessment and plan: -Right lower lobe pneumonia, suspected gram-negative organism: Improving IV ceftriaxone -Sepsis and blood cultures positive from Klebsiella oxytoca likely UTI source Repeat blood cultures today. -Probable acute UTI with cystitis -Acute kidney disease, possibly ATN, improved Proteinuria in the urine. Renal ultrasound. Gentle hydration repeat labs tomorrow. -Morbid obesity BMI 50.2 Weight loss measures -Chronic medical debility, and baseline uses a lift chair and a wheelchair -Bilateral chronic lower lower extremity venous ulcers Consult wound care team -Chronic lower external edema venous insufficiency -Depression and anxiety Cymbalta 120 mg a -Essential hypertension Lopressor 50 mg twice a day. -Chronic pain with muscle spasms [place], baclofen -Lactic acidosis possibly combination of infection and dehydration IV ceftriaxone. Gentle hydration. Fluid restriction 2000 mL a day. Wound care. Increase baclofen to the home dose. Discussed with patient.
--- NOTE | 2023-01-01 22:34 | P.PN ---
Subjective Progress Note Date: 01/01/23 Principal diagnosis: Bacteremia Patient is a 62-year male with a past medical history significant for hypertension hyperlipidemia,, did have chronic bilateral extremity venous stasis ulcer and is mostly bedbound with a wound care provided by the visiting nurse, presented to hospital with left-sided chest pain, and this patient do have evidence of Klebsiella bacteremia. On today's evaluation that is 01/01/2023, the patient denies having any fever and chills currently breathing comfortably on room air patient denies chest pain occasional cough no nausea vomiting or diarrhea Objective - Vital Signs Vital signs: Vital Signs Temp 97.5 F L 01/01/23 07:06 Pulse 79 01/01/23 07:06 Resp 16 01/01/23 07:06 BP 133/79 01/01/23 07:06 Pulse Ox 94 L 01/01/23 07:06 FiO2 Intake & Output 12/31/22 01/01/23 01/01/23 18:59 06:59 18:59 Intake Total 240 580 Output Total 675 400 Balance -435 180 Weight 143 kg Intake: Oral 240 580 Output: Urine 675 400 Other: Voiding Method Indwelling Catheter Indwelling Catheter - Exam GENERAL DESCRIPTION: A middle-aged male lying in bed in no distress RESPIRATORY SYSTEM: Unlabored breathing , decreased breath sounds at bases HEART: S1 S2 regular rate and rhythm , ABDOMEN: Soft , no tenderness EXTREMITIES: Bilateral lower extremity currently dressed no drainage - Labs CBC & Chem 7: 12/30/22 05:38 01/01/23 06:58 Labs: Abnormal Lab Results - Last 24 Hours (Table) 12/31/22 01/01/23 Range/Units 05:30 06:58 Sodium 135 L (137-145) mmol/L BUN 21 H (9-20) mg/dL Calcium 7.2 L (8.4-10.2) mg/dL Procalcitonin 1.24 H (0.02-0.09) ng/mL Microbiology - Last 24 Hours (Table) 12/30/22 07:50 Blood Culture Gram Stain - Preliminary Blood Blood Culture - Preliminary Klebsiella oxytoca Assessment and Plan (1) Positive blood culture Current Visit: Yes Status: Acute Code(s): R78.81 - BACTEREMIA SNOMED Code(s): 054273359 Plan: 1patient with gram-negative bacteremia in this patient presented to hospital with left-sided chest pain in this patient who did have some pleural reaction/atelectasis at the lung base with concern for possible pneumonia versus UTI to be the source of this bacteremia as the patient has significantly positive UA he did have some complaint of chronic nonhealing wound but did not have significant redness or drainage to be concerned for the likely source of this bacteremia. 2patient antibiotics switched over to Rocephin because it is sensitive pathogen 3try to obtain a sputum for Gram stain culture and follow-up on urine culture. 4local wound care to continue per the wound care team. Time with Patient: Less than 30
[2023-01-02] MEDS: BACLOFEN 10 MG TAB PO SCH (09:50)
[2023-01-02] MEDS: METOPROLOL TARTRATE 50 MG TAB PO SCH ×2 (09:50→21:18)
[2023-01-02] MEDS: DULoxetine HCL 60 MG CAPSULE.DR PO SCH (09:50)
[2023-01-02] MEDS: ASPIRIN 81 MG PO SCH (09:50)
[2023-01-02] MEDS: HYDROcodone/APAP 10-325MG 1 EACH TAB PO PRN ×2 (09:50→15:32)
--- NOTE | 2023-01-02 12:38 | P.PN ---
Subjective Progress Note Date: 01/02/23 Principal diagnosis: Bacteremia Patient is a 62-year male with a past medical history significant for hypertension hyperlipidemia,, did have chronic bilateral extremity venous stasis ulcer and is mostly bedbound with a wound care provided by the visiting nurse, presented to hospital with left-sided chest pain, and this patient do have evidence of Klebsiella bacteremia. On today's evaluation that is 01/02/2023, the patient remains to be afebrile, the patient is breathing comfortably on room air patient denies chest pain has been complaining of cough but no sputum production, no nausea vomiting or diarrhea Objective - Vital Signs Vital signs: Vital Signs Temp 98.4 F 01/02/23 07:11 Pulse 78 01/02/23 07:11 Resp 18 01/02/23 07:11 BP 144/73 01/02/23 07:11 Pulse Ox 94 L 01/02/23 07:11 FiO2 Intake & Output 01/01/23 01/02/23 01/02/23 18:59 06:59 18:59 Intake Total 1000 240 Output Total 500 800 Balance -500 200 240 Weight 143 kg Intake: Intake, IV Titration 600 Amount Sodium Chloride 0.9% 1, 600 000 ml @ 50 mls/hr IV . Q20H [facility] Rx#:[id number] Oral 400 240 Output: Urine 500 800 Other: Voiding Method Indwelling Catheter Indwelling Catheter - Exam GENERAL DESCRIPTION: A middle-aged male lying in bed in no distress RESPIRATORY SYSTEM: Unlabored breathing , decreased breath sounds at bases HEART: S1 S2 regular rate and rhythm , ABDOMEN: Soft , no tenderness EXTREMITIES: Bilateral lower extremity currently dressed no drainage - Labs CBC & Chem 7: 12/30/22 05:38 01/01/23 06:58 Labs: Microbiology - Last 24 Hours (Table) 12/30/22 07:35 Blood Culture Gram Stain - Preliminary Blood Blood Culture - Preliminary Gram Neg Bacilli 12/30/22 07:50 Blood Culture Gram Stain - Preliminary Blood Blood Culture - Preliminary Klebsiella oxytoca Assessment and Plan (1) Positive blood culture Current Visit: Yes Status: Acute Code(s): R78.81 - BACTEREMIA SNOMED Code(s): 759549078 Plan: 1patient with gram-negative bacteremia in this patient presented to hospital with left-sided chest pain in this patient who did have some pleural reaction/atelectasis at the lung base with concern for possible pneumonia versus UTI to be the source of this bacteremia as the patient has significantly positive UA he did have some complaint of chronic nonhealing wound but did not have significant redness or drainage to be concerned for the likely source of this bacteremia. 2local wound care to continue per the wound care team. 3-patient to continue with Rocephin while inpatient finishing therapy with oral antibiotics Time with Patient: Less than 30
[2023-01-02] MEDS: CYCLOBENZAPRINE 10 MG TAB PO SCH ×2 (15:30→21:18)
--- NOTE | 2023-01-02 17:38 | P.PN ---
Progress Note - Text Progress Note Date: 01/02/23 Chief Complaint: Left lateral chest pain This is a 62-year-old patient, follows with Dr. Chapman. Chronic stable medical conditions include hypertension, hyperlipidemia, obstructive sleep apnea, chronic bilateral lower extremity venous ulcers. From venous insufficiency. Patient has a lift chair and a chair at home. Wound care is done by a visiting nurse and patient's . Patient presents with 2 days of what he describes as left-sided lateral chest wall pain. Pain is worse with coughing and taking a deep breath. Patient rather sleepy for last 2 days. Decreased appetite. No nausea vomiting. No fever. No sputum production. Denies any off or shortness of breath Admitted with pneumonia, acute kidney injury. 12/31/2022: Doing better. Less chest wall pain. IV cefepime. Renal function better. IV fluids. Appetite picking up. 01/01/2023: Eating much better. Comfortable in bed. Kidney function better. Patient wants his baclofen to be increased to home dose. Pain medications discussed. Blood cultures positive for Klebsiella oxytoca. IV ceftriaxone. Repeat blood culture today. 01/02/2023: Repeat blood cultures done yesterday. Eating well. Patient felt maybe was too sleepy with his baclofen. Being changed to Flexeril. Discussed with patient. Active Medications Acetaminophen (Acetaminophen Tab 325 Mg Tab) 650 mg PO Q6HR PRN PRN Reason: Mild Pain or Fever > 100.5 Hydrocodone Bitart/Acetaminophen (Hydrocodone/Apap 10-325mg 1 Each Tab) 2 each PO Q6H PRN PRN Reason: Moderate to Severe Pain (4-10) Last Admin: 01/02/23 15:32 Dose: 2 each Alprazolam (Alprazolam 0.25 Mg Tab) 0.25 mg PO Q6HR PRN PRN Reason: Anxiety Aspirin (Aspirin 81 Mg) 81 mg PO DAILY [facility] Last Admin: 01/02/23 09:50 Dose: 81 mg Calcium Carbonate/Glycine (Calcium Carbonate 500 Mg Chewable) 1,000 mg PO Q4HR PRN PRN Reason: Dyspepsia Cyclobenzaprine HCl (Cyclobenzaprine 10 Mg Tab) 10 mg PO TID [facility] Last Admin: 01/02/23 15:30 Dose: 10 mg Duloxetine HCl (Duloxetine Hcl 60 Mg Capsule.) 120 mg PO DAILY [facility] Last Admin: 01/02/23 09:50 Dose: 120 mg Sodium Chloride (Saline 0.9%) 1,000 mls @ 50 mls/hr IV .Q20H [facility] Last Admin: 01/01/23 23:09 Dose: 50 mls/hr Ceftriaxone Sodium 2 gm/ (Sodium Chloride) 50 mls @ 100 mls/hr IVPB Q24HR [facility]; Protocol Last Admin: 01/02/23 09:47 Dose: 100 mls/hr Lactulose (Lactulose 20 Gm/30 Ml Cup) 20 gm PO DAILY PRN PRN Reason: Constipation Melatonin (Melatonin 3 Mg Tablet) 3 mg PO HS PRN PRN Reason: Insomnia Metoprolol Tartrate (Metoprolol Tartrate 50 Mg Tab) 50 mg PO BID [facility] Last Admin: 01/02/23 09:50 Dose: 50 mg Naloxone HCl (Naloxone 0.4 Mg/Ml 1 Ml Vial) 0.2 mg IV Q2M PRN PRN Reason: Opioid Reversal Ondansetron HCl (Ondansetron 4 Mg Tab) 4 mg PO Q8H PRN PRN Reason: Nausea Tizanidine HCl (Tizanidine 4 Mg Tab) 2 mg PO Q8HR PRN PRN Reason: Muscle Spasm Last Admin: 12/30/22 09:58 Dose: 2 mg Past medical history to include: Obstructive sleep apnea, hypertension, hyperlipidemia, bilateral lower extremity venous wounds, chronic venous insufficiency chronic medical debility Social history: Lives with his . Does use a lift chair in the wheelchair. Patient stopped smoking in 2019. No alcohol. Physical examination: VITAL SIGNS: 98.4, 78, 18, 140/73, 94% room air GENERAL: Resting, comfortable EYES: Pupils equal. Conjunctiva normal. HEENT: External appearance of nose and ears normal, oral cavity grossly normal. NECK: JVD unable to assess; masses not palpable. HEART: First and second heart sounds are normal; some edema. LUNGS: Respiratory rate normal; decreased breath sounds. ABDOMEN: Soft, nontender, liver spleen not palpable, no masses palpable. PSYCH: Alert and oriented x3; mood and affect normal. MUSCULOSKELETAL:No Clubbing/cyanosis;muscles-grossly intact. Possible OA. No tenderness over the left lateral chest wall. EXTREMITY: Bilateral lower extremity venous ulcers with a dressing in place. INVESTIGATIONS, reviewed in the clinical context: 01/01/2023: Potassium 3.9 creatinine 0.81 12/31/2022: Potassium 3.6 creatinine 1.14 procalcitonin 1.24 White count 16.2 hemoglobin 13.6 platelets 460 sodium 140 potassium 3.8 BUN 29 creatinine 1.5 bun Lactic acid 6 and repeat 2.2 AST 34 ALT 53 alkaline phosphatase 1445 UA: Negative for nitrite Chest x-ray film personally reviewed by me-right basilar infiltrate Previous labs: Creatinine 0.03 June 2020 Assessment and plan: -Right lower lobe pneumonia, suspected gram-negative organism: Improving IV ceftriaxone -Sepsis and blood cultures positive from Klebsiella oxytoca likely UTI source Culture positive from December 30. Repeat blood cultures January 01 pending -Probable acute UTI with cystitis -Acute kidney disease, possibly ATN, improved Proteinuria in the urine. Renal ultrasound. Gentle hydration repeat labs tomorrow. -Morbid obesity BMI 50.2 Weight loss measures -Chronic medical debility, and baseline uses a lift chair and a wheelchair -Bilateral chronic lower lower extremity venous ulcers Follow with wound care team -Chronic lower external edema venous insufficiency -Depression and anxiety Cymbalta 120 mg a -Essential hypertension Lopressor 50 mg twice a day. -Chronic pain with muscle spasms [place], baclofen discontinued because of somnolence. Start Flexeril -Lactic acidosis possibly combination of infection and dehydration IV ceftriaxone. Gentle hydration. Fluid restriction 2000 mL a day. Wound care. Stop baclofen. Start Flexeril because of sleepiness.. Repeat cultures pending from yesterday.
[2023-01-02] MEDS: SODIUM CHLORIDE 0.9% 1,000 ML IV SCH (19:52)
[2023-01-03 07:00] LABS: Basophils # (A) 0.1 k/uL (0-0.2); Basophils % (A) 1 %; Eosinophils # (A) 0.2 k/uL (0-0.7); Eosinophils % (A) 2 %; HCT 39.8 % (39.0-53.0); HGB 12.8 gm/dL (13.0-17.5); Lymphocytes # (A) 1.5 k/uL (1.0-4.8); Lymphocytes % (A) 10 %; MCH 28.9 pg (25.0-35.0); MCHC 32.2 g/dL (31.0-37.0); MCV 89.8 fL (80.0-100.0); Mean Platelet Volume 7.4; Monocytes # (A) 0.8 k/uL (0-1.0); Monocytes % (A) 5 %; Neutrophils # (A) 12.2 k/uL (1.3-7.7); Neutrophils % (A) 81 %; Platelet Count 309 k/uL (150-450); RBC 4.44 m/uL (4.30-5.90); RDW 14.6 % (11.5-15.5); WBC 15.1 k/uL (3.8-10.6)
[2023-01-03] MEDS: METOPROLOL TARTRATE 50 MG TAB PO SCH ×2 (10:06→21:35)
[2023-01-03] MEDS: ASPIRIN 81 MG PO SCH (10:06)
[2023-01-03] MEDS: CYCLOBENZAPRINE 10 MG TAB PO SCH ×3 (10:06→21:34)
[2023-01-03] MEDS: DULoxetine HCL 60 MG CAPSULE.DR PO SCH (10:06)
--- NOTE | 2023-01-03 13:24 | P.PN ---
Subjective Progress Note Date: 01/03/23 Principal diagnosis: Bacteremia Patient is a 62-year male with a past medical history significant for hypertension hyperlipidemia,, did have chronic bilateral extremity venous stasis ulcer and is mostly bedbound with a wound care provided by the visiting nurse, presented to hospital with left-sided chest pain, and this patient do have evidence of Klebsiella bacteremia. On today's evaluation that is 01/03/2023, the patient continues to be afebrile, the patient is breathing comfortably on room air patient denies chest pain however the patient has been complaining of cough but not bringing up any sputum production, no nausea vomiting or diarrhea Objective - Vital Signs Vital signs: Vital Signs Temp 99.1 F 01/03/23 08:00 Pulse 89 01/03/23 08:00 Resp 18 01/03/23 02:21 BP 127/68 01/03/23 08:00 Pulse Ox 95 01/03/23 08:00 FiO2 Intake & Output 01/02/23 01/03/23 01/03/23 18:59 06:59 18:59 Intake Total 890 900 Output Total 650 Balance 890 250 Intake: Intake, IV Titration 650 600 Amount Sodium Chloride 0.9% 1, 600 600 000 ml @ 50 mls/hr IV . Q20H [facility] Rx#:[id number] cefTRIAXone 2 gm In 50 Sodium Chloride 0.9% 50 ml @ 100 mls/hr IVPB Q24HR [facility] Rx#:[id number] Oral 240 300 Output: Urine 650 Other: Voiding Method Indwelling Catheter Indwelling Catheter Indwelling Catheter - Exam GENERAL DESCRIPTION: A middle-aged male lying in bed in no distress RESPIRATORY SYSTEM: Unlabored breathing , decreased breath sounds at bases HEART: S1 S2 regular rate and rhythm , ABDOMEN: Soft , no tenderness EXTREMITIES: Bilateral lower extremity currently dressed no drainage - Labs CBC & Chem 7: 01/03/23 06:36 01/01/23 06:58 Labs: Abnormal Lab Results - Last 24 Hours (Table) 01/03/23 01/03/23 Range/Units 06:36 06:36 WBC 15.1 H (3.8-10.6) k/uL Hgb 12.8 L (13.0-17.5) gm/dL Neutrophils # 12.2 H (1.3-7.7) k/uL Procalcitonin 0.88 H (0.02-0.09) ng/mL Microbiology - Last 24 Hours (Table) 01/01/23 18:44 Blood Culture - Preliminary Blood No Growth after 24 hours 12/30/22 07:35 Blood Culture Gram Stain - Final Blood Blood Culture - Final Klebsiella oxytoca 12/30/22 07:50 Blood Culture Gram Stain - Final Blood Blood Culture - Final Klebsiella oxytoca Assessment and Plan (1) Positive blood culture Current Visit: Yes Status: Acute Code(s): R78.81 - BACTEREMIA SNOMED Code(s): 701299564 Plan: 1patient with gram-negative bacteremia in this patient presented to hospital with left-sided chest pain in this patient who did have some pleural reaction/atelectasis at the lung base with concern for possible pneumonia versus UTI to be the source of this bacteremia as the patient has significantly positive UA he did have some complaint of chronic nonhealing wound but did not have significant redness or drainage to be concerned for the likely source of this bacteremia. 2local wound care to continue per the wound care team. 3-patient fever has a son white count is still elevated but trending down, patient to continue with Rocephin while inpatient finishing therapy with oral antibiotics Time with Patient: Less than 30
--- NOTE | 2023-01-03 15:30 | P.PN ---
Progress Note - Text Progress Note Date: 01/03/23 Chief Complaint: Left lateral chest pain This is a 62-year-old patient, follows with Dr. Chapman. Chronic stable medical conditions include hypertension, hyperlipidemia, obstructive sleep apnea, chronic bilateral lower extremity venous ulcers. From venous insufficiency. Patient has a lift chair and a chair at home. Wound care is done by a visiting nurse and patient's . Patient presents with 2 days of what he describes as left-sided lateral chest wall pain. Pain is worse with coughing and taking a deep breath. Patient rather sleepy for last 2 days. Decreased appetite. No nausea vomiting. No fever. No sputum production. Denies any off or shortness of breath Admitted with pneumonia, acute kidney injury. 12/31/2022: Doing better. Less chest wall pain. IV cefepime. Renal function better. IV fluids. Appetite picking up. 01/01/2023: Eating much better. Comfortable in bed. Kidney function better. Patient wants his baclofen to be increased to home dose. Pain medications discussed. Blood cultures positive for Klebsiella oxytoca. IV ceftriaxone. Repeat blood culture today. 01/02/2023: Repeat blood cultures done yesterday. Eating well. Patient felt maybe was too sleepy with his baclofen. Being changed to Flexeril. Discussed with patient. 01/03/2023: Eating well. Flexeril is working from better than baclofen. fast food restaurant manager called me to inform that the could not manage at home. Wants permanent placement for him. Repeat blood cultures from January 01 negative to now. Active Medications Acetaminophen (Acetaminophen Tab 325 Mg Tab) 650 mg PO Q6HR PRN PRN Reason: Mild Pain or Fever > 100.5 Hydrocodone Bitart/Acetaminophen (Hydrocodone/Apap 10-325mg 1 Each Tab) 2 each PO Q6H PRN PRN Reason: Moderate to Severe Pain (4-10) Last Admin: 01/02/23 15:32 Dose: 2 each Alprazolam (Alprazolam 0.25 Mg Tab) 0.25 mg PO Q6HR PRN PRN Reason: Anxiety Aspirin (Aspirin 81 Mg) 81 mg PO DAILY JOSHUA Last Admin: 01/03/23 10:06 Dose: 81 mg Calcium Carbonate/Glycine (Calcium Carbonate 500 Mg Chewable) 1,000 mg PO Q4HR PRN PRN Reason: Dyspepsia Cyclobenzaprine HCl (Cyclobenzaprine 10 Mg Tab) 10 mg PO TID COUNT INCLUDES THE [facility] Last Admin: 01/03/23 10:06 Dose: 10 mg Duloxetine HCl (Duloxetine Hcl 60 Mg Capsule.Dr) 120 mg PO DAILY COUNT INCLUDES THE [facility] Last Admin: 01/03/23 10:06 Dose: 120 mg Sodium Chloride (Saline 0.9%) 1,000 mls @ 50 mls/hr IV .Q20H COUNT INCLUDES THE [facility] Last Admin: 01/02/23 19:52 Dose: 50 mls/hr Ceftriaxone Sodium 2 gm/ (Sodium Chloride) 50 mls @ 100 mls/hr IVPB Q24HR COUNT INCLUDES THE [facility]; Protocol Last Admin: 01/03/23 10:05 Dose: 100 mls/hr Lactulose (Lactulose 20 Gm/30 Ml Cup) 20 gm PO DAILY PRN PRN Reason: Constipation Melatonin (Melatonin 3 Mg Tablet) 3 mg PO HS PRN PRN Reason: Insomnia Metoprolol Tartrate (Metoprolol Tartrate 50 Mg Tab) 50 mg PO BID COUNT INCLUDES THE [facility] Last Admin: 01/03/23 10:06 Dose: 50 mg Naloxone HCl (Naloxone 0.4 Mg/Ml 1 Ml Vial) 0.2 mg IV Q2M PRN PRN Reason: Opioid Reversal Ondansetron HCl (Ondansetron 4 Mg Tab) 4 mg PO Q8H PRN PRN Reason: Nausea Tizanidine HCl (Tizanidine 4 Mg Tab) 2 mg PO Q8HR PRN PRN Reason: Muscle Spasm Last Admin: 12/30/22 09:58 Dose: 2 mg Past medical history to include: Obstructive sleep apnea, hypertension, hyperlipidemia, bilateral lower extremity venous wounds, chronic venous insufficiency chronic medical debility Social history: Lives with his . Does use a lift chair in the wheelchair. Patient stopped smoking in 2019. No alcohol. Physical examination: VITAL SIGNS: 97.6, 86, 18, 1 29 x 78, 96% room air GENERAL: Resting, comfortable EYES: Pupils equal. Conjunctiva normal. HEENT: External appearance of nose and ears normal, oral cavity grossly normal. NECK: JVD unable to assess; masses not palpable. HEART: First and second heart sounds are normal; some edema. LUNGS: Respiratory rate normal; decreased breath sounds. ABDOMEN: Soft, nontender, liver spleen not palpable, no masses palpable. PSYCH: Alert and oriented x3; mood and affect normal. MUSCULOSKELETAL:No Clubbing/cyanosis;muscles-grossly intact. Possible OA. No tenderness over the left lateral chest wall. EXTREMITY: Bilateral lower extremity venous ulcers with a dressing in place. INVESTIGATIONS, reviewed in the clinical context: 01/03/2023: White count hemoglobin 12.8 procalcitonin 0.88 01/01/2023: Potassium 3.9 creatinine 0.81 12/31/2022: Potassium 3.6 creatinine 1.14 procalcitonin 1.24 White count 16.2 hemoglobin 13.6 platelets 460 sodium 140 potassium 3.8 BUN 29 creatinine 1.5 bun Lactic acid 6 and repeat 2.2 AST 34 ALT 53 alkaline phosphatase 1445 UA: Negative for nitrite Chest x-ray film personally reviewed by me-right basilar infiltrate Previous labs: Creatinine 0.03 June 2020 Assessment and plan: -Right lower lobe pneumonia, suspected gram-negative organism: Improving IV ceftriaxone -Sepsis and blood cultures positive from Klebsiella oxytoca likely UTI source Culture positive from December 30. Repeat blood cultures January 01 pending -Probable acute UTI with cystitis IV ceftriaxone -Acute kidney disease, possibly ATN, : Resolved Proteinuria in the urine. Renal ultrasound. -Morbid obesity BMI 50.2 Weight loss measures -Chronic medical debility, and baseline uses a lift chair and a wheelchair -Bilateral chronic lower lower extremity venous ulcers Follow with wound care team -Chronic lower external edema venous insufficiency -Depression and anxiety Cymbalta 120 mg a -Essential hypertension Lopressor 50 mg twice a day. -Chronic pain with muscle spasms [place], baclofen discontinued because of somnolence. Start Flexeril -Lactic acidosis possibly combination of infection and dehydration -Full code -Disposition: Patient's does not want him back, she could not manage him. fast food restaurant manager looking into permanent placement IV ceftriaxone. . Fluid restriction 2000 mL a day. Wound care. . Repeat cultures pending January 01.
[2023-01-03] MEDS: HYDROcodone/APAP 10-325MG 1 EACH TAB PO PRN (15:45)
[2023-01-03] MEDS: SODIUM CHLORIDE 0.9% 1,000 ML IV SCH (18:17)
[2023-01-04] MEDS: ASPIRIN 81 MG PO SCH (09:31)
[2023-01-04] MEDS: DULoxetine HCL 60 MG CAPSULE.DR PO SCH (09:31)
[2023-01-04] MEDS: METOPROLOL TARTRATE 50 MG TAB PO SCH ×2 (09:31→20:13)
[2023-01-04] MEDS: HYDROcodone/APAP 10-325MG 1 EACH TAB PO PRN ×2 (09:49→15:33)
[2023-01-04] MEDS: CYCLOBENZAPRINE 10 MG TAB PO SCH ×3 (10:07→20:13)
[2023-01-04 12:32] VITALS: BMI 45.2
[2023-01-04] MEDS: COLLAGENASE 250 UNIT/GM OINTMENT 30 GM TUBE TOPICAL SCH (16:04)
--- NOTE | 2023-01-04 16:40 | P.PN ---
Subjective Progress Note Date: 01/04/23 This is a 62 year old male who is monitored on medical floor and currently pending ECF placement. Patient is admitted for chronic back pain and chronic wounds with multiple medical comorbidities. Patient has been found to have blood culture positive x2 for klebsiella oxytoca and continues on IV ceftriaxone. Repeat blood culture is negative so far at 48 hours, infectious disease is following closely. Patient is noted today to have injected sclera and crusting to the right eye concerning for acute conjunctivitis and eye drops will be added. Wound care evaluation completed and local wound care continues to bilateral lower extremity ulcerations with honey gel absorptive silver moistened abd and rolled gauze. Change MWF. Patient has refused followed up wound center at this time. White count remains elevated at 15.1, procalcitonin is trending down and currently 0.88. Patients has been caring for patient at home and currently unable to do so anymore. Patient requires ECF placement. Review of Systems Constitutional: Denied any fatigue denied any fever. Cardio vascular: denied any chest pain, palpitations Gastrointestinal: denied any nausea, vomiting, diarrhea Pulmonary: Denied any shortness of breath cough Neurologic denied any new focal deficits All inpatient medications were reviewed and appropriate changes in these medications as dictated in the interval history and assessment and plan. PHYSICAL EXAMINATION: GENERAL: The patient is alert and oriented x3, not in any acute distress. Well developed, well nourished. HEENT: Pupils are round and equally reacting to light. EOMI. No scleral icterus. No conjunctival pallor. Normocephalic, atraumatic. No pharyngeal erythema. No th yromegaly. CARDIOVASCULAR: S1 and S2 present. No murmurs, rubs, or gallops. PULMONARY: Chest is clear to auscultation, no wheezing or crackles. ABDOMEN: Soft, nontender, nondistended, normoactive bowel sounds. No palpable organomegaly. MUSCULOSKELETAL: No joint swelling or deformity. EXTREMITIES: No cyanosis, clubbing, or pedal edema. NEUROLOGICAL: Gross neurological examination did not reveal any focal deficits. SKIN: No rashes. Assessment and Plan -Right lower lobe pneumonia, suspected gram-negative organism: Improving IV ceftriaxone -Sepsis and blood cultures positive from Klebsiella oxytoca likely UTI source Blood culture positive x2 and repeat blood culture is currently pending and preliminary showing negative at 48 hours -Probable acute UTI with cystitis IV ceftriaxone -Acute kidney disease, possibly ATN, : Resolved Proteinuria in the urine. Renal ultrasound. -Morbid obesity BMI 50.2 Weight loss measures -Chronic medical debility, and baseline uses a lift chair and a wheelchair Family unable to care for patient at home and patient is pending ECF placement -Bilateral chronic lower lower extremity venous ulcers Follow with wound care team, wound care in place with honey gel and absorptive silver change MWF -Chronic lower external edema venous insufficiency -Depression and anxiety Cymbalta 120 mg -Essential hypertension Lopressor 50 mg twice a day. -Chronic pain with muscle spasms [place] and flexeril. Patient is also on tizanidine PRN. Baclofen has been discontinued secondary to somnolence. -Lactic acidosis possibly combination of infection and dehydration Resolved -Full code -Disposition: Patient's does not want him back, she could not manage him. research & analytics manager looking into permanent placement. Patient continues on IV ceftriaxone and repeat cultures are pending. ID is following closely. Continue with local wound care as above. Patient is noted to have crusting and drainage from right eye and will be treated for bacterial conjunctivitis. Recommend to continue pressure offloading. Continue supportive care with pain management and antispasmodics. Monitor renal function. The impression and plan of care has been dictated by Jeanette Mata, Nurse Practitioner as directed. Dr. Annalise MD I have performed a history and physical examination and medical decision making of this patient, discussed the same with the dictator, and agree with the dictators assessment and plan as written, documented as a scribe. Based on total visit time, I have performed more than 50% of this visit. Objective - Vital Signs Vital signs: Vital Signs Temp 97.7 F 01/04/23 07:37 Pulse 99 01/04/23 07:37 Resp 20 01/04/23 07:37 BP 126/76 01/04/23 07:37 Pulse Ox 92 L 01/04/23 07:37 FiO2 Intake & Output 01/03/23 01/04/23 01/04/23 18:59 06:59 18:59 Intake Total 720 370 Output Total 500 550 Balance 220 -180 Intake: Intake, IV Titration 120 Amount Sodium Chloride 0.9% 1, 120 000 ml @ 10 mls/hr IV . Q24H [facility] Rx#:[id number] Oral 720 250 Output: Urine 500 550 Other: Voiding Method Indwelling Catheter Indwelling Catheter - Labs CBC & Chem 7: 01/03/23 06:36 01/01/23 06:58 Labs: Abnormal Lab Results - Last 24 Hours (Table) 01/03/23 Range/Units 06:36 Procalcitonin 0.88 H (0.02-0.09) ng/mL Microbiology - Last 24 Hours (Table) 01/01/23 18:44 Blood Culture - Preliminary Blood No Growth after 48 hours Assessment and Plan Time with Patient: Less than 30
[2023-01-04] MEDS: SODIUM CHLORIDE 0.9% 1,000 ML IV SCH (17:58)
[2023-01-04] MEDS: POLYMYXIN B-TRIMETHOPRIM SULF (10,000-1) OPHTH DROPS 10 ML BTL RIGHT EYE SCH ×2 (17:59→23:43)
[2023-01-05] MEDS: POLYMYXIN B-TRIMETHOPRIM SULF (10,000-1) OPHTH DROPS 10 ML BTL RIGHT EYE SCH ×4 (05:20→23:49)
[2023-01-05] MEDS: HYDROcodone/APAP 10-325MG 1 EACH TAB PO PRN ×2 (05:24→21:58)
[2023-01-05] MEDS: DULoxetine HCL 60 MG CAPSULE.DR PO SCH (10:47)
[2023-01-05] MEDS: ASPIRIN 81 MG PO SCH (10:47)
[2023-01-05] MEDS: CYCLOBENZAPRINE 10 MG TAB PO SCH ×3 (10:47→21:58)
[2023-01-05] MEDS: COLLAGENASE 250 UNIT/GM OINTMENT 30 GM TUBE TOPICAL SCH (10:48)
[2023-01-05] MEDS: METOPROLOL TARTRATE 50 MG TAB PO SCH ×2 (11:10→20:09)
[2023-01-05] MEDS: FAMOTIDINE 20 MG TAB PO SCH (11:10)
[2023-01-05] MEDS: SODIUM CHLORIDE 0.9% 1,000 ML IV SCH (15:20)
--- NOTE | 2023-01-05 15:34 | P.PN ---
Subjective Progress Note Date: 01/05/23 This is a 62 year old male who is monitored on medical floor and currently pending ECF placement. Patient is admitted for chronic back pain and chronic wounds with multiple medical comorbidities. Patient has been found to have blood culture positive x2 for klebsiella oxytoca and continues on IV ceftriaxone. Repeat blood culture is negative so far at 48 hours, infectious disease is following closely. Patient is noted today to have injected sclera and crusting to the right eye concerning for acute conjunctivitis and eye drops will be added. Wound care evaluation completed and local wound care continues to bilateral lower extremity ulcerations with honey gel absorptive silver moistened abd and rolled gauze. Change MWF. Patient has refused followed up wound center at this time. White count remains elevated at 15.1, procalcitonin is trending down and currently 0.88. Patients has been caring for patient at home and currently unable to do so anymore. Patient requires ECF placement. 01/05/2023 Patient is evaluated today resting in bed on medical floor. Continues on IV ceftriaxone for urine culture showing klebsiella oxytoca x 2. And repeat blood culture is negative so far at 72 hours. Patient is given incentive spirometer for low oxygen saturation. He is receiving local wound care to lower extremity. [place] and verna. White count is 15.1 today. Review of Systems Constitutional: Denied any fatigue denied any fever. Cardio vascular: denied any chest pain, palpitations Gastrointestinal: denied any nausea, vomiting, diarrhea Pulmonary: Denied any shortness of breath cough Neurologic denied any new focal deficits All inpatient medications were reviewed and appropriate changes in these medications as dictated in the interval history and assessment and plan. PHYSICAL EXAMINATION: GENERAL: The patient is alert and oriented x3, not in any acute distress. Well developed, well nourished. HEENT: Pupils are round and equally reacting to light. EOMI. No scleral icterus. No conjunctival pallor. Normocephalic, atraumatic. No pharyngeal erythema. No thyromegaly. CARDIOVASCULAR: S1 and S2 present. No murmurs, rubs, or gallops. PULMONARY: Chest is clear to auscultation, no wheezing or crackles. ABDOMEN: Soft, nontender, nondistended, normoactive bowel sounds. No palpable organomegaly. MUSCULOSKELETAL: No joint swelling or deformity. EXTREMITIES: No cyanosis, clubbing, or pedal edema. NEUROLOGICAL: Gross neurological examination did not reveal any focal deficits. SKIN: No rashes. Assessment and Plan -Right lower lobe pneumonia, suspected gram-negative organism: Improving IV ceftriaxone -Sepsis and blood cultures positive from Klebsiella oxytoca likely UTI source Blood culture positive x2 and repeat blood culture is currently pending and preliminary showing negative at 48 hours -Probable acute UTI with cystitis IV ceftriaxone -Acute kidney disease, possibly ATN, : Resolved Proteinuria in the urine. Renal ultrasound. -Morbid obesity BMI 50.2 Weight loss measures -Chronic medical debility, and baseline uses a lift chair and a wheelchair Family unable to care for patient at home and patient is pending ECF placement -Bilateral chronic lower lower extremity venous ulcers Follow with wound care team, wound care in place with honey gel and absorptive silver change MWF -Chronic lower external edema venous insufficiency -Depression and anxiety Cymbalta 120 mg -Essential hypertension Lopressor 50 mg twice a day. -Chronic pain with muscle spasms [place] and flexeril. Patient is also on tizanidine PRN. Baclofen has been discontinued secondary to somnolence. -Lactic acidosis possibly combination of infection and dehydration Resolved -Full code -Disposition: Patient's does not want him back, she could not manage him. mobile development manager looking into permanent placement. Patient continues on IV ceftriaxone and repeat cultures are pending. ID is following closely. Continue with local wound care as above. Patient is noted to have crusting and drainage from right eye and will be treated for bacterial conjunctivitis. Recommend to continue pressure offloading. Continue supportive care with pain management and antispasmodics. Monitor renal function. The impression and plan of care has been dictated by Jeanette Mata, Nurse Practitioner as directed. Dr. Annalise MD I have performed a history and physical examination and medical decision making of this patient, discussed the same with the dictator, and agree with the dictators assessment and plan as written, documented as a scribe. Based on total visit time, I have performed more than 50% of this visit. Objective - Vital Signs Vital signs: Vital Signs Temp 97.9 F 01/05/23 07:53 Pulse 91 01/05/23 07:53 Resp 18 01/05/23 07:53 BP 96/63 01/05/23 07:53 Pulse Ox 92 L 01/05/23 07:53 FiO2 Intake & Output 01/04/23 01/05/23 01/05/23 17:59 06:59 18:59 Intake Total Output Total Balance Weight Intake: Intake, IV Titration Amount Sodium Chloride 0.9% 1, 000 ml @ 10 mls/hr IV . Q24H [facility] Rx#:[id number] cefTRIAXone 2 gm In Sodium Chloride 0.9% 50 ml @ 100 mls/hr IVPB Q24HR [facility] Rx#:[id number] Oral Output: Urine Other: Voiding Method - Labs CBC & Chem 7: 01/03/23 06:36 01/01/23 06:58 Labs: Microbiology - Last 24 Hours (Table) 01/01/23 18:44 Blood Culture - Preliminary Blood No Growth after 72 hours Assessment and Plan Time with Patient: Less than 30
--- NOTE | 2023-01-05 15:41 | P.PN ---
Subjective Progress Note Date: 01/04/23 Principal diagnosis: Bacteremia Patient is a 62-year male with a past medical history significant for hypertension hyperlipidemia,, did have chronic bilateral extremity venous stasis ulcer and is mostly bedbound with a wound care provided by the visiting nurse, presented to hospital with left-sided chest pain, and this patient do have evidence of Klebsiella bacteremia. On today's evaluation that is 01/04/2023, the patient continues to be afebrile, the patient is breathing comfortably on room air patient denies chest pain , the patient did have a cough but no sputum production no vomiting no abdominal pain no diarrhea nursing staff has reported worsening of his sacral wound which is being monitored by the wound care team Objective - Vital Signs Vital signs: Vital Signs Temp 97.7 F 01/04/23 07:37 Pulse 99 01/04/23 07:37 Resp 20 01/04/23 07:37 BP 126/76 01/04/23 07:37 Pulse Ox 92 L 01/04/23 07:37 FiO2 Intake & Output 01/03/23 01/04/23 01/04/23 18:59 06:59 18:59 Intake Total 720 370 Output Total 500 550 Balance 220 -180 Intake: Intake, IV Titration 120 Amount Sodium Chloride 0.9% 1, 120 000 ml @ 10 mls/hr IV . Q24H [facility] Rx#:[id number] Oral 720 250 Output: Urine 500 550 Other: Voiding Method Indwelling Catheter Indwelling Catheter - Exam GENERAL DESCRIPTION: A middle-aged male lying in bed in no distress RESPIRATORY SYSTEM: Unlabored breathing , decreased breath sounds at bases HEART: S1 S2 regular rate and rhythm , ABDOMEN: Soft , no tenderness EXTREMITIES: Bilateral lower extremity currently dressed no drainage Patient did have unstageable sacral pressure ulcer with some necrotic tissue - Labs CBC & Chem 7: 01/03/23 06:36 01/01/23 06:58 Labs: Abnormal Lab Results - Last 24 Hours (Table) 01/03/23 Range/Units 06:36 Procalcitonin 0.88 H (0.02-0.09) ng/mL Microbiology - Last 24 Hours (Table) 01/01/23 18:44 Blood Culture - Preliminary Blood No Growth after 48 hours Assessment and Plan (1) Positive blood culture Current Visit: Yes Status: Acute Code(s): R78.81 - BACTEREMIA SNOMED Code(s): 205445685 Plan: 1patient with gram-negative bacteremia in this patient presented to hospital with left-sided chest pain in this patient who did have some pleural reaction/atelectasis at the lung base with concern for possible pneumonia versus UTI to be the source of this bacteremia as the patient has significantly positive UA he did have some complaint of chronic nonhealing wound but did not have significant redness or drainage to be concerned for the likely source of this bacteremia. 2local wound care to sacral wound to be switched over to santyl, followed by moist dressing keep the area off the pressure 3-patient fever has a son white count is still elevated but trending down, patient currently being treated with Rocephin and monitor clinical course closely Time with Patient: Less than 30
--- NOTE | 2023-01-05 15:44 | P.PN ---
Subjective Progress Note Date: 01/05/23 Principal diagnosis: Bacteremia Patient is a 62-year male with a past medical history significant for hypertension hyperlipidemia,, did have chronic bilateral extremity venous stasis ulcer and is mostly bedbound with a wound care provided by the visiting nurse, presented to hospital with left-sided chest pain, and this patient do have evidence of Klebsiella bacteremia. On today's evaluation that is 01/05/2023, the patient remains to be afebrile, the patient is breathing comfortably on room air patient denies chest pain , no worsening cough or sputum production no abdominal pain no diarrhea reported Objective - Vital Signs Vital signs: Vital Signs Temp 98.2 F 01/05/23 13:20 Pulse 99 01/05/23 13:20 Resp 18 01/05/23 13:20 BP 111/67 01/05/23 13:20 Pulse Ox 90 L 01/05/23 13:20 FiO2 Intake & Output 01/04/23 01/05/23 01/05/23 17:59 06:59 18:59 Intake Total Output Total Balance Weight Intake: Intake, IV Titration Amount Sodium Chloride 0.9% 1, 000 ml @ 10 mls/hr IV . Q24H [facility] Rx#:[id number] cefTRIAXone 2 gm In Sodium Chloride 0.9% 50 ml @ 100 mls/hr IVPB Q24HR [facility] Rx#:[id number] Oral Output: Urine Other: Voiding Method Indwelling Catheter - Exam GENERAL DESCRIPTION: A middle-aged male lying in bed in no distress RESPIRATORY SYSTEM: Unlabored breathing , decreased breath sounds at bases HEART: S1 S2 regular rate and rhythm , ABDOMEN: Soft , no tenderness EXTREMITIES: Bilateral lower extremity currently dressed no drainage - Labs CBC & Chem 7: 01/03/23 06:36 01/01/23 06:58 Labs: Microbiology - Last 24 Hours (Table) 01/01/23 18:44 Blood Culture - Preliminary Blood No Growth after 72 hours Assessment and Plan (1) Positive blood culture Current Visit: Yes Status: Acute Code(s): R78.81 - BACTEREMIA SNOMED Code(s): 625003061 Plan: 1patient with gram-negative bacteremia in this patient presented to hospital with left-sided chest pain in this patient who did have some pleural reaction/atelectasis at the lung base with concern for possible pneumonia versus UTI to be the source of this bacteremia as the patient has significantly positiv e UA he did have some complaint of chronic nonhealing wound but did not have significant redness or drainage to be concerned for the likely source of this bacteremia. 2local wound care to sacral wound local wound care to continue santyl, followed by moist dressing keep the area off the pressure, wound care team should be asked to reevaluate the wound tomorrow and the patient will benefit from salas gical evaluation and possible debridement discuss with the [employer] SERGEANT for admitting team 3-patient fever has resolved, white count is trending down, patient to continue with Rocephin and or any finishing therapy with oral antibiotics Time with Patient: Less than 30
[2023-01-06] MEDS: HYDROcodone/APAP 10-325MG 1 EACH TAB PO PRN (05:48)
[2023-01-06] MEDS: POLYMYXIN B-TRIMETHOPRIM SULF (10,000-1) OPHTH DROPS 10 ML BTL RIGHT EYE SCH ×4 (05:59→23:45)
[2023-01-06] MEDS: CYCLOBENZAPRINE 10 MG TAB PO SCH (08:40)
[2023-01-06] MEDS: ASPIRIN 81 MG PO SCH (08:40)
[2023-01-06] MEDS: DULoxetine HCL 60 MG CAPSULE.DR PO SCH (08:40)
[2023-01-06] MEDS: METOPROLOL TARTRATE 50 MG TAB PO SCH ×2 (08:40→20:42)
[2023-01-06] MEDS: FAMOTIDINE 20 MG TAB PO SCH (08:40)
[2023-01-06] MEDS: COLLAGENASE 250 UNIT/GM OINTMENT 30 GM TUBE TOPICAL SCH (08:41)
[2023-01-06 09:12] LABS: HCT 37.7 % (39.6-50.0); HGB 11.8 g/dL (13.0-17.0); MCH 28.5 pg (27.0-32.0); MCHC 31.3 g/dL (32.0-37.0); MCV 91.1 fL (80.0-97.0); Mean Platelet Volume 10.1 fL (9.5-12.2); NRBC Per 100 WBC 0 /100 WBCS (0.0-0.0); Platelet Count 299 X 10*3/uL (140-440); RBC 4.14 X 10*6/uL (4.40-5.60); RDW 15.9 % (11.5-14.5); WBC 17.25 X 10*3/uL (4.50-10.00)
[2023-01-06 09:42] LABS: African American GFR (CKD) 110.2 (60.0-200.0); Anion Gap 11.3 mmol/L (10.00-18.00); BUN/Creat Ratio 23.88 Ratio (12.00-20.00); Blood Urea Nitrogen 19.1 mg/dL (9.0-27.0); Calcium 8.1 mg/dL (8.7-10.3); Carbon Dioxide 24.7 mmol/L (20.0-27.5); Non-African American GFR(CKD) 95.1 (60.0-200.0); Potassium 3.5 mmol/L (3.5-5.5)
[2023-01-06 10:42] LABS: Amorphous Sediment,Urine Occasional /hpf; Appearance,Urine Cloudy (Clear); Bacteria,Urine Rare /hpf; Bilirubin,Urine 1+ (Negative); Blood,Urine Moderate (Negative); Color,Urine Orange; Glucose,Urine (UA) Negative (Negative); Hyaline Casts,Urine 34 /lpf (0-2); Ketones,Urine Trace (Negative); Leukocyte Esterase,Urine Small (Negative); Mucus,Urine Many /hpf; Nitrite,Urine Negative (Negative); PH, Urine 5.5 (5.0-8.0); Protein,Urine 2+ (Negative); RBC,Urine 86 /hpf (0-5); Specific Gravity,Urine 1.035 (1.001-1.035); Squamous Epithelial Cell,Urine <1 /hpf (0-4); WBC,Urine 21 /hpf (0-5)
--- NOTE | 2023-01-06 11:04 | XR ---
EXAMINATION TYPE: XR chest 1V portable DATE OF EXAM: 01/06/2023 COMPARISON: 12/30/2022 HISTORY: Hypoxia TECHNIQUE: Single frontal view of the chest is obtained. FINDINGS: There is limited inspiration with increasing right-sided consolidation and small effusion. Left lung grossly clear. Portions of the right lung apex limited due to positioning. No obvious pneu mothorax. Heart is enlarged. IMPRESSION: Mild progression of right-sided consolidation and small effusion correlate for underlyin g pneumonia.
[2023-01-06] MEDS: HEPARIN SODIUM,PORCINE/PF 5,000 UNIT/0.5 ML SYRINGE SQ SCH ×3 (11:06→23:45)
[2023-01-06] MEDS: PIPERACILLIN-TAZOBACTAM 3.375 GM in SODIUM CHLORIDE 0.9% 100 ML IVPB SCH ×3 (11:09→23:44)
--- NOTE | 2023-01-06 12:24 | P.PN ---
Subjective Progress Note Date: 01/06/23 Principal diagnosis: Bacteremia Patient is a 62-year male with a past medical history significant for hypertension hyperlipidemia,, did have chronic bilateral extremity venous stasis ulcer and is mostly bedbound with a wound care provided by the visiting nurse, presented to hospital with left-sided chest pain, and this patient do have evidence of Klebsiella bacteremia. On today's evaluation that is 01/06/2023, the patient did have low-grade fever of 99.7F, the patient is breathing comfortably on room air however O2 sats down to 9192%, patient denies chest pain , patient did have cough but did not sputum production no abdominal pain no diarrhea reported Objective - Vital Signs Vital signs: Vital Signs Temp 98.3 F 01/06/23 07:24 Pulse 101 H 01/06/23 07:24 Resp 20 01/06/23 07:24 BP 105/67 01/06/23 07:24 Pulse Ox 92 L 01/06/23 07:24 FiO2 Intake & Output 01/05/23 01/06/23 01/06/23 18:59 06:59 18:59 Intake Total 740 480 Output Total 250 500 Balance 490 -20 Intake: Intake, IV Titration 120 Amount Sodium Chloride 0.9% 1, 120 000 ml @ 10 mls/hr IV . Q24H [facility] Rx#:[id number] Oral 740 360 Output: Urine 250 500 Uretheral (Cartwright) 150 Other: Voiding Method Indwelling Catheter Indwelling Catheter Indwelling Catheter - Exam GENERAL DESCRIPTION: A middle-aged male lying in bed in no distress RESPIRATORY SYSTEM: Unlabored breathing , decreased breath sounds at bases HEART: S1 S2 regular rate and rhythm , ABDOMEN: Soft , no tenderness EXTREMITIES: Bilateral lower extremity currently dressed no drainage - Labs CBC & Chem 7: 01/06/23 04:56 01/06/23 04:56 Labs: Abnormal Lab Results - Last 24 Hours (Table) 01/06/23 01/06/23 01/06/23 Range/Units 04:56 04:56 10:10 WBC 17.25 H (4.50-10.00) X 10*3/uL RBC 4.14 L (4.40-5.60) X 10*6/uL Hgb 11.8 L (13.0-17.0) g/dL Hct 37.7 L (39.6-50.0) % MCHC 31.3 L (32.0-37.0) g/dL RDW 15.9 H (11.5-14.5) % BUN/Creatinine Ratio 23.88 H (12.00-20.00) Ratio Calcium 8.1 L (8.7-10.3) mg/dL Urine Protein 2+ H (Negative) Urine Ketones Trace H (Negative) Urine Blood Moderate H (Negative) Urine Bilirubin 1+ H (Negative) Ur Leukocyte Esterase Small H (Negative) Urine RBC 86 H (0-5) /hpf Urine WBC 21 H (0-5) /hpf Amorphous Sediment Occasional H (None) /hpf Urine Bacteria Rare H (None) /hpf Hyaline Casts 34 H (0-2) /lpf Urine Mucus Many H (None) /hpf Microbiology - Last 24 Hours (Table) 01/01/23 18:44 Blood Culture - Preliminary Blood No Growth after 96 hours Assessment and Plan (1) Positive blood culture Current Visit: Yes Status: Acute Code(s): R78.81 - BACTEREMIA SNOMED Code(s): 773231003 Plan: 1patient with gram-negative bacteremia in this patient presented to hospital with left-sided chest pain in this patient who did have some pleural reaction/atelectasis at the lung base with concern for possible pneumonia versus UTI to be the source of this bacteremia as the patient has significantly positive UA he did have some complaint of chronic nonhealing wound but did not have significant redness or drainage to be concerned for the likely source of this bacteremia. 2local wound care to sacral wound local wound care to continue santyl, followed by moist dressing keep the area off the pressure, the patient will benefit from surgical evaluation and possible debridement, which apparently scheduled for this afternoon per the nursing staff culture should be obtained 3-patient did have a low-grade fever or worsening of the white count and slight worsening of the infiltrate on the chest x-ray concerning for possible aspiration pneumonia antibiotic has been switched to Zosyn discussed with the OIL DISTRIBUTOR TENDER for admitting team Time with Patient: Less than 30
--- NOTE | 2023-01-06 13:05 | P.GSCN ---
History of Present Illness Consult date: 01/06/23 History of present illness: CHIEF COMPLAINT: Cough HISTORY OF PRESENT ILLNESS: This is a 62-year-old male who presented to the hospital with complaints of cough and chest pain. He is found have evidence of pneumonia as well as a UTI and bacteremia. He's had elevated white count and mild tachycardia. He did have a low-grade fever today. Patient is on antibiotics and followed by infectious disease. He also has evidence of a sacral decubitus ulcer. Surgical service consulted in regards to debridement of the sacral to Cerner. Patient has met past medical history of chronic bilateral extremity venous stasis ulcers. And he is mostly bedbound. PAST MEDICAL HISTORY: See list. PAST SURGICAL HISTORY: See list. MEDICATIONS: See list. ALLERGIES: See list. SOCIAL HISTORY: No illicit drug use. REVIEW OF SYSTEMS: CONSTITUTIONAL: Denies fever or chills. HEENT: Denies blurred vision, vision changes, or eye pain. Denies hemoptysis ENDOCRINE: Denies heat or cold intolerance. CARDIOVASCULAR: Denies chest pain or pressure. RESPIRATORY: No shortness of breath. GASTROINTESTINAL: Denies abdominal pain. Denies nausea or vomiting. NEURO: Denies history of seizures. PSYCH: No depression or suicidal ideation HEMATOLOGIC: Denies bleeding disorders. LYMPHATIC: The patient denies any lumps and bumps around the neck. GENITOURINARY: Denies any blood in urine or increased urinary frequency. MUSCULOSKELETAL: Denies myalgias. Denies joint swelling. Denies decreased range of motion beyond patients baseline. SKIN: Denies pruitis. Denies rash. PHYSICAL EXAM: VITAL SIGNS: Reviewed GENERAL: Well-developed in no acute distress. HEENT: No sclera icterus. Extraocular movements grossly intact. Moist buccal mucosa. Head is atraumatic, normocephalic. Hears conversational speech. No nasal drainage. NECK: Supple without lymphadenopathy. CHEST: Non-labored respirations and equal bilateral excursions. CARDIOVASCULAR: Palpable 2+ radial pulses. ABDOMEN: Soft. Nondistended. Nontender MUSCULOSKELETAL: No clubbing or cyanosis. NEUROLOGIC: No focal or lateralizing signs. Cranial nerves II through XII grossly intact. PSYCH: Appropriate affect. Alert and oriented to person, place and time. SKIN: Sacral decubitus ulcer with skin breakdown and eschar tissue at the crease of the buttocks bilaterally. Pictures were obtained and are in chart. LABORATORY DATA: WBC 17.25 hgb 11.8 plt 299 Na 140 K 3.5 cr 0.8 IMAGING: Chest x-ray mild progression of right-sided consolidation and small effusion correlate for underlying ASSESSMENT: 1. Sacral decubitus ulcer 2. Pneumonia 3. UTI 4. Bacteremia 5. Sepsis 6. Acute kidney injury 7. Morbid obesity 8. Bilateral chronic lower extremity venous ulcers PLAN: -Recommend debridement of sacral decubitus ulcer after the pneumonia and UTI have been treated -Continue antibiotics -Continue supportive care -Continue offloading -Continue local wound care Thank you for this consultation Physician Newspaper Photographer note has been reviewed by physician. Signing provider agrees with the documented findings, assessment, and plan of care. Past Medical History Past Medical History: Hyperlipidemia, Hypertension, Musculoskeletal Disorder, Sleep Apnea/CPAP/BIPAP, Vascular Disorder Additional Past Medical History / Comment(s): CHF, chronic back pain, cellulitis, DVT, nerve pain History of Any Multi-Drug Resistant Organisms: MRSA Year Discovered:: 12/08/19 MDRO Source:: Right Foot Past Surgical History: Cholecystectomy, Hernia Repair, Tonsillectomy Past Anesthesia/Blood Transfusion Reactions: No Reported Reaction Past Psychological History: No Psychological Hx Reported Past Alcohol Use History: None Reported Past Drug Use History: None Reported, Marijuana - Past Family History Father Family Medical History: Cancer, Prostate Disorder Mother Family Medical History: Cancer Medications and Allergies Home Medications Medication Instructions Recorded Confirmed Type lisinopriL [Zestril] 10 mg PO DAILY tab 11/26/18 12/30/22 Rx Aspirin EC [Ecotrin Low Dose] 81 mg PO DAILY 01/07/20 12/30/22 History Baclofen 10 mg PO TID 01/07/20 12/30/22 History DULoxetine HCL [Cymbalta] 120 mg PO DAILY 12/30/22 12/30/22 History Furosemide [Lasix] 80 mg PO DAILY 12/30/22 12/30/22 History HYDROcodone/APAP 10-325MG [Fontana 2 tab PO Q6H PRN 12/30/22 12/30/22 History 10-325] Metoprolol Tartrate [Lopressor] 50 mg PO BID 12/30/22 12/30/22 History Potassium Chloride [Klor-Con M20] 20 meq PO DAILY 12/30/22 12/30/22 History tiZANidine [Zanaflex] 2 mg PO Q8HR PRN 12/30/22 12/30/22 History Allergies Allergy/AdvReac Type Severity Reaction Status Date / Time No Known Allergies Allergy Verified 07/06/20 17:32 Surgical - Exam Vital Signs Temp Pulse Resp BP Pulse Ox 97.9 F 135 H 16 109/62 95 12/30/22 04:49 12/30/22 04:49 12/30/22 04:49 12/30/22 04:49 12/30/22 04:49 Results - Labs 01/06/23 04:56 01/06/23 04:56 Abnormal Lab Results - Last 24 Hours (Table) 01/06/23 01/06/23 Range/Units 04:56 04:56 WBC 17.25 H (4.50-10.00) X 10*3/uL RBC 4.14 L (4.40-5.60) X 10*6/uL Hgb 11.8 L (13.0-17.0) g/dL Hct 37.7 L (39.6-50.0) % MCHC 31.3 L (32.0-37.0) g/dL RDW 15.9 H (11.5-14.5) % BUN/Creatinine Ratio 23.88 H (12.00-20.00) Ratio Calcium 8.1 L (8.7-10.3) mg/dL Microbiology - Last 24 Hours (Table) 01/01/23 18:44 Blood Culture - Preliminary Blood No Growth after 96 hours Diabetes panel 01/06/23 Range/Units 04:56 Sodium 140 (135-145) mmol/L Potassium 3.5 (3.5-5.5) mmol/L Chloride 104 (96-109) mmol/L Carbon Dioxide 24.7 (20.0-27.5) mmol/L BUN 19.1 (9.0-27.0) mg/dL Creatinine 0.8 (0.6-1.5) mg/dL Glucose 102 (70-110) mg/dL Calcium 8.1 L (8.7-10.3) mg/dL Calcium panel 01/06/23 Range/Units 04:56 Calcium 8.1 L (8.7-10.3) mg/dL Pituitary panel 01/06/23 Range/Units 04:56 Sodium 140 (135-145) mmol/L Potassium 3.5 (3.5-5.5) mmol/L Chloride 104 (96-109) mmol/L Carbon Dioxide 24.7 (20.0-27.5) mmol/L BUN 19.1 (9.0-27.0) mg/dL Creatinine 0.8 (0.6-1.5) mg/dL Glucose 102 (70-110) mg/dL Calcium 8.1 L (8.7-10.3) mg/dL Adrenal panel 01/06/23 Range/Units 04:56 Sodium 140 (135-145) mmol/L Potassium 3.5 (3.5-5.5) mmol/L Chloride 104 (96-109) mmol/L Carbon Dioxide 24.7 (20.0-27.5) mmol/L BUN 19.1 (9.0-27.0) mg/dL Creatinine 0.8 (0.6-1.5) mg/dL Glucose 102 (70-110) mg/dL Calcium 8.1 L (8.7-10.3) mg/dL
--- NOTE | 2023-01-06 13:25 | P.PN ---
Subjective Progress Note Date: 01/06/23 This is a 62 year old male who is monitored on medical floor and currently pending ECF placement. Patient is admitted for chronic back pain and chronic wounds with multiple medical comorbidities. Patient has been found to have blood culture positive x2 for klebsiella oxytoca and continues on IV ceftriaxone. Repeat blood culture is negative so far at 48 hours, infectious disease is following closely. Patient is noted today to have injected sclera and crusting to the right eye concerning for acute conjunctivitis and eye drops will be added. Wound care evaluation completed and local wound care continues to bilateral lower extremity ulcerations with honey gel absorptive silver moistened abd and rolled gauze. Change MWF. Patient has refused followed up wound center at this time. White count remains elevated at 15.1, procalcitonin is trending down and currently 0.88. Patients has been caring for patient at home and currently unable to do so anymore. Patient requires ECF placement. 01/05/2023 Patient is evaluated today resting in bed on medical floor. Continues on IV ceftriaxone for urine culture showing klebsiella oxytoca x 2. And repeat blood culture is negative so far at 72 hours. Patient is given incentive spirometer for low oxygen saturation. He is receiving local wound care to lower extremity. Kennedy and verna. White count is 15.1 today. 01/06/2023 Patient evaluated today and has increased confusion. He does respond to questions appropriately alert x3 however he does appear to have some visual hallucinations. White count is increased up to 17 today and investigated. Chest xray showing mild progression of right sided consolidation and small effusion possible an underlying pneumonia. Antibiotics have been changed to IV zosyn and patient will have full sepsis work up as fever is also developing today. Patient does have poor dentition and would benefit from oral care. Local wound care in place. Temp of 99.7, heart rate 96, blood pressure 120/72, 92% room air. Review of Systems Constitutional: Denied any fatigue denied any fever. Cardio vascular: denied any chest pain, palpitations Gastrointestinal: denied any nausea, vomiting, diarrhea Pulmonary: Denied any shortness of breath cough Neurologic denied any new focal deficits All inpatient medications were reviewed and appropriate changes in these medications as dictated in the interval history and assessment and plan. PHYSICAL EXAMINATION: GENERAL: The patient is alert and oriented x3, not in any acute distress. Well developed, well nourished. HEENT: Pupils are round and equally reacting to light. EOMI. No scleral icterus. No conjunctival pallor. Normocephalic, atraumatic. No pharyngeal erythema. No thyromegaly. CARDIOVASCULAR: S1 and S2 present. No murmurs, rubs, or gallops. PULMONARY: Chest is clear to auscultation, no wheezing or crackles. ABDOMEN: Soft, nontender, nondistended, normoactive bowel sounds. No palpable organomegaly. MUSCULOSKELETAL: No joint swelling or deformity. EXTREMITIES: No cyanosis, clubbing, or pedal edema. NEUROLOGICAL: Gross neurological examination did not reveal any focal deficits. SKIN: No rashes. Assessment and Plan -Altered mental status likely from acute metabolic toxic encephalopathy from infection and medication affect Xanax, tizanidine and norco will be held at this time and monitor patients mentation. Acetaminophen for pain Antibiotics have been adjusted -Right lower lobe pneumonia, present on admission, suspected gram-negative organism Antibiotic has been changed to IV zosyn and discussed with ID, patients white count has increased to 17. Viral panel for Covid, RSV, influenza. -Sepsis and blood cultures positive from Klebsiella oxytoca likely UTI source Blood culture positive x2 and repeat blood culture is currently pending and preliminary showing negative at 48 hours Urinalysis to be repeated and cultured -Acute kidney disease, possibly ATN, : Resolved Proteinuria and hematuria in the urine. Renal ultrasound has been done and indwelling catheter in place. Monitor renal function and strict intake and output. -Morbid obesity BMI 50.2 Weight loss measures -Chronic medical debility, and baseline uses a lift chair and a wheelchair Family unable to care for patient at home and patient is pending ECF placement -Bilateral chronic lower lower extremity venous ulcers Follow with wound care team, wound care in place with honey gel and absorptive silver change MWF -Stage sacral decub present on admission and with foul odor General surgery has been consulted to evaluate for surgical debridement of wou nd. -Chronic lower external edema venous insufficiency -Depression and anxiety Cymbalta 120 mg -Essential hypertension Lopressor 50 mg twice a day. -Chronic pain with muscle spasms Recommend holding muscle relaxers and norco secondary to increased confusion -Lactic acidosis possibly combination of infection and dehydration Resolved -Full code -Disposition: Patient's does not want him back, she could not manage him. hvac project manager looking into permanent placement. ID is following closely. Continue with local wound care as above. Patient is noted to have crusting and drainage from right eye and will be treated for bacterial conjunctivitis, improving. Recommend to continue pressure offloading. Antibiotics have been adjusted. Follow up urinalysis and culture, viral panel. Incentive spirometer has been ordered. Strict intake and output monitoring. Surgery holding off on debridement pending treatment of UTI and pneumonia. Patient will benefit from oral hygiene care BID. The impression and plan of care has been dictated by Jeanette Mata, Nurse Practitioner as directed. Dr. Annalise MD I have performed a history and physical examination and medical decision making of this patient, discussed the same with the dictator, and agree with the dictators assessment and plan as written, documented as a scribe. Based on total visit time, I have performed more than 50% of this visit. Objective - Vital Signs Vital signs: Vital Signs Temp 99.7 F H 01/06/23 12:00 Pulse 96 01/06/23 12:00 Resp 20 01/06/23 12:00 BP 120/72 01/06/23 12:00 Pulse Ox 92 L 01/06/23 12:00 FiO2 Intake & Output 01/05/23 01/06/23 01/06/23 18:59 06:59 18:59 Intake Total 740 480 Output Total 250 500 Balance 490 -20 Intake: Intake, IV Titration 120 Amount Sodium Chloride 0.9% 1, 120 000 ml @ 10 mls/hr IV . Q24H [facility] Rx#:[id number] Oral 740 360 Output: Urine 250 500 Uretheral (Cartwright) 150 Other: Voiding Method Indwelling Catheter Indwelling Catheter Indwelling Catheter - Labs CBC & Chem 7: 01/06/23 04:56 01/06/23 04:56 Labs: Abnormal Lab Results - Last 24 Hours (Table) 01/06/23 01/06/23 01/06/23 Range/Units 04:56 04:56 10:10 WBC 17.25 H (4.50-10.00) X 10*3/uL RBC 4.14 L (4.40-5.60) X 10*6/uL Hgb 11.8 L (13.0-17.0) g/dL Hct 37.7 L (39.6-50.0) % MCHC 31.3 L (32.0-37.0) g/dL RDW 15.9 H (11.5-14.5) % BUN/Creatinine Ratio 23.88 H (12.00-20.00) Ratio Calcium 8.1 L (8.7-10.3) mg/dL Urine Protein 2+ H (Negative) Urine Ketones Trace H (Negative) Urine Blood Moderate H (Negative) Urine Bilirubin 1+ H (Negative) Ur Leukocyte Esterase Small H (Negative) Urine RBC 86 H (0-5) /hpf Urine WBC 21 H (0-5) /hpf Amorphous Sediment Occasional H (None) /hpf Urine Bacteria Rare H (None) /hpf Hyaline Casts 34 H (0-2) /lpf Urine Mucus Many H (None) /hpf Microbiology - Last 24 Hours (Table) 01/01/23 18:44 Blood Culture - Preliminary Blood No Growth after 96 hours Assessment and Plan Time with Patient: Greater than 30
[2023-01-06] MEDS: SODIUM CHLORIDE 0.9% 1,000 ML IV SCH (16:13)
[2023-01-07] MEDS: POLYMYXIN B-TRIMETHOPRIM SULF (10,000-1) OPHTH DROPS 10 ML BTL RIGHT EYE SCH ×3 (06:37→17:53)
[2023-01-07] MEDS: PIPERACILLIN-TAZOBACTAM 3.375 GM in SODIUM CHLORIDE 0.9% 100 ML IVPB SCH ×2 (08:31→17:54)
[2023-01-07] MEDS: ASPIRIN 81 MG PO SCH (08:32)
[2023-01-07] MEDS: DULoxetine HCL 60 MG CAPSULE.DR PO SCH (08:32)
[2023-01-07] MEDS: FAMOTIDINE 20 MG TAB PO SCH (08:32)
[2023-01-07] MEDS: METOPROLOL TARTRATE 50 MG TAB PO SCH ×2 (08:32→20:09)
[2023-01-07] MEDS: HEPARIN SODIUM,PORCINE/PF 5,000 UNIT/0.5 ML SYRINGE SQ SCH ×2 (08:32→17:54)
[2023-01-07] MEDS: COLLAGENASE 250 UNIT/GM OINTMENT 30 GM TUBE TOPICAL SCH (08:33)
[2023-01-07 09:18] LABS: Basophils # (A) 0.07 X 10*3/uL (0.00-0.10); Basophils % (A) 0.4 %; Eosinophils # (A) 0.29 X 10*3/uL (0.04-0.35); Eosinophils % (A) 1.8 %; HCT 38.5 % (39.6-50.0); HGB 11.8 g/dL (13.0-17.0); Immature Grans, Automated 0.8 %; Lymphocytes # (A) 2.71 X 10*3/uL (0.90-5.00); Lymphocytes % (A) 16.5 %; MCH 28.1 pg (27.0-32.0); MCHC 30.6 g/dL (32.0-37.0); MCV 91.7 fL (80.0-97.0); Mean Platelet Volume 9.9 fL (9.5-12.2); Monocytes # (A) 1.03 X 10*3/uL (0.20-1.00); Monocytes % (A) 6.3 %; NRBC Per 100 WBC 0 /100 WBCS (0.0-0.0); Neutrophils # (A) 12.15 X 10*3/uL (1.80-7.70); Neutrophils % (A) 74.2 %; Platelet Count 299 X 10*3/uL (140-440); RDW 16.1 % (11.5-14.5); WBC 16.38 X 10*3/uL (4.50-10.00)
[2023-01-07 10:36] LABS: African American GFR (CKD) 110.2 (60.0-200.0); Anion Gap 15.1 mmol/L (10.00-18.00); BUN/Creat Ratio 20.88 Ratio (12.00-20.00); Blood Urea Nitrogen 16.7 mg/dL (9.0-27.0); Carbon Dioxide 21.9 mmol/L (20.0-27.5); Magnesium 2.1 mg/dL (1.5-2.4); Non-African American GFR(CKD) 95.1 (60.0-200.0); Potassium 3.5 mmol/L (3.5-5.5)
--- NOTE | 2023-01-07 11:46 | CT ---
EXAMINATION TYPE: CT brain wo con DATE OF EXAM: 01/07/2023 COMPARISON: None HISTORY: Altered mental status CT DLP: 1275 mGycm Automated exposure control for dose reduction was used. FINDINGS: Exam is limited by artifact particularly along the skull bases. Remaining portion of the visualized b rain demonstrates no sizable definite acute intraparenchymal hemorrhage or mass effect. Note is made assessment for subtle hemorrhage would is limited. Moderate generalized degenerative change. No midli ne shift. Calvarium is intact. Nonspecific low attenuation in the white matter is most typical of rem ote white matter ischemia. IMPRESSION: 1. LIMITED EXAM DUE TO ARTIFACT DEMONSTRATES NO GROSS EVIDENCE OF SIZABLE ACUTE INTRACRANIAL HEMORRHA GE OR MASS EFFECT.
[2023-01-07] MEDS ORDERED: POTASSIUM CHLORIDE ER 20 MEQ TAB.ER PO STA (12:03)
--- NOTE | 2023-01-07 12:07 | P.PN ---
Subjective Progress Note Date: 01/07/23 CHIEF COMPLAINT: Cough HISTORY OF PRESENT ILLNESS: Patient is currently minutes the hospital with pneumonia, UTI and bacteremia. Surgical service following regards to his sacral decubitus ulcer. Patient did have a low-grade temperature this morning of 100. Mild tachycardia. WBC slightly down from 17.25-16.38 Hgb 11.8 platelets 299 sodium is 142 potassium 3.5 creatinine 0.8 PHYSICAL EXAM: VITAL SIGNS: Reviewed GENERAL: Well-developed in no acute distress. HEENT: No sclera icterus. Extraocular movements grossly intact. Moist buccal mucosa. Head is atraumatic, normocephalic. Hears conversational speech. No nasal drainage. NECK: Supple without lymphadenopathy. CHEST: Non-labored respirations and equal bilateral excursions. CARDIOVASCULAR: Palpable 2+ radial pulses. ABDOMEN: Soft. obese. Nondistended. Nontender. MUSCULOSKELETAL: No clubbing or cyanosis. NEUROLOGIC: No focal or lateralizing signs. Cranial nerves II through XII grossly intact. ASSESSMENT: 1. Sacral decubitus ulcer 2. Pneumonia 3. UTI 4. Bacteremia 5. Sepsis 6. Acute kidney injury 7. Morbid obesity 8. Bilateral chronic lower extremity venous ulcers PLAN: -Debridement of sacral decubitus ulcer scheduled for , 01/09/[address] Benitez -Continue antibiotics per ID -Continue offloading -Continue local wound care -Continue supportive care Physician Senior Cobol Developer note has been reviewed by physician. Signing provider agrees with the documented findings, assessment, and plan of care. Objective - Vital Signs Vital signs: Vital Signs Temp 100 F H 01/07/23 07:12 Pulse 99 01/07/23 07:12 Resp 20 01/07/23 07:12 BP 138/82 01/07/23 07:12 Pulse Ox 98 01/07/23 07:12 FiO2 Intake & Output 01/06/23 01/07/23 01/07/23 18:59 06:59 18:59 Intake Total 708 420 Output Total 300 400 Balance 408 20 Intake: Intake, IV Titration 220 Amount Piperacillin-Tazobactam 3 100 .375 gm In Sodium Chloride 0.9% 100 ml @ 25 mls/hr IVPB Q8HR [facility] Rx# :[id number] Sodium Chloride 0.9% 1, 120 000 ml @ 10 mls/hr IV . Q24H [facility] Rx#:[id number] Oral 708 200 Output: Urine 300 400 Other: Voiding Method Indwelling Catheter Indwelling Catheter Indwelling Catheter # Bowel Movements 1 - Labs CBC & Chem 7: 01/07/23 04:34 01/07/23 04:34 Labs: Abnormal Lab Results - Last 24 Hours (Table) 01/07/23 01/07/23 Range/Units 04:34 04:34 WBC 16.38 H (4.50-10.00) X 10*3/uL RBC 4.20 L (4.40-5.60) X 10*6/uL Hgb 11.8 L (13.0-17.0) g/dL Hct 38.5 L (39.6-50.0) % MCHC 30.6 L (32.0-37.0) g/dL RDW 16.1 H (11.5-14.5) % Immature Gran # 0.13 H (0.00-0.04) X 10*3/uL Neutrophils # 12.15 H (1.80-7.70) X 10*3/uL Monocytes # 1.03 H (0.20-1.00) X 10*3/uL BUN/Creatinine Ratio 20.88 H (12.00-20.00) Ratio Calcium 8.0 L (8.7-10.3) mg/dL Microbiology - Last 24 Hours (Table) 01/01/23 18:44 Blood Culture - Preliminary Blood No Growth after 120 hours 01/06/23 10:10 Urine Culture - Preliminary Urine,Voided
[2023-01-07] MEDS: guaiFENesin 600 MG TABLET.ER PO SCH ×2 (12:17→17:54)
[2023-01-07] MEDS: ACETAMINOPHEN TAB 325 MG TAB PO PRN ×2 (12:20→20:09)
--- NOTE | 2023-01-07 12:44 | P.PN ---
Subjective Progress Note Date: 01/07/23 Principal diagnosis: Bacteremia Patient is a 62-year male with a past medical history significant for hypertension hyperlipidemia,, did have chronic bilateral extremity venous stasis ulcer and is mostly bedbound with a wound care provided by the visiting nurse, presented to hospital with left-sided chest pain, and this patient do have evidence of Klebsiella bacteremia. On today's evaluation that is 01/07/2023, the patient did have low-grade fever of 100F this morning, the patient is slightly lethargic and could not provide any history patient is currently on the 2 L supplemental nasal cannula oxygen no vomiting no diarrhea or any other changes reported by the nursing staff Objective - Vital Signs Vital signs: Vital Signs Temp 100 F H 01/07/23 07:12 Pulse 99 01/07/23 07:12 Resp 20 01/07/23 07:12 BP 138/82 01/07/23 07:12 Pulse Ox 98 01/07/23 07:12 FiO2 Intake & Output 01/06/23 01/07/23 01/07/23 18:59 06:59 18:59 Intake Total 708 420 Output Total 300 400 Balance 408 20 Intake: Intake, IV Titration 220 Amount Piperacillin-Tazobactam 3 100 .375 gm In Sodium Chloride 0.9% 100 ml @ 25 mls/hr IVPB Q8HR [facility] Rx# :[id number] Sodium Chloride 0.9% 1, 120 000 ml @ 10 mls/hr IV . Q24H [facility] Rx#:[id number] Oral 708 200 Output: Urine 300 400 Other: Voiding Method Indwelling Catheter Indwelling Catheter Indwelling Catheter # Bowel Movements 1 - Exam GENERAL DESCRIPTION: A middle-aged male lying in bed in no distress RESPIRATORY SYSTEM: Unlabored breathing , decreased breath sounds at bases HEART: S1 S2 regular rate and rhythm , ABDOMEN: Soft , no tenderness EXTREMITIES: Bilateral lower extremity currently dressed no drainage - Labs CBC & Chem 7: 01/07/23 04:34 01/07/23 04:34 Labs: Abnormal Lab Results - Last 24 Hours (Table) 01/07/23 01/07/23 Range/Units 04:34 04:34 WBC 16.38 H (4.50-10.00) X 10*3/uL RBC 4.20 L (4.40-5.60) X 10*6/uL Hgb 11.8 L (13.0-17.0) g/dL Hct 38.5 L (39.6-50.0) % MCHC 30.6 L (32.0-37.0) g/dL RDW 16.1 H (11.5-14.5) % Immature Gran # 0.13 H (0.00-0.04) X 10*3/uL Neutrophils # 12.15 H (1.80-7.70) X 10*3/uL Monocytes # 1.03 H (0.20-1.00) X 10*3/uL BUN/Creatinine Ratio 20.88 H (12.00-20.00) Ratio Calcium 8.0 L (8.7-10.3) mg/dL Microbiology - Last 24 Hours (Table) 01/01/23 18:44 Blood Culture - Preliminary Blood No Growth after 120 hours 01/06/23 10:10 Urine Culture - Preliminary Urine,Voided Assessment and Plan (1) Positive blood culture Current Visit: Yes Status: Acute Code(s): R78.81 - BACTEREMIA SNOMED Code(s): 692448025 Plan: 1patient with gram-negative bacteremia in this patient presented to hospital w ith left-sided chest pain in this patient who did have some pleural reaction/atelectasis at the lung base with concern for possible pneumonia versus UTI to be the source of this bacteremia as the patient has significantly positive UA he did have some complaint of chronic nonhealing wound but did not have significant redness or drainage to be concerned for the likely source of this bacteremia. 2local wound care to sacral wound local wound care to continue santyl, followed by moist dressing keep the area off the pressure, the patient will benefit from surgical evaluation and possible debridement, apparently has been postponed because of his medical condition 3-patient did have a low-grade fever or worsening of the white count and slight worsening of the infiltrate on the chest x-ray concerning for possible aspiration pneumonia , patient is currently on Zosyn to continue and is being worked up for possible CVA discussed with the admitting physician Time with Patient: Less than 30
[2023-01-07] MEDS: SODIUM CHLORIDE 0.9% 1,000 ML IV SCH (17:54)
--- NOTE | 2023-01-07 20:13 | P.PN ---
Progress Note - Text Progress Note Date: 01/07/23 Chief Complaint: Left lateral chest pain This is a 62-year-old patient, follows with Dr. Chapman. Chronic stable medical conditions include hypertension, hyperlipidemia, obstructive sleep apnea, chronic bilateral lower extremity venous ulcers. From venous insufficiency. Patient has a lift chair and a chair at home. Wound care is done by a visiting nurse and patient's . Patient presents with 2 days of what he describes as left-sided lateral chest wall pain. Pain is worse with coughing and taking a deep breath. Patient rather sleepy for last 2 days. Decreased appetite. No nausea vomiting. No fever. No sputum production. Denies any off or shortness of breath Admitted with pneumonia, acute kidney injury. 12/31/2022: Doing better. Less chest wall pain. IV cefepime. Renal function better. IV fluids. Appetite picking up. 01/01/2023: Eating much better. Comfortable in bed. Kidney function better. Patient wants his baclofen to be increased to home dose. Pain medications discussed. Blood cultures positive for Klebsiella oxytoca. IV ceftriaxone. Repeat blood culture today. 01/02/2023: Repeat blood cultures done yesterday. Eating well. Patient felt maybe was too sleepy with his baclofen. Being changed to Flexeril. Discussed with patient. 01/03/2023: Eating well. Flexeril is working from better than baclofen. work manager called me to inform that the could not manage at home. Wants permanent placement for him. Repeat blood cultures from January 01 negative to now. 01/04/2023:his is a 62 year old male who is monitored on medical floor and currently pending ECF placement. Patient is admitted for chronic back pain and chronic wounds with multiple medical comorbidities. Patient has been found to have blood culture positive x2 for klebsiella oxytoca and continues on IV ceftriaxone. Repeat blood culture is negative so far at 48 hours, infectious disease is following closely. Patient is noted today to have injected sclera and crusting to the right eye concerning for acute conjunctivitis and eye drops will be added. Wound care evaluation completed and local wound care continues to bilateral lower extremity ulcerations with honey gel absorptive silver moistened abd and rolled gauze. Change MWF. Patient has refused followed up wound center at this time. White count remains elevated at 15.1, procalcitonin is trending down and currently 0.88. Patients has been caring for patient at home and currently unable to do so anymore. Patient requires ECF placement. 01/05/2023 Patient is evaluated today resting in bed on medical floor. Continues on IV ceftriaxone for urine culture showing klebsiella oxytoca x 2. And repeat blood culture is negative so far at 72 hours. Patient is given incentive spirometer for low oxygen saturation. He is receiving local wound care to lower extremity. Kennedy and verna. White count is 15.1 today. 01/06/2023 Patient evaluated today and has increased confusion. He does respond to questions appropriately alert x3 however he does appear to have some visual hallucinations. White count is increased up to 17 today and investigated. Chest xray showing mild progression of right sided consolidation and small effusion possible an underlying pneumonia. Antibiotics have been changed to IV zosyn and patient will have full sepsis work up as fever is also developing today. Patient does have poor dentition and would benefit from oral care. Local wound care in place. Temp of 99.7, heart rate 96, blood pressure 120/72, 92% room air. 01/07/2023: Resumed care of the patient today. Nurse informed me that patient's speech has been more slurred. Retaining some secretions. Some asymmetry of the mouth. Does also notice by the senior case manager. Reji. This is apparently present yesterday too. Unclear present on Friday. I ordered a computed tomography scan of the brain this afternoon. No obvious stroke was noted. I've ordered speech therapy consult....pureed Diet for medications Aspiration precautions. Patient is lethargic. Attempting to answer. Slurred speech. Retaining secretions in the mouth. Neurology consulted. MRI brain ordered Active Medications Acetaminophen (Acetaminophen Tab 325 Mg Tab) 650 mg PO Q6HR PRN PRN Reason: Mild Pain or Fever > 100.5 Last Admin: 01/07/23 12:20 Dose: 650 mg Aspirin (Aspirin 81 Mg) 81 mg PO DAILY [facility] Last Admin: 01/07/23 08:32 Dose: 81 mg Calcium Carbonate/Glycine (Calcium Carbonate 500 Mg Chewable) 1,000 mg PO Q4HR PRN PRN Reason: Dyspepsia Collagenase (Collagenase 250 Unit/Gm Ointment 30 Gm Tube) 1 applic TOPICAL DAILY [facility]; Protocol Last Admin: 01/07/23 08:33 Dose: 1 applic Duloxetine HCl (Duloxetine Hcl 60 Mg Capsule.Dr) 120 mg PO DAILY [facility] Last Admin: 01/07/23 08:32 Dose: 120 mg Famotidine (Famotidine 20 Mg Tab) 20 mg PO DAILY [facility] Last Admin: 01/07/23 08:32 Dose: 20 mg Guaifenesin (Guaifenesin 600 Mg Tablet.Er) 600 mg PO Q6HR [facility] Last Admin: 01/07/23 17:54 Dose: 600 mg Heparin Sodium (Porcine) (Heparin Sodium,Porcine/Pf 5,000 Unit/0.5 Ml Syringe) 5,000 unit SQ Q8HR [facility] Last Admin: 01/07/23 17:54 Dose: 5,000 unit Sodium Chloride (Saline 0.9%) 1,000 mls @ 10 mls/hr IV .Q24H [facility] Last Admin: 01/07/23 17:54 Dose: Not Given Piperacillin Sod/Tazobactam (Sod 3.375 gm/ Sodium Chloride) 100 mls @ 25 mls/hr IVPB Q8HR [facility]; Protocol Last Admin: 01/07/23 17:54 Dose: 25 mls/hr Lactulose (Lactulose 20 Gm/30 Ml Cup) 20 gm PO DAILY PRN PRN Reason: Constipation Melatonin (Melatonin 3 Mg Tablet) 3 mg PO HS PRN PRN Reason: Insomnia Metoprolol Tartrate (Metoprolol Tartrate 50 Mg Tab) 50 mg PO BID [facility] Last Admin: 01/07/23 08:32 Dose: 50 mg Naloxone HCl (Naloxone 0.4 Mg/Ml 1 Ml Vial) 0.2 mg IV Q2M PRN PRN Reason: Opioid Reversal Ondansetron HCl (Ondansetron 4 Mg Tab) 4 mg PO Q8H PRN PRN Reason: Nausea Polymyxin/Trimethoprim Sulfate (Polymyxin B-Trimethoprim Sulf (10,000-1) Ophth Drops 10 Ml Btl) 1 drops RIGHT EYE Q6HR [facility] Stop: 01/14/23 18:01 Last Admin: 01/07/23 17:53 Dose: 1 drops Past medical history to include: Obstructive sleep apnea, hypertension, hyperlipidemia, bilateral lower extremity venous wounds, chronic venous insufficiency chronic medical debility Social history: Lives with his . Does use a lift chair in the wheelchair. Patient stopped smoking in 2019. No alcohol. Physical examination: VITAL SIGNS: 99.9, 87, 20, 1 and 173, 93% on 2 L GENERAL: A bit lethargic. EYES: Pupils equal. Conjunctiva normal. HEENT: External appearance of nose and ears normal, oral cavity grossly normal. NECK: JVD unable to assess; masses not palpable. HEART: First and second heart sounds are normal; some edema. LUNGS: Respiratory rate normal; decreased breath sounds. ABDOMEN: Soft, nontender, liver spleen not palpable, no masses palpable. PSYCH: Alert and oriented x3; mood and affect normal. MUSCULOSKELETAL:No Clubbing/cyanosis;muscles-grossly intact. Possible OA. NEUROLOGICAL: Mild slightly pulled to the right. Speech is slurred. Decreased sensorium. No other obvious weakness in the limbs. EXTREMITY: Bilateral lower extremity venous ulcers with a dressing in place. DERMATOLOGICAL: Decub ulcers INVESTIGATIONS, reviewed in the clinical context: 01/07/2023: White count 16.3 hemoglobin 11.8 platelets 299 potassium 3.5 creatinine 0.8 procalcitonin 0.69 Blood culture [12/30/2022]: Klebsiella oxytoca. [January 06]: Negative Influenza type A, type B, RSV, COVID-19: Not detected 01/03/2023: White count hemoglobin 12.8 procalcitonin 0.88 01/01/2023: Potassium 3.9 creatinine 0.81 12/31/2022: Potassium 3.6 creatinine 1.14 procalcitonin 1.24 White count 16.2 hemoglobin 13.6 platelets 460 sodium 140 potassium 3.8 BUN 29 creatinine 1.5 bun Lactic acid 6 and repeat 2.2 AST 34 ALT 53 alkaline phosphatase 1445 UA: Negative for nitrite Chest x-ray film personally reviewed by me-right basilar infiltrate Previous labs: Creatinine 0.03 June 2020 Assessment and plan: -Right lower lobe pneumonia, possible aspiration suspected gram-negative organism:: Slow to respond IV Zosyn -Subacute stroke within the last 24-48 hours. Patient was reported to be not himself yesterday. Computed tomography scan of the brain unremarkable. MRI of the brain ordered. Neurology consulted -Sepsis and blood cultures positive from Klebsiella oxytoca likely UTI source: Better Culture positive from December 30. Repeat blood cultures January 01 negative. -Probable acute UTI with cystitis IV ceftriaxone completed -Acute kidney disease, possibly ATN, : Resolved Proteinuria in the urine. Renal ultrasound. -Morbid obesity BMI 50.2 Weight loss measures -Chronic medical debility, and baseline uses a lift chair and a wheelchair -Bilateral chronic lower lower extremity venous ulcers Follow with wound care team -Chronic lower external edema venous insufficiency -Depression and anxiety Cymbalta 120 mg a -Essential hypertension Lopressor 50 mg twice a day. -Chronic pain with muscle spasms [place], baclofen discontinued because of somnolence. Start Flexeril -Lactic acidosis possibly combination of infection and dehydration -Sacral wound. IV Zosyn. Being followed by ID. -Full code -Disposition: Patient's does not want him back, she could not manage him. work manager looking into permanent placement Computed tomography scan of brain done this morning. MRI of the brain ordered. Aspiration precautions.. Diet. Consult neurology. Consult speech.
[2023-01-07] MEDS: ATORVASTATIN 40 MG TAB PO SCH (20:52)
[2023-01-07] MEDS: CLOPIDOGREL 75 MG TAB PO SCH (20:52)
--- NOTE | 2023-01-08 00:03 | US ---
EXAMINATION TYPE: US carotid duplex BILAT DATE OF EXAM: 01/07/2023 COMPARISON: NONE CLINICAL HISTORY: Possible stroke.Possible stroke Severely limited exam due to pt body habitus and pt not being orientated TECHNIQUE: Carotid duplex ultrasound examination. Indirect Doppler criteria was utilized. FINDINGS: EXAM MEASUREMENTS: RIGHT: Peak Systolic Velocity (PSV) cm/sec ----- Right CCA: 147.6 ----- Right ICA: 122.0 ----- Right ECA: Not vis ICA/CCA ratio: 0.8 RIGHT: End Diastole cm/sec ----- Right CCA: 29.4 ----- Right ICA: 15.6 ----- Right ECA: Not seen LEFT: Peak Systolic Velocity (PSV) cm/sec ----- Left CCA: 171.7 ----- Left ICA: 163.1 ----- Left ECA: Not seen ICA/CCA ratio: 0.9 LEFT: End Diastole cm/sec ----- Left CCA: 25.3 ----- Left ICA: 51.6 ----- Left ECA: Not seen VERTEBRALS (direction of flow): Right Vertebral: Not seen Left Vertebral: Not seen Rhythm: Normal SQL SSRS SSIS DEVELOPER NOTES: Right side severely limited due to reasons above. No plaque visualized. IMPRESSION: There is nonvisualization of the vertebral arteries. Velocities are elevated in the common carotid arteries bilaterally and suggestive of more than 50% st enosis. There is elevated velocity in the left internal carotid artery suggestive of 50-70% stenosis. Criteria for Assigning % of Stenosis / Diameter reduction (Estimation based on the indirect measurements of the internal carotid artery velocities (ICA PSV). 1. Normal (no stenosis)=ICA PSV < 125 cm/s: ratio < 2.0: ICA EDV<40 cm/s. 2. Less than 50% stenosis=ICA PSV < 125 cm/s: ratio < 2.0: ICA EDV<40 cm/s. 3. 50 to 69% stenosis=ICA PSV of 125 to 230 cm/s: ration 2.0 ? 4.0: ICA EDV 40-100 cm/s. 4. Greater than 70% stenosis to near occlusion= ICA PSV > 230 cm/s: ratio > 4.0: ICA EDV > 100 cm/s. 5. Near occlusion= ICA PSV velocities may be low or undetectable: variable ratio and ICA EDV. 6. Total occlusion=unable to detect flow.
[2023-01-08] MEDS: HEPARIN SODIUM,PORCINE/PF 5,000 UNIT/0.5 ML SYRINGE SQ SCH ×4 (00:05→23:16)
[2023-01-08] MEDS: guaiFENesin 600 MG TABLET.ER PO SCH ×5 (00:05→23:16)
[2023-01-08] MEDS: PIPERACILLIN-TAZOBACTAM 3.375 GM in SODIUM CHLORIDE 0.9% 100 ML IVPB SCH ×4 (00:05→23:16)
[2023-01-08] MEDS: POLYMYXIN B-TRIMETHOPRIM SULF (10,000-1) OPHTH DROPS 10 ML BTL RIGHT EYE SCH ×5 (00:06→23:16)
[2023-01-08] MEDS: FAMOTIDINE 20 MG TAB PO SCH (07:38)
[2023-01-08] MEDS: METOPROLOL TARTRATE 50 MG TAB PO SCH ×2 (07:38→20:25)
[2023-01-08] MEDS: CLOPIDOGREL 75 MG TAB PO SCH (07:38)
[2023-01-08] MEDS: DULoxetine HCL 60 MG CAPSULE.DR PO SCH (07:38)
[2023-01-08] MEDS: ASPIRIN 81 MG PO SCH (07:38)
--- NOTE | 2023-01-08 10:13 | P.CNNES ---
History of Present Illness Consult date: 01/08/23 Requesting physician: Juan Douglas Reason for Consult: subacute stroke History of Present Illness: This is a 62-year-old gentleman with medical history of chronic bilateral lower extremity venous ulcers, venous insufficiency, DVT, chronic lower back pain hypertension, hyperlipidemia, obstructive sleep apnea who presented emergency department because of chest pain. Neurology is consulted for subacute stroke. Some of the history is obtained from the patient's primary attending as well as the patient's nurse. According to the primary attending patient was doing well when he saw him last on Friday then he had other primary team covering for him and when he came back yesterday at he was notified that the patient had the facial weakness and slurring of the speech and is seems the nursing staff notified him that possibly this occurred over this past . It seems at home the patient is on aspirin 81 mg daily. Of note according to the ED note it seemed to the patient to have visiting physician gives him Mobile he takes 2 every 6 hours and the patient patient was attempted to get out of the chair this past Friday and severe pain. Patient is also on baclofen. Patient has a lift chair Some of the workup during his hospital visit consisted of: Appears the patient has underlying urinary tract infection CT of the head is poor as limited exam due to artifact demonstrated no gross evidence of the sizable acute intracranial hemorrhage or mass effect. I personally reviewed the CT of head and I agree there is no acute or subacute large ischemic stroke. There is no intra-parenchyma hemorrhage. Carotid duplex is reported as there is no visualization of vertebral artery. Velocities and elevated in the common carotid artery by I suggest more than 50% stenosis. There is elevated velocity in the left internal carotid artery suggestive of 50-70% stenosis. Review of Systems Review of system is limited with apparent positive and negative as per HPI. Past Medical History Past Medical History: Hyperlipidemia, Hypertension, Musculoskeletal Disorder, Sleep Apnea/CPAP/BIPAP, Vascular Disorder Additional Past Medical History / Comment(s): CHF, chronic back pain, cellulitis, DVT, nerve pain History of Any Multi-Drug Resistant Organisms: MRSA Date of last positivie culture/infection: 12/08/19 MDRO Source:: Right Foot Past Surgical History: Cholecystectomy, Hernia Repair, Tonsillectomy Past Anesthesia/Blood Transfusion Reactions: No Reported Reaction Past Psychological History: No Psychological Hx Reported Past Alcohol Use History: None Reported Past Drug Use History: None Reported, Marijuana - Past Family History Father Family Medical History: Cancer, Prostate Disorder Mother Family Medical History: Cancer Medications and Allergies Home Medications Medication Instructions Recorded Confirmed Type lisinopriL [Zestril] 10 mg PO DAILY tab 11/26/18 12/30/22 Rx Aspirin EC [Ecotrin Low Dose] 81 mg PO DAILY 01/07/20 12/30/22 History Baclofen 10 mg PO TID 01/07/20 12/30/22 History DULoxetine HCL [Cymbalta] 120 mg PO DAILY 12/30/22 12/30/22 History Furosemide [Lasix] 80 mg PO DAILY 12/30/22 12/30/22 History HYDROcodone/APAP 10-325MG [Mobile 2 tab PO Q6H PRN 12/30/22 12/30/22 History 10-325] Metoprolol Tartrate [Lopressor] 50 mg PO BID 12/30/22 12/30/22 History Potassium Chloride [Klor-Con M20] 20 meq PO DAILY 12/30/22 12/30/22 History tiZANidine [Zanaflex] 2 mg PO Q8HR PRN 12/30/22 12/30/22 History Allergies Allergy/AdvReac Type Severity Reaction Status Date / Time No Known Allergies Allergy Verified 07/06/20 17:32 Physical Examination - Vital Signs Vital Signs: Vital Signs Temp Pulse Resp BP Pulse Ox 01/08/23 07:05 99.6 F 94 20 126/78 94 L 01/08/23 02:00 100.2 F H 100 20 141/79 93 L 01/07/23 20:00 100.4 F H 102 H 20 106/70 92 L 01/07/23 15:00 93 L 01/07/23 12:20 99.9 F H 87 20 111/73 93 L Intake and Output 01/07/23 01/08/23 01/08/23 22:59 06:59 14:59 Intake Total 358 460 Output Total 400 400 Balance -42 -400 460 Intake: Intake, IV Titration 220 Amount Piperacillin-Tazobactam 3 100 .375 gm In Sodium Chloride 0.9% 100 ml @ 25 mls/hr IVPB Q8HR [facility] Rx# :[id number] Sodium Chloride 0.9% 1, 120 000 ml @ 10 mls/hr IV . Q24H [facility] Rx#:[id number] Oral 358 240 Output: Urine 400 400 Other: Voiding Method Indwelling Catheter # Bowel Movements 1 GENERAL: The patient is lying in bed and is not in acute distress. CHEST: The heart rate is regular rate rhythm. No murmurs to auscultation. LUNG: Clear to auscultation bilaterally no wheezing noted throughout. Not labored breathing. ABDOMEN/GI: Bowel sounds present in all 4 quadrants. No tenderness to palpation throughout. NEUROLOGICAL: Higher mental function: The patient is awake, alert, oriented to self, place and time. Patient is following simple commands. Lanaguage is limited but does not appear aphasia and no neglect. Cranial nerves: The pupils are round, equal and reactive to light. Visual liang are full to confrontation throughout. Extraocular movement is intact no nystagmus is noted. Facial sensation is normal to touch throughout. Patient has mild to moderate right lower facial droop. Has moderate to severe dysarthria. Motor: The strength is right upper extremity flexion of forearm is 4+, otherwise 5/5 of uppers. Lowers is unable to lift and has bilateral legs wrapped and not able to lift above gravity bilaterally. Normal tone and bulk in uppers.. Cerebellum: Unable to assess. Sensation: Sensation is normal to touch throughout uppers. Reflexes (right/left): Unable to assess because of cooperation. Plantars: Unable to assess since legs are wrapped. Results - Laboratory Findings CBC and BMP: 01/07/23 04:34 01/07/23 04:34 Abnormal Lab Findings: Abnormal Labs 12/30/22 12/30/22 12/30/22 05:38 05:38 05:38 WBC 16.2 H RBC Hgb Hct MCHC RDW Plt Count 460 H Immature Gran # Neutrophils # 12.9 H Monocytes # Sodium BUN 29 H Creatinine 1.51 H BUN/Creatinine Ratio Glucose 110 H Plasma Lactic Acid Lloyd 6.0 H* Calcium 8.3 L ALT 53 H Alkaline Phosphatase 1445 H Albumin 3.2 L Procalcitonin Urine Protein Urine Ketones Urine Blood Urine Bilirubin Ur Leukocyte Esterase Urine RBC Urine WBC Urine WBC Clumps Amorphous Sediment Urine Bacteria Hyaline Casts Urine Mucus 12/30/22 12/30/22 12/31/22 08:18 09:01 05:30 WBC RBC Hgb Hct MCHC RDW Plt Count Immature Gran # Neutrophils # Monocytes # Sodium 136 L BUN 26 H Creatinine BUN/Creatinine Ratio Glucose Plasma Lactic Acid Lloyd 2.2 H* Calcium 7.4 L ALT Alkaline Phosphatase Albumin Procalcitonin Urine Protein 1+ H Urine Ketones Urine Blood Small H Urine Bilirubin Ur Leukocyte Esterase Large H Urine RBC 15 H Urine WBC >182 H Urine WBC Clumps Few H Amorphous Sediment Urine Bacteria Many H Hyaline Casts Urine Mucus Occasional H 12/31/22 01/01/23 01/03/23 05:30 06:58 06:36 WBC RBC Hgb Hct MCHC RDW Plt Count Immature Gran # Neutrophils # Monocytes # Sodium 135 L BUN 21 H Creatinine BUN/Creatinine Ratio Glucose Plasma Lactic Acid Lloyd Calcium 7.2 L ALT Alkaline Phosphatase Albumin Procalcitonin 1.24 H 0.88 H Urine Protein Urine Ketones Urine Blood Urine Bilirubin Ur Leukocyte Esterase Urine RBC Urine WBC Urine WBC Clumps Amorphous Sediment Urine Bacteria Hyaline Casts Urine Mucus 01/03/23 01/06/23 01/06/23 06:36 04:56 04:56 WBC 15.1 H 17.25 H RBC 4.14 L Hgb 12.8 L 11.8 L Hct 37.7 L MCHC 31.3 L RDW 15.9 H Plt Count Immature Gran # Neutrophils # 12.2 H Monocytes # Sodium BUN Creatinine BUN/Creatinine Ratio 23.88 H Glucose Plasma Lactic Acid Lloyd Calcium 8.1 L ALT Alkaline Phosphatase Albumin Procalcitonin Urine Protein Urine Ketones Urine Blood Urine Bilirubin Ur Leukocyte Esterase Urine RBC Urine WBC Urine WBC Clumps Amorphous Sediment Urine Bacteria Hyaline Casts Urine Mucus 01/06/23 01/07/23 01/07/23 10:10 04:34 04:34 WBC 16.38 H RBC 4.20 L Hgb 11.8 L Hct 38.5 L MCHC 30.6 L RDW 16.1 H Plt Count Immature Gran # 0.13 H Neutrophils # 12.15 H Monocytes # 1.03 H Sodium BUN Creatinine BUN/Creatinine Ratio 20.88 H Glucose Plasma Lactic Acid Lloyd Calcium 8.0 L ALT Alkaline Phosphatase Albumin Procalcitonin Urine Protein 2+ H Urine Ketones Trace H Urine Blood Moderate H Urine Bilirubin 1+ H Ur Leukocyte Esterase Small H Urine RBC 86 H Urine WBC 21 H Urine WBC Clumps Amorphous Sediment Occasional H Urine Bacteria Rare H Hyaline Casts 34 H Urine Mucus Many H 01/07/23 04:34 WBC RBC Hgb Hct MCHC RDW Plt Count Immature Gran # Neutrophils # Monocytes # Sodium BUN Creatinine BUN/Creatinine Ratio Glucose Plasma Lactic Acid Lloyd Calcium ALT Alkaline Phosphatase Albumin Procalcitonin 0.69 H Urine Protein Urine Ketones Urine Blood Urine Bilirubin Ur Leukocyte Esterase Urine RBC Urine WBC Urine WBC Clumps Amorphous Sediment Urine Bacteria Hyaline Casts Urine Mucus Assessment and Plan Assessment: This is a 62-year-old gentleman with has right lower facial droop as well as dysarthria and the last normal as a this weekend. Subacute ischemic stroke. No IV TPA because the patient is outside the window and the risk outweighed the benefit Left ICA stenosis of 50-70% and carotid duplex Ongoing chronic bilateral lower extremity venous ulcers due to venous insufficiency History of DVT Chronic lower back pain [place] history Hypertension Hyperlipidemia Ongoing history of obstructive sleep apnea Plan: MR the brain is ordered by the primary team is pending I ordered CT angiography of the head and neck and consulted the vascular surgery team because of left ICA stenosis. Patient is on aspirin home dose in addition the patient was also started on Plavix 75 mg daily by the primary team. Also the patient is on Lipitor 40 mm daily at bedtime for secondary stroke prophylaxis Ordered 2-D echo as well as EKG Every 4 hours neuro checks Placed on cardiac monitoring PT OT and EDI ARCHITECT are consulted We'll defer the rest of the medical management the primary team For DVT prophylaxis the patient is on subcu heparin 5000 units every 8 hours The plan was discussed with the patient and the primary attending as well as the patient's nurse. Thank you for the Consultation Time with Patient: Greater than 30
[2023-01-08] MEDS: COLLAGENASE 250 UNIT/GM OINTMENT 30 GM TUBE TOPICAL SCH (11:42)
--- NOTE | 2023-01-08 11:44 | CDI ---
Documentation Clarification Form Date: 01/08/2023 11:06:21 AM From: Marycruz Parra RN, CCDS Admit Date: 12/30/2022 7:59:00 AM Patient Name: Lorenzo Harper Visit Number: [id number] Discharge Date: ATTENTION: The Clinical Documentation Specialists (CDI) and [facility] Coding Staff appreciate your assistance in clarifying documentation. Please respond to the clarification below the line at the bottom and electronically sign. The CDI & [facility] Coding staff will review the response and follow-up if needed. Please note: Queries are made part of the Legal Health Record. If you have any questions, please contact the author of this message via ITS. Dr. Juan Douglas The patient was admitted on 12/30/22 had sepsis documented in the ongoing progress notes starting on 01/01/23. Based on this information and the findings below, is there an additional diagnosis that is clinically appropriate for this patient? 01/01 ID: Patient with gram-negative bacteremia in this patient presented to hospital with left-sided chest pain in this patient who did have some pleural reaction/atelectasis at the lung base with concern for possible pneumonia versus UTI to be the source if the bacteremia as the patient has significantly positive UA. History/Risk Factors: Hypertension, Hyperlipidemia, obstructive sleep apnea, chronic bilateral lower extremity venous ulcers, venous insufficiency Clinical Indicators: 62-year-old female present with chest wall pain worse with coughing and taking a deep breath. Chest x-ray with right basilar infiltrate 12/30 WBC 16.2, Neutrophils 12.9 BUN 29, Cr 1.51, Lactic acid 6.0, ALT 53, Alkaline phos 1445, Ua: Ur Leukocyte Esterase Large WBC >182 12/31 Lab Procalcitonin 1.24 12/30 Blood cultures: Klebsiella oxytoca 12/30 Vitals signs: 109/62 135 97.9 95 % RA, 128/68 120 24 99 96 % RA Treatment: .9NS 500ML IV Bolus X2 12/30 Rocephin 1GM IVPB Q12 HRS 12/30-12/31 then Q 24 through 01/06 Maxipime 2 IVPB Q 8 HRS 12/31-01/01 Zosyn IVPB Q 8 HRS 01/06-01/08 Is there an additional diagnosis that is clinically appropriate for this patient : [ + ] Sepsis POA [ ] Sepsis, developed during the admission [ ] Other, please specify [ ] Unable to determine SIRS Criteria: 2 or more of the following may indicate SIRS Temperature < 96.8F (36C) or > 101.0F (38.3C) Heart Rate > 90 bpm Respiratory Rate > 20 breaths/min or PaCO2 < 32 mmHg White Blood Cell Count > 12,000 or < 4,000 cells/mm3 or > 10% bands (Template Last Reviewed: October 2022) MTDD
[2023-01-08] MEDS: ACETAMINOPHEN TAB 325 MG TAB PO PRN (12:04)
--- NOTE | 2023-01-08 12:10 | P.GSCN ---
History of Present Illness Consult date: 01/08/23 Reason for Consult: Left ICA stenosis with stroke Requesting physician: Clement Lovett History of present illness: This is a 62-year-old male with past medical history including obesity, bilateral lower extremity venous ulcers from venous insufficiency, DVT, hypertension, hyperlipidemia and obstructive sleep apnea who presented to the emergency department on 12/30/2022 with complaints of left lateral chest pain. Patient was admitted with bacteremia, blood cultures positive for Klebsiella oxytoca. Apparently yesterday patient was noted to have a right facial droop and slurring of his speech. This history is being obtained from patient's chart and nursing as patient currently is having difficulty speaking. The primary medical team ordered a CT of the brain yesterday which reported limited exam due to artifact with no gross evidence of sizable acute intracranial hemorrhage or mass effect. Carotid duplex was ordered as well yesterday evening that is reporting 50-70% left ICA stenosis. Neurology was consulted, evaluated patient and consulted vascular surgery for left ICA stenosis, acute stroke. MRI of brain ordered and pending as well as CT angiogram head and neck. Patient was undergoing echocardiogram, results currently pending. His home medications included aspirin 81 mg daily, medicine team started Plavix 75 mg daily and Lipitor 40 mg daily. Review of Systems ROS unobtainable: due to mental status Past Medical History Past Medical History: Hyperlipidemia, Hypertension, Musculoskeletal Disorder, Sleep Apnea/CPAP/BIPAP, Vascular Disorder Additional Past Medical History / Comment(s): CHF, chronic back pain, cellulitis, DVT, nerve pain History of Any Multi-Drug Resistant Organisms: MRSA Year Discovered:: 12/08/19 MDRO Source:: Right Foot Past Surgical History: Cholecystectomy, Hernia Repair, Tonsillectomy Past Anesthesia/Blood Transfusion Reactions: No Reported Reaction Past Psychological History: No Psychological Hx Reported Past Alcohol Use History: None Reported Past Drug Use History: None Reported, Marijuana - Past Family History Father Family Medical History: Cancer, Prostate Disorder Mother Family Medical History: Cancer Medications and Allergies Home Medications Medication Instructions Recorded Confirmed Type lisinopriL [Zestril] 10 mg PO DAILY tab 11/26/18 12/30/22 Rx Aspirin EC [Ecotrin Low Dose] 81 mg PO DAILY 01/07/20 12/30/22 History Baclofen 10 mg PO TID 01/07/20 12/30/22 History DULoxetine HCL [Cymbalta] 120 mg PO DAILY 12/30/22 12/30/22 History Furosemide [Lasix] 80 mg PO DAILY 12/30/22 12/30/22 History HYDROcodone/APAP 10-325MG [[place] 2 tab PO Q6H PRN 12/30/22 12/30/22 History 10-325] Metoprolol Tartrate [Lopressor] 50 mg PO BID 12/30/22 12/30/22 History Potassium Chloride [Klor-Con M20] 20 meq PO DAILY 12/30/22 12/30/22 History tiZANidine [Zanaflex] 2 mg PO Q8HR PRN 12/30/22 12/30/22 History Allergies Allergy/AdvReac Type Severity Reaction Status Date / Time No Known Allergies Allergy Verified 07/06/20 17:32 Surgical - Exam Vital Signs Temp Pulse Resp BP Pulse Ox 97.9 F 135 H 16 109/62 95 12/30/22 04:49 12/30/22 04:49 12/30/22 04:49 12/30/22 04:49 12/30/22 04:49 General appearance: The patient is alert, appears in no acute distress. HET: Head is normocephalic and atraumatic. Pupils are equal and reactive. Neck: Supple, obese. Trachea midline. Difficulty evaluating for carotid bruit due to patient's breathing, and obesity. Heart: Regular. Lungs: Equal expansion, normal respiratory effort. Abdomen: Soft, nontender, nondistended. Extremities: Bilateral lower extremity with Holger wrap in place, with venous stasis. Neurological: Patient with right facial droop, dysarthria. He is able to follow commands, however unable to to complete neuro exam as he was getting frustrated and could not continue. He did have good tone and bilateral upper and lower extremities. Firm hand grasp bilaterally, 4/5. Results - Labs 01/07/23 04:34 01/07/23 04:34 Abnormal Lab Results - Last 24 Hours (Table) 01/07/23 Range/Units 04:34 Procalcitonin 0.69 H (0.02-0.09) ng/mL Microbiology - Last 24 Hours (Table) 01/01/23 18:44 Blood Culture - Final Blood No Growth after 144 hours 01/06/23 14:53 Blood Culture - Preliminary Blood No Growth after 24 hours 01/06/23 10:10 Urine Culture - Final Urine,Voided Assessment and Plan Assessment: 1. Acute stroke with right-sided facial droop and dysarthria 2. 50-70% left ICA stenosis per carotid duplex 3. Bacteremia 4. Chronic venous stasis wounds due to venous insufficiency 5. Morbidly obese 6. Hypertension 7. Hyperlipidemia 8. Obstructive sleep apnea Plan: 1. Agree with order for CT angiogram head and neck 2. Await MRI results 3. Continue aspirin Plavix and Lipitor as ordered 4. Continue with further workup and recommendations from neurology 5. Further recommendations forthcoming based on MRI and CT angiogram head and neck 6. Continue PT/OT/speech therapy 7. Medical management per primary medicine team Thank you for this consultation, we will continue to follow.
--- NOTE | 2023-01-08 12:10 | P.PN ---
Subjective Progress Note Date: 01/08/23 CHIEF COMPLAINT: Cough HISTORY OF PRESENT ILLNESS: Patient is admitted to the hospital with pneumonia, UTI and bacteremia. Patient is currently being worked up for possible CVA. He is scheduled for MRI of the brain, CTA of the head and neck and echo. He was started on Plavix. Patient denies any pain in his buttocks. Denies any nausea or vomiting. He still has a cough. Patient having low-grade fevers 100.4. WBC 16 yesterday. No new labs for today. PHYSICAL EXAM: VITAL SIGNS: Reviewed GENERAL: Well-developed in no acute distress. HEENT: No sclera icterus. Extraocular movements grossly intact. Moist buccal mucosa. Head is atraumatic, normocephalic. Hears conversational speech. No nasal drainage. NECK: Supple without lymphadenopathy. CHEST: Non-labored respirations and equal bilateral excursions. CARDIOVASCULAR: Palpable 2+ radial pulses. ABDOMEN: Soft. obese. Nondistended. Nontender. MUSCULOSKELETAL: No clubbing or cyanosis. ASSESSMENT: 1. Sacral decubitus ulcer 2. Pneumonia 3. UTI 4. Bacteremia 5. Sepsis 6. Acute kidney injury 7. Morbid obesity 8. Bilateral chronic lower extremity venous ulcers 9. Possible CVA PLAN: -Surgery for Debridement of sacral decubitus ulcer will be cancelled due to patient being on Plavix -Continue stroke workup -Continue antibiotics per ID -Continue offloading -Continue local wound care -Continue supportive care Physician Sizing End Bander note has been reviewed by physician. Signing provider agrees with the documented findings, assessment, and plan of care. Objective - Vital Signs Vital signs: Vital Signs Temp 99.6 F 01/08/23 07:05 Pulse 94 01/08/23 07:05 Resp 20 01/08/23 07:05 BP 126/78 01/08/23 07:05 Pulse Ox 94 L 01/08/23 07:05 FiO2 Intake & Output 01/07/23 01/08/23 01/08/23 18:59 06:59 18:59 Intake Total 358 460 Output Total 400 400 Balance -42 -400 460 Weight 143 kg Intake: Intake, IV Titration 220 Amount Piperacillin-Tazobactam 3 100 .375 gm In Sodium Chloride 0.9% 100 ml @ 25 mls/hr IVPB Q8HR [facility]1983 Rx# :[id number] Sodium Chloride 0.9% 1, 120 000 ml @ 10 mls/hr IV . Q24H [facility] Rx#:[id number] Oral 358 240 Output: Urine 400 400 Other: Voiding Method Indwelling Catheter Indwelling Catheter # Bowel Movements 1 - Labs CBC & Chem 7: 01/07/23 04:34 01/07/23 04:34 Labs: Abnormal Lab Results - Last 24 Hours (Table) 01/07/23 Range/Units 04:34 Procalcitonin 0.69 H (0.02-0.09) ng/mL Microbiology - Last 24 Hours (Table) 01/01/23 18:44 Blood Culture - Final Blood No Growth after 144 hours 01/06/23 14:53 Blood Culture - Preliminary Blood No Growth after 24 hours 01/06/23 10:10 Urine Culture - Final Urine,Voided
--- NOTE | 2023-01-08 12:33 | P.PN ---
Subjective Progress Note Date: 01/08/23 Principal diagnosis: Bacteremia Patient is a 62-year old male with a past medical history significant for hypertension hyperlipidemia,, did have chronic bilateral extremity venous stasis ulcer and is mostly bedbound with a wound care provided by the visiting nurse, presented to hospital with left-sided chest pain, and this patient do have evidence of Klebsiella bacteremia. On today's evaluation that is 01/08/2023, the patient did have low-grade fever of 100.4F last night and early this morning, the patient is lethargic and could not provide any history patient is currently on the 2 L nasal cannula oxygen , no vomiting no diarrhea or any other changes reported by the nursing staff Objective - Vital Signs Vital signs: Vital Signs Temp 99.6 F 01/08/23 07:05 Pulse 94 01/08/23 07:05 Resp 20 01/08/23 07:05 BP 126/78 01/08/23 07:05 Pulse Ox 94 L 01/08/23 07:05 FiO2 Intake & Output 01/07/23 01/08/23 01/08/23 18:59 06:59 18:59 Intake Total 358 460 Output Total 400 400 Balance -42 -400 460 Intake: Intake, IV Titration 220 Amount Piperacillin-Tazobactam 3 100 .375 gm In Sodium Chloride 0.9% 100 ml @ 25 mls/hr IVPB Q8HR [facility] Rx# :[id number] Sodium Chloride 0.9% 1, 120 000 ml @ 10 mls/hr IV . Q24H [facility] Rx#:[id number] Oral 358 240 Output: Urine 400 400 Other: Voiding Method Indwelling Catheter Indwelling Catheter # Bowel Movements 1 - Exam GENERAL DESCRIPTION: A middle-aged male lying in bed in no distress RESPIRATORY SYSTEM: Unlabored breathing , decreased breath sounds at bases HEART: S1 S2 regular rate and rhythm , ABDOMEN: Soft , no tenderness EXTREMITIES: Bilateral lower extremity currently dressed no drainage - Labs CBC & Chem 7: 01/07/23 04:34 01/07/23 04:34 Labs: Abnormal Lab Results - Last 24 Hours (Table) 01/07/23 Range/Units 04:34 Procalcitonin 0.69 H (0.02-0.09) ng/mL Microbiology - Last 24 Hours (Table) 01/01/23 18:44 Blood Culture - Final Blood No Growth after 144 hours 01/06/23 14:53 Blood Culture - Preliminary Blood No Growth after 24 hours 01/06/23 10:10 Urine Culture - Final Urine,Voided Assessment and Plan (1) Positive blood culture Current Visit: Yes Status: Acute Code(s): R78.81 - BACTEREMIA SNOMED C ode(s): 201232700 Plan: 1patient with gram-negative bacteremia in this patient presented to hospital with left-sided chest pain in this patient who did have some pleural reaction/atelectasis at the lung base with concern for possible pneumonia versus UTI to be the source of this bacteremia as the patient has significantly positive UA he did have some complaint of chronic nonhealing wound but did not have significant redness or drainage to be concerned for the likely source of this bacteremia. 2local wound care to sacral wound local wound care to continue santyl, followed by moist dressing keep the area off the pressure, the patient will benefit from surgical evaluation and possible debridement, apparently has been postponed because of his medical condition 3-patient did have a low-grade fever and worsening of the white count and slight worsening of the infiltrate on the chest x-ray concerning for possible aspiration pneumonia , patient will continue with Zosyn along with aspiration precautions and monitor clinical course closely Time with Patient: Less than 30
--- NOTE | 2023-01-08 14:18 | P.PN ---
Progress Note - Text Progress Note Date: 01/08/23 Chief Complaint: Left lateral chest pain This is a 62-year-old patient, follows with Dr. Chapman. Chronic stable medical conditions include hypertension, hyperlipidemia, obstructive sleep apnea, chronic bilateral lower extremity venous ulcers. From venous insufficiency. Patient has a lift chair and a chair at home. Wound care is done by a visiting nurse and patient's . Patient presents with 2 days of what he describes as left-sided lateral chest wall pain. Pain is worse with coughing and taking a deep breath. Patient rather sleepy for last 2 days. Decreased appetite. No nausea vomiting. No fever. No sputum production. Denies any off or shortness of breath Admitted with pneumonia, acute kidney injury. 12/31/2022: Doing better. Less chest wall pain. IV cefepime. Renal function better. IV fluids. Appetite picking up. 01/01/2023: Eating much better. Comfortable in bed. Kidney function better. Patient wants his baclofen to be increased to home dose. Pain medications discussed. Blood cultures positive for Klebsiella oxytoca. IV ceftriaxone. Repeat blood culture today. 01/02/2023: Repeat blood cultures done yesterday. Eating well. Patient felt maybe was too sleepy with his baclofen. Being changed to Flexeril. Discussed with patient. 01/03/2023: Eating well. Flexeril is working from better than baclofen. automation manager called me to inform that the could not manage at home. Wants permanent placement for him. Repeat blood cultures from January 01 negative to now. 01/04/2023:his is a 62 year old male who is monitored on medical floor and currently pending ECF placement. Patient is admitted for chronic back pain and chronic wounds with multiple medical comorbidities. Patient has been found to have blood culture positive x2 for klebsiella oxytoca and continues on IV ceftriaxone. Repeat blood culture is negative so far at 48 hours, infectious disease is following closely. Patient is noted today to have injected sclera and crusting to the right eye concerning for acute conjunctivitis and eye drops will be added. Wound care evaluation completed and local wound care continues to bilateral lower extremity ulcerations with honey gel absorptive silver moistened abd and rolled gauze. Change MWF. Patient has refused followed up wound center at this time. White count remains elevated at 15.1, procalcitonin is trending down and currently 0.88. Patients has been caring for patient at home and currently unable to do so anymore. Patient requires ECF placement. 01/05/2023 Patient is evaluated today resting in bed on medical floor. Continues on IV ceftriaxone for urine culture showing klebsiella oxytoca x 2. And repeat blood culture is negative so far at 72 hours. Patient is given incentive spirometer for low oxygen saturation. He is receiving local wound care to lower extremity. Kennedy and verna. White count is 15.1 today. 01/06/2023 Patient evaluated today and has increased confusion. He does respond to questions appropriately alert x3 however he does appear to have some visual hallucinations. White count is increased up to 17 today and investigated. Chest xray showing mild progression of right sided consolidation and small effusion possible an underlying pneumonia. Antibiotics have been changed to IV zosyn and patient will have full sepsis work up as fever is also developing today. Patient does have poor dentition and would benefit from oral care. Local wound care in place. Temp of 99.7, heart rate 96, blood pressure 120/72, 92% room air. 01/07/2023: Resumed care of the patient today. Nurse informed me that patient's speech has been more slurred. Retaining some secretions. Some asymmetry of the mouth. Does also notice by the pillowcase cutter. Reji. This is apparently present yesterday too. Unclear present on Friday. I ordered a computed tomography scan of the brain this afternoon. No obvious stroke was noted. I've ordered speech therapy consult....pureed Diet for medications Aspiration precautions. Patient is lethargic. Attempting to answer. Slurred speech. Retaining secretions in the mouth. Neurology consulted. MRI brain ordered 01/08/2023: Patient's speech remained slurred. Seen by speech therapy. Diet changed to. With honey thickened liquid. Pending MRI brain. CT angiogram done today. We'll follow with neurology. Taking his medications. It's unclear if patient's symptoms started on Friday or some time Friday. Low-grade fever. For sacral wound debridement. Active Medications Acetaminophen (Acetaminophen Tab 325 Mg Tab) 650 mg PO Q6HR PRN PRN Reason: Mild Pain or Fever > 100.5 Last Admin: 01/08/23 12:04 Dose: 650 mg Aspirin (Aspirin 81 Mg) 81 mg PO DAILY JOSHUA Last Admin: 01/08/23 07:38 Dose: 81 mg Atorvastatin Calcium (Atorvastatin 40 Mg Tab) 40 mg PO HS [facility] Last Admin: 01/07/23 20:52 Dose: 40 mg Calcium Carbonate/Glycine (Calcium Carbonate 500 Mg Chewable) 1,000 mg PO Q4HR PRN PRN Reason: Dyspepsia Clopidogrel Bisulfate (Clopidogrel 75 Mg Tab) 75 mg PO DAILY [facility] Last Admin: 01/08/23 07:38 Dose: 75 mg Collagenase (Collagenase 250 Unit/Gm Ointment 30 Gm Tube) 1 applic TOPICAL DAILY [facility]; Protocol Last Admin: 01/08/23 11:42 Dose: 1 applic Duloxetine HCl (Duloxetine Hcl 60 Mg Capsule.Dr) 120 mg PO DAILY [facility] Last Admin: 01/08/23 07:38 Dose: 120 mg Famotidine (Famotidine 20 Mg Tab) 20 mg PO DAILY [facility] Last Admin: 01/08/23 07:38 Dose: 20 mg Guaifenesin (Guaifenesin 600 Mg Tablet.Er) 600 mg PO Q6HR [facility] Last Admin: 01/08/23 11:41 Dose: 600 mg Heparin Sodium (Porcine) (Heparin Sodium,Porcine/Pf 5,000 Unit/0.5 Ml Syringe) 5,000 unit SQ Q8HR [facility] Last Admin: 01/08/23 07:37 Dose: 5,000 unit Sodium Chloride (Saline 0.9%) 1,000 mls @ 10 mls/hr IV .Q24H [facility] Last Admin: 01/07/23 17:54 Dose: Not Given Piperacillin Sod/Tazobactam (Sod 3.375 gm/ Sodium Chloride) 100 mls @ 25 mls/hr IVPB Q8HR [facility]; Protocol Last Admin: 01/08/23 07:37 Dose: 25 mls/hr Lactulose (Lactulose 20 Gm/30 Ml Cup) 20 gm PO DAILY PRN PRN Reason: Constipation Melatonin (Melatonin 3 Mg Tablet) 3 mg PO HS PRN PRN Reason: Insomnia Metoprolol Tartrate (Metoprolol Tartrate 50 Mg Tab) 50 mg PO BID [facility] Last Admin: 01/08/23 07:38 Dose: 50 mg Naloxone HCl (Naloxone 0.4 Mg/Ml 1 Ml Vial) 0.2 mg IV Q2M PRN PRN Reason: Opioid Reversal Ondansetron HCl (Ondansetron 4 Mg Tab) 4 mg PO Q8H PRN PRN Reason: Nausea Polymyxin/Trimethoprim Sulfate (Polymyxin B-Trimethoprim Sulf (10,000-1) Ophth Drops 10 Ml Btl) 1 drops RIGHT EYE Q6HR JOSHUA Stop: 01/14/23 18:01 Last Admin: 01/08/23 11:42 Dose: 1 drops Past medical history to include: Obstructive sleep apnea, hypertension, hyperlipidemia, bilateral lower extremity venous wounds, chronic venous insufficiency chronic medical debility Social history: Lives with his . Does use a lift chair in the wheelchair. Patient stopped smoking in 2018. No alcohol. Physical examination: VITAL SIGNS: 100.4, 1 or 2, 20, 1 41 x 79, 93% on 2 L GENERAL: A bit lethargic. EYES: Pupils equal. Conjunctiva normal. HEENT: External appearance of nose and ears normal, oral cavity grossly normal. NECK: JVD unable to assess; masses not palpable. HEART: First and second heart sounds are normal; some edema. LUNGS: Respiratory rate normal; decreased breath sounds. ABDOMEN: Soft, nontender, liver spleen not palpable, no masses palpable. PSYCH: Alert and oriented x3; mood and affect normal. MUSCULOSKELETAL:No Clubbing/cyanosis;muscles-grossly intact. Possible OA. NEUROLOGICAL: Mouth slightly pulled to the right. Speech is slurred. Decreased sensorium. No other obvious weakness in the limbs. EXTREMITY: Bilateral lower extremity venous ulcers with a dressing in place. DERMATOLOGICAL: Decub ulcers INVESTIGATIONS, reviewed in the clinical context: 01/07/2023: White count 16.3 hemoglobin 11.8 platelets 299 potassium 3.5 creatinine 0.8 procalcitonin 0.69 Blood culture [12/30/2022]: Klebsiella oxytoca. [January 06]: Negative Influenza type A, type B, RSV, COVID-19: Not detected 01/03/2023: White count hemoglobin 12.8 procalcitonin 0.88 01/01/2023: Potassium 3.9 creatinine 0.81 12/31/2022: Potassium 3.6 creatinine 1.14 procalcitonin 1.24 White count 16.2 hemoglobin 13.6 platelets 460 sodium 140 potassium 3.8 BUN 29 creatinine 1.5 bun Lactic acid 6 and repeat 2.2 AST 34 ALT 53 alkaline phosphatase 1445 UA: Negative for nitrite Chest x-ray film personally reviewed by me-right basilar infiltrate Previous labs: Creatinine 0.03 June 2020 Assessment and plan: -Right lower lobe pneumonia, possible aspiration suspected gram-negative organism:: Slow to respond IV Zosyn -Subacute stroke within the last 24-48 hours. Patient was reported to be not himself yesterday. Computed tomography scan of the brain unremarkable. MRI of the brain pending Neurology following. -Sepsis and blood cultures positive from Klebsiella oxytoca likely UTI source: Better Culture positive from December 30. Repeat blood cultures January 01 negative. -Probable acute UTI with cystitis IV ceftriaxone completed -Acute kidney disease, possibly ATN, : Resolved Proteinuria in the urine. Renal ultrasound. -Morbid obesity BMI 50.2 Weight loss measures -Chronic medical debility, and baseline uses a lift chair and a wheelchair -Bilateral chronic lower lower extremity venous ulcers Follow with wound care team -Chronic lower external edema venous insufficiency -Depression and anxiety Cymbalta 120 mg a -Acute dysphagia secondary to stroke clinically . pureed Diet with nectar thick liquid. Being followed by speech -Essential hypertension Lopressor 50 mg twice a day. -Chronic pain with muscle spasms [place], baclofen discontinued because of somnolence. Start Flexeril -Lactic acidosis possibly combination of infection and dehydration -Sacral wound. IV Zosyn. Being followed by ID. for debridement per surgery. -Full code -Disposition: Patient's does not want him back, she could not manage him. automation manager looking into permanent placement Pending MRI of the brain. Changed over to pured with honey thickened liquid. Stable to proceed for bedside debridement. Prognosis guarded. Total time spent more than 50 minutes today.
--- NOTE | 2023-01-08 15:26 | CT ---
"EXAMINATION TYPE: CT angio head neck DATE OF EXAM: 01/08/2023 HISTORY: stroke COMPARISON: Carotid ultrasound one day earlier CT DLP: 689.9 mGycm. Automated Exposure Control for Dose Reduction was Utilized. TECHNIQUE: CTA scan of the head and neck is performed with IV Contrast, patient injected with 65 mL of Isovue 370, axial images are obtained, coronal and sagittal reformatted images are reviewed. 3D re constructed images are created on an independent workstation and reviewed. FINDINGS: Carotid/Vascular Structures: There is normal three-vessel origin from the aortic arch. There is mane l origin of the right common carotid artery from the right brachiocephalic artery. No significant maria elena que or stenosis at this level. No significant plaque or stenosis along the common carotid arteries bi laterally. There are patent external carotid arteries bilaterally without significant stenosis. No si gnificant focal plaque or stenosis at the right carotid bulb extending into proximal internal carotid artery. Minimal peripheral plaque proximal left internal carotid artery. No significant plaque left carotid bulb. No significant focal stenosis in the left internal carotid artery. There are codominant vertebral arteries patent to the basilar junction. There is no significant focal stenosis in the posterior circulation. There are hypoplastic bilateral posterior communicating arter ies. There is small caliber but patent anterior communicating artery. There is no significant focal s tenosis or aneurysm in the anterior circulation. Mild peripheral calcified plaque of the distal inter nal carotid arteries is seen bilaterally. Other: Heterogeneous enlarged thyroid consistent with goiter is noted. Underlying thyroid nodularity is suspected. Nonemergent thyroid ultrasound follow-up advised to further evaluate and characterize i f this is not known finding. Enlarged main pulmonary artery is partially imaged suggesting underlying pulmonary artery hypertensio n. There is soft tissue mass and partial destruction of the anterior T6 vertebra on the last axial im ages from reference image 4 series 24 this may be attributed to partially calcified soft tissue mass in the adjacent mediastinum. IMPRESSION: 1. No significant stenosis in the common or internal carotid arteries bilaterally. 2. No significant stenosis or aneurysm at the level of the eek of [place]. 3. Heterogeneous soft tissue mass with destruction involving the anterior aspect of the T6 vertebra. Neoplasm is suspected. Clinical correlation and follow-up advised. NASCET criteria was used in interpretation of this exam? A [place] level critical message alert has been initiated for Juan Douglas MD via the [employer] 36 0 | Critical Results System on 01/08/2023 3:23 PM. This message alert has been sent to Juan Douglas MD via the preferences provided by the clinician for the receipt of Radiology Critical Findings. [facility] ID [id number]."
[2023-01-08] MEDS: SODIUM CHLORIDE 0.9% 1,000 ML IV SCH (17:21)
--- NOTE | 2023-01-08 19:38 | CA ---
Transthoracic Echo Report Name: Lorenzo Harper Age: 62 Gender: M : 1960 Exam Date: 01/08/2023 10:27 Exam Location: [facility] Ht (in): 70 Wt (lb): 315 Ordering Physician: Clement Lovett MD Attending/Referring Phys: Senior Engineering Tech Elvin Millan RDCS Procedure CPT: Indications: stroke Cardiac Hx: Obesity; HTN; S. Tachycardia; Technical Quality: Technically difficult study Contrast 1: Lumason Total Dose (mL): 4 Contrast 2: Total Dose (mL): MEASUREMENTS (Male / Female) Normal Values 2D ECHO LV Diastolic Diameter PLAX 5.3 cm 4.2 - 5.9 / 3.9 - 5.3 cm LV Systolic Diameter PLAX 4.4 cm IVS Diastolic Thickness 1.6 cm 0.6 - 1.0 / 0.6 - 0.9 cm LVPW Diastolic Thickness 1.2 cm 0.6 - 1.0 / 0.6 - 0.9 cm LV Relative Wall Thickness 0.5 RV Internal Dim ED PLAX 3.5 cm LVOT Diameter 2.3 cm LA Systolic Diameter LX 3.2 cm 3.0 - 4.0 / 2.7 - 3.8 cm LV Diastolic Volume MOD 4C 61.4 cm??? LV Systolic Volume MOD 4C 21.3 cm??? LV Ejection Fraction MOD 4C 65.3 % LV Diastolic Length 4C 8.2 cm LV Systolic Length 4C 6.1 cm Ascending Aorta Diameter 2.5 cm M-MODE Aortic Root Diameter MM 3.4 cm LA Systolic Diameter MM 3.2 cm LA Ao Ratio MM 0.9 AV Cusp Separation MM 2.0 cm DOPPLER AV Peak Velocity 150.0 cm/s AV Peak Gradient 9.0 mmHg LVOT Peak Velocity 137.8 cm/s LVOT Peak Gradient 7.6 mmHg AV Area Cont Eq pk 3.7 cm??? Mitral E Point Velocity 66.0 cm/s Mitral A Point Velocity 82.4 cm/s Mitral E to A Ratio 0.8 MV Deceleration Time 154.5 ms MV E' Velocity 5.1 cm/s Mitral E to MV E' Ratio 12.9 TR Peak Velocity 100.8 cm/s TR Peak Gradient 4.1 mmHg Right Ventricular Systolic Press 9.1 mmHg FINDINGS Left Ventricle Left ventricle not well visualized. Left ventricular ejection fraction is estimated at 55-60 %. Moderate concentric left ventricular hypertrophy. Grade 1 diastolic dysfunction. Normal basal systolic function. Right Ventricle Right ventricle not well visualized. Right Atrium Right atrium not well visualized. Left Atrium Left atrium not well visualized. Mitral Valve Mitral valve not well visualized. Mitral valve thickened. Minimal mitral stenosis. Trace mitral regurgitation. Aortic Valve Aortic valve not well visualized. Trileaflet aortic valve. Diffuse thickening (sclerosis) of the aortic valve cusps without reduced excursion. Tricuspid Valve Trace to mild tricuspid regurgitation. Pulmonic Valve Pulmonic valve not well visualized. Pericardium Normal pericardium. No pericardial effusion. Aorta Aortic root and proximal ascending aorta not well visualized. Normal size aortic root and proximal ascending aorta. CONCLUSIONS Technically extremely difficult study for interpretation Normal LV systolic function Poorly visualized intracardiac valves No evidence of pericardial effusion Previewed by: Dr. Jewel Ramachandran MD (Electronically Signed) Final Date: 08 January 2023 19:38
[2023-01-08] MEDS: ATORVASTATIN 40 MG TAB PO SCH (20:25)
[2023-01-09] MEDS: POLYMYXIN B-TRIMETHOPRIM SULF (10,000-1) OPHTH DROPS 10 ML BTL RIGHT EYE SCH ×2 (05:15→14:57)
[2023-01-09] MEDS: guaiFENesin 600 MG TABLET.ER PO SCH ×2 (05:15→13:15)
[2023-01-09 08:19] VITALS: RESP 22
--- NOTE | 2023-01-09 09:09 | CT ---
EXAMINATION TYPE: CT brain wo con DATE OF EXAM: 01/09/2023 HISTORY: CVA. Right facial droop and dysarthria. CT DLP: 1358.7 mGycm. Automated Exposure Control for Dose Reduction was Utilized. TECHNIQUE: CT scan of the head is performed without contrast. COMPARISON: CT brain 2 days ago and older study 2019. FINDINGS: Suboptimal study similar to most recent study with some artifact along the skull bases re demonstrated There is no acute intracranial hemorrhage or midline shift identified. There is mild to moderate diffuse ventricular and sulcal prominence redemonstrated. Tellez-white matter differentiation fairly well preserved. There is small mucus retention cyst or polyp in the lateral right posterior et hmoid sinus axial image 27 redemonstrated otherwise paranasal sinuses remain clear. Globes are inta ct bilaterally. IMPRESSION: Suboptimal study. No acute intracranial hemorrhage or midline shift. There is mild to m oderate diffuse cerebral atrophy redemonstrated. No significant change from most recent MRI.
[2023-01-09] MEDS: PIPERACILLIN-TAZOBACTAM 3.375 GM in SODIUM CHLORIDE 0.9% 100 ML IVPB SCH (09:57)
[2023-01-09] MEDS: HEPARIN SODIUM,PORCINE/PF 5,000 UNIT/0.5 ML SYRINGE SQ SCH (09:58)
[2023-01-09] MEDS: FAMOTIDINE 20 MG TAB PO SCH (09:58)
[2023-01-09] MEDS: METOPROLOL TARTRATE 50 MG TAB PO SCH (09:58)
[2023-01-09] MEDS: ASPIRIN 81 MG PO SCH (09:58)
[2023-01-09] MEDS: DULoxetine HCL 60 MG CAPSULE.DR PO SCH (09:58)
[2023-01-09] MEDS: CLOPIDOGREL 75 MG TAB PO SCH (09:58)
[2023-01-09] MEDS: ACETAMINOPHEN TAB 325 MG TAB PO PRN (09:58)
[2023-01-09] MEDS: COLLAGENASE 250 UNIT/GM OINTMENT 30 GM TUBE TOPICAL SCH (09:59)
--- NOTE | 2023-01-09 10:42 | P.GSCN ---
History of Present Illness Consult date: 01/09/23 Reason for Consult: Thoracic mass Requesting physician: Juan Douglas History of present illness: This is a 62-year-old male patient follows outpatient with Dr. Chapman. He has a previous medical history of hypertension, hyperlipidemia, obstructive sleep apnea, heart failure, chronic back pain, cellulitis with previous right foot MRSA, previous tobacco dependence, marijuana use, general debility. He presented to [facility] emergency room on December 30 with complaints of increased back pain. He was admitted for evaluation and treatment with multiple consultants. Infectious disease was consulted due to bacteremia with Klebsiella, and he was placed on IV antibiotics. He was noted to have difficulty swallowing and there was concern for pneumonia, possibly aspiration pneumonia. During the course of his hospitalization he was noted to have a sacral decubitus ulcer and general surgery was consulted for surgical debridement. Unfortunately the patient appeared to have had a right-sided acute stroke on January 07, neurology was consulted and the patient has had brain CTs. Vascular surgery was consulted due to findings of left internal carotid artery stenosis 50-70% on carotid Dopplers. They ordered a CT angiogram of the head and neck which demonstrated no significant stenosis to the internal carotid arteries bilaterally, however there was concern for heterogeneous soft tissue mass with destruction involving the anterior aspect of the T6 vertebra with suspicion for neoplasm. Due to this finding consultations placed to Dr. Erwin from cardiothoracic surgery for surgical recommendations. Review of Systems Review of systems was mostly obtained from the chart as it is very difficult to understand the patient. - Musculoskeletal Reports low back pain - Integumentary Reports wounds - Neurological Neurologic Comment(s): Wheelchair-bound Reports gait dysfunction, Reports weakness Past Medical History Past Medical History: CVA/TIA, Hyperlipidemia, Hypertension, Musculoskeletal Disorder, Sleep Apnea/CPAP/BIPAP, Vascular Disorder Additional Past Medical History / Comment(s): CHF, chronic back pain, cellulitis , DVT, nerve pain; Right CVA 01/07/2023 History of Any Multi-Drug Resistant Organisms: MRSA Year Discovered:: 12/08/19 MDRO Source:: Right Foot Past Surgical History: Cholecystectomy, Hernia Repair, Tonsillectomy Past Anesthesia/Blood Transfusion Reactions: No Reported Reaction Past Psychological History: No Psychological Hx Reported Past Alcohol Use History: None Reported Past Drug Use History: None Reported, Marijuana - Past Family History Father Family Medical History: Cancer, Prostate Disorder Mother Family Medical History: Cancer Medications and Allergies Home Medications Medication Instructions Recorded Confirmed Type lisinopriL [Zestril] 10 mg PO DAILY tab 11/26/18 12/30/22 Rx Aspirin EC [Ecotrin Low Dose] 81 mg PO DAILY 01/07/20 12/30/22 History Baclofen 10 mg PO TID 01/07/20 12/30/22 History DULoxetine HCL [Cymbalta] 120 mg PO DAILY 12/30/22 12/30/22 History Furosemide [Lasix] 80 mg PO DAILY 12/30/22 12/30/22 History HYDROcodone/APAP 10-325MG [[place] 2 tab PO Q6H PRN 12/30/22 12/30/22 History 10-325] Metoprolol Tartrate [Lopressor] 50 mg PO BID 12/30/22 12/30/22 History Potassium Chloride [Klor-Con M20] 20 meq PO DAILY 12/30/22 12/30/22 History tiZANidine [Zanaflex] 2 mg PO Q8HR PRN 12/30/22 12/30/22 History Allergies Allergy/AdvReac Type Severity Reaction Status Date / Time No Known Allergies Allergy Verified 07/06/20 17:32 Surgical - Exam Vital Signs Temp Pulse Resp BP Pulse Ox 97.9 F 135 H 16 109/62 95 12/30/22 04:49 12/30/22 04:49 12/30/22 04:49 12/30/22 04:49 12/30/22 04:49 CONSTITUTIONAL: Awake and alert, appears comfortable, cooperative, no acute distress EYES: Pupils equal, round, reactive to light, normal ocular movement ENT: Moist mucous membranes without oral lesions present NECK: No masses, no bruits, trachea midline RESPIRATORY: Lungs sounds diminished bilaterally. Respirations even, nonlabored. Currently on 2 L nasal cannula with oxygen saturation 94%. Strong cough CARDIOVASCULAR: S1, S2 present. Regular rate and rhythm. Bilateral lower extremity edema present GASTROINTESTINAL: Abdomen soft, nontender, nondistended, morbidly obese without masses or organomegaly noted. There is no rebound or guarding present. Active bowel sounds present 4 quadrants. GENITOURINARY: Deferred INTEGUMENTARY: Skin is warm and dry. Bilateral lower extremities Holger wrapped. Per notes sacral decubitus present NEUROLOGIC: Able to move extremities but with weakness especially to the lower extremities; dysarthria, right-sided facial droop present PSYCHIATRIC: Alert and oriented to person, place, stated it was"24" when asked the date, very difficult to understand Results - Labs 01/07/23 04:34 01/09/23 11:26 Microbiology - Last 24 Hours (Table) 01/06/23 14:53 Blood Culture - Preliminary Blood No Growth after 48 hours - Imaging Chest x-ray: report reviewed, image reviewed Additional studies: Carotid Dopplers, brain CT, head and neck CTA, echocardiogram films reviewed with Dr. Erwin Assessment and Plan Assessment: Soft tissue mass with destruction in the anterior aspect T6, questionable neoplasm found on CTA of the head and neck Back pain, acute on chronic Klebsiella bacteremia this admission Sepsis, acidosis present on admission Right lower lobe pneumonia, possibly aspiration pneumonia this admission Right-sided acute CVA this admission Sacral decubitus ulcer History hypertension History of hyperlipidemia History of obstructive sleep apnea Heart failure with preserved ejection fraction Chronic lower extremity venous insufficiency Cellulitis with previous right foot MRSA History of DVT Previous tobacco dependence Marijuana use General debility, wheelchair bound Obesity Plan: Patient evaluated and chart and studies reviewed. No indication for thoracic surgery intervention. I am concerned with spine stability and risk for paraplegia and recommend spine surgeon evaluation. Most likely etiology of tonio truction of T6 is infection given clinical scenario, tumor is also quite possible. Suggest radiologic needle biopsy. Cecil Erwin MD The patient was seen and examined sitting up in bed in no acute distress. Chart/diagnostics were reviewed. Recommend CT of the thoracic spine as well as spine surgeon consultation. The patient is at risk for compression fractures with paralysis. He should be maintained on bedrest. The thoracic mass seen on head and neck CTA may be tumor which is not considered resectable, or may be infection. Needle aspiration could be obtained. There is no plans for surgical intervention from cardiothoracic surgery. Continued management of acute and chronic issues per internal medicine, neurology, infectious disease. Please call us with any further questions. I have personally seen and examined the patient, performed the documentation and the assessment and plan as written. Number of minutes spent on the visit: 30. LINDA Pederson
--- NOTE | 2023-01-09 11:27 | P.PN ---
Subjective Progress Note Date: 01/09/23 Principal diagnosis: Altered mental status changes Patient was seen and examined today as a follow-up. Vascular surgery was consulted for carotid stenosis reported as 50-70% of the left ICA per carotid duplex with changes in mental status, thought to be acute stroke. Patient had a CT angiogram of the head and neck yesterday that reported no significant stenosis of bilateral common carotid arteries or internal carotid arteries bilaterally. There was a heterogeneous soft tissue mass with distraction involving the anterior aspect of the T6 vertebral, neoplasm suspected. Patient was unable to undergo MRI of the brain yesterday due to morbid obesity. Repeat brain CT today reported suboptimal study. No acute intracranial hemorrhage or midline shift. Mild to moderate diffuse cerebral atrophy redemonstrated. Patient remains with the right facial droop, right eyelid drooping, dysarthric. Patient underwent reevaluation with speech therapy today and they have made him nothing by mouth due to concerns for aspiration related to altered mental status changes. Thoracic surgery was consulted, they are not recommending any plans first surgical intervention from cardiothoracic surgeon. They are consulting spine surgeon for further evaluation and treatment recommendation. Objective - Vital Signs Vital signs: Vital Signs Temp 100.7 F H 01/09/23 08:00 Pulse 96 01/09/23 08:00 Resp 22 01/09/23 08:00 BP 125/76 01/09/23 08:00 Pulse Ox 94 L 01/09/23 08:00 FiO2 Intake & Output 01/08/23 01/09/23 01/09/23 18:59 06:59 18:59 Intake Total 1372 700 Output Total 350 300 Balance 1022 400 Weight 143 kg Intake: Intake, IV Titration 220 220 Amount Piperacillin-Tazobactam 3 100 100 .375 gm In Sodium Chloride 0.9% 100 ml @ 25 mls/hr IVPB Q8HR [facility] Rx# :[id number] Sodium Chloride 0.9% 1, 120 120 000 ml @ 10 mls/hr IV . Q24H [facility] Rx#:[id number] Oral 1152 480 Output: Urine 350 300 Other: Voiding Method Indwelling Catheter Indwelling Catheter - Exam General appearance: The patient is alert, appears in no acute distress. HET: Head is normocephalic and atraumatic. Right upper lid droop. Right facial droop. Poor dentition. Neck: Supple, obese. Trachea midline. Difficulty evaluating for carotid bruit due to patient's breathing, and obesity. Abdomen: Soft, nontender, nondistended. Extremities: Bilateral lower extremity with Holger wrap in place, with venous stasis. Neurological: Patient with right facial droop, dysarthria. He is able to follow commands, however unable to to complete neuro exam as he was getting frustrated and could not continue. He did have good tone and bilateral upper and lower extremities. Firm hand grasp bilaterally, 4/5. - Labs CBC & Chem 7: 01/07/23 04:34 01/07/23 04:34 Labs: Microbiology - Last 24 Hours (Table) 01/06/23 14:53 Blood Culture - Preliminary Blood No Growth after 48 hours Assessment and Plan Assessment: 1. Suspected Acute stroke with right-sided facial droop and dysarthria 2. 50-70% left ICA stenosis per carotid duplex, however no hemodynamic si gnificant stenosis bilateral internal carotid arteries per CT angiogram head and neck 3. Soft tissue Mass on T6, reported on CTA of head and neck 4. Bacteremia 5. Chronic venous stasis wounds due to venous insufficiency 6. Morbidly obese 7. Hypertension 8. Hyperlipidemia 9. Obstructive sleep apnea Plan: CT angiogram head and neck reviewed. There is no significant internal carotid artery stenosis bilaterally. There is no indication for any vascular surgical intervention. Continue with recommendations from neurology and other multiple consultants on case. Thank you for this consultation we will sign off at this time. The impression and plan of care has been dictated as directed. I performed a history and examination of this patient, discussed the same with the dictator. I agree with the dictator's note ,documented as a scribe. Any additional findings or plans will be noted.
--- NOTE | 2023-01-09 11:56 | P.PN ---
Subjective Progress Note Date: 01/09/23 CHIEF COMPLAINT: Cough HISTORY OF PRESENT ILLNESS: Patient is admitted to the hospital with pneumonia, UTI and bacteremia. Patient being followed by neurology for possible stroke. He was started on Plavix. Had a CTA of the head and neck that showed heterogenous soft tissue mass with destruction involving the anterior aspect of T6 vertebral. Neoplasm suspected. Cardiothoracic team is now on consult. low grade fevers WBC 17 down to 16 PHYSICAL EXAM: VITAL SIGNS: Reviewed GENERAL: Well-developed in no acute distress. HEENT: No sclera icterus. Extraocular movements grossly intact. Moist buccal mucosa. Head is atraumatic, normocephalic. Hears conversational speech. No nasal drainage. NECK: Supple without lymphadenopathy. CHEST: Non-labored respirations and equal bilateral excursions. CARDIOVASCULAR: Palpable 2+ radial pulses. ABDOMEN: Soft. obese. Nondistended. Nontender. MUSCULOSKELETAL: No clubbing or cyanosis. Neuro: Confused. Slurred speech. ASSESSMENT: 1. Sacral decubitus ulcer 2. Pneumonia 3. UTI 4. Bacteremia 5. Sepsis 6. Acute kidney injury 7. Morbid obesity 8. Bilateral chronic lower extremity venous ulcers 9. Possible CVA 10. Soft tissue mass at T6 with questionable neoplasm PLAN: -Surgery for Debridement of sacral decubitus ulcer cancelled due to patient being on Plavix -Continue stroke workup and workup on soft spinal tissue mass -Continue antibiotics per ID -Continue offloading -Continue local wound care -Continue supportive care Physician Bench Worker note has been reviewed by physician. Signing provider agrees with the documented findings, assessment, and plan of care. Objective - Vital Signs Vital signs: Vital Signs Temp 100.7 F H 01/09/23 08:00 Pulse 96 01/09/23 08:00 Resp 22 01/09/23 08:00 BP 125/76 01/09/23 08:00 Pulse Ox 94 L 01/09/23 08:00 FiO2 Intake & Output 01/08/23 01/09/23 01/09/23 18:59 06:59 18:59 Intake Total 1372 700 Output Total 350 300 Balance 1022 400 Weight 143 kg Intake: Intake, IV Titration 220 220 Amount Piperacillin-Tazobactam 3 100 100 .375 gm In Sodium Chloride 0.9% 100 ml @ 25 mls/hr IVPB Q8HR [facility] Rx# :[id number] Sodium Chloride 0.9% 1, 120 120 000 ml @ 10 mls/hr IV . Q24H [facility] Rx#:[id number] Oral 1152 480 Output: Urine 350 300 Other: Voiding Method Indwelling Catheter Indwelling Catheter - Labs CBC & Chem 7: 01/07/23 04:34 01/07/23 04:34 Labs: Microbiology - Last 24 Hours (Table) 01/06/23 14:53 Blood Culture - Preliminary Blood No Growth after 48 hours
[2023-01-09 12:01] LABS: ALT 22 U/L (4-49); AST 29 U/L (17-59); African American GFR (CKD) >90 (>60 ml/min/1.73 sqM); Albumin 2.7 g/dL (3.5-5.0); Albumin/Globulin Ratio 0.6; Alkaline Phosphatase 767 U/L (38-126); Anion Gap 5 mmol/L; Blood Urea Nitrogen 22 mg/dL (9-20); Calcium 7.7 mg/dL (8.4-10.2); Carbon Dioxide 29 mmol/L (22-30); Chloride 109 mmol/L (98-107); Globulin 4.5 g/dL; Glucose 110 mg/dL (74-99); Non-African American GFR(CKD) >90 (>60 ml/min/1.73 sqM); Potassium 3.5 mmol/L (3.5-5.1); Sodium 143 mmol/L (137-145); Total Bilirubin 1.2 mg/dL (0.2-1.3); Total Protein 7.2 g/dL (6.3-8.2)
[2023-01-09 14:10] VITALS: BP 133/74; PULSE 88; TEMP 99.6
--- NOTE | 2023-01-09 14:28 | P.CONS ---
History of Present Illness - Reason for Consult Consult date: 01/09/23 soft tissue mass, T6 destruction on CT Requesting physician: Clement Lovett - Chief Complaint back pain - History of Present Illness Patient is a 62 year old male a history of obesity, HTN, PVD, chronic venous HTN and gangrene of right foot, We were consulted due to soft tissue mass with destruction of T6 seen on CT scan. Pt denies history of known cancer. Reports history of smoking but reports quitting approx 5 years ago. However, HPI is difficult due to patient's current confusion and lethargy. He was initially seen in the ER for low back pain, but admission has become complaicted over the last 3 days due to confusion and possible CVA. CT scan showed no acute infarct or intranial hemorrhage. MRI brain has been ordered. Pt is on ASA and plavix and subQ heparin prophylaxis. CT angiography of head and neck showed heterogenous soft tissue mass with destruction invovling the anterior aspect of the T6 vertebrae, concerning for neoplasm. Pt reports having lower and upper back pain, "for a long time". Pt had dysarthria, and was confused during visit today and kept falling asleep when being asked questions. Review of Systems 10 point ROS is negative except as stated in HPI Past Medical History Past Medical History: CVA/TIA, Hyperlipidemia, Hypertension, Musculoskeletal Disorder, Sleep Apnea/CPAP/BIPAP, Vascular Disorder Additional Past Medical History / Comment(s): CHF, chronic back pain, cellulitis, DVT, nerve pain; Right CVA 01/07/2023 History of Any Multi-Drug Resistant Organisms: MRSA Year Discovered:: 12/08/19 MDRO Source:: Right Foot Past Surgical History: Cholecystectomy, Hernia Repair, Tonsillectomy Past Anesthesia/Blood Transfusion Reactions: No Reported Reaction Past Psychological History: No Psychological Hx Reported Past Alcohol Use History: None Reported Past Drug Use History: None Reported, Marijuana - Past Family History Father Family Medical History: Cancer, Prostate Disorder Mother Family Medical History: Cancer Medications and Allergies Home Medications Medication Instructions Recorded Confirmed Type lisinopriL [Zestril] 10 mg PO DAILY tab 11/26/18 12/30/22 Rx Aspirin EC [Ecotrin Low Dose] 81 mg PO DAILY 01/07/20 12/30/22 History Baclofen 10 mg PO TID 01/07/20 12/30/22 History DULoxetine HCL [Cymbalta] 120 mg PO DAILY 12/30/22 12/30/22 History Furosemide [Lasix] 80 mg PO DAILY 12/30/22 12/30/22 History HYDROcodone/APAP 10-325MG [[place] 2 tab PO Q6H PRN 12/30/22 12/30/22 History 10-325] Metoprolol Tartrate [Lopressor] 50 mg PO BID 12/30/22 12/30/22 History Potassium Chloride [Klor-Con M20] 20 meq PO DAILY 12/30/22 12/30/22 History tiZANidine [Zanaflex] 2 mg PO Q8HR PRN 12/30/22 12/30/22 History Allergies Allergy/AdvReac Type Severity Reaction Status Date / Time No Known Allergies Allergy Verified 07/06/20 17:32 Physical Exam Vitals: Vital Signs Temp Pulse Resp BP BP Pulse Ox 01/09/23 08:00 100.7 F H 96 22 125/76 94 L 01/09/23 01:32 99.8 F H 97 16 124/77 92 L 01/08/23 20:00 99 16 01/08/23 19:35 98.8 F 99 16 122/78 92 L 01/08/23 15:50 99.5 F 84 20 97/66 95 01/08/23 15:00 95 Intake and Output 01/08/23 01/09/23 01/09/23 22:59 06:59 14:59 Intake Total 912 700 Output Total 350 300 Balance 562 400 Intake: Intake, IV Titration 220 Amount Piperacillin-Tazobactam 3 100 .375 gm In Sodium Chloride 0.9% 100 ml @ 25 mls/hr IVPB Q8HR [facility] Rx# :[id number] Sodium Chloride 0.9% 1, 120 000 ml @ 10 mls/hr IV . Q24H [facility] Rx#:[id number] Oral 912 480 Output: Urine 350 300 Other: Voiding Method Indwelling Catheter - Constitutional General appearance: no acute distress, obese - EENT Eyes: anicteric sclerae ENT: hearing grossly normal - Respiratory Respiratory: bilateral: diminished - Cardiovascular Rhythm: regular Heart sounds: normal: S1, S2 Abnormal Heart Sounds: no systolic murmur, no diastolic murmur, no rub, no S3 Gallop, no S4 Gallop, no click, no other leg Peripheral Edema: bilateral: 3+ - Gastrointestinal General gastrointestinal: soft, no tenderness - Integumentary BLE wrapped in bandages, Bilateral toes, skin is dry, scaly, and skin of distal toes are dark and black in color, hx of gangrene - Neurologic Confused, responds to verbal stimuli, able to answer some questions but slow to respond. Dysarthria noted. Pt is lethargic - Musculoskeletal Musculoskeletal: generalized weakness Results CBC & Chem 7: 01/07/23 04:34 01/09/23 11:26 Labs: Abnormal Lab Results - Last 24 Hours (Table) 01/09/23 Range/Units 11:26 Chloride 109 H (98-107) mmol/L BUN 22 H (9-20) mg/dL Glucose 110 H (74-99) mg/dL Calcium 7.7 L (8.4-10.2) mg/dL Alkaline Phosphatase 767 H (38-126) U/L Albumin 2.7 L (3.5-5.0) g/dL Microbiology - Last 24 Hours (Table) 01/06/23 14:53 Blood Culture - Preliminary Blood No Growth after [address] Scan - head: report reviewed Assessment and Plan (1) Soft tissue mass Current Visit: Yes Status: Acute Priority: High Code(s): M79.89 - OTHER SPECIFIED SOFT TISSUE DISORDERS SNOMED Code(s): 606831771 Plan: Soft tissue mass: -CT angiography of head and neck showed heterogenous soft tissue mass with destruction involving the anterior aspect of the T6 vertebrae, concerning for neoplasm -CT CAP with contrast ordered. Pt is unable to drink PO contrast, due to concern for aspiration. Will hold oral contrast. Differential is malignancy vs infectious process or osteomyeltitis. If soft tissue mass consistent with malignancy will pursue biopsy -Ortho consulted Altered mental status -Neuro following -CT brain showed no acute infarct or intracranial hemorrhage -MRI brain ordered Dt attests: I have performed H&P and developed impression and plan of care for patient, discussed with dictator. I agree with dictated note, documented as a scribe
--- NOTE | 2023-01-09 14:37 | P.PN ---
Subjective Progress Note Date: 01/09/23 Principal diagnosis: Bacteremia Patient is a 62-year old male with a past medical history significant for hypertension hyperlipidemia,, did have chronic bilateral extremity venous stasis ulcer and is mostly bedbound with a wound care provided by the visiting nurse, presented to hospital with left-sided chest pain, and this patient do have evidence of Klebsiella bacteremia. On today's evaluation that is 01/09/2023, the patient did have low-grade fever of 100.7F early this morning, the patient remains to be lethargic however the currently breathing comfortably on room air , no vomiting no diarrhea or any other changes reported by the nursing staff Objective - Vital Signs Vital signs: Vital Signs Temp 100.7 F H 01/09/23 08:00 Pulse 96 01/09/23 08:00 Resp 22 01/09/23 08:00 BP 125/76 01/09/23 08:00 Pulse Ox 94 L 01/09/23 08:00 FiO2 Intake & Output 01/08/23 01/09/23 01/09/23 18:59 06:59 18:59 Intake Total 1372 700 Output Total 350 300 Balance 1022 400 Weight 143 kg Intake: Intake, IV Titration 220 220 Amount Piperacillin-Tazobactam 3 100 100 .375 gm In Sodium Chloride 0.9% 100 ml @ 25 mls/hr IVPB Q8HR [facility] Rx# :[id number] Sodium Chloride 0.9% 1, 120 120 000 ml @ 10 mls/hr IV . Q24H [facility] Rx#:[id number] Oral 1152 480 Output: Urine 350 300 Other: Voiding Method Indwelling Catheter Indwelling Catheter - Exam GENERAL DESCRIPTION: A middle-aged male lying in bed in no distress RESPIRATORY SYSTEM: Unlabored breathing , decreased breath sounds at bases HEART: S1 S2 regular rate and rhythm , ABDOMEN: Soft , no tenderness EXTREMITIES: Bilateral lower extremity currently dressed no drainage - Labs CBC & Chem 7: 01/07/23 04:34 01/09/23 11:26 Labs: Microbiology - Last 24 Hours (Table) 01/06/23 14:53 Blood Culture - Preliminary Blood No Growth after 48 hours Assessment and Plan (1) Positive blood culture Current Visit: Yes Status: Acute Code(s): R78.81 - BACTEREMIA SNOMED Code(s): 370260981 Plan: 1patient with gram-negative bacteremia in this patient presented to hospital with left-sided chest pain in this patient who did have some pleural reaction/ atelectasis at the lung base with concern for possible pneumonia versus UTI to be the source of this bacteremia as the patient has significantly positive UA he did have some complaint of chronic nonhealing wound but did not have significant redness or drainage to be concerned for the likely source of this bacteremia. 2local wound care to sacral wound local wound care to continue santyl, followed by moist dressing keep the area off the pressure, the patient will benefit from surgical evaluation and possible debridement, apparently has been postponed because of his medical condition 3-patient did have a low-grade fever and worsening of the white count and slight worsening of the infiltrate on the chest x-ray concerning for possible aspiration pneumonia , patient to continue with the current supportive treatment of aspiration precaution along with Zosyn, overall prognosis remains to be gu arded Time with Patient: Less than 30
--- NOTE | 2023-01-09 15:32 | P.CNOR ---
History of Present Illness - HPI Consult date: 01/09/23 Consult reason: other (T6 mass) History of present illness: Patient is a 62-year-old gentleman who has been admitted to [facility] over the last 10 days. Patient was initially evaluated in the em ergency room with regard to left-sided chest discomfort with increasing cough. Since being admitted to the hospital patient is being followed by multiple medical specialties. Notable diagnosis is during hospital stay to include bacteremia, sacral decubitus ulcer, bilateral lower extremity peripheral vascular disease with chronic wounds, medical debility, morbid obesity. Since being admitted the hospitalist and a high concern for an acute stroke, patient was unable to undergo MRI of the brain. A CT angiography of the head and neck region demonstrated a mass involving the T6 vertebrae with bony involvement. Our orthopedic group was then consulted for this reason. After initial evaluation of the patient it was very difficult to obtain any HPI, review of systems her physical exam due to his current medical state. I was notified by nursing that the patient's was going to be present later in the afternoon, and that there was also discussion of hospice. Review of Systems Constitutional: Reports as per HPI Past Medical History Past Medical History: CVA/TIA, Hyperlipidemia, Hypertension, Musculoskeletal Disorder, Sleep Apnea/CPAP/BIPAP, Vascular Disorder Additional Past Medical History / Comment(s): CHF, chronic back pain, cellulitis, DVT, nerve pain; Right CVA 01/07/2023 History of Any Multi-Drug Resistant Organisms: MRSA Year Discovered:: 12/08/19 MDRO Source:: Right Foot Past Surgical History: Cholecystectomy, Hernia Repair, Tonsillectomy Past Anesthesia/Blood Transfusion Reactions: No Reported Reaction Past Psychological History: No Psychological Hx Reported Past Alcohol Use History: None Reported Past Drug Use History: None Reported, Marijuana - Past Family History Father Family Medical History: Cancer, Prostate Disorder Mother Family Medical History: Cancer Medications and Allergies Home Medications Medication Instructions Recorded Confirmed Type lisinopriL [Zestril] 10 mg PO DAILY tab 11/26/18 12/30/22 Rx Aspirin EC [Ecotrin Low Dose] 81 mg PO DAILY 01/07/20 12/30/22 History Baclofen 10 mg PO TID 01/07/20 12/30/22 History DULoxetine HCL [Cymbalta] 120 mg PO DAILY 12/30/22 12/30/22 History Furosemide [Lasix] 80 mg PO DAILY 12/30/22 12/30/22 History HYDROcodone/APAP 10-325MG [[place] 2 tab PO Q6H PRN 12/30/22 12/30/22 History 10-325] Metoprolol Tartrate [Lopressor] 50 mg PO BID 12/30/22 12/30/22 History Potassium Chloride [Klor-Con M20] 20 meq PO DAILY 12/30/22 12/30/22 History tiZANidine [Zanaflex] 2 mg PO Q8HR PRN 12/30/22 12/30/22 History Allergies Allergy/AdvReac Type Severity Reaction Status Date / Time No Known Allergies Allergy Verified 07/06/20 17:32 Physical Examination Physical exam was not obtained due to current medical state and current plan Results - Labs Labs: Abnormal Lab Results - Last 24 Hours (Table) 01/09/23 Range/Units 11:26 Chloride 109 H (98-107) mmol/L BUN 22 H (9-20) mg/dL Glucose 110 H (74-99) mg/dL Calcium 7.7 L (8.4-10.2) mg/dL Alkaline Phosphatase 767 H (38-126) U/L Albumin 2.7 L (3.5-5.0) g/dL Microbiology - Last 24 Hours (Table) 01/06/23 14:53 Blood Culture - Preliminary Blood No Growth after 48 hours H & H 12/30/22 01/03/23 01/06/23 Range/Units 05:38 06:36 04:56 Hgb 13.6 12.8 L 11.8 L (13.0-17.5) gm/dL Hct 43.0 39.8 37.7 L (39.0-53.0) % 01/07/23 Range/Units 04:34 Hgb 11.8 L (13.0-17.5) gm/dL Hct 38.5 L (39.0-53.0) % Result Diagrams: 01/07/23 04:34 01/09/23 11:26 Assessment and Plan Assessment: Soft tissue mass T6 vertebral body Multiple medical comorbidities Plan: I was able to discuss with my attending Dr. De La Cruz the current plan with the patient, this including being placed in hospice. We will hold off on any further imaging studies of the cervical or thoracic spine I did discuss with the patient's today at bedside briefly options for possible treatment and further evaluation. Taking into consideration the patient's current medical state and plan of care, we'll hold off on any additional imaging studies and workup Please contact our orthopedic service there are any further questions regarding this patient Time with Patient: Less than 30
--- NOTE | 2023-01-09 17:52 | P.DS ---
Providers Date of admission: 12/30/22 07:59 Expected date of discharge: 01/09/23 Attending physician: Juan Douglas Consults: 12/30/22 22:54 Consult Physician Routine Consulting Provider: Jeancarlos Tyson Consult Reason/Comments: Positive blood cultures Do you want consulting provider notified?: Yes, Notify in am 01/05/23 15:58 Consult Physician Routine Consulting Provider: Yana Benitez Consult Reason/Comments: surgical debridement sacral decub Do you want consulting provider notified?: Yes 01/07/23 19:55 Consult Physician Routine Consulting Provider: Clement Lovett Consult Reason/Comments: Subacute stroke Do you want consulting provider notified?: Yes 01/08/23 10:01 Consult Physician Routine Consulting Provider: Sharon Cartwright Consult Reason/Comments: Left ICA stenosis with stroke. Do you want consulting provider notified?: Yes 01/08/23 17:02 Consult Physician Routine Consulting Provider: Cecil Erwin Consult Reason/Comments: Thoracic mass Do you want consulting provider notified?: Yes 01/09/23 08:59 Consult Physician Urgent Consulting Provider: Garret De La Cruz Consult Reason/Comments: T6 mass on CT Do you want consulting provider notified?: Yes 01/09/23 09:00 Consult Physician Urgent Consulting Provider: Philippe Murdock Consult Reason/Comments: mass seen on CT: T6 Do you want consulting provider notified?: Yes 01/09/23 10:54 Consult Physician Routine Consulting Provider: Garret De La Cruz Consult Reason/Comments: vertebra fracture Do you want consulting provider notified?: Yes Primary care physician: Will Chapman MD Hospital Course: Chief Complaint: Left lateral chest pain This is a 62-year-old patient, follows with Dr. Chapman. Chronic stable medical conditions include hypertension, hyperlipidemia, obstructive sleep apnea, chronic bilateral lower extremity venous ulcers. From venous insufficiency. Patient has a lift chair and a chair at home. Wound care is done by a visiting nurse and patient's . Patient presents with 2 days of what he describes as left-sided lateral chest wall pain. Pain is worse with coughing and taking a deep breath. Patient rather sleepy for last 2 days. Decreased appetite. No nausea vomiting. No fever. No sputum production. Denies any off or shortness of breath Admitted with pneumonia, acute kidney injury. 12/31/2022: Doing better. Less chest wall pain. IV cefepime. Renal function better. IV fluids. Appetite picking up. 01/01/2023: Eating much better. Comfortable in bed. Kidney function better. Patient wants his baclofen to be increased to home dose. Pain medications discussed. Blood cultures positive for Klebsiella oxytoca. IV ceftriaxone. Repeat blood culture today. 01/02/2023: Repeat blood cultures done yesterday. Eating well. Patient felt maybe was too sleepy with his baclofen. Being changed to Flexeril. Discussed with patient. 01/03/2023: Eating well. Flexeril is working from better than baclofen. data deliverables manager called me to inform that the could not manage at home. Wants permanent placement for him. Repeat blood cultures from January 01 negative to now. 01/04/2023:his is a 62 year old male who is monitored on medical floor and currently pending ECF placement. Patient is admitted for chronic back pain and chronic wounds with multiple medical comorbidities. Patient has been found to have blood culture positive x2 for klebsiella oxytoca and continues on IV ceftriaxone. Repeat blood culture is negative so far at 48 hours, infectious disease is following closely. Patient is noted today to have injected sclera and crusting to the right eye concerning for acute conjunctivitis and eye drops will be added. Wound care evaluation completed and local wound care continues to bilateral lower extremity ulcerations with honey gel absorptive silver moistened abd and rolled gauze. Change MWF. Patient has refused followed up wound center at this time. White count remains elevated at 15.1, procalcitonin is trending down and currently 0.88. Patients has been caring for patient at home and currently unable to do so anymore. Patient requires ECF placement. 01/05/2023 Patient is evaluated today resting in bed on medical floor. Continues on IV ceftriaxone for urine culture showing klebsiella oxytoca x 2. And repeat blood culture is negative so far at 72 hours. Patient is given incentive spirometer for low oxygen saturation. He is receiving local wound care to lower extremity. Collin. White count is 15.1 today. 01/06/2023 Patient evaluated today and has increased confusion. He does respond to questions appropriately alert x3 however he does appear to have some visual hallucinations. White count is increased up to 17 today and investigated. Chest xray showing mild progression of right sided consolidation and small effusion possible an underlying pneumonia. Antibiotics have been changed to IV zosyn and patient will have full sepsis work up as fever is also developing today. Patient does have poor dentition and would benefit from oral care. Local wound care in place. Temp of 99.7, heart rate 96, blood pressure 120/72, 92% room air. 01/07/2023: Resumed care of the patient today. Nurse informed me that patient's speech has been more slurred. Retaining some secretions. Some asymmetry of the mouth. Does also notice by the case management director. Reji. This is apparently present yesterday too. Unclear present on Friday. I ordered a computed tomography scan of the brain this afternoon. No obvious stroke was noted. I've ordered speech therapy consult....pureed Diet for medications Aspiration precautions. Patient is lethargic. Attempting to answer. Slurred speech. Retaining secretions in the mouth. Neurology consulted. MRI brain ordered 01/08/2023: Patient's speech remained slurred. Seen by speech therapy. Diet changed to. With honey thickened liquid. Pending MRI brain. CT angiogram done today. We'll follow with neurology. Taking his medications. It's unclear if patient's symptoms started on Friday or some time Friday. Low-grade fever. For sacral wound debridement. 01/09/2023: Speech remains slurred. Increased secretions. Lethargic. Discussed with N Shy from vascular. No significant carotid stenosis. Orthopedic was consulted for the vertebral pathology. I'm considering putting NG tube. until we decide about a PEG tube. Spoke to the nurse to have the , and I will meet with her. Patient is nothing by mouth. Later admitted to the . She made the patient comfort care/hospice. GIP. Hospice consulted. Past medical history to include: Obstructive sleep apnea, hypertension, hyperlipidemia, bilateral lower extremity venous wounds, chronic venous insufficiency chronic medical debility Social history: Lives with his . Does use a lift chair in the wheelchair. Patient stopped smoking in 2019. No alcohol. Physical examination: VITAL SIGNS: 100.7, 96, 22, 1 25 x 76, 94% on room air GENERAL: lethargic. EYES: Pupils equal. Conjunctiva normal. HEENT: External appearance of nose and ears normal, oral cavity grossly normal. NECK: JVD unable to assess; masses not palpable. HEART: First and second heart sounds are normal; some edema. LUNGS: Respiratory rate normal; decreased breath sounds. ABDOMEN: Soft, nontender, liver spleen not palpable, no masses palpable. PSYCH: Lethargic, difficult to follow Ye yadi MUSCULOSKELETAL:No Clubbing/cyanosis;muscles-grossly intact. Possible OA. NEUROLOGICAL: Mouth slightly pulled to the right. Speech is slurred. Decreased sensorium. No other obvious weakness in the limbs. EXTREMITY: Bilateral lower extremity venous ulcers with a dressing in place. DERMATOLOGICAL: Decub ulcers INVESTIGATIONS, reviewed in the clinical context: CT brain: Suboptimal study CT angiogram of head and neck: Heterogenous soft tissue mass with destruction involving the anterior aspect of the T6 vertebra. Plan suspected. No stiffness stenosis in the carotid, no internal artery. 01/07/2023: White count 16.3 hemoglobin 11.8 platelets 299 potassium 3.5 creatinine 0.8 procalcitonin 0.69 Blood culture [12/30/2022]: Klebsiella oxytoca. [January 06]: Negative Influenza type A, type B, RSV, COVID-19: Not detected 01/03/2023: White count hemoglobin 12.8 procalcitonin 0.88 01/01/2023: Potassium 3.9 creatinine 0.81 12/31/2022: Potassium 3.6 creatinine 1.14 procalcitonin 1.24 White count 16.2 hemoglobin 13.6 platelets 460 sodium 140 potassium 3.8 BUN 29 creatinine 1.5 bun Lactic acid 6 and repeat 2.2 AST 34 ALT 53 alkaline phosphatase 1445 UA: Negative for nitrite Chest x-ray film personally reviewed by me-right basilar infiltrate Previous labs: Creatinine 0.03 June 2020 Assessment and plan: -Right lower lobe pneumonia, possible aspiration suspected gram-negative organism:: Slow to respond IV Zosyn -Subacute stroke Computed tomography scan of the brain unremarkable. Neurology following. -Acute metabolic encephalopathy/delirium from stroke -Acute dysphagia from stroke High risk of aspiration. Made nothing by mouth. -Acute dysarthria from stroke -Sepsis and blood cultures positive from Klebsiella oxytoca likely UTI source: Better Culture positive from December 30. Repeat blood cultures January 01 negative. -Probable acute UTI with cystitis IV ceftriaxone completed -Acute kidney disease, possibly ATN, : Resolved Proteinuria in the urine. Renal ultrasound. -Morbid obesity BMI 50.2 Weight loss measures -Chronic medical debility, and baseline uses a lift chair and a wheelchair -Bilateral chronic lower lower extremity venous ulcers Follow with wound care team -Chronic lower external edema venous insufficiency -Depression and anxiety Cymbalta 120 mg a -Acute dysphagia secondary to stroke clinically . pureed Diet with nectar thick liquid. Being followed by speech -Essential hypertension Lopressor 50 mg twice a day. -Chronic pain with muscle spasms [place], baclofen discontinued because of somnolence. Start Flexeril -Lactic acidosis possibly combination of infection and dehydration -Sacral wound. IV Zosyn. Being followed by ID. for debridement per surgery. -DO NOT RESUSCITATE. Disposition: Inpatient hospice. GIP Plan - Discharge Summary Discharge Rx Participant: No New Discharge Prescriptions: No Action lisinopriL [Zestril] 10 mg PO DAILY tab Aspirin EC [Ecotrin Low Dose] 81 mg PO DAILY Baclofen 10 mg PO TID DULoxetine HCL [Cymbalta] 120 mg PO DAILY HYDROcodone/APAP 10-325MG [[place] 10-325] 2 tab PO Q6H PRN PRN Reason: Pain Potassium Chloride [Klor-Con M20] 20 meq PO DAILY Furosemide [Lasix] 80 mg PO DAILY Metoprolol Tartrate [Lopressor] 50 mg PO BID tiZANidine [Zanaflex] 2 mg PO Q8HR PRN PRN Reason: Muscle Spasm Discharge Medication List lisinopriL [Zestril] 10 mg PO DAILY tab 11/26/18 [Rx] Aspirin EC [Ecotrin Low Dose] 81 mg PO DAILY 01/07/20 [History] Baclofen 10 mg PO TID 01/07/20 [History] DULoxetine HCL [Cymbalta] 120 mg PO DAILY 12/30/22 [History] Furosemide [Lasix] 80 mg PO DAILY 12/30/22 [History] HYDROcodone/APAP 10-325MG [[place] 10-325] 2 tab PO Q6H PRN 12/30/22 [History] Metoprolol Tartrate [Lopressor] 50 mg PO BID 12/30/22 [History] Potassium Chloride [Klor-Con M20] 20 meq PO DAILY 12/30/22 [History] tiZANidine [Zanaflex] 2 mg PO Q8HR PRN 12/30/22 [History] Follow up Appointment(s)/Referral(s): Will Chapman MD [Primary Care Provider] - 1-2 days [facility], [NON-STAFF] - 1 Week Discharge/Stand Alone Forms: Who Do I Call?, Community Resources, Help In The Home, Personal Telecom Specialist Discharge Disposition: DISCH TO HOSPICE MED FACILTY
== END 2023-01-09 15:45 | disposition hospice, inpatient (51) | DRG 871 ==
LOC: EC 04:44 → 3SCARD 07:59 → 5NMEDONC 15:01
PROVIDERS: ADMIT Hospitalist; ATTEND Hospitalist
DX: A41.59 Other Gram-negative sepsis (principal); G92.8 Other toxic encephalopathy; I63.232 Cerebral infarction due to unspecified occlusion or stenosis of left carotid arteries; J15.6 Pneumonia due to other Gram-negative bacteria; N17.0 Acute kidney failure with tubular necrosis; J69.0 Pneumonitis due to inhalation of food and vomit; Z68.43 Body mass index [BMI] 50.0-59.9, adult; N30.00 Acute cystitis without hematuria; E87.20 Acidosis, unspecified; I87.333 Chronic venous hypertension (idiopathic) with ulcer and inflammation of bilateral lower extremity; I50.32 Chronic diastolic (congestive) heart failure; L97.922 Non-pressure chronic ulcer of unspecified part of left lower leg with fat layer exposed; L97.912 Non-pressure chronic ulcer of unspecified part of right lower leg with fat layer exposed; M54.50 Low back pain, unspecified; R53.81 Other malaise; E66.01 Morbid (severe) obesity due to excess calories; Z66 Do not resuscitate; Z51.5 Encounter for palliative care; F32.A Depression, unspecified; I73.9 Peripheral vascular disease, unspecified; I11.0 Hypertensive heart disease with heart failure; Z20.822 Contact with and (suspected) exposure to COVID-19; R47.1 Dysarthria and anarthria; R29.810 Facial weakness; L89.150 Pressure ulcer of sacral region, unstageable; R13.10 Dysphagia, unspecified; I87.2 Venous insufficiency (chronic) (peripheral); F41.9 Anxiety disorder, unspecified; E86.0 Dehydration; G89.29 Other chronic pain; D48.0 Neoplasm of uncertain behavior of bone and articular cartilage; M62.838 Other muscle spasm; G47.33 Obstructive sleep apnea (adult) (pediatric); I87.8 Other specified disorders of veins; H10.89 Other conjunctivitis; E78.5 Hyperlipidemia, unspecified; Z86.14 Personal history of Methicillin resistant Staphylococcus aureus infection; Z99.3 Dependence on wheelchair; Z87.891 Personal history of nicotine dependence; Z86.73 Personal history of transient ischemic attack (TIA), and cerebral infarction without residual deficits; Z86.718 Personal history of other venous thrombosis and embolism; Z79.899 Other long term (current) drug therapy; Z79.82 Long term (current) use of aspirin; Z71.3 Dietary counseling and surveillance; Z74.01 Bed confinement status
CPT/HCPCS: 36415; 70450; 70496; 70498; 71045; 71046; 76770; 80048; 80053; 81001; 83605; 83735; 84145; 84484; 85025; 85027; 87040; 87077; 87086; 87186; 87636; 93005; 93306; 93880; 93970; 96361; 96365; 96366; 96375; 99285

== ENCOUNTER 2023-01-09 15:06 | Inpatient (IN) | payer MEDICAID ==
[2023-01-09] MEDS ORDERED: MORPHINE SULFATE 4 MG/ML SYRINGE IV PRN (15:09)
[2023-01-09] MEDS ORDERED: ACETAMINOPHEN SUPPOSITORY 650 MG SUPP RECTAL PRN (15:09)
[2023-01-09] MEDS ORDERED: ATROPINE OPHTH SOLN 1% 5ML BTL SUBLINGUAL PRN (15:09)
[2023-01-09] MEDS ORDERED: LORazepam 2 MG/ML INJ IV PRN (15:09)
[2023-01-09] MEDS ORDERED: DRY MOUTH SPRAY 44.3 SPRAY/44.3 ML SPRAY MUCOUS MEM PRN (15:09)
[2023-01-09] MEDS ORDERED: ONDANSETRON 4 MG/2 ML VIAL IVP PRN (15:09)
[2023-01-09] MEDS ORDERED: GLYCOPYRROLATE 0.2 MG/ML 2 ML VIAL IVP PRN (15:09)
[2023-01-09] MEDS ORDERED: MORPHINE SULFATE (100 MG/2 ML) 100 MG in SODIUM CHLORIDE 0.9% 100 ML IV SCH (15:15)
[2023-01-09] MEDS ORDERED: SCOPOLAMINE 1 MG/72 HR PATCH TRANSDERM SCH (15:15)
--- NOTE | 2023-01-10 09:56 | P.DS ---
Providers Date of admission: 01/09/23 15:46 Expected date of discharge: 01/09/23 (Patient ) Attending physician: Juan Douglas Primary care physician: Will Chapman MD Hospital Course: Presenting complaint: Short of breath Hospital course: Patient admitted to [facility]/inpatient hospice. [facility] hospice. Placed on comfort measures. Patient late in the day Cause of : Acute stroke Disposition: Patient Plan - Discharge Summary New Discharge Prescriptions: No Action lisinopriL [Zestril] 10 mg PO DAILY tab Aspirin EC [Ecotrin Low Dose] 81 mg PO DAILY Baclofen 10 mg PO TID DULoxetine HCL [Cymbalta] 120 mg PO DAILY HYDROcodone/APAP 10-325MG [[place] 10-325] 2 tab PO Q6H PRN PRN Reason: Pain Potassium Chloride [Klor-Con M20] 20 meq PO DAILY Furosemide [Lasix] 80 mg PO DAILY Metoprolol Tartrate [Lopressor] 50 mg PO BID tiZANidine [Zanaflex] 2 mg PO Q8HR PRN PRN Reason: Muscle Spasm Discharge Medication List lisinopriL [Zestril] 10 mg PO DAILY tab 11/26/18 [Rx] Aspirin EC [Ecotrin Low Dose] 81 mg PO DAILY 01/07/20 [History] Baclofen 10 mg PO TID 01/07/20 [History] DULoxetine HCL [Cymbalta] 120 mg PO DAILY 12/30/22 [History] Furosemide [Lasix] 80 mg PO DAILY 12/30/22 [History] HYDROcodone/APAP 10-325MG [[place] 10-325] 2 tab PO Q6H PRN 12/30/22 [History] Metoprolol Tartrate [Lopressor] 50 mg PO BID 12/30/22 [History] Potassium Chloride [Klor-Con M20] 20 meq PO DAILY 12/30/22 [History] tiZANidine [Zanaflex] 2 mg PO Q8HR PRN 12/30/22 [History] Discharge Disposition: - Preliminary Cause of Preliminary Cause of : Stroke
== END 2023-01-09 23:11 | disposition expired | DRG 951 ==
LOC: 5NMEDONC 15:46
PROVIDERS: ADMIT Hospitalist; ATTEND Hospitalist
DX: Z51.5 Encounter for palliative care (principal); I63.9 Cerebral infarction, unspecified; J15.6 Pneumonia due to other Gram-negative bacteria; N17.9 Acute kidney failure, unspecified; I13.0 Hypertensive heart and chronic kidney disease with heart failure and stage 1 through stage 4 chronic kidney disease, or unspecified chronic kidney disease; E87.20 Acidosis, unspecified; I87.2 Venous insufficiency (chronic) (peripheral); R07.89 Other chest pain; G47.33 Obstructive sleep apnea (adult) (pediatric); E86.0 Dehydration; E78.5 Hyperlipidemia, unspecified; N18.9 Chronic kidney disease, unspecified; I50.9 Heart failure, unspecified; G89.29 Other chronic pain; M62.838 Other muscle spasm; F41.9 Anxiety disorder, unspecified; F32.A Depression, unspecified; Z87.891 Personal history of nicotine dependence; Z86.16 Personal history of COVID-19; Z86.14 Personal history of Methicillin resistant Staphylococcus aureus infection; Z90.49 Acquired absence of other specified parts of digestive tract; Z87.19 Personal history of other diseases of the digestive system